=== PATIENT | male | born 1975 | race Caucasian/White ===

== ENCOUNTER 2017-02-23 17:11 | Observation (INO) ==
[2017-02-23 18:01] LABS: Bilirubin,Urine Negative (Negative); Blood,Urine Negative (Negative); Clarity,Urine Clear (Clear); Color,Urine Yellow (Yellow); Glucose,Urine (UA) >=1000 mg/dL (Normal); Ketones,Urine 80 mg/dL (Negative); Leukocyte Esterase,Urine Negative (Negative); Nitrite,Urine Negative (Negative); Protein,Urine Negative (Neg-Trace); Specific Gravity,Urine > 1.030 (1.010-1.025); Urobilinogen,Urine Normal (Normal)
[2017-02-23] MEDS ORDERED: 0.9 % Sodium Chloride 1,000 ML IVC ONE (18:14)
[2017-02-23] MEDS ORDERED: Ondansetron 4 MG/2 ML VIAL IVP ONE (18:15)
--- NOTE | 2017-02-23 18:17 | Emergency Department Note ---
Disposition Clinical Impression: Hyperglycemia Diabetes Qualifiers: 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 type: other specified (including GARRETT) 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 complication status: with unspecified complications 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 terminal worker insulin use: unspecified jail insulin use status Qualified Code(s): E13.8 - Other specified diabetes mellitus with unspecified complications Pneumonia Qualifiers: Pneumonia type: due to unspecified organism Laterality: bilateral Lung location : unspecified part of lung Qualified Code(s): J18.9 - Pneumonia, unspecified organism Disposition: Admitted As Inpatient Condition: Fair Referrals: Unassigned,Provider [Non-Partnered Physician] - Forms: Work/School Release, ED Satisfaction Letter Time of Disposition: 20:57 General Adult HPI - General Chief complaint: ED Abdominal Pain Stated complaint: CP,Congestion Time Seen by Provider: 02/23/17 18:08 Source: patient Mode of arrival: ambulatory Limitations: no limitations Nursing Notes Reviewed: Yes Vital Signs Reviewed: Yes - History of Present Illness HPI Narrative: 42-year-old who comes in complaining of nausea vomiting for the last several days, chest pain that began last p.m. Patient states that he has gallbladder problems she's been seen 3 times for that and states that he is in the process of being referred to get it taken care of. He developed substernal chest pain last night which has been intermittent. Patient is a diabetic says his sugars have been running very high today on arrival here he is 576. He not able to keep anything down. Is also had persistent diarrhea since the gallbladder issues developed. Location: chest, abdomen Radiation: non-radiation Pain Scale: 9 Quality: aching Consistency: constant Improves with: nothing Worsens with: nothing - Related Data Previous Rx's Medication Instructions Recorded Albuterol Sulfate [Albuterol 2 puff IH Q6HR PRN #1 hfa.aer.ad 06/06/16 Inhaler] Fluticasone Propionate Nasal 50 mcg NS BID PRN #1 bottle 06/06/16 [Flonase] Pseudoephedrine [Sudafed] 60 mg PO Q4HR PRN 14 Days 06/06/16 Azithromycin [Azithromycin 6-Tab 250 mg PO DAILY #6 tab 08/23/16 Pack] Promethazine [Phenergan] 25 mg PO Q6-8H PRN #9 tablet 08/23/16 Promethazine/Dextromethorphan 5 ml PO Q4H PRN #120 ml 08/23/16 [Promethazine-Dm Syrup] Ondansetron ODT [Zofran ODT] 4 mg SL Q6HR PRN #30 tab.rapdis 01/11/17 Dicyclomine [Bentyl] 10 mg PO QID PRN #60 capsule 01/25/17 Allergies Allergy/AdvReac Type Severity Reaction Status Date / Time metformin Allergy Rash Verified 02/23/17 17:24 Penicillins Allergy Anaphylaxis Verified 02/23/17 17:24 All systems ED: reviewed and negative except as stated. Constitutional: Denies: fever, chills, weakness, weight change Eyes: Denies: eye pain, eye discharge, vision change ENT ED: Denies: ear pain, throat pain, dental pain, hearing loss, epistaxis, congestion, dysphagia Cardiovascular: Denies: chest pain, palpitations, dyspnea on exertion, edema, syncope Respiratory: Denies: cough, dyspnea, wheezes, hemoptysis, stridor Gastrointestinal: Reports: abdominal pain. Denies: nausea, vomiting, diarrhea, constipation, hematemesis, melena, hematochezia Genitourinary: Denies: urgency, dysuria, frequency, hematuria Musculoskeletal: Denies: back pain, neck pain, arthralgia, myalgia Integumentary: Denies: rash, abrasion, lesions Neurological: Denies: headache, weakness, numbness, paresthesias, confusion, abnormal gait, vertigo Psychiatric: Denies: anxiety, depression, suicidal thoughts, homicidal thoughts , auditory hallucinations, visual hallucinations Endocrine: Denies: fatigue Hematological/Lymphatic: Denies: easy bleeding, easy bruising Allergic/Immunologic: Denies: facial swelling, urticaria Past Medical History - Past Medical History Medical history: Reports: diabetes Psychiatric history: Reports: no psych history - Social History Smoking Status: Current every day smoker Smokeless Tobacco Status: No Alcohol use: Reports: none Drug use: Reports: none Physical Exam - General General appearance: alert, in no apparent distress - Head Head exam: atraumatic, normocephalic, normal inspection - Eye Eye exam: Present: normal appearance, PERRL, EOMI - ENT ENT exam: normal exam, normal oropharynx, mucous membranes moist - Neck Neck exam: Present: normal inspection, full ROM, trachea midline - Chest Chest inspection: Present: normal inspection, symmetric chest wall rise - Respiratory Respiratory exam: Present: normal lung sounds bilaterally - Cardiovascular Cardiovascular exam: Present: regular rate, normal rhythm, normal heart sounds - Abdominal Exam Abdominal exam: Present: soft, tenderness. Absent: guarding, rebound, Huang's sign Abdominal tenderness: Present: RUQ - Extremities Exam Extremities exam: Present: normal inspection, full ROM. Absent: tenderness, pedal edema - Expanded Lower Extremity Exam Neurovascular/Tendon exam: Absent: motor deficit, sensory deficit, tendon deficit Gait: observed and normal - Back Exam Back exam: Present: normal inspection, full ROM. Absent: tenderness - Neurological Exam Neurological exam: Present: alert, oriented X3 - Psychiatric Psychiatric exam: Present: normal affect, normal mood - Skin Skin exam: Present: warm, dry, intact, normal color Course - Reevaluation(s) Reevaluation #1: 42-year-old comes in with chest pain and elevated blood glucose. Cardiac workup is negative however he does have what appears to be pneumonia on the CT scan. His glucose is elevated and was put he was placed on an insulin drip. Time: 20:33 - Consultations Consultation #1: Discussed with , admit. Time: 20:56 Vital Signs Temperature 97.6 F 02/23/17 17:16 Pulse Rate 94 02/23/17 17:16 Respiratory Rate 16 02/23/17 17:16 Blood Pressure 116/71 02/23/17 17:16 O2 Sat by Pulse Oximetry 99 02/23/17 17:16 Temperature 97.6 F 02/23/17 17:16 Pulse Rate 84 02/23/17 20:35 Respiratory Rate 18 02/23/17 20:35 Blood Pressure 120/74 02/23/17 20:35 O2 Sat by Pulse Oximetry 99 02/23/17 20:35 Oxygen Delivery Oxygen Delivery Room Air Medical Decision Making - Lab Data Lab results reviewed: Yes I reviewed the patient's lab results. Result diagrams: 02/23/17 18:10 02/23/17 18:10 Lab Results 02/23/17 02/23/17 02/23/17 Range/Units 17:22 17:43 18:10 WBC 6.5 (4.3-11.1) K/mcL RBC 4.23 (4.19-5.50) M/mcL Hgb 12.9 (12.9-16.9) g/dL Hct 37.6 (37.5-50.1) % MCV 88.9 (83.0-100.0) fL MCH 30.5 (28.0-33.3) pg MCHC 34.3 (31.6-35.5) g/dL RDW 11.7 (11.5-14.5) % Plt Count 202 (140-400) K/mcL MPV 10.7 (9.4-12.4) fL Immature Gran % 0.5 (0-4) % Seg Neutrophils % 70.7 % Lymphocytes % 19.4 % Monocytes % 7.9 % Eosinophils % 0.9 % Basophils % 0.6 % Neutrophils # 4.6 (1.6-8.9) K/mcL Lymphocytes # 1.3 (0.6-4.6) K/mcL Monocytes # 0.5 (0.0-1.3) K/mcL Eosinophils # 0.1 (0.0-0.6) K/mcL Basophils # 0.0 (0.0-0.2) K/mcL Sodium (136-145) mEq/L Potassium (3.5-4.5) mEq/L Chloride (98-109) mEq/L Carbon Dioxide (19-29) mEq/L BUN (8-26) mg/dL Creatinine (0.72-1.25) mg/dL Est GFR ( Amer) (> 60) Est GFR (Non-Af Amer) (> 60) BUN/Creatinine Ratio (6-26) Glucose (70-99) mg/dL POC Glucose 593 H* (58-89) Calculated Osmolality (280-300) Calcium (8.6-10.8) mg/dL Total Bilirubin (0.2-1.2) mg/dL Direct Bilirubin (0.0-0.5) mg/dL Indirect Bilirubin (0.0-1.2) mg/dL AST (5-34) Units/L ALT (0-55) Units/L Alkaline Phosphatase (38-126) Units/L Troponin I (0-0.03) ng/mL Serum Total Protein (6.0-8.3) g/dL Albumin (3.5-5.0) g/dL Globulin (2.4-3.5) g/dL Albumin/Globulin Ratio (1.1-2.2) Amylase (25-125) Units/L Lipase (8-78) Units/L Beta-Hydroxybutyric Acd (0.02-0.27) mmol/L Urine Color Yellow (Yellow) Urine Clarity Clear (Clear) Urine pH 6.0 (5.0-8.0) pH Units Ur Specific D Hanis > 1.030 H (1.010-1.025) Urine Protein Negative (Neg-Trace) mg/dL Urine Glucose (UA) >=1000 H (Normal) mg/dL Urine Ketones 80 H (Negative) mg/dL Urine Blood Negative (Negative) Urine Nitrite Negative (Negative) Urine Bilirubin Negative (Negative) Urine Urobilinogen Normal (Normal) mg/dL Ur Leukocyte Esterase Negative (Negative) Ur Culture Indicated? NO (NO) 02/23/17 02/23/17 02/23/17 Range/Units 18:10 18:10 20:45 WBC (4.3-11.1) K/mcL RBC (4.19-5.50) M/mcL Hgb (12.9-16.9) g/dL Hct (37.5-50.1) % MCV (83.0-100.0) fL MCH (28.0-33.3) pg MCHC (31.6-35.5) g/dL RDW (11.5-14.5) % Plt Count (140-400) K/mcL MPV (9.4-12.4) fL Immature Gran % (0-4) % Seg Neutrophils % % Lymphocytes % % Monocytes % % Eosinophils % % Basophils % % Neutrophils # (1.6-8.9) K/mcL Lymphocytes # (0.6-4.6) K/mcL Monocytes # (0.0-1.3) K/mcL Eosinophils # (0.0-0.6) K/mcL Basophils # (0.0-0.2) K/mcL Sodium 128 L (136-145) mEq/L Potassium 4.5 (3.5-4.5) mEq/L Chloride 91 L (98-109) mEq/L Carbon Dioxide 18 L (19-29) mEq/L BUN 11 (8-26) mg/dL Creatinine 1.64 H (0.72-1.25) mg/dL Est GFR ( Amer) 56 L (> 60) Est GFR (Non-Af Amer) 47 L (> 60) BUN/Creatinine Ratio 7 (6-26) Glucose 702 H* (70-99) mg/dL POC Glucose 432 H* (58-89) Calculated Osmolality 299 (280-300) Calcium 9.0 (8.6-10.8) mg/dL Total Bilirubin 0.6 (0.2-1.2) mg/dL Direct Bilirubin 0.3 (0.0-0.5) mg/dL Indirect Bilirubin 0.3 (0.0-1.2) mg/dL AST 11 (5-34) Units/L ALT 13 (0-55) Units/L Alkaline Phosphatase 103 (38-126) Units/L Troponin I 0.01 (0-0.03) ng/mL Serum Total Protein 6.6 (6.0-8.3) g/dL Albumin 3.2 L (3.5-5.0) g/dL Globulin 3.4 (2.4-3.5) g/dL Albumin/Globulin Ratio 0.9 L (1.1-2.2) Amylase 42 (25-125) Units/L Lipase 27 (8-78) Units/L Beta-Hydroxybutyric Acd > 2.00 H (0.02-0.27) mmol/L Urine Color (Yellow) Urine Clarity (Clear) Urine pH (5.0-8.0) pH Units Ur Specific D Hanis (1.010-1.025) Urine Protein (Neg-Trace) mg/dL Urine Glucose (UA) (Normal) mg/dL Urine Ketones (Negative) mg/dL Urine Blood (Negative) Urine Nitrite (Negative) Urine Bilirubin (Negative) Urine Urobilinogen (Normal) mg/dL Ur Leukocyte Esterase (Negative) Ur Culture Indicated? (NO) 02/23/17 Range/Units 20:51 WBC (4.3-11.1) K/mcL RBC (4.19-5.50) M/mcL Hgb (12.9-16.9) g/dL Hct (37.5-50.1) % MCV (83.0-100.0) fL MCH (28.0-33.3) pg MCHC (31.6-35.5) g/dL RDW (11.5-14.5) % Plt Count (140-400) K/mcL MPV (9.4-12.4) fL Immature Gran % (0-4) % Seg Neutrophils % % Lymphocytes % % Monocytes % % Eosinophils % % Basophils % % Neutrophils # (1.6-8.9) K/mcL Lymphocytes # (0.6-4.6) K/mcL Monocytes # (0.0-1.3) K/mcL Eosinophils # (0.0-0.6) K/mcL Basophils # (0.0-0.2) K/mcL Sodium (136-145) mEq/L Potassium (3.5-4.5) mEq/L Chloride (98-109) mEq/L Carbon Dioxide (19-29) mEq/L BUN (8-26) mg/dL Creatinine (0.72-1.25) mg/dL Est GFR ( Amer) (> 60) Est GFR (Non-Af Amer) (> 60) BUN/Creatinine Ratio (6-26) Glucose (70-99) mg/dL POC Glucose 429 H* (58-89) Calculated Osmolality (280-300) Calcium (8.6-10.8) mg/dL Total Bilirubin (0.2-1.2) mg/dL Direct Bilirubin (0.0-0.5) mg/dL Indirect Bilirubin (0.0-1.2) mg/dL AST (5-34) Units/L ALT (0-55) Units/L Alkaline Phosphatase (38-126) Units/L Troponin I (0-0.03) ng/mL Serum Total Protein (6.0-8.3) g/dL Albumin (3.5-5.0) g/dL Globulin (2.4-3.5) g/dL Albumin/Globulin Ratio (1.1-2.2) Amylase (25-125) Units/L Lipase (8-78) Units/L Beta-Hydroxybutyric Acd (0.02-0.27) mmol/L Urine Color (Yellow) Urine Clarity (Clear) Urine pH (5.0-8.0) pH Units Ur Specific D Hanis (1.010-1.025) Urine Protein (Neg-Trace) mg/dL Urine Glucose (UA) (Normal) mg/dL Urine Ketones (Negative) mg/dL Urine Blood (Negative) Urine Nitrite (Negative) Urine Bilirubin (Negative) Urine Urobilinogen (Normal) mg/dL Ur Leukocyte Esterase (Negative) Ur Culture Indicated? (NO) - Radiology Data Radiology results reviewed: Yes I reviewed the patient's radiology results. Chest X-Ray 02/23/17 17:24 IMPRESSION: Faint right upper lobe nodules new from prior examination. Consider follow-up chest CT imaging. D/ : / 02/23/2017 17:47:39 Keith Altman MD / sherwin Interpreting Provider: Keith Altman MD Chest X-Ray 02/23/17 17:24 IMPRESSION: Faint right upper lobe nodules new from prior examination. Consider follow-up chest CT imaging. D/ / 02/23/2017 17:47:39 Keith Altman MD / sherwin Interpreting Provider: Keith Altman MD Chest CT 02/23/17 18:50 IMPRESSION: Scattered pulmonary opacities in both lungs suspicious for mild pneumonia. No suspicious pulmonary mass identified. D/ / 02/23/2017 20:25:35 Sherman Wilhelm MD / Fang Enriquez Interpreting Provider: Sherman Wilhelm MD - EKG Data EKG #1 EKG attestation: Yes I reviewed and interpreted this EKG. EKG shows normal: sinus rhythm Rate: normal Rhythm: NSR Interpretation: no acute changes
[2017-02-23 18:36] LABS: Basophils % 0.6 %; Eosinophils # 0.1 K/mcL (0.0-0.6); Eosinophils % 0.9 %; Hematocrit 37.6 % (37.5-50.1); Hemoglobin 12.9 g/dL (12.9-16.9); Immature Granulocytes % 0.5 % (0-4); Lymphocytes # 1.3 K/mcL (0.6-4.6); Lymphocytes % 19.4 %; Mean Corpuscular HGB Conc 34.3 g/dL (31.6-35.5); Mean Corpuscular Hemoglobin 30.5 pg (28.0-33.3); Mean Corpuscular Volume 88.9 fL (83.0-100.0); Mean Platelet Volume 10.7 fL (9.4-12.4); Monocytes # 0.5 K/mcL (0.0-1.3); Monocytes % 7.9 %; Neutrophils # 4.6 K/mcL (1.6-8.9); Platelet Count 202 K/mcL (140-400); Red Blood Count 4.23 M/mcL (4.19-5.50); Red Cell Distribution Width 11.7 % (11.5-14.5); Segmented Neutrophils % 70.7 %
[2017-02-23] MEDS ORDERED: *HR* HYDROmorphone (PF) 1 MG/ML SYRINGE IVP ONE ×2 (18:46→20:24)
[2017-02-23 18:52] LABS: Alanine Aminotransferase 13 Units/L (0-55); Albumin 3.2 g/dL (3.5-5.0); Albumin/Globulin Ratio 0.9 (1.1-2.2); Alkaline Phosphatase 103 Units/L (38-126); Amylase 42 Units/L (25-125); Aspartate Amino Transferase 11 Units/L (5-34); BUN/Creatinine Ratio 7 (6-26); Bilirubin,Direct 0.3 mg/dL (0.0-0.5); Bilirubin,Indirect 0.3 mg/dL (0.0-1.2); Bilirubin,Total 0.6 mg/dL (0.2-1.2); Blood Urea Nitrogen 11 mg/dL (8-26); Carbon Dioxide 18 mEq/L (19-29); Chloride 91 mEq/L (98-109); Globulin 3.4 g/dL (2.4-3.5); Lipase 27 Units/L (8-78); Osmolality,Calculated 299 (280-300); Potassium 4.5 mEq/L (3.5-4.5); Sodium 128 mEq/L (136-145); Total Protein 6.6 g/dL (6.0-8.3); eGFR For African Americans 56 (> 60); eGFR For Non-African Americans 47 (> 60)
[2017-02-23 18:57] LABS: Glucose 702 mg/dL (70-99)
[2017-02-23] MEDS ORDERED: *HR* Dextrose 50 % in Water (Syg) 50 ML SYRINGE IVP PRN (19:09)
[2017-02-23] MEDS ORDERED: Insulin Human Regular 100 UNIT in 0.9 % Sodium Chloride 100 ML IVC SCH (19:15)
[2017-02-23 19:20] LABS: Beta-Hydroxybutyric Acid > 2.00 mmol/L (0.02-0.27)
[2017-02-23] MEDS ORDERED: Levofloxacin 750 MG/150 ML 750 MG/150 ML BAG IVPB ONE (20:34)
[2017-02-23] MEDS ORDERED: 0.9 % Sodium Chloride 1,000 ML ONE (21:04)
[2017-02-23] MEDS ORDERED: Naloxone 0.4 MG/ML INJ IVP PRN (21:13)
[2017-02-23] MEDS ORDERED: Acetaminophen 325 MG TABLET PO PRN (21:29)
[2017-02-23] MEDS ORDERED: Ondansetron 4 MG/2 ML VIAL IVP PRN (21:29)
[2017-02-23] MEDS ORDERED: Pantoprazole 40 MG VIAL IVP SCH (21:30)
--- NOTE | 2017-02-23 21:51 | Internal Med History&Physical ---
Date of Encounter: 02/23/17 Time of Encounter: 21:45 Assessment and Plan (1) Hyperglycemia Current visit: Yes Status: Acute sugar noted to be at 700s. mild anion gap, ketones high in blood, mild DKA started on insulin drip and IV fluids will order vbg, chem 7 q4h for now. keep NPO until anion gap has closed. will bridge with levemir once anion gap closes (2) Pneumonia Current visit: Yes Status: Acute CT chest shows b/l mild pneumonia, no focal consolidation. will send sputum for gram stain and culture urine for strep antigen and legionella given multiple failed OP treatments, will start ceftriaxone and levoflox. can dc levoflox once legionella is negative no leucocytosis, no risk factors for MRSA. Qualifiers: Pneumonia type: due to unspecified organism Laterality: bilateral Lung location: unspecified part of lung Qualified Code(s): J18.9 - Pneumonia, unspecified organism (3) Chest pain Current visit: Yes Status: Acute sounds pleuritic in nature. probably from the pnuemonia, will add analgesics. Qualifiers: Chest pain type: chest pain on breathing Qualified Code(s): R07.1 - Chest pain on breathing (4) Diarrhea Current visit: Yes Status: Acute reports chronic diarrhea. will check for c.diff and GI panel. Qualifiers: Diarrhea type: unspecified type Qualified Code(s): R19.7 - Diarrhea, unspecified Internal Medicine - H&P: HPI Chief complaint: chest pain Admitted From: Home Plans for Post Hospital Care: Home History of present illness: Mr. Barron is a 42 year old male with PMH of type 1 DM on insulin now coming with chest pain for the last 2-3 days. He is accompanied by his and as per her he has been sick since sep this yr. he has been having cough since sep, has been treated multiple times for bronchitis/URTI outpatient with oral antibiotics. he also has intermittent diarrhea since the same duration. he has nasuea and vomtiing with generalized abdominal pain, had a CT abdomen last week that showed no gallstones or signs of acute cholecystitis. he reports more of chest pain today than abdominal pain, he denies any fever, has cough with productive sputum. Patient is a diabetic says his sugars have been running very high today on arrival here he is 576. He not able to keep anything down. he is a chronic smoker , non alcoholic. Past Med Surg Social Fam HX - Past Medical History Medical history: diabetes Psychiatric history: no psych history - Social History Smoking Status: Current every day smoker Smokeless Tobacco Status: No Alcohol use: none Drug use: none Internal Medicine - H&P: Meds Albuterol Sulfate [Albuterol Inhaler] 2 puff IH Q4H PRN 02/23/17 [History] Escitalopram [Lexapro] 20 mg PO DAILY 02/23/17 [History] Gabapentin [Neurontin] 600 mg PO TID 02/23/17 [History] Glucagon,Human Recombinant [Glucagon Emergency Kit] 1 mg IJ ONCE PRN 02/23/17 [ History] Insulin Glargine,Hum.rec.anlog [Lantus Solostar] 20 unit SQ QAM 02/23/17 [ History] Insulin LISPRO [Humalog Kwikpen U-100] 0 unit SQ TIDWM 02/23/17 [History] Ranitidine HCl [Zantac] 150 mg PO HS 02/23/17 [History] Allergies metformin Allergy (Verified 02/23/17 17:24) Rash Penicillins Allergy (Verified 02/23/17 17:24) Anaphylaxis All Systems PM: A 10-system review of systems was performed and is negative for pertinent findings except as documented above in the HPI. - Constitutional Constitutional: as per HPI - EENT Eyes: as per HPI Ears: as per HPI Nose, mouth and throat: as per HPI - Breasts Breasts: as per HPI - Cardiovascular Cardiovascular ROS IM: chest pain - Respiratory Respiratory: cough, pain with cough - Gastrointestinal Gastrointestinal: diarrhea - Genitourinary Genitourinary ROS male: as per HPI - Musculoskeletal Musculoskeletal ROS IM: no numbness, no tingling - Constitutional Vitals: Temp Pulse Resp BP Pulse Ox 97.6 F 84 18 120/74 99 02/23/17 17:16 02/23/17 20:35 02/23/17 20:35 02/23/17 20:35 02/23/17 20:35 General appearance: Present: mild distress, A&O X 3 Exam: neck- supple chest- b/l clear,no wheezing or creptns CVS-s1 and s2, no mr//g abd-soft, non tender, bs are present ext- no edeam loaf counter- alert and awake, no focal defecits Internal Med - H&P Results - Labs CBC & Chem 7: 02/23/17 18:10 02/23/17 18:10
[2017-02-23] MEDS: 0.9 % Sodium Chloride 1,000 ML IVC SCH (22:44)
[2017-02-23] MEDS: *HR* Morphine 2 MG/ML SYRINGE IVP PRN (22:44)
[2017-02-23 22:48] LABS: VBG PH 7.39 pH Units (7.32-7.42)
[2017-02-23 23:00] LABS: BUN/Creatinine Ratio 9 (6-26); Blood Urea Nitrogen 10 mg/dL (8-26); Calcium 8.9 mg/dL (8.6-10.8); Carbon Dioxide 25 mEq/L (19-29); Chloride 101 mEq/L (98-109); Glucose 314 mg/dL (70-99); Osmolality,Calculated 289 (280-300); Potassium 3.7 mEq/L (3.5-4.5); Sodium 134 mEq/L (136-145); eGFR For African Americans > 60 (> 60); eGFR For Non-African Americans > 60 (> 60)
[2017-02-24 00:23] LABS: Adenovirus Not Detected (Not Detect); Bordetella Pertussis Not Detected (Not Detect); Chlamydophila pneumoniae Not Detected (Not Detect); Coronavirus 229E Not Detected (Not Detect); Coronavirus HKU1 Not Detected (Not Detect); Coronavirus NL63 Not Detected (Not Detect); Coronavirus OC43 Not Detected (Not Detect); Human Metapneumovirus Not Detected (Not Detect); Human Rhinovirus/Enterovirus Not Detected (Not Detect); Influenza A Subtype 2009 H1 Not Detected (Not Detect); Influenza A Untypeable Not Detected (Not Detect); Influenza B Not Detected (Not Detect); Mycoplasma pneumoniae Not Detected (Not Detect); Parainfluenza Virus 1 Not Detected (Not Detect); Parainfluenza Virus 2 Not Detected (Not Detect); Parainfluenza Virus 3 Not Detected (Not Detect); Parainfluenza Virus 4 Not Detected (Not Detect); Respiratory Syncytial Virus Not Detected (Not Detect)
[2017-02-24] MEDS: *HR* HYDROcodone/Acet 5/325 mg TABLET PO PRN ×4 (00:53→21:13)
[2017-02-24] MEDS: Nicotine 14 MG PATCH.TD24 TD SCH ×2 (00:55→08:06)
[2017-02-24] MEDS ORDERED: D5% in Water 1,000 ML IVC PRN (01:58)
[2017-02-24] MEDS ORDERED: Dextrose Gel 15 GM PO PRN ×2 (01:58)
[2017-02-24] MEDS: *HR* Morphine 2 MG/ML SYRINGE IVP PRN ×2 (02:42→06:40)
[2017-02-24] MEDS: Insulin DETEMIR 100 UNIT/ML X5UNITS SQ SCH ×2 (03:17→22:57)
[2017-02-24 05:09] LABS: Basophils % 0.4 %; Eosinophils # 0.1 K/mcL (0.0-0.6); Eosinophils % 1.9 %; Hematocrit 31.6 % (37.5-50.1); Hemoglobin 11.2 g/dL (12.9-16.9); Immature Granulocytes % 0.6 % (0-4); Lymphocytes # 1.8 K/mcL (0.6-4.6); Lymphocytes % 24.7 %; Mean Corpuscular HGB Conc 35.4 g/dL (31.6-35.5); Mean Corpuscular Hemoglobin 31.5 pg (28.0-33.3); Mean Platelet Volume 11.1 fL (9.4-12.4); Monocytes # 0.6 K/mcL (0.0-1.3); Monocytes % 7.8 %; Neutrophils # 4.7 K/mcL (1.6-8.9); Platelet Count 195 K/mcL (140-400); Red Blood Count 3.55 M/mcL (4.19-5.50); Red Cell Distribution Width 11.6 % (11.5-14.5); Segmented Neutrophils % 64.6 %
[2017-02-24 05:28] LABS: BUN/Creatinine Ratio 14 (6-26); Blood Urea Nitrogen 11 mg/dL (8-26); Calcium 8.2 mg/dL (8.6-10.8); Carbon Dioxide 24 mEq/L (19-29); Chloride 104 mEq/L (98-109); Chol/HDL Ratio 4.4 (0-4.9); Cholesterol 137 mg/dL (< 200); Glucose 138 mg/dL (70-99); HDL Cholesterol 31 mg/dL (40-59); LDL Cholesterol,Calculated 88 mg/dL (0-99); Magnesium 1.4 mg/dL (1.6-2.6); Osmolality,Calculated 282 (280-300); Phosphorous 3.1 mg/dL (2.3-4.7); Potassium 3.5 mEq/L (3.5-4.5); Sodium 135 mEq/L (136-145); Triglycerides 92 mg/dL (< 150); eGFR For African Americans > 60 (> 60); eGFR For Non-African Americans > 60 (> 60)
[2017-02-24] MEDS: *HR* Heparin 5,000 UNIT/ML VIAL SQ SCH ×2 (05:52→17:09)
[2017-02-24] MEDS: Famotidine 20 MG TABLET PO SCH ×2 (08:06→17:09)
[2017-02-24] MEDS: Insulin LISPRO 300 UNITS/3 ML VIAL SQ SCH ×7 (08:07→22:51)
[2017-02-24] MEDS: 0.9 % Sodium Chloride 1,000 ML IVC SCH (08:26)
[2017-02-24] MEDS ORDERED: Magnesium Sulfate 2 GM in D5% in Water 100 ML IVPB ONE (08:42)
[2017-02-24] MEDS ORDERED: *HR* OxyCODONE/APAP 5/325 TABLET PO PRN (08:43)
[2017-02-24] MEDS ORDERED: 0.9 % Sodium Chloride 1,000 ML IVC SCH (08:47)
[2017-02-24] MEDS: *HR* OxyCODONE/APAP 5/325 TABLET PO PRN ×3 (10:38→22:52)
--- NOTE | 2017-02-24 15:05 | Internal Med Progress Note ---
<Jaycob Galindo - Last Filed: 02/24/17 15:02> Date of Encounter: 02/24/17 Time of Encounter: 15:02 - Assessment and plan (1) Pneumonia Current Visit: Yes Status: Acute Assessment and plan: - History reports a productive cough since September - Has completed outpatient prescriptions of azithromycin, clarithromycin, Levaquin - Patient was started on Rocephin in the emergency department, we will continue. - Patient has an allergy to penicillins, however is currently tolerating Rocephin. Monitor closely for allergic reaction - CT chest showed scattered opacity suspicious of pneumonia - Patient is afebrile, WBC is 6.5 - Urine urology was positive for strep pneumo antigen Qualifiers: Pneumonia type: due to unspecified organism Laterality: bilateral Lung location: unspecified part of lung Qualified Code(s): J18.9 - Pneumonia, unspecified organism (2) Hyperglycemia Current Visit: Yes Status: Acute Assessment and plan: On admission to emergency department patient's blood sugar was 702 - Beta hydroxybutyrate acid emergency department was greater than 2.00 - Hyperglycemia has resolved with insulin and fluids, most recent blood sugar was 138 - Patient is currently asymptomatic - Patient's most recent hemoglobin A1c was 9.3 in October - We will continue to monitor (3) Chest pain Current Visit: Yes Status: Acute Assessment and plan: - EKG in emergency room showed normal sinus rhythm - Likely costochondritis secondary to coughing - Pain was reproducible on upon exam - Troponin in the emergency department was 0.01 - We will continue pain control and continue to monitor Qualifiers: Chest pain type: chest pain on breathing Qualified Code(s): R07.1 - Chest pain on breathing (4) Hypomagnesemia Current Visit: Yes Status: Acute Assessment and plan: - Mg in emergency department was 1.4 - Patient received 2 mg IV replacement this morning - Continue to monitor and replenish as necessary (5) Diarrhea Current Visit: Yes Status: Acute Assessment and plan: - Patient reports loose stools duration of multiple weeks - Patient was placed on c. diff protocol and orders were collected for stool sample - Patient not currently complaining of diarrhea - Continue to monitor and treat as necessary Qualifiers: Diarrhea type: unspecified type Qualified Code(s): R19.7 - Diarrhea, unspecified - Time Spent With Patient 25 - 35 minutes - Subjective Interval history: Patient was seen and examined at this point. He states that he is feeling better, with his nausea and vomiting complaints resolved. He does still complain of chest and back pain which are exacerbated with coughing. He admits to thick green sputum with his cough. He denies fevers and chills. He states that he does his blood sugars about 3 times a day, however he has been having a hard time controlling the blood sugars since his illness. Patient also states that he has been seen multiple times for this cough and urgent care, so far completed courses of azithromycin, clarithromycin, Levaquin - Constitutional Vitals: Temp Pulse Resp BP Pulse Ox 97.9 F 74 18 120/75 99 02/24/17 12:00 02/24/17 12:00 02/24/17 12:00 02/24/17 12:02/24/17 12:00 General appearance: Present: mild distress, A&O X 3 Exam: Gen.: Vitals noted. No acute distress. AAOx3 HEENT: PERRL/EOMI, oropharynx clear, Normocephalic, atraumatic Neck: Supple. No adenopathy. Cardiac: RRR, no murmur, +S1/S2 Pulmonary: Mild rhales diffusely Abdomen: soft, nontender, BS noted, no guarding Back: Nontender throughout. MSK: Reproducible chest pain substernally. ROM intact, no joint swelling noted Extremities: no BLE edema, nontender calf, no cyanosis or clubbing Neuro: A&Ox3, moves all extremities, no focal deficits Psych: Appropriate mood and behavior Internal Medicine: Result - Labs CBC & Chem 7: 02/24/17 03:59 02/24/17 03:59 Labs: Short CBC 02/24/17 Range/Units 03:59 WBC 7.2 (4.3-11.1) K/mcL Hgb 11.2 L D (12.9-16.9) g/dL Hct 31.6 L (37.5-50.1) % Plt Count 195 (140-400) K/mcL Neutrophils # 4.7 (1.6-8.9) K/mcL BMP 02/23/17 02/24/17 22:40 03:59 Sodium 134 L 135 L Potassium 3.7 3.5 Chloride 101 104 Carbon Dioxide 25 24 BUN 10 11 Creatinine 1.15 0.81 Glucose 314 H 138 H Calcium 8.9 8.2 L Consult Discharge Plan - Plan Referrals: NO,PCP [Primary Care Provider] - <Samuel Rosales - Last Filed: 02/24/17 15:41> Date of Encounter: 02/24/17 - Assessment and plan (1) Pneumonia Current Visit: Yes Status: Acute Assessment and plan: On IV abx Qualifiers: Pneumonia type: due to Pneumococcus Laterality: bilateral Lung location: lower lobe of lung Qualified Code(s): J13 - Pneumonia due to Streptococcus pneumoniae (2) Diabetes Current Visit: Yes Status: Acute Qualifiers: 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 type: other specified (including GARRETT) 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 complication status: with ketoacidosis 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 complication detail: without coma 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 termite treater helper insulin use: with group home use Qualified Code(s): E13.10 - Other specified diabetes mellitus with ketoacidosis without coma; Z79.4 - terminal carman (current) use of insulin (3) Diarrhea Current Visit: Yes Status: Acute Qualifiers: Diarrhea type: presumed infectious Qualified Code(s): A09 - Infectious gastroenteritis and colitis, unspecified (4) Hypomagnesemia Current Visit: Yes Status: Acute (5) Chest pain Current Visit: Yes Status: Acute Qualifiers: Chest pain type: chest pain on breathing Qualified Code(s): R07.1 - Chest pain on breathing - Constitutional Vitals: Temp Pulse Resp BP Pulse Ox 97.9 F 74 18 120/75 99 02/24/17 12:00 02/24/17 12:00 02/24/17 12:00 02/24/17 12:00 02/24/17 12:00 Internal Medicine: Result - Labs CBC & Chem 7: 02/24/17 03:59 02/24/17 03:59 Labs: Short CBC 02/24/17 Range/Units 03:59 WBC 7.2 (4.3-11.1) K/mcL Hgb 11.2 L D (12.9-16.9) g/dL Hct 31.6 L (37.5-50.1) % Plt Count 195 (140-400) K/mcL Neutrophils # 4.7 (1.6-8.9) K/mcL BMP 02/23/17 02/24/17 22:40 03:59 Sodium 134 L 135 L Potassium 3.7 3.5 Chloride 101 104 Carbon Dioxide 25 24 BUN 10 11 Creatinine 1.15 0.81 Glucose 314 H 138 H Calcium 8.9 8.2 L - Attending Attestation I examined this patient and my medical decision-making was reviewed with the Resident Physician on 02/24/17. I agree with the documented findings, disposition and treatment plan as described except to the extent set forth below. Mr. Barron is currently in observation due to pneumonia and mild DKA. He is high risk due to potential for worsening sugars, respiratory status and infectious issues. Mr Barron is doing OK at this time. He is very tired. Cough still present. No fever or chills now. Some dyspnea. Still with some loose stools. Exam Alert. Comfortable Heart reg Decreased breath sound Urine strep pneumo positive I/P 1. Acute bilateral pneumococcal pneumonia - tolerating Rocephin despite PCN allergy. 2. DKA - resolved 3. DM Further diagnoses and plan as above.
--- NOTE | 2017-02-24 17:37 | Electrocardiograph Report ---
[address] [address] Test Date: 2017-02-23 Pat Name: Kevon Barron Department: 105 Room: 2A16 Gender: M Trust Manager Assistant: SANIA : [id number] Requested By: Alon Rodriguez Order Number: [id number] Reading MD: Judy Marrero Measurements Intervals [place] Rate: 94 P: 79 [place]: 130 QRS: 78 QRSD: 87 T: 66 QT: 352 QTc: 404 Interpretive Statements SINUS RHYTHM Electronically Signed On 02-24-2017 17:35:53 EDT by Judy Marrero
[2017-02-25] MEDS: *HR* OxyCODONE/APAP 5/325 TABLET PO PRN ×3 (04:28→19:59)
[2017-02-25] MEDS: *HR* Heparin 5,000 UNIT/ML VIAL SQ SCH ×2 (04:28→19:09)
[2017-02-25 06:32] LABS: Hematocrit 33.9 % (37.5-50.1); Hemoglobin 12.1 g/dL (12.9-16.9); Mean Corpuscular HGB Conc 35.7 g/dL (31.6-35.5); Mean Corpuscular Hemoglobin 31.3 pg (28.0-33.3); Mean Corpuscular Volume 87.6 fL (83.0-100.0); Mean Platelet Volume 10.7 fL (9.4-12.4); Platelet Count 190 K/mcL (140-400); Red Blood Count 3.87 M/mcL (4.19-5.50); Red Cell Distribution Width 11.7 % (11.5-14.5)
[2017-02-25 06:40] LABS: BUN/Creatinine Ratio 13 (6-26); Blood Urea Nitrogen 9 mg/dL (8-26); Calcium 8.3 mg/dL (8.6-10.8); Carbon Dioxide 28 mEq/L (19-29); Chloride 100 mEq/L (98-109); Glucose 250 mg/dL (70-99); Magnesium 1.4 mg/dL (1.6-2.6); Osmolality,Calculated 285 (280-300); Potassium 3.4 mEq/L (3.5-4.5); Sodium 134 mEq/L (136-145); eGFR For African Americans > 60 (> 60); eGFR For Non-African Americans > 60 (> 60)
[2017-02-25] MEDS: Famotidine 20 MG TABLET PO SCH ×2 (08:16→16:08)
[2017-02-25] MEDS ORDERED: Magnesium Sulfate 2 GM in D5% in Water 100 ML IVPB ONE (08:30)
[2017-02-25] MEDS: Insulin LISPRO 300 UNITS/3 ML VIAL SQ SCH ×7 (09:05→22:21)
[2017-02-25] MEDS: Nicotine 14 MG PATCH.TD24 TD SCH (09:11)
--- NOTE | 2017-02-25 10:56 | Internal Med Progress Note ---
<Osiel Ji - Last Filed: 02/25/17 14:42> Date of Encounter: 02/25/17 Time of Encounter: 09:30 - Assessment and plan (1) Pneumonia Current Visit: Yes Status: Acute Assessment and plan: - Cough and associated pleuritic chest pain with CT chest showing scattered opacity suspicious of pneumonia. - History of persistent cough since September despite of courses of outpatient abx including azithromycin, clarithromycin, Levaquin. - Streptoccous pneumoniae is likely the causative organism given positive urine antigen. Negative urine antigen for Legionella. - Known allergy to penicillins. - Patient was started on Rocephin in the emergency department and seems to tolerate without any allergic reaction so far. - Continue IV Rocephin (since 02/23) with close monitoring of allergic reaction. Qualifiers: Pneumonia type: due to Pneumococcus Laterality: bilateral Lung location: unspecified part of lung Qualified Code(s): J13 - Pneumonia due to Streptococcus pneumoniae (2) DKA (diabetic ketoacidoses) Current Visit: Yes Status: Acute Assessment and plan: - Blood glucose 702, anion gap 19 and beta hydroxybutyrate acid > 2.00 on admission. - Likely precipitated by pneumonia in the setting of uncontrolled type 1 diabetes (Hgb A1C 9.3% in October 2016). - Resolved as anion gap and blood glucose normalized. Qualifiers: 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 type: type 1 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 complication detail: without coma Qualified Code(s): E10.10 - Type 1 diabetes mellitus with ketoacidosis without coma (3) Uncontrolled diabetes mellitus Current Visit: Yes Status: Chronic Assessment and plan: - With latest Hgb A1C 9.3% in October 2016. - Continue basal and sliding scale insulins with routine monitoring of blood glucose. Qualifiers: 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 type: type 1 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 complication status: with unspecified complications Qualified Code(s): E10.8 - Type 1 diabetes mellitus with unspecified complications; E10.65 - Type 1 diabetes mellitus with hyperglycemia (4) Hypomagnesemia Current Visit: Yes Status: Acute Assessment and plan: - Mg 1.4 on 02/24/17 - Mg today at 1.4 - Continue to monitor and replenish as necessary (5) Diarrhea Current Visit: Yes Status: Acute Assessment and plan: - Patient reports loose stools duration of multiple weeks - Patient was placed on C. diff protocol and orders were collected for stool sample - Patient not currently complaining of diarrhea - Continue to monitor and treat as necessary Qualifiers: Diarrhea type: presumed infectious Qualified Code(s): A09 - Infectious gastroenteritis and colitis, unspecified - Subjective Interval history: No significant event noted. Patient was seen and examined this morning. Patient still has some non-productive cough but does report some improvement on breathing. Patient denies fever, chills, chest pain, abdominal pain, nausea, vomiting, diarrhea. - Constitutional Vitals: Temp Pulse Resp BP Pulse Ox 98.0 F 80 16 123/75 98 02/25/17 08:46 02/25/17 08:46 02/25/17 04:23 02/25/17 08:46 02/25/17 08:46 General appearance: Present: mild distress, A&O X 3 - Head Head exam: Present: atraumatic, normocephalic - Eye Eye exam: Present: EOMI, PERRL, conjuntiva pink, sclera anicteric - Neck Neck exam general surgery: Present: supple, trachea midline. Absent: lymphadenopathy - Respiratory Respiratory exam: Present: CTAB. Absent: accessory muscle use, rales, rhonchi, wheezes - Cardiovascular Cardiovascular exam: Present: RRR, +S1, +S2. Absent: diastolic murmur, gallop, rubs, systolic murmur - GI/Abdominal GI/Abdominal exam: Present: normal bowel sounds, soft, no peritoneal signs. Absent: distended, tenderness - Extremities Exam Extremities exam: Present: warm, radial pulses palpable and symetrical. Absent : calf tenderness, cyanotic, pedal edema - Neurological Exam Neurological exam: Present: CN II-XII intact, oriented X3, no focal deficits. Absent: pronater drift, facial droop, speech deficit - Skin Skin exam: Present: dry, intact, warm Internal Medicine: Result - Labs CBC & Chem 7: 02/25/17 05:41 02/25/17 05:41 Labs: Short CBC 02/25/17 Range/Units 05:41 WBC 4.8 (4.3-11.1) K/mcL Hgb 12.1 L (12.9-16.9) g/dL Hct 33.9 L (37.5-50.1) % Plt Count 190 (140-400) K/mcL BMP 02/25/17 05:41 Sodium 134 L Potassium 3.4 L Chloride 100 Carbon Dioxide 28 BUN 9 Creatinine 0.69 L Glucose 250 H Calcium 8.3 L Consult Discharge Plan - Plan Referrals: NO,PCP [Primary Care Provider] - <Samuel Rosales - Last Filed: 02/25/17 15:56> Date of Encounter: 02/25/17 - Assessment and plan (1) Pneumonia Current Visit: Yes Status: Acute Qualifiers: Pneumonia type: due to Pneumococcus Laterality: bilateral Lung location: lower lobe of lung Qualified Code(s): J13 - Pneumonia due to Streptococcus pneumoniae (2) Diabetes Current Visit: Yes Status: Acute Qualifiers: 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 type: other specified (including GARRETT) 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 complication status: with ketoacidosis 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 complication detail: without coma 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 Qualified Code(s): E13.10 - Other specified diabetes mellitus with ketoacidosis without coma; 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 (3) Diarrhea Current Visit: Yes Status: Resolved Qualifiers: Diarrhea type: presumed infectious Qualified Code(s): A09 - Infectious gastroenteritis and colitis, unspecified (4) Hypomagnesemia Current Visit: Yes Status: Acute (5) Chest pain Current Visit: Yes Status: Acute Qualifiers: Chest pain type: chest pain on breathing Qualified Code(s): R07.1 - Chest pain on breathing - Constitutional Vitals: Temp Pulse Resp BP Pulse Ox 98.4 F 77 17 110/72 98 02/25/17 12:26 02/25/17 12:26 02/25/17 12:26 02/25/17 12:26 02/25/17 12:26 Internal Medicine: Result - Labs CBC & Chem 7: 02/25/17 05:41 02/25/17 05:41 Labs: Short CBC 02/25/17 Range/Units 05:41 WBC 4.8 (4.3-11.1) K/mcL Hgb 12.1 L (12.9-16.9) g/dL Hct 33.9 L (37.5-50.1) % Plt Count 190 (140-400) K/mcL BMP 02/25/17 05:41 Sodium 134 L Potassium 3.4 L Chloride 100 Carbon Dioxide 28 BUN 9 Creatinine 0.69 L Glucose 250 H Calcium 8.3 L - Attending Attestation I examined this patient and my medical decision-making was reviewed with the Resident Physician on 02/25/17. I agree with the documented findings, disposition and treatment plan as described except to the extent set forth below. Mr Barron is currently admitted for acute bilateral pneumonia and mild DKA. He remains moderate to high risk due to potential for worsening respiratory status. Mr. Barron is beginning to feel a little better. Less cough. No fever. No GI symptoms. Less dyspnea at this time. Exam Alert. Comfortable Mucus membranes moist Heart reg Lungs diminished but clear. No edema Urine strep antigen positive I/P 1. Acute pneumoncoccal pneumonia 2. Mild DKA - resolved. Further diagnoses and plan as above.
[2017-02-25] MEDS: *HR* HYDROcodone/Acet 5/325 mg TABLET PO PRN ×2 (16:11→22:44)
[2017-02-25] MEDS: Insulin DETEMIR 100 UNIT/ML X5UNITS SQ SCH (22:21)
[2017-02-26 04:27] LABS: Hemoglobin 12.2 g/dL (12.9-16.9); Mean Corpuscular HGB Conc 34.9 g/dL (31.6-35.5); Mean Corpuscular Hemoglobin 30.9 pg (28.0-33.3); Mean Corpuscular Volume 88.6 fL (83.0-100.0); Mean Platelet Volume 10.9 fL (9.4-12.4); Platelet Count 203 K/mcL (140-400); Red Blood Count 3.95 M/mcL (4.19-5.50); Red Cell Distribution Width 11.7 % (11.5-14.5)
[2017-02-26 04:42] LABS: BUN/Creatinine Ratio 18 (6-26); Blood Urea Nitrogen 13 mg/dL (8-26); Calcium 8.3 mg/dL (8.6-10.8); Carbon Dioxide 31 mEq/L (19-29); Chloride 103 mEq/L (98-109); Glucose 174 mg/dL (70-99); Magnesium 1.7 mg/dL (1.6-2.6); Osmolality,Calculated 290 (280-300); Potassium 3.1 mEq/L (3.5-4.5); Sodium 138 mEq/L (136-145); eGFR For African Americans > 60 (> 60); eGFR For Non-African Americans > 60 (> 60)
[2017-02-26] MEDS: *HR* OxyCODONE/APAP 5/325 TABLET PO PRN (06:09)
[2017-02-26] MEDS: *HR* Heparin 5,000 UNIT/ML VIAL SQ SCH (06:09)
[2017-02-26 08:13] VITALS: BP 131/79
[2017-02-26] MEDS: Famotidine 20 MG TABLET PO SCH (08:29)
[2017-02-26] MEDS: Insulin LISPRO 300 UNITS/3 ML VIAL SQ SCH ×4 (08:34→12:27)
--- NOTE | 2017-02-26 10:13 | Discharge Summary ---
<Osiel Ji - Last Filed: 02/26/17 14:30> Date of Encounter: 02/26/17 Time of Encounter: 09:15 - Discharge Diagnosis (1) Pneumonia Priority: Primary Status: Acute Qualifiers: Pneumonia type: due to Pneumococcus Laterality: bilateral Lung location: unspecified part of lung Qualified Code(s): J13 - Pneumonia due to Streptococcus pneumoniae (2) DKA (diabetic ketoacidoses) Priority: Secondary Status: Acute Qualifiers: 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 type: type 1 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 complication detail: without coma Qualified Code(s): E10.10 - Type 1 diabetes mellitus with ketoacidosis without coma (3) Uncontrolled diabetes mellitus Priority: Secondary Status: Chronic Qualifiers: 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 type: type 1 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 complication status: with unspecified complications Qualified Code(s): E10.8 - Type 1 diabetes mellitus with unspecified complications; E10.65 - Type 1 diabetes mellitus with hyperglycemia (4) Hypomagnesemia Priority: Secondary Status: Acute (5) Diarrhea Priority: Secondary Status: Resolved Qualifiers: Diarrhea type: presumed infectious Qualified Code(s): A09 - Infectious gastroenteritis and colitis, unspecified - Discharge Medications Prescriptions: Cefdinir [Omnicef] 300 mg PO BID #8 capsule Home Medications: Albuterol Sulfate [Albuterol Inhaler] 2 puff IH Q4H PRN 02/23/17 [History] Escitalopram [Lexapro] 20 mg PO DAILY 02/23/17 [History] Gabapentin [Neurontin] 600 mg PO TID 02/23/17 [History] Glucagon,Human Recombinant [Glucagon Emergency Kit] 1 mg IJ ONCE PRN 02/23/17 [ History] Insulin Glargine,Hum.rec.anlog [Lantus Solostar] 20 unit SQ QAM 02/23/17 [ History] Insulin LISPRO [Humalog Kwikpen U-100] 0 unit SQ TIDWM 02/23/17 [History] Ranitidine HCl [Zantac] 150 mg PO HS 02/23/17 [History] Cefdinir [Omnicef] 300 mg PO BID #8 capsule 02/26/17 [Rx] Allergies/Adverse Reactions: Allergies metformin Allergy (Verified 02/23/17 17:24) Rash Penicillins Allergy (Verified 02/23/17 17:24) Anaphylaxis Date of admission: 02/23/17 21:28 Primary care physician: PCP [facility] Discharging clinician: Osiel Ji Anticipated date of discharge: 02/26/17 - Patient Status Disposition: Home, Self-Care Condition: Fair Functional capacity at discharge: independent ambulation Overall status at discharge: patient is progressing back to baseline - Discharge Instructions Instructions: Diabetes Mellitus Type 2 in Adults (DC), Pneumonia (DC) Follow Up With: NO,PCP [Primary Care Provider] - (Follow up within a week.) Additional Instructions: Please take 4 more days of Cefdinir (300 mg twice a day) to finish total 7-day course of antibiotic therapy for your pneumonia. Please follow up with your primary care provider within a week regarding your hospitalization and diabetes management. - Diet and Activity Activity: increase activity as tolerated Diet: diabetic diet Hospital course: Mr. Barron is a 42 year old male with PMH of type I DM on insulin and persistent cough since Sep despite of being treated multiple times outpatiently with oral antibiotics including azithromycin, clarithromycin and levofloxacin. Patient presented with 3-day history of chest pain and chest CT found scattered pulmonary opacities in both lungs suspicious for pneumonia. Patient was also noted to have blood glucose 702, anion gap 19 and beta hydroxybutyrate acid > 2.00 in ED. Patient was admitted on 02/23/17 for pneumonia & DKA and started on IV ceftriaxone and insulin drip. Patient's DKA resolved as anion gap and blood glucose normalized. Patient has urine antigen negative for Legionella but positive for Strep. pneumoniae. Patient's cough and pleuritic chest pain improves since admission. Patient also reported loose stools for multiple weeks prior to admission but has none throughout this hospitalization. Given patient improves clinically, remains hemodynamically stable and desires to go home, patient will be discharged home today with 4 more days of Cefdinir (300 mg twice a day) to finish total 7-day course of antibiotic therapy for pneumonia. Patient is also instructed to follow up with his primary care provider within a week regarding his hospitalization and diabetes management. Patient verbalized his understanding and agreed with the discharge plan. All questions answered. - Time Spent with Patient Total time spent providing and/or coordinating discharge services: Greater than 30 minutes - Constitutional Vitals: Temp Pulse Resp BP Pulse Ox 97.8 F 70 16 131/79 98 02/26/17 08:12 02/26/17 08:12 02/26/17 08:12 02/26/17 08:12 02/26/17 08:12 General appearance: Present: mild distress, A&O X 3 - Head Head exam: Present: atraumatic, normocephalic - Eye Eye exam: Present: EOMI, PERRL, conjuntiva pink, sclera anicteric - Neck Neck exam general surgery: Present: supple, trachea midline. Absent: lymphadenopathy - Respiratory Respiratory exam: Present: CTAB. Absent: accessory muscle use, rales, rhonchi, wheezes - Cardiovascular Cardiovascular exam: Present: RRR, +S1, +S2. Absent: diastolic murmur, gallop, rubs, systolic murmur - GI/Abdominal GI/Abdominal exam: Present: normal bowel sounds, soft, no peritoneal signs. Absent: distended, tenderness - Extremities Exam Extremities exam: Present: warm, radial pulses palpable and symetrical. Absent : calf tenderness, cyanotic, pedal edema - Neurological Exam Neurological exam: Present: CN II-XII intact, oriented X3, no focal deficits. Absent: pronater drift, facial droop, speech deficit - Skin Skin exam: Present: dry, intact, warm <Samuel Rosales - Last Filed: 02/26/17 17:20> Date of Encounter: 02/26/17 - Discharge Diagnosis (1) Pneumonia Priority: Primary Status: Acute Qualifiers: Pneumonia type: due to Pneumococcus Laterality: bilateral Lung location: lower lobe of lung Qualified Code(s): J13 - Pneumonia due to Streptococcus pneumoniae (2) Diabetes Priority: Primary Status: Acute Qualifiers: 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 type: other specified (including GARRETT) 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 complication status: with ketoacidosis 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 complication detail: without coma 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 rn long term 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 insulin use: with rn long term care use Qualified Code(s): E13.10 - Other specified diabetes mellitus with ketoacidosis without coma; 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 Barron is a 42 year old male - Time Spent with Patient Total time spent providing and/or coordinating discharge services: 39min - Constitutional Vitals: Temp Pulse Resp BP Pulse Ox 97.8 F 70 16 131/79 98 02/26/17 08:12 02/26/17 08:12 02/26/17 08:12 02/26/17 08:12 02/26/17 08:12 - Attending Attestation I examined this patient and my medical decision-making was reviewed with the Resident Physician on 02/26/17. I agree with the documented findings, disposition and treatment plan as described except to the extent set forth below. Mr. Barron is doing better today. He has less cough but still has some discomfort from coughing. No fever or chills. Vitals stable. Exam Alert. Comfortable Heart reg No wheeze No edema I/P Pneumonia - pneumococcus. Plan d/c home today on Omnicef. Follow with PCP.
[2017-02-26] MEDS ORDERED: Ketorolac 30 MG/ML VIAL IM ONE (10:41)
[2017-02-26] MEDS: Nicotine 14 MG PATCH.TD24 TD SCH (10:55)
[2017-02-26] MEDS ORDERED: Ketorolac 30 MG/ML VIAL IVP ONE (11:08)
== END 2017-02-26 12:42 | disposition home or self-care (01) ==
LOC: 2ANU 17:11 → EMEROO 17:11 → 2ANU 22:11
PROVIDERS: ADMIT Internal Medicine; ATTEND Internal Medicine

== ENCOUNTER 2017-05-24 20:35 | Inpatient (IN) ==
[2017-05-24 21:10] LABS: Bilirubin,Urine Negative (Negative); Blood,Urine Negative (Negative); Clarity,Urine Clear (Clear); Color,Urine Yellow (Yellow); Glucose,Urine (UA) >=1000 mg/dL (Normal); Ketones,Urine 15 mg/dL (Negative); Leukocyte Esterase,Urine Negative (Negative); Nitrite,Urine Negative (Negative); Protein,Urine Negative (Neg-Trace); Specific Gravity,Urine > 1.030 (1.010-1.025); Urobilinogen,Urine Normal (Normal)
[2017-05-24] MEDS ORDERED: Insulin Regular, Human 100 UNIT/ML SQ ONE (21:10)
[2017-05-24] MEDS ORDERED: 0.9 % Sodium Chloride 1,000 ML IVC ONE ×2 (21:10→22:30)
[2017-05-24 21:30] LABS: Basophils # 0.1 K/mcL (0.0-0.2); Basophils % 0.6 %; Eosinophils # 0.1 K/mcL (0.0-0.6); Eosinophils % 0.7 %; Hematocrit 39.2 % (37.5-50.1); Hemoglobin 13.6 g/dL (12.9-16.9); Immature Granulocytes % 0.5 % (0-4); Lymphocytes # 1.8 K/mcL (0.6-4.6); Lymphocytes % 20.6 %; Mean Corpuscular HGB Conc 34.7 g/dL (31.6-35.5); Mean Corpuscular Hemoglobin 31.1 pg (28.0-33.3); Mean Corpuscular Volume 89.5 fL (83.0-100.0); Mean Platelet Volume 10.6 fL (9.4-12.4); Monocytes # 0.6 K/mcL (0.0-1.3); Monocytes % 6.6 %; Neutrophils # 6.2 K/mcL (1.6-8.9); Platelet Count 194 K/mcL (140-400); Red Blood Count 4.38 M/mcL (4.19-5.50); Red Cell Distribution Width 11.9 % (11.5-14.5)
[2017-05-24 21:37] LABS: INR 0.9; Prothrombin Time 10.1 Seconds (9.4-12.1)
[2017-05-24 21:42] LABS: Beta-Hydroxybutyric Acid > 2.00 mmol/L (0.02-0.27)
[2017-05-24 21:44] LABS: Calcium 8.6 mg/dL (8.6-10.8); Potassium 5.6 mEq/L (3.5-4.5)
[2017-05-24 21:47] LABS: Alanine Aminotransferase 63 Units/L (0-55); Albumin 3.7 g/dL (3.5-5.0); Albumin/Globulin Ratio 1.1 (1.1-2.2); Alkaline Phosphatase 103 Units/L (38-126); Aspartate Amino Transferase 37 Units/L (5-34); Bilirubin,Direct 0.4 mg/dL (0.0-0.5); Bilirubin,Indirect 0.8 mg/dL (0.0-1.2); Bilirubin,Total 1.2 mg/dL (0.2-1.2); Globulin 3.4 g/dL (2.4-3.5); Total Protein 7.1 g/dL (6.0-8.3)
[2017-05-24 22:00] LABS: VBG HCO3 18 mEq/L (21-27); VBG PCO2 21 mmHg (41-51); VBG PH 7.53 pH Units (7.32-7.42); VBG PO2 130 mmHg (25-50)
[2017-05-24] MEDS ORDERED: *HR* Dextrose 50 % in Water (Syg) 50 ML SYRINGE IVP PRN (22:31)
--- NOTE | 2017-05-24 22:35 | Emergency Department Note ---
Disposition Clinical Impression: CHINO (acute kidney injury) DKA (diabetic ketoacidoses) Qualifiers: 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 type: type 1 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 complication detail: without coma Qualified Code(s): E10.10 - Type 1 diabetes mellitus with ketoacidosis without coma Disposition: Admitted As Inpatient Condition: Fair Time of Disposition: 00:00 Nausea/Vomiting/Diarrhea HPI - General Chief complaint: ED Nausea/Vomiting/Diarrhea Stated complaint: n/v,diarrhea,sugar is high Time Seen by Provider: 05/24/17 21:09 Source: patient Limitations: no limitations Nursing Notes Reviewed: Yes Vital Signs Reviewed: Yes - History of Present Illness HPI Narrative: Patient is a 42-year-old male who presents to ED with the chief complaint of nausea, vomiting, diarrhea for the last 3 days. Past medical history significant for diabetes which patient tells me he is type II DM though prior records say type I. patient states he has been compliant with his insulin. According to the , he has been unable to keep anything down over the last few days. Denies any fevers, chills. Has had some intermittent chest pains with vomiting. Generalized abdominal tenderness. Patient has had decreased urination but no problems with bowel movements Pt Subjective Complaint: nausea, vomiting, diarrhea Onset (ago): day(s) Description of Diarrhea: water Associated Abdominal Pain: Yes If pain, Location of pain: diffuse Severity: mild Quality: aching Consistency: intermittent Improves with: nothing Worsens with: nonthing Associated symptoms: Reports: chest pain (with vomiting), nausea/vomiting, weakness. Denies: cough, fever/chills, dysuria, shortness of breath - Related Data Home Medications Medication Instructions Recorded Confirmed Albuterol Sulfate [Albuterol 2 puff IH Q4H PRN 02/23/17 05/24/17 Inhaler] Escitalopram [Lexapro] 20 mg PO DAILY 02/23/17 05/24/17 Gabapentin [Neurontin] 600 mg PO TID 02/23/17 05/24/17 Glucagon,Human Recombinant 1 mg IJ ONCE PRN 02/23/17 05/24/17 [Glucagon Emergency Kit] Insulin Glargine,Hum.rec.anlog 20 unit SQ QAM 02/23/17 05/24/17 [Lantus Solostar] Insulin LISPRO [Humalog Kwikpen 0 unit SQ TIDWM 02/23/17 05/24/17 U-100] glipiZIDE [Glucotrol] 5 mg PO 0800 05/24/17 05/24/17 Allergies Allergy/AdvReac Type Severity Reaction Status Date / Time metformin Allergy Rash Verified 02/23/17 17:24 Penicillins Allergy Anaphylaxis Verified 02/23/17 17:24 All systems ED: reviewed and negative except as stated. Past Medical History - Past Medical History Attestation: Yes The following information was validated with the patient. Source: patient Medical history: Reports: diabetes, GERD Surgical history: Reports: appendectomy Psychiatric history: Reports: anxiety - Social History Smoking Status: Current every day smoker Smokeless Tobacco Status: No Alcohol use: Reports: none Drug use: Reports: none Physical Exam - General Limitations: no limitations General appearance: alert, in no apparent distress - Head Head exam: atraumatic, normocephalic, normal inspection - Eye Eye exam: Present: normal appearance, PERRL, EOMI - ENT ENT exam: normal exam, normal oropharynx, mucous membranes moist - Neck Neck exam: Present: normal inspection, full ROM, trachea midline - Chest Chest inspection: Present: normal inspection, symmetric chest wall rise - Respiratory Respiratory exam: Present: normal lung sounds bilaterally - Cardiovascular Cardiovascular exam: Present: normal rhythm, tachycardia, normal heart sounds - Abdominal Exam Abdominal exam: Present: soft, tenderness. Absent: distention, guarding, rebound, rigidity Abdominal tenderness: Present: epigastrium, mild - Extremities Exam Extremities exam: Present: normal inspection, full ROM. Absent: tenderness, pedal edema - Neurological Exam Neurological exam: Present: alert, oriented X3 - Psychiatric Psychiatric exam: Present: normal affect, normal mood - Skin Skin exam: Present: warm, dry, intact, normal color Course Course Narrative: Patient seen and examined. History of DKA. Nausea vomiting diarrhea for the last 3 days. Lab work was ordered while patient was in triage. Results already coming back. Hyperglycemia with glucose over 900. Elevated serum ketones. Patient does have an anion gap of 15. Discussed with assembly line supervisor Dr. Araujo about the hyponatremia. He has pseudohyponatremia with a corrected sodium of 130. 2 L IV fluids given. Starting insulin drip. - Reevaluation(s) Reevaluation #1: We will admit for DKA, CHINO. Discussed with hospitalist Dr. Ortega who has accepted patient for admission. Time: 00:00 Vital Signs Temperature 98.3 F 05/24/17 20:57 Pulse Rate 83 05/24/17 20:57 Respiratory Rate 16 05/24/17 20:57 Blood Pressure 111/69 05/24/17 20:57 O2 Sat by Pulse Oximetry 99 05/24/17 20:57 Temperature 97.9 F 05/25/17 00:00 Pulse Rate 71 05/25/17 00:00 Respiratory Rate 18 05/25/17 00:00 Blood Pressure 113/77 05/25/17 00:00 O2 Sat by Pulse Oximetry 99 05/24/17 22:38 Oxygen Delivery Oxygen Delivery Room Air Nausea/Vomiting/Diarrhea - Medical Records Medical records reviewed: Yes I reviewed the patient's medical records. - Lab Data Lab results reviewed: Yes I reviewed the patient's lab results. Result diagrams: 05/24/17 21:20 05/24/17 21:20 Lab Results 05/24/17 05/24/17 05/24/17 Range/Units 20:42 21:04 21:05 WBC (4.3-11.1) K/mcL RBC (4.19-5.50) M/mcL Hgb (12.9-16.9) g/dL Hct (37.5-50.1) % MCV (83.0-100.0) fL MCH (28.0-33.3) pg MCHC (31.6-35.5) g/dL RDW (11.5-14.5) % Plt Count (140-400) K/mcL MPV (9.4-12.4) fL Immature Gran % (0-4) % Seg Neutrophils % % Lymphocytes % % Monocytes % % Eosinophils % % Basophils % % Neutrophils # (1.6-8.9) K/mcL Lymphocytes # (0.6-4.6) K/mcL Monocytes # (0.0-1.3) K/mcL Eosinophils # (0.0-0.6) K/mcL Basophils # (0.0-0.2) K/mcL PT (9.4-12.1) Seconds INR APTT (26.0-36.0) Seconds VBG pH (7.32-7.42) pH Units VBG pCO2 (41-51) mmHg VBG pO2 (25-50) mmHg VBG HCO3 (21-27) mEq/L Sodium (136-145) mEq/L Potassium (3.5-4.5) mEq/L Chloride (98-109) mEq/L Carbon Dioxide (19-29) mEq/L BUN (8-26) mg/dL Creatinine (0.72-1.25) mg/dL Est GFR ( Amer) (> 60) Est GFR (Non-Af Amer) (> 60) BUN/Creatinine Ratio (6-26) Glucose (70-99) mg/dL POC Glucose > 600 H* > 600 H* (58-89) Calculated Osmolality (280-300) Calcium (8.6-10.8) mg/dL Total Bilirubin (0.2-1.2) mg/dL Direct Bilirubin (0.0-0.5) mg/dL Indirect Bilirubin (0.0-1.2) mg/dL AST (5-34) Units/L ALT (0-55) Units/L Alkaline Phosphatase (38-126) Units/L Troponin I (0-0.03) ng/mL B-Natriuretic Peptide (0-100) pg/mL Serum Total Protein (6.0-8.3) g/dL Albumin (3.5-5.0) g/dL Globulin (2.4-3.5) g/dL Albumin/Globulin Ratio (1.1-2.2) Lipase (8-78) Units/L Beta-Hydroxybutyric Acd (0.02-0.27) mmol/L Urine Color Yellow (Yellow) Urine Clarity Clear (Clear) Urine pH 6.0 (5.0-8.0) pH Units Ur Specific [place] > 1.030 H (1.010-1.025) Urine Protein Negative (Neg-Trace) mg/dL Urine Glucose (UA) >=1000 H (Normal) mg/dL Urine Ketones 15 H (Negative) mg/dL Urine Blood Negative (Negative) Urine Nitrite Negative (Negative) Urine Bilirubin Negative (Negative) Urine Urobilinogen Normal (Normal) mg/dL Ur Leukocyte Esterase Negative (Negative) Ur Culture Indicated? NO (NO) 05/24/17 05/24/17 05/24/17 Range/Units 21:20 21:20 21:20 WBC 8.8 (4.3-11.1) K/mcL RBC 4.38 (4.19-5.50) M/mcL Hgb 13.6 (12.9-16.9) g/dL Hct 39.2 (37.5-50.1) % MCV 89.5 (83.0-100.0) fL MCH 31.1 (28.0-33.3) pg MCHC 34.7 (31.6-35.5) g/dL RDW 11.9 (11.5-14.5) % Plt Count 194 (140-400) K/mcL MPV 10.6 (9.4-12.4) fL Immature Gran % 0.5 (0-4) % Seg Neutrophils % 71.0 % Lymphocytes % 20.6 % Monocytes % 6.6 % Eosinophils % 0.7 % Basophils % 0.6 % Neutrophils # 6.2 (1.6-8.9) K/mcL Lymphocytes # 1.8 (0.6-4.6) K/mcL Monocytes # 0.6 (0.0-1.3) K/mcL Eosinophils # 0.1 (0.0-0.6) K/mcL Basophils # 0.1 (0.0-0.2) K/mcL PT 10.1 (9.4-12.1) Seconds INR 0.9 APTT 26.0 (26.0-36.0) Seconds VBG pH (7.32-7.42) pH Units VBG pCO2 (41-51) mmHg VBG pO2 (25-50) mmHg VBG HCO3 (21-27) mEq/L Sodium 116 L* (136-145) mEq/L Potassium 5.6 H (3.5-4.5) mEq/L Chloride 85 L (98-109) mEq/L Carbon Dioxide 18 L (19-29) mEq/L BUN 17 (8-26) mg/dL Creatinine 1.56 H (0.72-1.25) mg/dL Est GFR ( Amer) 60 (> 60) Est GFR (Non-Af Amer) 49 L (> 60) BUN/Creatinine Ratio 11 (6-26) Glucose 988 H* (70-99) mg/dL POC Glucose (58-89) Calculated Osmolality 293 (280-300) Calcium 8.6 (8.6-10.8) mg/dL Total Bilirubin (0.2-1.2) mg/dL Direct Bilirubin (0.0-0.5) mg/dL Indirect Bilirubin (0.0-1.2) mg/dL AST (5-34) Units/L ALT (0-55) Units/L Alkaline Phosphatase (38-126) Units/L Troponin I (0-0.03) ng/mL B-Natriuretic Peptide (0-100) pg/mL Serum Total Protein (6.0-8.3) g/dL Albumin (3.5-5.0) g/dL Globulin (2.4-3.5) g/dL Albumin/Globulin Ratio (1.1-2.2) Lipase (8-78) Units/L Beta-Hydroxybutyric Acd (0.02-0.27) mmol/L Urine Color (Yellow) Urine Clarity (Clear) Urine pH (5.0-8.0) pH Units Ur Specific [place] (1.010-1.025) Urine Protein (Neg-Trace) mg/dL Urine Glucose (UA) (Normal) mg/dL Urine Ketones (Negative) mg/dL Urine Blood (Negative) Urine Nitrite (Negative) Urine Bilirubin (Negative) Urine Urobilinogen (Normal) mg/dL Ur Leukocyte Esterase (Negative) Ur Culture Indicated? (NO) 05/24/17 05/24/17 05/24/17 Range/Units 21:20 21:20 21:20 WBC (4.3-11.1) K/mcL RBC (4.19-5.50) M/mcL Hgb (12.9-16.9) g/dL Hct (37.5-50.1) % MCV (83.0-100.0) fL MCH (28.0-33.3) pg MCHC (31.6-35.5) g/dL RDW (11.5-14.5) % Plt Count (140-400) K/mcL MPV (9.4-12.4) fL Immature Gran % (0-4) % Seg Neutrophils % % Lymphocytes % % Monocytes % % Eosinophils % % Basophils % % Neutrophils # (1.6-8.9) K/mcL Lymphocytes # (0.6-4.6) K/mcL Monocytes # (0.0-1.3) K/mcL Eosinophils # (0.0-0.6) K/mcL Basophils # (0.0-0.2) K/mcL PT (9.4-12.1) Seconds INR APTT (26.0-36.0) Seconds VBG pH (7.32-7.42) pH Units VBG pCO2 (41-51) mmHg VBG pO2 (25-50) mmHg VBG HCO3 (21-27) mEq/L Sodium (136-145) mEq/L Potassium (3.5-4.5) mEq/L Chloride (98-109) mEq/L Carbon Dioxide (19-29) mEq/L BUN (8-26) mg/dL Creatinine (0.72-1.25) mg/dL Est GFR ( Amer) (> 60) Est GFR (Non-Af Amer) (> 60) BUN/Creatinine Ratio (6-26) Glucose (70-99) mg/dL POC Glucose (58-89) Calculated Osmolality (280-300) Calcium (8.6-10.8) mg/dL Total Bilirubin 1.2 (0.2-1.2) mg/dL Direct Bilirubin 0.4 (0.0-0.5) mg/dL Indirect Bilirubin 0.8 (0.0-1.2) mg/dL AST 37 H (5-34) Units/L ALT 63 H (0-55) Units/L Alkaline Phosphatase 103 (38-126) Units/L Troponin I (0-0.03) ng/mL B-Natriuretic Peptide < 10 (0-100) pg/mL Serum Total Protein 7.1 (6.0-8.3) g/dL Albumin 3.7 (3.5-5.0) g/dL Globulin 3.4 (2.4-3.5) g/dL Albumin/Globulin Ratio 1.1 (1.1-2.2) Lipase 81 H (8-78) Units/L Beta-Hydroxybutyric Acd > 2.00 H (0.02-0.27) mmol/L Urine Color (Yellow) Urine Clarity (Clear) Urine pH (5.0-8.0) pH Units Ur Specific [place] (1.010-1.025) Urine Protein (Neg-Trace) mg/dL Urine Glucose (UA) (Normal) mg/dL Urine Ketones (Negative) mg/dL Urine Blood (Negative) Urine Nitrite (Negative) Urine Bilirubin (Negative) Urine Urobilinogen (Normal) mg/dL Ur Leukocyte Esterase (Negative) Ur Culture Indicated? (NO) 05/24/17 05/24/17 05/24/17 Range/Units 21:20 21:58 23:49 WBC (4.3-11.1) K/mcL RBC (4.19-5.50) M/mcL Hgb (12.9-16.9) g/dL Hct (37.5-50.1) % MCV (83.0-100.0) fL MCH (28.0-33.3) pg MCHC (31.6-35.5) g/dL RDW (11.5-14.5) % Plt Count (140-400) K/mcL MPV (9.4-12.4) fL Immature Gran % (0-4) % Seg Neutrophils % % Lymphocytes % % Monocytes % % Eosinophils % % Basophils % % Neutrophils # (1.6-8.9) K/mcL Lymphocytes # (0.6-4.6) K/mcL Monocytes # (0.0-1.3) K/mcL Eosinophils # (0.0-0.6) K/mcL Basophils # (0.0-0.2) K/mcL PT (9.4-12.1) Seconds INR APTT (26.0-36.0) Seconds VBG pH 7.53 H (7.32-7.42) pH Units VBG pCO2 21 L (41-51) mmHg VBG pO2 130 H (25-50) mmHg VBG HCO3 18 L (21-27) mEq/L Sodium (136-145) mEq/L Potassium (3.5-4.5) mEq/L Chloride (98-109) mEq/L Carbon Dioxide (19-29) mEq/L BUN (8-26) mg/dL Creatinine (0.72-1.25) mg/dL Est GFR ( Amer) (> 60) Est GFR (Non-Af Amer) (> 60) BUN/Creatinine Ratio (6-26) Glucose (70-99) mg/dL POC Glucose 597 H* (58-89) Calculated Osmolality (280-300) Calcium (8.6-10.8) mg/dL Total Bilirubin (0.2-1.2) mg/dL Direct Bilirubin (0.0-0.5) mg/dL Indirect Bilirubin (0.0-1.2) mg/dL AST (5-34) Units/L ALT (0-55) Units/L Alkaline Phosphatase (38-126) Units/L Troponin I 0.01 (0-0.03) ng/mL B-Natriuretic Peptide (0-100) pg/mL Serum Total Protein (6.0-8.3) g/dL Albumin (3.5-5.0) g/dL Globulin (2.4-3.5) g/dL Albumin/Globulin Ratio (1.1-2.2) Lipase (8-78) Units/L Beta-Hydroxybutyric Acd (0.02-0.27) mmol/L Urine Color (Yellow) Urine Clarity (Clear) Urine pH (5.0-8.0) pH Units Ur Specific [place] (1.010-1.025) Urine Protein (Neg-Trace) mg/dL Urine Glucose (UA) (Normal) mg/dL Urine Ketones (Negative) mg/dL Urine Blood (Negative) Urine Nitrite (Negative) Urine Bilirubin (Negative) Urine Urobilinogen (Normal) mg/dL Ur Leukocyte Esterase (Negative) Ur Culture Indicated? (NO) 05/24/17 05/25/17 05/25/17 Range/Units 23:50 00:16 00:17 WBC (4.3-11.1) K/mcL RBC (4.19-5.50) M/mcL Hgb (12.9-16.9) g/dL Hct (37.5-50.1) % MCV (83.0-100.0) fL MCH (28.0-33.3) pg MCHC (31.6-35.5) g/dL RDW (11.5-14.5) % Plt Count (140-400) K/mcL MPV (9.4-12.4) fL Immature Gran % (0-4) % Seg Neutrophils % % Lymphocytes % % Monocytes % % Eosinophils % % Basophils % % Neutrophils # (1.6-8.9) K/mcL Lymphocytes # (0.6-4.6) K/mcL Monocytes # (0.0-1.3) K/mcL Eosinophils # (0.0-0.6) K/mcL Basophils # (0.0-0.2) K/mcL PT (9.4-12.1) Seconds INR APTT (26.0-36.0) Seconds VBG pH (7.32-7.42) pH Units VBG pCO2 (41-51) mmHg VBG pO2 (25-50) mmHg VBG HCO3 (21-27) mEq/L Sodium (136-145) mEq/L Potassium (3.5-4.5) mEq/L Chloride (98-109) mEq/L Carbon Dioxide (19-29) mEq/L BUN (8-26) mg/dL Creatinine (0.72-1.25) mg/dL Est GFR ( Amer) (> 60) Est GFR (Non-Af Amer) (> 60) BUN/Creatinine Ratio (6-26) Glucose (70-99) mg/dL POC Glucose > 600 H* 524 H* 503 H* (58-89) Calculated Osmolality (280-300) Calcium (8.6-10.8) mg/dL Total Bilirubin (0.2-1.2) mg/dL Direct Bilirubin (0.0-0.5) mg/dL Indirect Bilirubin (0.0-1.2) mg/dL AST (5-34) Units/L ALT (0-55) Units/L Alkaline Phosphatase (38-126) Units/L Troponin I (0-0.03) ng/mL B-Natriuretic Peptide (0-100) pg/mL Serum Total Protein (6.0-8.3) g/dL Albumin (3.5-5.0) g/dL Globulin (2.4-3.5) g/dL Albumin/Globulin Ratio (1.1-2.2) Lipase (8-78) Units/L Beta-Hydroxybutyric Acd (0.02-0.27) mmol/L Urine Color (Yellow) Urine Clarity (Clear) Urine pH (5.0-8.0) pH Units Ur Specific [place] (1.010-1.025) Urine Protein (Neg-Trace) mg/dL Urine Glucose (UA) (Normal) mg/dL Urine Ketones (Negative) mg/dL Urine Blood (Negative) Urine Nitrite (Negative) Urine Bilirubin (Negative) Urine Urobilinogen (Normal) mg/dL Ur Leukocyte Esterase (Negative) Ur Culture Indicated? (NO) - Radiology Data Radiology results reviewed: Yes I reviewed the patient's radiology results. Chest X-Ray 05/24/17 21:10 IMPRESSION: No acute process. D/ / Dennis Guan MD / Dennis Guan MD Interpreting Provider: Dennis Guan MD - EKG Data EKG attestation: Yes I reviewed and interpreted this EKG. EKG results narrative: EKG done at 0 shows normal sinus rhythm with a rate of [address] elevation or depression. Normal axis. EKG appears unchanged from prior one done 02/23/2017.
[2017-05-24] MEDS ORDERED: Insulin Human Regular 100 UNIT in 0.9 % Sodium Chloride 100 ML IVC SCH (22:45)
[2017-05-24] MEDS ORDERED: *HR* HYDROmorphone (PF) 1 MG/ML SYRINGE IVP ONE (22:57)
[2017-05-24] MEDS ORDERED: Ondansetron 4 MG/2 ML VIAL IVP ONE (22:57)
--- NOTE | 2017-05-24 22:59 | Emergency Department Note ---
START Narrative - START START: I examined this patient and my medical decision-making was reviewed with the Resident Physician. I agree with the documented findings, disposition and treatment plan as described except to the extent set forth below. 42 year old male with HX of type 1 diabetes insulin dependent and states that he has been complaints with his insulin therapy has been experinecing nausea, voitting, and body aches. His most recent admission to the hospital was 6-8 weeks ago for hyperglycemia/DKA symptoms. Rosalio has a blood glucose close to 1000 and compensated acidemia awith ketones presenst and hyponatremia/ hyperkalemia. Corrected sodiium is 130. We have started DKA treatment and rosalio has been accepted by hospitalist for durther management.
[2017-05-25] MEDS ORDERED: D5% in 0.45% NACL 1,000 ML IVC PRN (00:20)
[2017-05-25] MEDS ORDERED: Insulin Regular, Human 100 UNIT/ML IV PRN (00:20)
[2017-05-25] MEDS ORDERED: D5% in 0.45% NACL w KCl 20 MEQ/1,000 ML MLS IVC PRN (00:20)
[2017-05-25] MEDS ORDERED: *HR* Dextrose 50 % in Water (Syg) 50 ML SYRINGE IVP PRN ×2 (00:20→15:09)
[2017-05-25] MEDS: 0.9 % Sodium Chloride 1,000 ML IVC SCH ×2 (00:21→02:15)
--- NOTE | 2017-05-25 00:32 | Internal Med History&Physical ---
Date of Encounter: 05/24/17 Time of Encounter: 23:35 Assessment and Plan (1) DKA (diabetic ketoacidoses) Current visit: Yes Status: Acute Will admit the into Step down unit Will place him on Tele cont aggressive IV hydration.. so far he received 2 lit NS bolus in the ER will give another 2 lit NS @ 500 cc/hr, then continue at 150cc/hr cont Insulin gtt serial BMP Q4hr Adjust the fluids depending on f/u BMP check Mg and Po4 Strict NPO for now Cont symptomatic and supportive care Qualifiers: 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 type: type 1 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 complication detail: without coma Qualified Code(s): E10.10 - Type 1 diabetes mellitus with ketoacidosis without coma (2) Abdominal pain Current visit: Yes Status: Acute due to DKA Cont symptomatic and supportive care Cont IVF and analgesics Qualifiers: Abdominal location: generalized Qualified Code(s): R10.84 - Generalized abdominal pain (3) Intractable nausea and vomiting Current visit: Yes Status: Acute on Zofran Qualifiers: Vomiting type: unspecified Qualified Code(s): R11.2 - Nausea with vomiting , unspecified (4) Uncontrolled diabetes mellitus Current visit: No Status: Chronic Recent HbA1C 11.3 Counseled to about compliance with Insulin discussed about insulin pump Asked the pt to talk to PCP about insulin pump Will consult reports developer for DM education Qualifiers: 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 type: type 1 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 complication status: with unspecified complications Qualified Code(s): E10.8 - Type 1 diabetes mellitus with unspecified complications; E10.65 - Type 1 diabetes mellitus with hyperglycemia (5) CHINO (acute kidney injury) Current visit: Yes Status: Acute Due to dehydration Cont IVF (6) Electrolyte abnormality Current visit: Yes Status: Acute Due to DKA cont close monitoring and keep replacing accordingly (7) GERD (gastroesophageal reflux disease) Current visit: Yes Status: Acute on Protonix IV Qualifiers: Esophagitis presence: without esophagitis Qualified Code(s): K21.9 - Gastro -esophageal reflux disease without esophagitis Internal Medicine - H&P: HPI Chief complaint: Abdominal pain, nausea / vomiting, body aches Admitted From: Emergency Dept Plans for Post Hospital Care: Home History of present illness: Mr. Barron is a 42 year old male with known PMH of Type 1 DM diagnosed when he was 24 y/o, who had a recent hospitalization here at [facility] on 02/2017 for DKA, now he presented to ER c/o from last 3 days he has been having nausea / vomiting abd crampy abdominal pain. Today he was so sick, unable to eat anything , did not take his insulin. After coming to the ER he happened to have severe hyperglycemia with BS 988 and in active DKA. Pt was started on aggressive IV hydration and Insulin gtt. He denied any CP / SOB Past Med Surg Social Fam HX - Past Medical History Medical history: diabetes, GERD Psychiatric history: anxiety - Past Surgical History Surgical History: appendectomy - Social History Smoking Status: Current every day smoker Smokeless Tobacco Status: No Alcohol use: none Drug use: none - Additional Family History Additional family history: Reviewed and noncontributory to current problem Internal Medicine - H&P: Meds Albuterol Sulfate [Albuterol Inhaler] 2 puff IH Q4H PRN 02/23/17 [History] Escitalopram [Lexapro] 20 mg PO DAILY 02/23/17 [History] Gabapentin [Neurontin] 600 mg PO TID 02/23/17 [History] Glucagon,Human Recombinant [Glucagon Emergency Kit] 1 mg IJ ONCE PRN 02/23/17 [ History] Insulin Glargine,Hum.rec.anlog [Lantus Solostar] 20 unit SQ QAM 02/23/17 [ History] Insulin LISPRO [Humalog Kwikpen U-100] 0 unit SQ TIDWM 02/23/17 [History] glipiZIDE [Glucotrol] 5 mg PO 0800 05/24/17 [History] 3 Allergy/AdvReac Type Severity Reaction Status Date / Time metformin Allergy Rash Verified 02/23/17 17:24 Penicillins Allergy Anaphylaxis Verified 02/23/17 17:24 All Systems PM: A 10-system review of systems was performed and is negative for pertinent findings except as documented above in the HPI. Review of systems: All the systems are reviewed everything is benign except the systems and symptoms I mentioned in the history of present illness - Constitutional Vitals: Temp Pulse Resp BP Pulse Ox 97.9 F 71 18 113/77 99 05/25/17 00:00 05/25/17 00:00 05/25/17 00:00 05/25/17 00:00 05/24/17 22:38 General appearance: Present: mild distress, A&O X 3, answers questions appropriately - Head Head exam: Present: atraumatic, normal inspection - Respiratory Respiratory exam: Present: decreased breath sounds. Absent: rales, respiratory distress, rhonchi, wheezes - Cardiovascular Cardiovascular exam: Present: RRR, +S1, +S2. Absent: systolic murmur - GI/Abdominal GI/Abdominal exam: Present: normal bowel sounds, soft, tenderness (moderate discomfort irma umbelical region). Absent: distended, guarding, rebound, rigid - Extremities Exam Extremities exam: Absent: calf tenderness, pedal edema, tenderness - Back Exam Back exam: Absent: CVA tenderness (L), CVA tenderness (R) - Neurological Exam Neurological exam: Present: alert, oriented X3, no focal deficits - Psychiatric Psychiatric exam: Present: depressed Internal Med - H&P Results - Labs CBC & Chem 7: 05/24/17 21:20 05/24/17 21:20
[2017-05-25] MEDS ORDERED: *HR* Morphine 2 MG/ML SYRINGE IVP PRN (00:48)
[2017-05-25] MEDS ORDERED: Naloxone 0.4 MG/ML INJ IVP PRN (00:48)
[2017-05-25] MEDS ORDERED: Acetaminophen 325 MG TABLET PO PRN (00:48)
[2017-05-25] MEDS ORDERED: Ondansetron 4 MG/2 ML VIAL IVP PRN (00:48)
[2017-05-25] MEDS ORDERED: *HR* Promethazine 25 MG/ML VIAL IVP PRN (00:48)
[2017-05-25 01:10] LABS: BUN/Creatinine Ratio 12 (6-26); Blood Urea Nitrogen 14 mg/dL (8-26); Calcium 8.3 mg/dL (8.6-10.8); Carbon Dioxide 22 mEq/L (19-29); Chloride 97 mEq/L (98-109); Magnesium 1.8 mg/dL (1.6-2.6); Osmolality,Calculated 295 (280-300); Phosphorous 2.2 mg/dL (2.3-4.7); eGFR For African Americans > 60 (> 60); eGFR For Non-African Americans > 60 (> 60)
[2017-05-25] MEDS: *HR* HYDROcodone/Acet 5/325 mg TABLET PO PRN ×5 (01:11→20:11)
[2017-05-25] MEDS: Pantoprazole 40 MG VIAL IVP SCH ×2 (01:12→05:41)
[2017-05-25 01:16] LABS: Potassium 3.7 mEq/L (3.5-4.5); Sodium 130 mEq/L (136-145)
[2017-05-25 01:18] LABS: Glucose 544 mg/dL (70-99)
[2017-05-25 04:27] LABS: Basophils % 0.5 %; Eosinophils # 0.1 K/mcL (0.0-0.6); Eosinophils % 1.7 %; Hematocrit 31.9 % (37.5-50.1); Immature Granulocytes % 0.3 % (0-4); Lymphocytes % 40.1 %; Mean Corpuscular HGB Conc 35.1 g/dL (31.6-35.5); Mean Corpuscular Hemoglobin 30.7 pg (28.0-33.3); Mean Corpuscular Volume 87.4 fL (83.0-100.0); Mean Platelet Volume 10.3 fL (9.4-12.4); Monocytes # 0.5 K/mcL (0.0-1.3); Monocytes % 7.1 %; Neutrophils # 3.7 K/mcL (1.6-8.9); Platelet Count 155 K/mcL (140-400); Red Blood Count 3.65 M/mcL (4.19-5.50); Red Cell Distribution Width 11.7 % (11.5-14.5); Segmented Neutrophils % 50.3 %
[2017-05-25 04:31] LABS: Hemoglobin 11.2 g/dL (12.9-16.9)
[2017-05-25 04:47] LABS: BUN/Creatinine Ratio 16 (6-26); Blood Urea Nitrogen 12 mg/dL (8-26); Carbon Dioxide 26 mEq/L (19-29); Chloride 104 mEq/L (98-109); Potassium 3.6 mEq/L (3.5-4.5); Sodium 136 mEq/L (136-145)
[2017-05-25 04:48] LABS: Alanine Aminotransferase 49 Units/L (0-55); Albumin 2.9 g/dL (3.5-5.0); Albumin/Globulin Ratio 1.2 (1.1-2.2); Alkaline Phosphatase 76 Units/L (38-126); Aspartate Amino Transferase 19 Units/L (5-34); BUN/Creatinine Ratio 18 (6-26); Bilirubin,Total 0.8 mg/dL (0.2-1.2); Blood Urea Nitrogen 14 mg/dL (8-26); Calcium 8.1 mg/dL (8.6-10.8); Carbon Dioxide 26 mEq/L (19-29); Chloride 104 mEq/L (98-109); Globulin 2.5 g/dL (2.4-3.5); Glucose 195 mg/dL (70-99); Glucose 199 mg/dL (70-99); Osmolality,Calculated 287 (280-300); Osmolality,Calculated 288 (280-300); Potassium 3.6 mEq/L (3.5-4.5); Sodium 136 mEq/L (136-145); Total Protein 5.4 g/dL (6.0-8.3); eGFR For African Americans > 60 (> 60); eGFR For Non-African Americans > 60 (> 60)
[2017-05-25] MEDS: *HR* Enoxaparin 40 MG/0.4 ML SYRINGE SQ SCH (05:41)
[2017-05-25] MEDS: Insulin DETEMIR 100 UNIT/ML X5UNITS SQ SCH ×2 (05:42→21:34)
[2017-05-25] MEDS: Insulin LISPRO 300 UNITS/3 ML VIAL SQ SCH ×3 (05:55→16:39)
[2017-05-25 08:23] LABS: BUN/Creatinine Ratio 16 (6-26); Blood Urea Nitrogen 12 mg/dL (8-26); Carbon Dioxide 26 mEq/L (19-29); Chloride 103 mEq/L (98-109); Glucose 186 mg/dL (70-99); Osmolality,Calculated 283 (280-300); Potassium 3.6 mEq/L (3.5-4.5); Sodium 134 mEq/L (136-145); eGFR For African Americans > 60 (> 60); eGFR For Non-African Americans > 60 (> 60)
--- NOTE | 2017-05-25 10:05 | Internal Med Progress Note ---
Date of Encounter: 05/25/17 Time of Encounter: 09:10 - Assessment and plan (1) DKA (diabetic ketoacidoses) Current Visit: Yes Status: Acute Assessment and plan: Likely due to recent dental extraction and GI distress. Complement of medical noncompliance. Acidosis is currently resolved. Off IV insulin drip. Will start subcutaneous insulin regimen. Start Keflex as patient did not complete outpatient antibiotic regimen status post dental extraction, and he is also noted to have a moist cough and possible bronchitis. Qualifiers: 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 type: type 1 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 complication detail: without coma Qualified Code(s): E10.10 - Type 1 diabetes mellitus with ketoacidosis without coma (2) Anxiety Current Visit: Yes Status: Chronic (3) Diabetes Current Visit: Yes Status: Chronic Assessment and plan: Suspect medical noncompliance as hemoglobin A1c is noted to be 11.8% at the end of March 2017. Continue basal bolus insulin regimen. Accu-Chek blood glucose monitoring-blood sugars noted to be well controlled. Diabetic diet as tolerated. 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 - Constitutional Vitals: Temp Pulse Resp BP Pulse Ox 97.9 F 69 16 101/64 100 05/25/17 07:40 05/25/17 07:40 05/25/17 07:40 05/25/17 07:40 05/25/17 07:40 General appearance: Present: A&O X 3, answers questions appropriately - Respiratory Respiratory exam: Present: CTAB. Absent: accessory muscle use, rales, rhonchi, wheezes - Cardiovascular Cardiovascular exam: Present: RRR, +S1, +S2. Absent: diastolic murmur, gallop, rubs, systolic murmur - GI/Abdominal GI/Abdominal exam: Present: normal bowel sounds, soft, no peritoneal signs. Absent: distended, tenderness - Extremities Exam Extremities exam: Present: full ROM, warm, radial pulses palpable and symmetrical. Absent: calf tenderness, cyanotic, pedal edema Internal Medicine: Result - Labs CBC & Chem 7: 05/25/17 04:12 05/25/17 12:45 Labs: Short CBC 05/25/17 Range/Units 04:12 WBC 7.4 (4.3-11.1) K/mcL Hgb 11.2 L D (12.9-16.9) g/dL Hct 31.9 L (37.5-50.1) % Plt Count 155 (140-400) K/mcL Neutrophils # 3.7 (1.6-8.9) K/mcL BMP 05/25/17 05/25/17 05/25/17 04:12 04:12 08:03 Sodium 136 136 134 L Potassium 3.6 3.6 3.6 Chloride 104 104 103 Carbon Dioxide 26 26 26 BUN 12 14 12 Creatinine 0.77 0.79 0.75 Glucose 199 H 195 H 186 H Calcium 8.0 L 8.1 L 8.0 L Liver Function 05/25/17 Range/Units 04:12 Total Bilirubin 0.8 (0.2-1.2) mg/dL AST 19 (5-34) Units/L ALT 49 (0-55) Units/L Alkaline Phosphatase 76 (38-126) Units/L Albumin 2.9 L D (3.5-5.0) g/dL - ABG Interpretation ABG results: PT/INR, D-dimer PT 10.1 Seconds (9.4-12.1) 05/24/17 21:20 Consult Discharge Plan - Plan Referrals: Danika Hutson DO [Primary Care Provider] - Ivory Shepherd DO [Resident] - 05/31/17 4:00 pm
[2017-05-25] MEDS: cephALEXin 500 MG CAPSULE PO SCH ×2 (11:22→21:34)
[2017-05-25 13:20] LABS: BUN/Creatinine Ratio 14 (6-26); Blood Urea Nitrogen 11 mg/dL (8-26); Calcium 8.2 mg/dL (8.6-10.8); Carbon Dioxide 26 mEq/L (19-29); Chloride 102 mEq/L (98-109); Glucose 182 mg/dL (70-99); Osmolality,Calculated 280 (280-300); Potassium 3.9 mEq/L (3.5-4.5); Sodium 133 mEq/L (136-145); eGFR For African Americans > 60 (> 60); eGFR For Non-African Americans > 60 (> 60)
[2017-05-25] MEDS ORDERED: Nicotine 14 MG PATCH.TD24 TD PRN (15:07)
[2017-05-25] MEDS ORDERED: Dextrose Gel 15 GM PO PRN ×2 (15:09)
[2017-05-25] MEDS ORDERED: D5% in Water 1,000 ML IVC PRN (15:09)
[2017-05-25 16:33] LABS: BUN/Creatinine Ratio 14 (6-26); Blood Urea Nitrogen 10 mg/dL (8-26); Calcium 8.6 mg/dL (8.6-10.8); Carbon Dioxide 24 mEq/L (19-29); Chloride 102 mEq/L (98-109); Glucose 123 mg/dL (70-99); Osmolality,Calculated 278 (280-300); Potassium 3.7 mEq/L (3.5-4.5); Sodium 134 mEq/L (136-145); eGFR For African Americans > 60 (> 60); eGFR For Non-African Americans > 60 (> 60)
[2017-05-25] MEDS ORDERED: Insulin LISPRO 300 UNITS/3 ML VIAL SQ SCH (21:00)
[2017-05-25 21:09] LABS: BUN/Creatinine Ratio 12 (6-26); Blood Urea Nitrogen 9 mg/dL (8-26); Calcium 8.6 mg/dL (8.6-10.8); Carbon Dioxide 25 mEq/L (19-29); Chloride 102 mEq/L (98-109); Glucose 195 mg/dL (70-99); Osmolality,Calculated 284 (280-300); Potassium 4.2 mEq/L (3.5-4.5); Sodium 135 mEq/L (136-145); eGFR For African Americans > 60 (> 60); eGFR For Non-African Americans > 60 (> 60)
[2017-05-26] MEDS: *HR* HYDROcodone/Acet 5/325 mg TABLET PO PRN ×2 (00:23→09:29)
[2017-05-26] MEDS: *HR* Enoxaparin 40 MG/0.4 ML SYRINGE SQ SCH (06:05)
[2017-05-26 07:48] VITALS: BP 103/61
[2017-05-26] MEDS: Insulin LISPRO 300 UNITS/3 ML VIAL SQ SCH ×2 (08:05→12:08)
[2017-05-26] MEDS: cephALEXin 500 MG CAPSULE PO SCH (08:13)
--- NOTE | 2017-05-26 08:32 | Electrocardiograph Report ---
[place] [id number] Test Date: 2017-05-24 Pat Name: Kevon Barron Department: 104 Room: 2N06 Gender: M Line Department Supervisor: : [id number] Requested By: Zulma Goldman Order Number: [id number] Reading MD: Yahir Hodge MD Measurements Intervals [place] Rate: 75 P: 73 UT: 135 QRS: 70 QRSD: 82 T: 69 QT: 383 QTc: 411 Interpretive Statements SINUS RHYTHM Electronically Signed On 05-26-2017 8:31:30 EDT by Yahir Hodge MD
[2017-05-26] MEDS: Insulin DETEMIR 100 UNIT/ML X5UNITS SQ SCH (09:24)
--- NOTE | 2017-05-26 12:16 | Discharge Summary ---
Date of Encounter: 05/26/17 Time of Encounter: 10:00 - Discharge Diagnosis (1) DKA (diabetic ketoacidoses) Priority: Primary Status: Acute Qualifiers: 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 type: type 1 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 complication detail: without coma Qualified Code(s): E10.10 - Type 1 diabetes mellitus with ketoacidosis without coma (2) Anxiety Priority: Secondary Status: Chronic (3) Diabetes Priority: Secondary Status: Chronic Qualifiers: 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 type: other specified (including GARRETT) 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 complication status: with ketoacidosis 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 complication detail: without coma 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 mcc insulin use: with terminal carman use Qualified Code(s): E13.10 - Other specified diabetes mellitus with ketoacidosis without coma; 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; 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; 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; Z79.4 - care home (current) use of insulin - Discharge Medications Prescriptions: Phos-NaK [Neutra-Phos] 1 each PO BID #20 powd.pack Home Medications: Albuterol Sulfate [Albuterol Inhaler] 2 puff IH Q4H PRN 02/23/17 [History] Escitalopram [Lexapro] 20 mg PO DAILY 02/23/17 [History] Gabapentin [Neurontin] 600 mg PO TID 02/23/17 [History] Glucagon,Human Recombinant [Glucagon Emergency Kit] 1 mg IJ ONCE PRN 02/23/17 [ History] Insulin Glargine,Hum.rec.anlog [Lantus Solostar] 20 unit SQ QAM 02/23/17 [ History] Insulin LISPRO [Humalog Kwikpen U-100] 0 unit SQ TIDWM 02/23/17 [History] glipiZIDE [Glucotrol] 5 mg PO 0800 05/24/17 [History] Phos-NaK [Neutra-Phos] 1 each PO BID #20 powd.pack 05/26/17 [Rx] cephALEXin [Keflex] 500 mg PO BID capsule 05/26/17 [Rx] Allergies/Adverse Reactions: 3 Allergy/AdvReac Type Severity Reaction Status Date / Time metformin Allergy Rash Verified 02/23/17 17:24 Penicillins Allergy Anaphylaxis Verified 02/23/17 17:24 Date of admission: 05/25/17 00:48 Primary care physician: Danika Hutson DO Consults: 05/25/17 00:52 Consult to Nutrition [CONS] Routine Comment: Consulting Provider: NUTRITION Reason for Dietary Consult: Diet Education Discharging clinician: Joy Lane Anticipated date of discharge: 05/26/17 - Patient Status Disposition: Home, Self-Care Condition: Good Functional capacity at discharge: independent ambulation Overall status at discharge: patient is progressing back to baseline - Discharge Instructions Instructions: Diabetic Ketoacidosis (DC), Diabetic Ketoacidosis (GEN), Diabetes Mellitus Type 2 in Adults (DC) Follow Up With: Danika Hutson DO [Primary Care Provider] - Ivory Shepherd DO [Resident] - 05/31/17 4:00 pm - Diet and Activity Activity: resume usual activities as tolerated Diet: diabetic diet, low fat, low cholesterol Hospital course: Mr. Barron is a 42 year old male with history of type 2 diabetes, was admitted with nausea, vomiting and abdominal pain. He was noted to be in severe diabetic ketoacidosis and was started on IV insulin drip according to DKA protocol. His blood sugars gradually improved and acidosis resolved. He was started on diabetic diet with subcutaneous basal bolus insulin regimen. His blood sugars are noted to be very tightly controlled on twice-daily Levemir. Patient is noted to have irregular eating patterns and he is unable to check his blood sugars regularly due to his job timings. At this time, it would be gamboa for the patient to be placed on insulin pump, to which patient and his are agreeable. He is medically stable for discharge at this time with outpatient endocrinology and PCP follow-up. Patient also recently had a dental extraction but could not complete his antibiotic course due to GI distress, which could have contributed to DKA, and he is being restarted on Keflex. - Time Spent with Patient Total time spent providing and/or coordinating discharge services: Greater than 30 minutes (40 min) - Constitutional Vitals: Temp Pulse Resp BP Pulse Ox 97.2 F L 81 16 123/72 99 05/26/17 07:45 05/26/17 07:45 05/26/17 07:45 05/26/17 07:45 05/26/17 07:45 General appearance: Present: A&O X 3, answers questions appropriately - Cardiovascular Cardiovascular exam: Present: RRR, +S1, +S2. Absent: diastolic murmur, gallop, rubs, systolic murmur
[2017-05-26] MEDS ORDERED: FLUARIX QUAD 2017-18 36MOS UP/PF 0.5 ML SYRINGE IM ONE (12:30)
== END 2017-05-26 12:45 | disposition home or self-care (01) | DRG 420 ==
LOC: EMEROO 20:35 → 2NNU 20:35
PROVIDERS: ADMIT Pediatrics; ATTEND Internal Medicine

== ENCOUNTER 2017-07-03 13:24 | Inpatient (IN) ==
[2017-07-03 13:56] LABS: Bilirubin,Urine Negative (Negative); Blood,Urine Negative (Negative); Clarity,Urine Clear (Clear); Color,Urine Yellow (Yellow); Glucose,Urine (UA) >=1000 mg/dL (Normal); Ketones,Urine >=160 mg/dL (Negative); Leukocyte Esterase,Urine Negative (Negative); Nitrite,Urine Negative (Negative); PH,Urine 5.5 pH Units (5.0-8.0); Protein,Urine Negative (Neg-Trace); Specific Gravity,Urine > 1.030 (1.010-1.025); Urobilinogen,Urine Normal (Normal)
[2017-07-03 15:02] LABS: Alanine Aminotransferase 38 Units/L (0-55); Albumin 3.6 g/dL (3.5-5.0); Albumin/Globulin Ratio 0.9 (1.1-2.2); Alkaline Phosphatase 138 Units/L (38-126); Aspartate Amino Transferase 33 Units/L (5-34); Bilirubin,Direct 0.4 mg/dL (0.0-0.5); Bilirubin,Indirect 0.1 mg/dL (0.0-1.2); Bilirubin,Total 0.5 mg/dL (0.2-1.2); Calcium 9.5 mg/dL (8.6-10.8); Carbon Dioxide 11 mEq/L (19-29); Chloride 100 mEq/L (98-109); Globulin 3.8 g/dL (2.4-3.5); Glucose 440 mg/dL (70-99); Lipase < 10 Units/L (8-78); Potassium 4.5 mEq/L (3.5-4.5); Sodium 138 mEq/L (136-145); Total Protein 7.4 g/dL (6.0-8.3); eGFR For African Americans > 60 (> 60); eGFR For Non-African Americans > 60 (> 60)
[2017-07-03 15:15] LABS: BUN/Creatinine Ratio 18 (6-26); Blood Urea Nitrogen 20 mg/dL (8-26); Osmolality,Calculated 308 (280-300)
[2017-07-03] MEDS ORDERED: 0.9 % Sodium Chloride 1,000 ML IVC ONE (15:47)
[2017-07-03] MEDS ORDERED: *HR* Dextrose 50 % in Water (Syg) 50 ML SYRINGE IVP PRN (15:48)
[2017-07-03] MEDS ORDERED: Ondansetron 4 MG/2 ML VIAL IVP ONE (15:51)
--- NOTE | 2017-07-03 15:54 | Emergency Department Note ---
Disposition Clinical Impression: DKA (diabetic ketoacidoses) Qualifiers: 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 type: type 1 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 complication detail: without coma Qualified Code(s): E10.10 - Type 1 diabetes mellitus with ketoacidosis without coma Disposition: Admitted As Inpatient Condition: Fair Time of Disposition: 16:31 Nausea/Vomiting/Diarrhea HPI - General Chief complaint: ED Nausea/Vomiting/Diarrhea Stated complaint: N/V/D Time Seen by Provider: 07/03/17 15:52 Source: patient Limitations: no limitations Nursing Notes Reviewed: Yes Vital Signs Reviewed: Yes - History of Present Illness HPI Narrative: 42-year-old type I diabetic since had nausea vomiting for last couple days with abdominal chest pain. Dates is been unable to keep anything down. Pt Subjective Complaint: nausea, vomiting Onset (ago): day(s) Description of emesis: food contents Associated Abdominal Pain: Yes If pain, Location of pain: epigastric Radiation: other (Chest) Quality: aching Consistency: constant Improves with: nothing Worsens with: vomiting - Related Data Home Medications Medication Instructions Recorded Confirmed Albuterol Sulfate [Albuterol 2 puff IH Q4H PRN 02/23/17 05/24/17 Inhaler] Escitalopram [Lexapro] 20 mg PO DAILY 02/23/17 05/24/17 Gabapentin [Neurontin] 600 mg PO TID 02/23/17 05/24/17 Glucagon,Human Recombinant 1 mg IJ ONCE PRN 02/23/17 05/24/17 [Glucagon Emergency Kit] Insulin Glargine,Hum.rec.anlog 20 unit SQ QAM 02/23/17 05/24/17 [Lantus Solostar] Insulin LISPRO [Humalog Kwikpen 0 unit SQ TIDWM 02/23/17 05/24/17 U-100] glipiZIDE [Glucotrol] 5 mg PO 0800 05/24/17 05/24/17 Previous Rx's Medication Instructions Recorded Phos-NaK [Neutra-Phos] 1 each PO BID #20 powd.pack 05/26/17 cephALEXin [Keflex] 500 mg PO BID capsule 05/26/17 Allergies Allergy/AdvReac Type Severity Reaction Status Date / Time metformin Allergy Rash Verified 02/23/17 17:24 Penicillins Allergy Anaphylaxis Verified 02/23/17 17:24 All systems ED: reviewed and negative except as stated. Constitutional: Denies: fever, chills, weakness, weight change Eyes: Denies: eye pain, eye discharge, vision change ENT ED: Denies: ear pain, throat pain, dental pain, hearing loss, epistaxis, congestion, dysphagia Cardiovascular: Denies: chest pain, palpitations, dyspnea on exertion, edema, syncope Respiratory: Denies: cough, dyspnea, wheezes, hemoptysis, stridor Gastrointestinal: Reports: abdominal pain, nausea, vomiting. Denies: diarrhea, constipation, hematemesis, melena, hematochezia Genitourinary: Denies: urgency, dysuria, frequency, hematuria Musculoskeletal: Denies: back pain, neck pain, arthralgia, myalgia Integumentary: Denies: rash, abrasion, lesions Neurological: Denies: headache, weakness, numbness, paresthesias, confusion, abnormal gait, vertigo Psychiatric: Denies: anxiety, depression, suicidal thoughts, homicidal thoughts , auditory hallucinations, visual hallucinations Endocrine: Denies: fatigue Hematological/Lymphatic: Denies: easy bleeding, easy bruising Allergic/Immunologic: Denies: facial swelling, urticaria Past Medical History - Past Medical History Medical history: Reports: diabetes, GERD Surgical history: Reports: appendectomy Psychiatric history: Reports: anxiety - Social History Smoking Status: Current every day smoker Smokeless Tobacco Status: No Alcohol use: Reports: none Drug use: Reports: none Physical Exam - General Limitations: no limitations General appearance: alert, in no apparent distress - Head Head exam: atraumatic, normocephalic, normal inspection - Eye Eye exam: Present: normal appearance, PERRL, EOMI - ENT ENT exam: normal exam, normal oropharynx, mucous membranes moist - Neck Neck exam: Present: normal inspection, full ROM, trachea midline - Chest Chest inspection: Present: normal inspection, symmetric chest wall rise - Respiratory Respiratory exam: Present: normal lung sounds bilaterally - Cardiovascular Cardiovascular exam: Present: regular rate, normal rhythm, normal heart sounds - Abdominal Exam Abdominal exam: Present: soft, tenderness. Absent: distention, guarding, rebound, rigidity Abdominal tenderness: Present: epigastrium - Extremities Exam Extremities exam: Present: normal inspection, full ROM. Absent: tenderness, pedal edema - Expanded Lower Extremity Exam Neurovascular/Tendon exam: Absent: motor deficit, sensory deficit, tendon deficit Gait: observed and normal - Back Exam Back exam: Present: normal inspection, full ROM. Absent: tenderness - Neurological Exam Neurological exam: Present: alert, oriented X3 - Psychiatric Psychiatric exam: Present: normal affect, normal mood - Skin Skin exam: Present: warm, dry, intact, normal color Course - Reevaluation(s) Reevaluation #1: 42-year-old with nausea vomiting diabetic. CO2 on the Chem-7 is 11, pH on blood gas is 7.21. Time: 16:29 - Consultations Consultation #1: Discussed with Dr. Hernández, requested consultation with the senior software development manager Time: 16:15 Consultation #2: Discussed with Dr. Hernández, admit. Time: 16:45 Vital Signs Temperature 97.7 F 07/03/17 13:33 Pulse Rate 112 07/03/17 13:33 Respiratory Rate 18 07/03/17 13:33 Blood Pressure 122/76 07/03/17 13:33 O2 Sat by Pulse Oximetry 100 07/03/17 13:33 Temperature 97.7 F 07/03/17 13:33 Pulse Rate 102 07/03/17 16:36 Respiratory Rate 17 07/03/17 16:36 Blood Pressure 104/65 07/03/17 16:36 O2 Sat by Pulse Oximetry 100 07/03/17 16:36 Oxygen Delivery Oxygen Delivery Room Air Nausea/Vomiting/Diarrhea - Lab Data Result diagrams: 07/03/17 16:02 07/03/17 14:18 Lab Results 07/03/17 07/03/17 07/03/17 Range/Units 13:40 14:18 14:18 WBC (4.3-11.1) K/mcL RBC (4.19-5.50) M/mcL Hgb (12.9-16.9) g/dL Hct (37.5-50.1) % MCV (83.0-100.0) fL MCH (28.0-33.3) pg MCHC (31.6-35.5) g/dL RDW (11.5-14.5) % Plt Count (140-400) K/mcL MPV (9.4-12.4) fL Immature Gran % (0-4) % Seg Neutrophils % % Lymphocytes % % Monocytes % % Eosinophils % % Basophils % % Neutrophils # (1.6-8.9) K/mcL Lymphocytes # (0.6-4.6) K/mcL Monocytes # (0.0-1.3) K/mcL Eosinophils # (0.0-0.6) K/mcL Basophils # (0.0-0.2) K/mcL Immature Plt Fraction (1.1-6.1) % ABG pH (7.32-7.45) pH Units ABG pCO2 (35-45) mmHg ABG pO2 (85-104) mmHg ABG HCO3 (21-27) mEq/L ABG Total CO2 (20-26) mEq/L ABG O2 Saturation (95-98) % ABG Base Excess (-2 to 3) mEq/L Sodium 138 (136-145) mEq/L Potassium 4.5 (3.5-4.5) mEq/L Chloride 100 (98-109) mEq/L Carbon Dioxide 11 L (19-29) mEq/L BUN 20 (8-26) mg/dL Creatinine 1.10 (0.72-1.25) mg/dL Est GFR ( Amer) > 60 (> 60) Est GFR (Non-Af Amer) > 60 (> 60) BUN/Creatinine Ratio 18 (6-26) Glucose 440 H (70-99) mg/dL POC Glucose (58-89) Calculated Osmolality 308 H (280-300) Lactic Acid (0.5-2.2) mmol/L Calcium 9.5 (8.6-10.8) mg/dL Total Bilirubin 0.5 (0.2-1.2) mg/dL Direct Bilirubin 0.4 (0.0-0.5) mg/dL Indirect Bilirubin 0.1 (0.0-1.2) mg/dL AST 33 (5-34) Units/L ALT 38 (0-55) Units/L Alkaline Phosphatase 138 H (38-126) Units/L Troponin I 0.01 (0-0.03) ng/mL Serum Total Protein 7.4 (6.0-8.3) g/dL Albumin 3.6 (3.5-5.0) g/dL Globulin 3.8 H (2.4-3.5) g/dL Albumin/Globulin Ratio 0.9 L (1.1-2.2) Lipase < 10 (8-78) Units/L Urine Color Yellow (Yellow) Urine Clarity Clear (Clear) Urine pH 5.5 (5.0-8.0) pH Units Ur Specific [place] > 1.030 H (1.010-1.025) Urine Protein Negative (Neg-Trace) mg/dL Urine Glucose (UA) >=1000 H (Normal) mg/dL Urine Ketones >=160 H (Negative) mg/dL Urine Blood Negative (Negative) Urine Nitrite Negative (Negative) Urine Bilirubin Negative (Negative) Urine Urobilinogen Normal (Normal) mg/dL Ur Leukocyte Esterase Negative (Negative) Ur Culture Indicated? NO (NO) 07/03/17 07/03/17 07/03/17 Range/Units 15:57 16:02 16:02 WBC 9.9 (4.3-11.1) K/mcL RBC 4.69 (4.19-5.50) M/mcL Hgb 14.7 (12.9-16.9) g/dL Hct 45.1 (37.5-50.1) % MCV 96.2 D (83.0-100.0) fL MCH 31.3 (28.0-33.3) pg MCHC 32.6 (31.6-35.5) g/dL RDW 12.3 (11.5-14.5) % Plt Count 246 (140-400) K/mcL MPV 10.5 (9.4-12.4) fL Immature Gran % 1.2 (0-4) % Seg Neutrophils % 89.6 % Lymphocytes % 6.9 % Monocytes % 1.9 % Eosinophils % 0.0 % Basophils % 0.4 % Neutrophils # 8.9 (1.6-8.9) K/mcL Lymphocytes # 0.7 (0.6-4.6) K/mcL Monocytes # 0.2 (0.0-1.3) K/mcL Eosinophils # 0.0 (0.0-0.6) K/mcL Basophils # 0.0 (0.0-0.2) K/mcL Immature Plt Fraction 4.4 (1.1-6.1) % ABG pH (7.32-7.45) pH Units ABG pCO2 (35-45) mmHg ABG pO2 (85-104) mmHg ABG HCO3 (21-27) mEq/L ABG Total CO2 (20-26) mEq/L ABG O2 Saturation (95-98) % ABG Base Excess (-2 to 3) mEq/L Sodium (136-145) mEq/L Potassium (3.5-4.5) mEq/L Chloride (98-109) mEq/L Carbon Dioxide (19-29) mEq/L BUN (8-26) mg/dL Creatinine (0.72-1.25) mg/dL Est GFR ( Amer) (> 60) Est GFR (Non-Af Amer) (> 60) BUN/Creatinine Ratio (6-26) Glucose (70-99) mg/dL POC Glucose 417 H* (58-89) Calculated Osmolality (280-300) Lactic Acid 3.5 H (0.5-2.2) mmol/L Calcium (8.6-10.8) mg/dL Total Bilirubin (0.2-1.2) mg/dL Direct Bilirubin (0.0-0.5) mg/dL Indirect Bilirubin (0.0-1.2) mg/dL AST (5-34) Units/L ALT (0-55) Units/L Alkaline Phosphatase (38-126) Units/L Troponin I (0-0.03) ng/mL Serum Total Protein (6.0-8.3) g/dL Albumin (3.5-5.0) g/dL Globulin (2.4-3.5) g/dL Albumin/Globulin Ratio (1.1-2.2) Lipase (8-78) Units/L Urine Color (Yellow) Urine Clarity (Clear) Urine pH (5.0-8.0) pH Units Ur Specific [place] (1.010-1.025) Urine Protein (Neg-Trace) mg/dL Urine Glucose (UA) (Normal) mg/dL Urine Ketones (Negative) mg/dL Urine Blood (Negative) Urine Nitrite (Negative) Urine Bilirubin (Negative) Urine Urobilinogen (Normal) mg/dL Ur Leukocyte Esterase (Negative) Ur Culture Indicated? (NO) 07/03/17 07/03/17 Range/Units 16:02 16:20 WBC (4.3-11.1) K/mcL RBC (4.19-5.50) M/mcL Hgb (12.9-16.9) g/dL Hct (37.5-50.1) % MCV (83.0-100.0) fL MCH (28.0-33.3) pg MCHC (31.6-35.5) g/dL RDW (11.5-14.5) % Plt Count (140-400) K/mcL MPV (9.4-12.4) fL Immature Gran % (0-4) % Seg Neutrophils % % Lymphocytes % % Monocytes % % Eosinophils % % Basophils % % Neutrophils # (1.6-8.9) K/mcL Lymphocytes # (0.6-4.6) K/mcL Monocytes # (0.0-1.3) K/mcL Eosinophils # (0.0-0.6) K/mcL Basophils # (0.0-0.2) K/mcL Immature Plt Fraction (1.1-6.1) % ABG pH 7.21 L (7.32-7.45) pH Units ABG pCO2 26 L (35-45) mmHg ABG pO2 120 H (85-104) mmHg ABG HCO3 10 L (21-27) mEq/L ABG Total CO2 11 L (20-26) mEq/L ABG O2 Saturation 98 (95-98) % ABG Base Excess -16 L (-2 to 3) mEq/L Sodium (136-145) mEq/L Potassium (3.5-4.5) mEq/L Chloride (98-109) mEq/L Carbon Dioxide (19-29) mEq/L BUN (8-26) mg/dL Creatinine (0.72-1.25) mg/dL Est GFR ( Amer) (> 60) Est GFR (Non-Af Amer) (> 60) BUN/Creatinine Ratio (6-26) Glucose (70-99) mg/dL POC Glucose (58-89) Calculated Osmolality (280-300) Lactic Acid (0.5-2.2) mmol/L Calcium (8.6-10.8) mg/dL Total Bilirubin (0.2-1.2) mg/dL Direct Bilirubin (0.0-0.5) mg/dL Indirect Bilirubin (0.0-1.2) mg/dL AST (5-34) Units/L ALT (0-55) Units/L Alkaline Phosphatase (38-126) Units/L Troponin I 0.00 (0-0.03) ng/mL Serum Total Protein (6.0-8.3) g/dL Albumin (3.5-5.0) g/dL Globulin (2.4-3.5) g/dL Albumin/Globulin Ratio (1.1-2.2) Lipase (8-78) Units/L Urine Color (Yellow) Urine Clarity (Clear) Urine pH (5.0-8.0) pH Units Ur Specific [place] (1.010-1.025) Urine Protein (Neg-Trace) mg/dL Urine Glucose (UA) (Normal) mg/dL Urine Ketones (Negative) mg/dL Urine Blood (Negative) Urine Nitrite (Negative) Urine Bilirubin (Negative) Urine Urobilinogen (Normal) mg/dL Ur Leukocyte Esterase (Negative) Ur Culture Indicated? (NO) - EKG Data EKG attestation: Yes I reviewed and interpreted this EKG. EKG shows normal: sinus rhythm Rate: tachycardia Interpretation: no acute changes Critical Care Time Critical Care Time: Yes Total Critical Care Time: 30 Attestation: The high probability of a clinically significant, sudden or life threatening deterioration of the [endocrine] system(s) required my full and direct attention , intervention and personal management. The aggregate critical care time was [30 ] minutes. This time is in addition to time spent performing reported procedures but includes the following: [x] Data Review and interpretation [x] Patient assessment and monitoring of vital signs [x] Documentation [x] Medication orders and management
[2017-07-03] MEDS ORDERED: Insulin Human Regular 100 UNIT in 0.9 % Sodium Chloride 100 ML IVC SCH (16:00)
[2017-07-03] MEDS ORDERED: 0.9 % Sodium Chloride 1,000 ML IVC SCH ×3 (16:00→18:30)
[2017-07-03] MEDS ORDERED: *HR* HYDROmorphone (PF) 1 MG/ML SYRINGE IVP ONE (16:06)
[2017-07-03 16:08] LABS: Basophils % 0.4 %; Hematocrit 45.1 % (37.5-50.1); Hemoglobin 14.7 g/dL (12.9-16.9); Immature Granulocytes % 1.2 % (0-4); Immature Platelets 4.4 % (1.1-6.1); Lymphocytes # 0.7 K/mcL (0.6-4.6); Lymphocytes % 6.9 %; Mean Corpuscular HGB Conc 32.6 g/dL (31.6-35.5); Mean Corpuscular Hemoglobin 31.3 pg (28.0-33.3); Mean Corpuscular Volume 96.2 fL (83.0-100.0); Mean Platelet Volume 10.5 fL (9.4-12.4); Monocytes # 0.2 K/mcL (0.0-1.3); Monocytes % 1.9 %; Neutrophils # 8.9 K/mcL (1.6-8.9); Platelet Count 246 K/mcL (140-400); Red Blood Count 4.69 M/mcL (4.19-5.50); Red Cell Distribution Width 12.3 % (11.5-14.5); Segmented Neutrophils % 89.6 %
[2017-07-03 16:22] LABS: ABG Base Excess -16 mEq/L (-2 to 3); ABG HCO3 10 mEq/L (21-27); ABG Oxygen Saturation 98 % (95-98); ABG PCO2 26 mmHg (35-45); ABG PH 7.21 pH Units (7.32-7.45); ABG PO2 120 mmHg (85-104); ABG TCO2 11 mEq/L (20-26)
[2017-07-03] MEDS ORDERED: Acetaminophen 325 MG TABLET PO PRN (17:16)
[2017-07-03] MEDS ORDERED: Naloxone 0.4 MG/ML INJ IVP PRN (17:16)
--- NOTE | 2017-07-03 17:45 | Internal Med History&Physical ---
<Alissa Parra - Last Filed: 07/03/17 18:34> Date of Encounter: 07/03/17 Time of Encounter: 17:43 Assessment and Plan (1) DKA (diabetic ketoacidoses) Status: Acute 1 patient has been experiencing abdominal pain nausea vomiting and his blood sugar was 448 bicarb 11 lactate 3.5 pH 7.2. Patient was initiated on insulin drip, which will continue 2 patient has received 2 L IV fluid in the ER, continue with 2 more liters and initiate IVF MIV 150 3 check BMP every 4 hours and adjust fluids accordingly 4 cont cardiac monitoring 5 will check for flu 6 zofran for nausea Qualifiers: 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 type: type 1 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 complication detail: without coma Qualified Code(s): E10.10 - Type 1 diabetes mellitus with ketoacidosis without coma (2) GERD (gastroesophageal reflux disease) Status: Acute Protonix Qualifiers: Esophagitis presence: without esophagitis Qualified Code(s): K21.9 - Gastro -esophageal reflux disease without esophagitis (3) Intractable nausea and vomiting Status: Acute related to DKA will continue with Fluids zofran for nausea Qualifiers: Vomiting type: unspecified Qualified Code(s): R11.2 - Nausea with vomiting , unspecified Internal Medicine - H&P: HPI Chief complaint: Nausea and vomiting Admitted From: Emergency Dept History of present illness: Mr. Barron is a 42 year old male past medical history of GERD diabetes type 2 current smoker. According to the patient he has been experiencing for the past 3 days productive cough with yellow sputum he denies any fevers or chills he has been experiencing diffuse abdominal pain nausea and vomiting. He states he thought that this was related to his coughing and not his diabetes. He states he has not been able to keep any food down. He states that he has been compliant with his insulin regime. Previous hemoglobin A1c on 04/18/17 11.3. Patient presented to the ER with the above complaints. According to ER records lab work did reveal lactate of 3.5 leukocytosis CO2 of 11 pH was 7.25 on ABG ketones in urine blood sugar was 440. Patient was initiated on insulin drip and has been given 2 L of IV fluid. Chest x-ray with no acute process urinalysis with no UTI. Patient has been admitted for further workup and evaluation. Currently patient does not appear to be managed with stress. He denies any chest pain or abdominal pain this time. There is no nausea vomiting. He is hemodynamically stable this time however he is hypotensive with systolic in the 90s. I did review this case with Dr Hernández who agrees with plan Past Med Surg Social Fam HX - Past Medical History Medical history: diabetes, GERD Psychiatric history: anxiety - Past Surgical History Surgical History: appendectomy - Social History Smoking Status: Current every day smoker Smokeless Tobacco Status: No Alcohol use: none Drug use: none - Family History Mother Hx Family Cardiac Disorders: Yes Hx Family Cancer: Yes Hx Family Endocrine Disorder: Yes Internal Medicine - H&P: Meds Albuterol Sulfate [Albuterol Inhaler] 2 puff IH Q4H PRN 02/23/17 [History] Escitalopram [Lexapro] 20 mg PO HS 02/23/17 [History] Gabapentin [Neurontin] 600 mg PO TID 02/23/17 [History] Glucagon,Human Recombinant [Glucagon Emergency Kit] 1 mg IJ ONCE PRN 02/23/17 [ History] glipiZIDE [Glucotrol] 5 mg PO 0800 05/24/17 [History] Ranitidine HCl [Zantac] 150 mg PO HS PRN 07/03/17 [History] Insulin Glargine,Hum.rec.anlog [Lantus Solostar] 20 unit SQ HS #6 insuln.pen [Rx] Insulin LISPRO [Humalog Kwikpen U-100] 2 unit SQ TIDWM #2 insuln.pen 07/06/17 [ Rx] Metoclopramide [Reglan] 5 mg PO TIDWM #450 mls 07/06/17 [Rx] Ondansetron HCl [Zofran] 4 mg PO Q8H PRN #30 tablet 07/06/17 [Rx] 3 Allergy/AdvReac Type Severity Reaction Status Date / Time Penicillins Allergy Hives Verified 07/03/17 20:48 metformin AdvReac Diarrhea Verified 07/03/17 20:48 All Systems PM: A 10-system review of systems was performed and is negative for pertinent findings except as documented above in the HPI. - Constitutional Constitutional: anorexia - EENT Nose, mouth and throat: no dysphagia, no nasal discharge, no neck pain, no sore throat - Cardiovascular Cardiovascular ROS IM: no chest pain, no diaphoresis, no dyspnea, no lightheadedness, no palpitations, no syncope - Respiratory Respiratory: no cough, no dyspnea, no wheezing, no excessive phlegm production - Gastrointestinal Gastrointestinal: abdominal pain, nausea, vomiting, no diarrhea, no hematemesis , no hematochezia, no melena - Musculoskeletal Musculoskeletal ROS IM: no numbness, no tingling - Integumentary Integumentary IM: no rash, no unusual bruising - Neurological Neurological ROS: no confusion, no convulsions, no focal weakness, no numbness, no tingling, no tremor(s) - Hematologic/Lymphatic Hematologic/Lymphatic: no easy bruising - Constitutional Vitals: Temp Pulse Resp BP Pulse Ox 97.7 F 102 16 100/56 100 07/03/17 13:33 07/03/17 16:36 07/03/17 17:18 07/03/17 17:18 07/03/17 16:36 General appearance: Present: A&O X 3, answers questions appropriately - Head Head exam: Present: atraumatic, normocephalic - Eye Eye exam: Present: PERRL, conjuntiva pink, sclera anicteric Pupils: Present: PERRL - Neck Neck exam general surgery: Present: supple, trachea midline. Absent: lymphadenopathy - Respiratory Respiratory exam: Present: CTAB. Absent: accessory muscle use, rales, rhonchi, wheezes - Cardiovascular Cardiovascular exam: Present: RRR, +S1, +S2. Absent: diastolic murmur, gallop, rubs, systolic murmur - GI/Abdominal GI/Abdominal exam: Present: normal bowel sounds, soft, no peritoneal signs. Absent: distended, tenderness - Extremities Exam Extremities exam: Present: warm, radial pulses palpable and symmetrical. Absent : calf tenderness, cyanotic, pedal edema - Neurological Exam Neurological exam: Present: CN II-XII intact, oriented X3, no focal deficits. Absent: pronater drift, facial droop, speech deficit - Skin Skin exam: Present: dry, intact Internal Med - H&P Results - Labs CBC & Chem 7: 07/03/17 16:02 07/03/17 14:18 - Diagnostic Studies Other Images Additional comments: Chest X-Ray 07/03/17 13:38 IMPRESSION: Stable chest with no acute cardiopulmonary process. D/ / Denis Fontenot MD / Denis Fontenot MD Interpreting Provider: Denis Fontenot MD <Angelito Hernández P - Last Filed: 07/07/17 12:04> Date of Encounter: 07/07/17 Internal Medicine - H&P: HPI History of present illness: Mr. Barron is a 42 year old male All Systems PM: A 10-system review of systems was performed and is negative for pertinent findings except as documented above in the HPI. - Constitutional Vitals: Temp Pulse Resp BP Pulse Ox 98.8 F 78 16 109/80 98 07/06/17 12:40 07/06/17 12:40 07/06/17 12:40 07/06/17 12:40 07/06/17 12:40 Internal Med - H&P Results - Labs CBC & Chem 7: 07/04/17 01:50 07/06/17 04:03 - ABG Interpretation ABG results: 07/04/17 00:28 VBG pH 7.36 VBG pCO2 38 L VBG pO2 202 H VBG HCO3 22 - Impressions ITS Impressions Echocardiogram 07/04/17 14:54 Impressions: LVEF 70%. Normal LV chamber size, wall thickness and function. Normal left ventricular diastolic function. Normal right ventricular structure and function. No evidence of pulmonary hypertension. No significant valvular dysfunction. Left Ventricular Wall Motion: Rest Echo Findings All wall segments showed normal motion. Findings: Study Quality * Technically adequate exam. ECG Findings * Normal sinus rhythm. Left Ventricle * LVEF 70%. * Normal LV chamber size, wall thickness and function. * Normal left ventricular diastolic function. Right Ventricle * Normal right ventricular structure and function. Left Atrium * Normal left atrial size. Right Atrium * Normal right atrial size. Interatrial Septum * Interatrial septum not well evaluated. Aortic Valve * Aortic valve not well visualized. * No aortic regurgitation. * No aortic stenosis. Mitral Valve * Normal mitral valve structure and function. * No mitral regurgitation. * No mitral stenosis. Tricuspid Valve * Normal tricuspid valve structure and function. * Trace tricuspid regurgitation. * No evidence of pulmonary hypertension. Pulmonic Valve * Pulmonic valve not well visualized. * No pulmonic regurgitation. Aorta * Normally sized aortic root. Pericardium * The pericardium appears normal. IVC * Normal IVC dimensions and inspiratory collapse. Pulmonary Artery * Normal visualized portions of the main pulmonary artery. - Attending Attestation I examined this patient and my medical decision-making was reviewed with the Resident Physician/REHABILITATION COUNSELLOR. I agree with the documented findings, disposition and treatment plan as described except to the extent set forth below.
[2017-07-03 19:29] LABS: BUN/Creatinine Ratio 23 (6-26); Blood Urea Nitrogen 23 mg/dL (8-26); Calcium 8.2 mg/dL (8.6-10.8); Carbon Dioxide 12 mEq/L (19-29); Chloride 108 mEq/L (98-109); Glucose 352 mg/dL (70-99); Osmolality,Calculated 310 (280-300); Phosphorous 3.3 mg/dL (2.3-4.7); Potassium 4.1 mEq/L (3.5-4.5); Sodium 141 mEq/L (136-145); eGFR For African Americans > 60 (> 60); eGFR For Non-African Americans > 60 (> 60)
[2017-07-03] MEDS: *HR* Heparin 5,000 UNIT/ML VIAL SQ SCH (19:35)
[2017-07-03] MEDS: D5% in 0.45% NACL w KCl 20 MEQ/1,000 ML MLS IVC PRN (21:03)
[2017-07-03] MEDS: Azithromycin 500 MG in D5% in Water 250 ML IVPB SCH (21:28)
[2017-07-03] MEDS: Ondansetron 4 MG/2 ML VIAL IVP PRN (22:42)
[2017-07-03] MEDS: Insulin Human Regular 100 UNIT in 0.9 % Sodium Chloride 100 ML IVC SCH (22:51)
[2017-07-03 22:56] LABS: BUN/Creatinine Ratio 24 (6-26); Blood Urea Nitrogen 19 mg/dL (8-26); Calcium 8.1 mg/dL (8.6-10.8); Carbon Dioxide 19 mEq/L (19-29); Chloride 111 mEq/L (98-109); Glucose 190 mg/dL (70-99); Osmolality,Calculated 295 (280-300); Potassium 3.5 mEq/L (3.5-4.5); Sodium 139 mEq/L (136-145); eGFR For African Americans > 60 (> 60); eGFR For Non-African Americans > 60 (> 60)
[2017-07-04 00:33] LABS: VBG HCO3 22 mEq/L (21-27); VBG PCO2 38 mmHg (41-51); VBG PH 7.36 pH Units (7.32-7.42); VBG PO2 202 mmHg (25-50)
[2017-07-04] MEDS ORDERED: *HR* Promethazine 25 MG/ML VIAL IVP ONE (00:42)
[2017-07-04] MEDS: Insulin Human Regular 100 UNIT in 0.9 % Sodium Chloride 100 ML IVC SCH (01:36)
[2017-07-04 02:04] LABS: Basophils % 0.3 %; Eosinophils % 0.2 %; Hemoglobin 12.5 g/dL (12.9-16.9); Immature Granulocytes % 0.5 % (0-4); Lymphocytes # 1.5 K/mcL (0.6-4.6); Lymphocytes % 15.8 %; Mean Corpuscular HGB Conc 33.8 g/dL (31.6-35.5); Mean Corpuscular Hemoglobin 31.4 pg (28.0-33.3); Mean Platelet Volume 10.4 fL (9.4-12.4); Monocytes # 1.1 K/mcL (0.0-1.3); Monocytes % 11.7 %; Neutrophils # 6.8 K/mcL (1.6-8.9); Platelet Count 231 K/mcL (140-400); Red Blood Count 3.98 M/mcL (4.19-5.50); Red Cell Distribution Width 12.3 % (11.5-14.5); Segmented Neutrophils % 71.5 %
[2017-07-04 02:13] LABS: Hemoglobin A1C 11.8 %
[2017-07-04 02:15] LABS: BUN/Creatinine Ratio 22 (6-26); Blood Urea Nitrogen 18 mg/dL (8-26); Calcium 8.2 mg/dL (8.6-10.8); Carbon Dioxide 24 mEq/L (19-29); Chloride 111 mEq/L (98-109); Glucose 139 mg/dL (70-99); Magnesium 1.6 mg/dL (1.6-2.6); Osmolality,Calculated 294 (280-300); Potassium 3.7 mEq/L (3.5-4.5); Sodium 140 mEq/L (136-145); eGFR For African Americans > 60 (> 60); eGFR For Non-African Americans > 60 (> 60)
[2017-07-04 02:17] LABS: Phosphorous 1.6 mg/dL (2.3-4.7)
[2017-07-04] MEDS: D5% in 0.45% NACL w KCl 20 MEQ/1,000 ML MLS IVC PRN (02:26)
[2017-07-04] MEDS ORDERED: Insulin DETEMIR 100 UNIT/ML X5UNITS SQ ONE (02:37)
[2017-07-04] MEDS ORDERED: *HR* Dextrose 50 % in Water (Syg) 50 ML SYRINGE IVP PRN (03:53)
[2017-07-04] MEDS ORDERED: D5% in Water 1,000 ML IVC PRN (03:53)
[2017-07-04] MEDS ORDERED: Dextrose Gel 15 GM PO PRN ×2 (03:53)
[2017-07-04] MEDS: *HR* Heparin 5,000 UNIT/ML VIAL SQ SCH ×2 (06:06→17:25)
[2017-07-04] MEDS: Ondansetron 4 MG/2 ML VIAL IVP PRN (06:06)
--- NOTE | 2017-07-04 06:34 | Electrocardiograph Report ---
[place] [employer] 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
[2017-07-04 07:51] LABS: BUN/Creatinine Ratio 22 (6-26); Blood Urea Nitrogen 17 mg/dL (8-26); Calcium 8.2 mg/dL (8.6-10.8); Carbon Dioxide 19 mEq/L (19-29); Chloride 109 mEq/L (98-109); Glucose 151 mg/dL (70-99); Osmolality,Calculated 290 (280-300); Potassium 3.9 mEq/L (3.5-4.5); Sodium 138 mEq/L (136-145); eGFR For African Americans > 60 (> 60); eGFR For Non-African Americans > 60 (> 60)
[2017-07-04] MEDS: Insulin LISPRO 300 UNITS/3 ML VIAL SQ SCH ×4 (08:27→21:32)
[2017-07-04] MEDS ORDERED: Pantoprazole 40 MG VIAL IVP SCH (09:00)
[2017-07-04] MEDS ORDERED: *HR* Promethazine 25 MG/ML VIAL IVP PRN (09:04)
[2017-07-04 11:31] LABS: BUN/Creatinine Ratio 19 (6-26); Blood Urea Nitrogen 15 mg/dL (8-26); Calcium 7.9 mg/dL (8.6-10.8); Carbon Dioxide 17 mEq/L (19-29); Chloride 108 mEq/L (98-109); Glucose 178 mg/dL (70-99); Osmolality,Calculated 285 (280-300); Potassium 4.2 mEq/L (3.5-4.5); Sodium 135 mEq/L (136-145); eGFR For African Americans > 60 (> 60); eGFR For Non-African Americans > 60 (> 60)
[2017-07-04] MEDS: Insulin DETEMIR 100 UNIT/ML X5UNITS SQ SCH ×3 (14:00→21:31)
--- NOTE | 2017-07-04 14:04 | Internal Med Progress Note ---
<Ed Mckinnon - Last Filed: 07/04/17 15:36> Date of Encounter: 07/04/17 Time of Encounter: 09:15 - Assessment and plan (1) DKA (diabetic ketoacidoses) Current Visit: Yes Status: Acute Assessment and plan: ED gap of 27, closed with DKA protocol. On SSI with levemir. A1c 11.8 VSS, normotensive, no fever, likely ongoing gastroparesis. Qualifiers: 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 type: type 1 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 complication detail: without coma Qualified Code(s): E10.10 - Type 1 diabetes mellitus with ketoacidosis without coma (2) Uncontrolled diabetes mellitus Current Visit: No Status: Chronic Assessment and plan: Type I DM; diagnosis age 24. Pt on basal and SSI; sugars in out-patient setting are regularly elevated. Pt history of recurrent hospitalizations, hyperglycemia, abdominal pain. Revisit/reconsider insulin pump, patient education. Qualifiers: 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 type: type 1 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 complication status: with unspecified complications Qualified Code(s): E10.8 - Type 1 diabetes mellitus with unspecified complications; E10.65 - Type 1 diabetes mellitus with hyperglycemia (3) Abdominal pain Current Visit: No Status: Acute Assessment and plan: Zofran 4mg q8h no relief. Added phenergan 12.5mg With long-standing DM, A1c 11.8; likely gastroparesis. No hx cirrhosis, no RUQ pain, no white count, no blood per rectum. Qualifiers: Abdominal location: generalized Qualified Code(s): R10.84 - Generalized abdominal pain (4) Intractable nausea and vomiting Current Visit: No Status: Acute Assessment and plan: As above, giving Zofran, trial phenergan. Qualifiers: Vomiting type: unspecified Qualified Code(s): R11.2 - Nausea with vomiting , unspecified (5) GERD (gastroesophageal reflux disease) Current Visit: No Status: Acute Assessment and plan: Continue Protonix Qualifiers: Esophagitis presence: without esophagitis Qualified Code(s): K21.9 - Gastro -esophageal reflux disease without esophagitis (6) Hypophosphatemia Current Visit: Yes Status: Acute Assessment and plan: Monitor BMP, diabetic diet, no supplementation needed at this time. - Subjective Interval history: Mr. Kevon Barron is a 42 y/o type I diabetic (dx'd age 24), recent hospitalization for DKA 10/5/17, presented to ED for n/v/abd pain/diarrhea. Elevated anion gap of 27 was closed with fluids and insulin. Patient responding to low-dose SSI, Zofran and phenergan for symptomatic comfort. Compliance/Outpatient follow-up: patient cancelled last hospital f/u appointment with PCP, has had discussion regarding possible insulin pump, however, that has not been decided on by patient at this time. Today: pt is still symptomatic with nausea and vomitting, denies productive cough/shortness of breath, no fever. - Constitutional Vitals: Temp Pulse Resp BP Pulse Ox 98.4 F 68 16 105/60 99 07/04/17 11:25 07/04/17 12:02 07/04/17 11:25 07/04/17 11:25 07/04/17 11:25 General appearance: Present: A&O X 3, answers questions appropriately - Head Head exam: Present: atraumatic - Neck Neck exam general surgery: Present: full ROM. Absent: lymphadenopathy - Respiratory Respiratory exam: Present: CTAB. Absent: rales, rhonchi - Cardiovascular Cardiovascular exam: Present: RRR, +S1, +S2. Absent: systolic murmur - GI/Abdominal GI/Abdominal exam: Present: no peritoneal signs. Absent: guarding, rigid - Extremities Exam Extremities exam: Present: warm. Absent: calf tenderness Internal Medicine: Result - Labs CBC & Chem 7: 07/04/17 01:50 07/04/17 10:55 Labs: Short CBC 07/04/17 Range/Units 01:50 WBC 9.6 (4.3-11.1) K/mcL Hgb 12.5 L D (12.9-16.9) g/dL Hct 37.0 L (37.5-50.1) % Plt Count 231 (140-400) K/mcL Neutrophils # 6.8 (1.6-8.9) K/mcL BMP 07/03/17 07/03/17 07/04/17 18:14 22:38 01:50 Sodium 141 139 140 Potassium 4.1 3.5 3.7 Chloride 108 111 H 111 H Carbon Dioxide 12 L 19 24 BUN 23 19 18 Creatinine 1.01 0.79 0.82 Glucose 352 H 190 H 139 H Calcium 8.2 L 8.1 L 8.2 L 07/04/17 07/04/17 06:57 10:55 Sodium 138 135 L Potassium 3.9 4.2 Chloride 109 108 Carbon Dioxide 19 17 L BUN 17 15 Creatinine 0.78 0.80 Glucose 151 H 178 H Calcium 8.2 L 7.9 L - ABG Interpretation ABG results: ABG ABG pH 7.21 pH Units (7.32-7.45) L 07/03/17 16:20 ABG pCO2 26 mmHg (35-45) L 07/03/17 16:20 ABG pO2 120 mmHg (85-104) H 07/03/17 16:20 ABG O2 Saturation 98 % (95-98) 07/03/17 16:20 Consult Discharge Plan - Plan Referrals: Danika Hutson DO [Primary Care Provider] - 07/10/17 3:00 pm <Monico Sneed - Last Filed: 07/04/17 18:14> Date of Encounter: 07/04/17 - Constitutional Vitals: Temp Pulse Resp BP Pulse Ox 98.4 F 67 14 113/78 99 07/04/17 16:32 07/04/17 16:20 07/04/17 16:17 07/04/17 16:17 07/04/17 16:17 Internal Medicine: Result - Labs CBC & Chem 7: 07/04/17 01:50 07/04/17 10:55 Labs: Short CBC 07/04/17 Range/Units 01:50 WBC 9.6 (4.3-11.1) K/mcL Hgb 12.5 L D (12.9-16.9) g/dL Hct 37.0 L (37.5-50.1) % Plt Count 231 (140-400) K/mcL Neutrophils # 6.8 (1.6-8.9) K/mcL BMP 07/03/17 07/03/17 07/04/17 18:14 22:38 01:50 Sodium 141 139 140 Potassium 4.1 3.5 3.7 Chloride 108 111 H 111 H Carbon Dioxide 12 L 19 24 BUN 23 19 18 Creatinine 1.01 0.79 0.82 Glucose 352 H 190 H 139 H Calcium 8.2 L 8.1 L 8.2 L 07/04/17 07/04/17 06:57 10:55 Sodium 138 135 L Potassium 3.9 4.2 Chloride 109 108 Carbon Dioxide 19 17 L BUN 17 15 Creatinine 0.78 0.80 Glucose 151 H 178 H Calcium 8.2 L 7.9 L Cardiac Enzymes 07/04/17 Range/Units 15:15 Troponin I 0.00 (0-0.03) ng/mL - ABG Interpretation ABG results: ABG ABG pH 7.21 pH Units (7.32-7.45) L 07/03/17 16:20 ABG pCO2 26 mmHg (35-45) L 07/03/17 16:20 ABG pO2 120 mmHg (85-104) H 07/03/17 16:20 ABG O2 Saturation 98 % (95-98) 07/03/17 16:20 - Attending Attestation I conducted a face to face diagnostic evaluation of this patient and my medical decision-making was reviewed with the Resident Physician, Dr. Ed Mckinnon. I agree with the documented findings, disposition and treatment plan as described except to the extent set forth below: Patient presented with DKA. He currently complains of severe sharp chest pain and shortness of breath. On exam he is in moderate distress due to pain and nausea. His heart is regular. Lungs are clear. Abdomen is soft and diffusely tender to palpation with no guarding or rebound tenderness. Plan: For chest pain given history of diabetes we will rule out ACS: Obtain stat troponin and EKG. For diabetes we will switch to long-acting and pre-meal/coverage insulin sliding scale. All this patient's medical problems are new to me today.
[2017-07-04] MEDS: *HR* Morphine 2 MG/ML SYRINGE IV PRN ×2 (15:27→21:30)
[2017-07-04] MEDS: Pantoprazole 40 MG VIAL IVP SCH (17:26)
[2017-07-04] MEDS: Azithromycin 500 MG in D5% in Water 250 ML IVPB SCH (20:23)
[2017-07-04] MEDS: *HR* Promethazine 25 MG/ML VIAL IVP PRN (20:33)
[2017-07-05] MEDS: Ondansetron 4 MG/2 ML VIAL IVP PRN (00:13)
[2017-07-05] MEDS: *HR* Morphine 2 MG/ML SYRINGE IV PRN ×4 (04:18→22:27)
[2017-07-05 05:50] LABS: BUN/Creatinine Ratio 10 (6-26); Blood Urea Nitrogen 7 mg/dL (8-26); Calcium 8.3 mg/dL (8.6-10.8); Carbon Dioxide 27 mEq/L (19-29); Chloride 104 mEq/L (98-109); Glucose 78 mg/dL (70-99); Osmolality,Calculated 279 (280-300); Potassium 3.6 mEq/L (3.5-4.5); Sodium 136 mEq/L (136-145); eGFR For African Americans > 60 (> 60); eGFR For Non-African Americans > 60 (> 60)
[2017-07-05] MEDS: *HR* Heparin 5,000 UNIT/ML VIAL SQ SCH ×2 (06:19→16:32)
[2017-07-05] MEDS: Pantoprazole 40 MG VIAL IVP SCH ×2 (06:20→16:32)
[2017-07-05] MEDS: Insulin LISPRO 300 UNITS/3 ML VIAL SQ SCH ×4 (08:38→22:26)
[2017-07-05] MEDS: Insulin DETEMIR 100 UNIT/ML X5UNITS SQ SCH ×3 (08:39→22:25)
[2017-07-05] MEDS: *HR* Promethazine 25 MG/ML VIAL IVP PRN ×2 (11:47→20:56)
--- NOTE | 2017-07-05 13:07 | Electrocardiograph Report ---
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
[2017-07-05] MEDS ORDERED: *HR* OxyCODONE/APAP 5/325 TABLET PO PRN (15:13)
--- NOTE | 2017-07-05 15:13 | Internal Med Progress Note ---
<Ed Mckinnon - Last Filed: 07/05/17 15:26> Date of Encounter: 07/05/17 Time of Encounter: 09:45 - Assessment and plan (1) DKA (diabetic ketoacidoses) Current Visit: Yes Status: Acute Assessment and plan: ED gap of 27, closed with DKA protocol. On SSI with levemir. A1c 11.8 VSS, normotensive, no fever, likely ongoing gastroparesis. Possible workup for gastric emptying pathology outpatient (requires BS <200, no protonix, no opioid) Pt endorses interest in insulin pump. Qualifiers: 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 type: type 1 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 complication detail: without coma Qualified Code(s): E10.10 - Type 1 diabetes mellitus with ketoacidosis without coma (2) Uncontrolled diabetes mellitus Current Visit: No Status: Chronic Assessment and plan: Type I DM; diagnosis age 24. Pt on basal and SSI; sugars in out-patient setting are regularly elevated. Pt history of recurrent hospitalizations, hyperglycemia, abdominal pain. Patient states he does have interest in an insulin pump. Qualifiers: 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 type: type 1 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 complication status: with unspecified complications Qualified Code(s): E10.8 - Type 1 diabetes mellitus with unspecified complications; E10.65 - Type 1 diabetes mellitus with hyperglycemia (3) Abdominal pain Current Visit: No Status: Acute Assessment and plan: Zofran 4mg q8h no relief. Added phenergan 12.5mg With long-standing DM, A1c 11.8; likely gastroparesis. No hx cirrhosis, no RUQ pain, no white count, no blood per rectum. Qualifiers: Abdominal location: generalized Qualified Code(s): R10.84 - Generalized abdominal pain (4) Intractable nausea and vomiting Current Visit: No Status: Acute Assessment and plan: Responding to phenergan. Qualifiers: Vomiting type: unspecified Qualified Code(s): R11.2 - Nausea with vomiting , unspecified (5) GERD (gastroesophageal reflux disease) Current Visit: No Status: Acute Assessment and plan: Continue Protonix ECG NSR and troponin negative, chest pain unlikely ACS. Qualifiers: Esophagitis presence: without esophagitis Qualified Code(s): K21.9 - Gastro -esophageal reflux disease without esophagitis (6) Hypophosphatemia Current Visit: Yes Status: Acute Assessment and plan: Monitor BMP, diabetic diet, no supplementation needed at this time. - Subjective Interval history: Mr. Kevon Barron is a 42 y/o type I diabetic (dx'd age 24), recent hospitalization for DKA 05/25/17, presented to ED for n/v/abd pain/diarrhea. Elevated anion gap of 27 was closed with fluids and insulin. Patient responding to low-dose SSI, Zofran and phenergan for symptomatic comfort. Compliance/Outpatient follow-up: patient cancelled last hospital f/u appointment with PCP, has had discussion regarding possible insulin pump, however, that has not been decided on by patient at this time. Pt is has had chest pain, sharp, worsens when he vomits. Vomitting has decreased in frequency since yesterday, abdominal pain slight improvement, however, pain still persists. - Constitutional Vitals: Temp Pulse Resp BP Pulse Ox 98.1 F 73 16 149/91 98 07/05/17 11:25 07/05/17 11:25 07/05/17 11:25 07/05/17 11:25 07/05/17 11:25 General appearance: Present: A&O X 3, answers questions appropriately - Head Head exam: Present: atraumatic - Respiratory Respiratory exam: Present: CTAB - Cardiovascular Cardiovascular exam: Present: RRR, +S1, +S2. Absent: systolic murmur - GI/Abdominal GI/Abdominal exam: Present: no peritoneal signs. Absent: hernia, hepatomegaly, pulsatile mass, rebound, rigid, splenomegaly - Extremities Exam Extremities exam: Present: warm. Absent: calf tenderness, tenderness Internal Medicine: Result - Labs CBC & Chem 7: 07/04/17 01:50 07/05/17 05:32 Labs: BMP 07/05/17 05:32 Sodium 136 Potassium 3.6 Chloride 104 Carbon Dioxide 27 BUN 7 L Creatinine 0.68 L Glucose 78 Calcium 8.3 L Cardiac Enzymes 07/04/17 07/04/17 07/05/17 Range/Units 15:15 20:47 05:32 Troponin I 0.00 0.00 0.01 (0-0.03) ng/mL - ABG Interpretation ABG results: ABG ABG pH 7.21 pH Units (7.32-7.45) L 07/03/17 16:20 ABG pCO2 26 mmHg (35-45) L 11/13/17 16:20 ABG pO2 120 mmHg (85-104) H 07/03/17 16:20 ABG O2 Saturation 98 % (95-98) 07/03/17 16:20 - Impressions Impressions Echocardiogram 07/04/17 14:54 Impressions: LVEF 70%. Normal LV chamber size, wall thickness and function. Normal left ventricular diastolic function. Normal right ventricular structure and function. No evidence of pulmonary hypertension. No significant valvular dysfunction. Left Ventricular Wall Motion: Rest Echo Findings All wall segments showed normal motion. Findings: Study Quality * Technically adequate exam. ECG Findings * Normal sinus rhythm. Left Ventricle * LVEF 70%. * Normal LV chamber size, wall thickness and function. * Normal left ventricular diastolic function. Right Ventricle * Normal right ventricular structure and function. Left Atrium * Normal left atrial size. Right Atrium * Normal right atrial size. Interatrial Septum * Interatrial septum not well evaluated. Aortic Valve * Aortic valve not well visualized. * No aortic regurgitation. * No aortic stenosis. Mitral Valve * Normal mitral valve structure and function. * No mitral regurgitation. * No mitral stenosis. Tricuspid Valve * Normal tricuspid valve structure and function. * Trace tricuspid regurgitation. * No evidence of pulmonary hypertension. Pulmonic Valve * Pulmonic valve not well visualized. * No pulmonic regurgitation. Aorta * Normally sized aortic root. Pericardium * The pericardium appears normal. IVC * Normal IVC dimensions and inspiratory collapse. Pulmonary Artery * Normal visualized portions of the main pulmonary artery. Consult Discharge Plan - Plan Referrals: Danika Hutson DO [Primary Care Provider] - 07/10/17 3:00 pm <Monico Sneed - Last Filed: 07/05/17 17:24> Date of Encounter: 07/05/17 - Constitutional Vitals: Temp Pulse Resp BP Pulse Ox 98.0 F 77 12 141/96 99 07/05/17 16:09 07/05/17 16:09 07/05/17 16:09 07/05/17 16:09 07/05/17 16:09 Internal Medicine: Result - Labs CBC & Chem 7: 07/04/17 01:50 07/05/17 05:32 Labs: BMP 07/05/17 05:32 Sodium 136 Potassium 3.6 Chloride 104 Carbon Dioxide 27 BUN 7 L Creatinine 0.68 L Glucose 78 Calcium 8.3 L Cardiac Enzymes 07/04/17 07/05/17 Range/Units 20:47 05:32 Troponin I 0.00 0.01 (0-0.03) ng/mL - ABG Interpretation ABG results: ABG ABG pH 7.21 pH Units (7.32-7.45) L 07/03/17 16:20 ABG pCO2 26 mmHg (35-45) L 07/03/17 16:20 ABG pO2 120 mmHg (85-104) H 07/03/17 16:20 ABG O2 Saturation 98 % (95-98) 07/03/17 16:20 - Impressions Impressions Echocardiogram 07/04/17 14:54 Impressions: LVEF 70%. Normal LV chamber size, wall thickness and function. Normal left ventricular diastolic function. Normal right ventricular structure and function. No evidence of pulmonary hypertension. No significant valvular dysfunction. Left Ventricular Wall Motion: Rest Echo Findings All wall segments showed normal motion. Findings: Study Quality * Technically adequate exam. ECG Findings * Normal sinus rhythm. Left Ventricle * LVEF 70%. * Normal LV chamber size, wall thickness and function. * Normal left ventricular diastolic function. Right Ventricle * Normal right ventricular structure and function. Left Atrium * Normal left atrial size. Right Atrium * Normal right atrial size. Interatrial Septum * Interatrial septum not well evaluated. Aortic Valve * Aortic valve not well visualized. * No aortic regurgitation. * No aortic stenosis. Mitral Valve * Normal mitral valve structure and function. * No mitral regurgitation. * No mitral stenosis. Tricuspid Valve * Normal tricuspid valve structure and function. * Trace tricuspid regurgitation. * No evidence of pulmonary hypertension. Pulmonic Valve * Pulmonic valve not well visualized. * No pulmonic regurgitation. Aorta * Normally sized aortic root. Pericardium * The pericardium appears normal. IVC * Normal IVC dimensions and inspiratory collapse. Pulmonary Artery * Normal visualized portions of the main pulmonary artery. - Attending Attestation I conducted a face to face diagnostic evaluation of this patient and my medical decision-making was reviewed with the Resident Physician, Dr. Ed Mckinnon. I agree with the documented findings, disposition and treatment plan as described except to the extent set forth below: Patient reports slight improvement in abdominal pain today. On exam his abdomen is soft nontender nondistended. I have had an extensive discussion with him regarding the importance of compliance with diet and medication regimen. He is currently on IV Protonix twice a day and continues to report GERD symptoms , chest pain and epigastric abdominal pain. His chest pain was worked up and found to be noncardiac. I suspect esophagitis versus peptic ULCER disease and therefore I I consulted gastroenterology and spoke to Dr. Pena who agrees that an EGD would be a reasonable next step. The patient is at high risk for morbidity, mortality and complications due to IV opiates.
[2017-07-05] MEDS ORDERED: Lidocaine -MPF 2% 5 ML VIAL INFILT ONE (17:29)
[2017-07-05] MEDS ORDERED: *HR* Propofol 200 MG/20 ML VIAL IVP ONE (17:29)
[2017-07-05] MEDS: Azithromycin 500 MG in D5% in Water 250 ML IVPB SCH (20:56)
[2017-07-06 04:29] LABS: BUN/Creatinine Ratio 12 (6-26); Blood Urea Nitrogen 8 mg/dL (8-26); Calcium 8.6 mg/dL (8.6-10.8); Carbon Dioxide 27 mEq/L (19-29); Chloride 99 mEq/L (98-109); Glucose 193 mg/dL (70-99); Osmolality,Calculated 282 (280-300); Potassium 3.5 mEq/L (3.5-4.5); Sodium 134 mEq/L (136-145); eGFR For African Americans > 60 (> 60); eGFR For Non-African Americans > 60 (> 60)
[2017-07-06] MEDS: *HR* Morphine 2 MG/ML SYRINGE IV PRN ×2 (04:34→10:05)
[2017-07-06] MEDS: *HR* Heparin 5,000 UNIT/ML VIAL SQ SCH (05:35)
[2017-07-06] MEDS: Pantoprazole 40 MG VIAL IVP SCH (05:35)
--- NOTE | 2017-07-06 10:00 | Internal Med Progress Note ---
Date of Encounter: 07/06/17 Time of Encounter: 09:00 - Assessment and plan (1) DKA (diabetic ketoacidoses) Current Visit: Yes Status: Acute Assessment and plan: ED gap of 27, closed with DKA protocol. On SSI with levemir. A1c 11.8 VSS, normotensive, no fever, likely ongoing gastroparesis. Possible workup for gastric emptying pathology outpatient (requires BS <200, no protonix, no opioid) Pt endorses interest in insulin pump. Will follow-up outpatient with [facility]. Qualifiers: 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 type: type 1 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 complication detail: without coma Qualified Code(s): E10.10 - Type 1 diabetes mellitus with ketoacidosis without coma (2) Abdominal pain Current Visit: No Status: Acute Assessment and plan: Zofran 4mg q8h no relief. Added phenergan 12.5mg on schedule. With long-standing DM, A1c 11.8; likely gastroparesis. No hx cirrhosis, no RUQ pain, no white count, no blood per rectum. Current 1PPD smoker since adolescence, intermittent vomitting several months, no hematemesis, however persistent vomitting and abdominal pain, GI consultd for EGD. Expected EGD today. NPO since midnight. Qualifiers: Abdominal location: generalized Qualified Code(s): R10.84 - Generalized abdominal pain (3) Uncontrolled diabetes mellitus Current Visit: No Status: Chronic Assessment and plan: Type I DM; diagnosis age 24. Pt on basal and SSI; sugars in out-patient setting are regularly elevated. BS on SSI within 100-200 average. Insulin held x1 due to low glucose, pt now NPO due to prep for EGD today. Qualifiers: 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 type: type 1 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 complication status: with unspecified complications Qualified Code(s): E10.8 - Type 1 diabetes mellitus with unspecified complications; E10.65 - Type 1 diabetes mellitus with hyperglycemia (4) Intractable nausea and vomiting Current Visit: No Status: Acute Assessment and plan: Responding to phenergan. EGD planned for today. Qualifiers: Vomiting type: unspecified Qualified Code(s): R11.2 - Nausea with vomiting , unspecified (5) GERD (gastroesophageal reflux disease) Current Visit: No Status: Acute Qualifiers: Esophagitis presence: without esophagitis Qualified Code(s): K21.9 - Gastro -esophageal reflux disease without esophagitis (6) Hypophosphatemia Current Visit: Yes Status: Acute - Subjective Interval history: Mr. Kevon Barron is a 42 y/o type I diabetic (dx'd age 24), recent hospitalization for DKA 05/25/17, presented to ED for n/v/abd pain/diarrhea. Elevated anion gap of 27 was closed with fluids and insulin. Patient responding to low-dose SSI, Zofran and phenergan for symptomatic comfort. Compliance/Outpatient follow-up: patient cancelled last hospital f/u appointment with PCP, has had discussion regarding possible insulin pump, however, that has not been decided on by patient at this time. Today, Mr. Barron last vomitted yesterday, less chest pain and abdominal pain that yesterday, no blood in his vomit, 11/28 instead of 02/27. Awaiting EGD. - Constitutional Vitals: Temp Pulse Resp BP Pulse Ox 98 F 76 14 129/85 97 07/06/17 08:03 07/06/17 08:03 07/06/17 08:03 07/06/17 08:03 07/06/17 08:03 General appearance: Present: A&O X 3, answers questions appropriately - Head Head exam: Present: atraumatic - Neck Neck exam general surgery: Present: full ROM - Respiratory Respiratory exam: Present: CTAB. Absent: rhonchi - Cardiovascular Cardiovascular exam: Present: RRR, +S1, +S2. Absent: systolic murmur - GI/Abdominal GI/Abdominal exam: Present: no peritoneal signs. Absent: hepatomegaly, splenomegaly - Extremities Exam Extremities exam: Present: normal inspection. Absent: calf tenderness Internal Medicine: Result - Labs CBC & Chem 7: 07/04/17 01:50 07/06/17 04:03 Labs: BMP 07/06/17 04:03 Sodium 134 L Potassium 3.5 Chloride 99 Carbon Dioxide 27 BUN 8 Creatinine 0.67 L Glucose 193 H Calcium 8.6 - ABG Interpretation ABG results: ABG ABG pH 7.21 pH Units (7.32-7.45) L 07/03/17 16:20 ABG pCO2 26 mmHg (35-45) L 07/03/17 16:20 ABG pO2 120 mmHg (85-104) H 07/03/17 16:20 ABG O2 Saturation 98 % (95-98) 07/03/17 16:20 - Impressions Impressions Echocardiogram 07/04/17 14:54 Impressions: LVEF 70%. Normal LV chamber size, wall thickness and function. Normal left ventricular diastolic function. Normal right ventricular structure and function. No evidence of pulmonary hypertension. No significant valvular dysfunction. Left Ventricular Wall Motion: Rest Echo Findings All wall segments showed normal motion. Findings: Study Quality * Technically adequate exam. ECG Findings * Normal sinus rhythm. Left Ventricle * LVEF 70%. * Normal LV chamber size, wall thickness and function. * Normal left ventricular diastolic function. Right Ventricle * Normal right ventricular structure and function. Left Atrium * Normal left atrial size. Right Atrium * Normal right atrial size. Interatrial Septum * Interatrial septum not well evaluated. Aortic Valve * Aortic valve not well visualized. * No aortic regurgitation. * No aortic stenosis. Mitral Valve * Normal mitral valve structure and function. * No mitral regurgitation. * No mitral stenosis. Tricuspid Valve * Normal tricuspid valve structure and function. * Trace tricuspid regurgitation. * No evidence of pulmonary hypertension. Pulmonic Valve * Pulmonic valve not well visualized. * No pulmonic regurgitation. Aorta * Normally sized aortic root. Pericardium * The pericardium appears normal. IVC * Normal IVC dimensions and inspiratory collapse. Pulmonary Artery * Normal visualized portions of the main pulmonary artery. Consult Discharge Plan - Plan Referrals: Danika Hutson DO [Primary Care Provider] - 07/10/17 3:00 pm Markell Ervin, CRANBERRY SORTER [Advanced Practice Nurse] - (SENT WEB REQUEST ON @ [phone])
[2017-07-06] MEDS: Insulin LISPRO 300 UNITS/3 ML VIAL SQ SCH ×3 (10:05→15:11)
[2017-07-06] MEDS: Insulin DETEMIR 100 UNIT/ML X5UNITS SQ SCH (10:05)
--- NOTE | 2017-07-06 11:14 | Gastroenterology Consult Note ---
<Markell Ervin - Last Filed: 07/06/17 11:12> Date of Encounter: 07/06/17 Time of Encounter: 10:00 - Time Spent With Patient Total time spent is greater than 50% in coordination of care (as documented) at patient's floor/unit and/or counseling patient: GI History of Present Illness - Data of Consult Patient: new to practice Consult date: 07/06/17 Requesting Physician: Samuel Rosales DO - Consult Narrative Reason for consult: epigastric pain History of present illness: Mr. Barron is a 42 year old male with PMHx of GERD, uncontrolled DM who presented with to the ED with abdominal pain, nausea, and vomiting. He denies any fever or chills. He was found to be in DKA and his elevated anion gap was closed with fluids and insulin. His GERD has not been well controlled with PPI since admission. He was started on Zofran and Phenergan for his nausea and vomiting. He states he has been unable to tolerate PO intake. Procedures: None NSAIDs: None Anticoagulation: None A/P 1. GERD: Continue PPI and plan for EGD today to r/o esophagitis, gastritis, duodenitis, PUD, MW tear, or AVM. Keep pt NPO for now. 2. Abdominal pain: Likely secondary to GERD. Continue PPI and complete EGD today. 3. Nausea and vomiting: Continue IVFs and antiemetics. Could be secondary to GERD vs gastroparesis. Will complete EGD today and 4 hour gastric emptying study as outpatient. 4. DKA: Management per primary team. Past Med Surg Social Fam HX - Past Medical History Medical history: diabetes, GERD Psychiatric history: anxiety - Past Surgical History Surgical History: appendectomy - Social History Smoking Status: Current every day smoker Packs per day: 1.5 Smokeless Tobacco Status: No Alcohol use: none Drug use: none - Family History Mother Hx Family Cardiac Disorders: Yes Hx Family Cancer: Yes Hx Family Endocrine Disorder: Yes - Gastrointestinal Gastrointestinal: Present: as per HPI - Constitutional Constitutional: as per HPI - EENT Eyes: as per HPI Ears: Present: as per HPI Nose, mouth and throat: Present: as per HPI - Cardiovascular Cardiovascular ROS: Present: as per HPI - Respiratory Respiratory IM: Present: as per HPI - Genitourinary Genitourinary: Absent: change in color, Urinary frequency - Neurological ROS Neurological GI: Present: as per HPI - Hematologic/Lymphatic Hematologic/Lymphatic pediatric: Present: as per HPI - Musculoskeletal Musculoskeletal ROS GI: Present: as per HPI - Integumentary Integumentary GI: Present: as per HPI - Psychiatric ROS Psychiatric GI: Present: as per HPI - Endocrine Endocrine IM: Present: as per HPI - Constitutional Vitals: Temp Pulse Resp BP Pulse Ox 98.2 F 76 12 122/82 98 07/06/17 11:01 07/06/17 11:01 07/06/17 11:01 07/06/17 11:01 07/06/17 11:01 General appearance: Present: cooperative, A&O X 3, no acute distress, answers questions appropriately - Head Head exam: Present: atraumatic, normocephalic - Eye Eye exam: Present: normal appearance, sclera anicteric - ENT ENT exam: Present: mucous membranes moist - Neck Neck exam general surgery: Present: normal inspection, trachea midline - Respiratory Respiratory exam: Present: CTAB. Absent: rales, rhonchi - Cardiovascular Cardiovascular exam: Present: RRR, +S1, +S2 - GI/Abdominal GI/Abdominal exam: Present: soft, tenderness (epigastric), no peritoneal signs. Absent: distended, firm, guarding - Rectal Rectal exam: Present: deferred - Extremities Exam Extremities exam: Present: warm - Neurological Exam Neurological exam: Present: no focal deficits - Psychiatric Psychiatric exam: Present: normal affect, normal mood - Skin Skin exam: Present: dry, intact, normal color, warm Results - Labs CBC & Chem 7: 07/04/17 01:50 07/06/17 04:03 Labs: Last Result Calcium 8.6 mg/dL (8.6-10.8) 07/06/17 04:03 Troponin I 0.01 ng/mL (0-0.03) 07/05/17 05:32 Entire Visit Hgb 12.5 g/dL (12.9-16.9) L D 07/04/17 01:50 Hct 37.0 % (37.5-50.1) L 07/04/17 01:50 Total Bilirubin 0.5 mg/dL (0.2-1.2) 07/03/17 14:18 AST 33 Units/L (5-34) 07/03/17 14:18 ALT 38 Units/L (0-55) 07/03/17 14:18 Lipase < 10 Units/L (8-78) 07/03/17 14:18 - ABG ABG results: ABG ABG pH 7.21 pH Units (7.32-7.45) L 07/03/17 16:20 ABG pCO2 26 mmHg (35-45) L 07/03/17 16:20 ABG pO2 120 mmHg (85-104) H 07/03/17 16:20 ABG O2 Saturation 98 % (95-98) 07/03/17 16:20 Consult Discharge Plan - Plan Referrals: Danika Hutsno DO [Primary Care Provider] - 07/10/17 3:00 pm Markell Ervin CNP [Advanced Practice Nurse] - (SENT WEB REQUEST ON @ [phone]) <Jer Pena - Last Filed: 07/06/17 14:14> Date of Encounter: 07/06/17 Time of Encounter: 13:00 - Time Spent With Patient Total time spent is greater than 50% in coordination of care (as documented) at patient's floor/unit and/or counseling patient: GI History of Present Illness - Data of Consult Requesting Physician: Samuel Rosales DO - Consult Narrative History of present illness: Mr. Barron is a 42 year old male - Constitutional Vitals: Temp Pulse Resp BP Pulse Ox 98.8 F 78 16 109/80 98 07/06/17 12:40 07/06/17 12:40 07/06/17 12:40 07/06/17 12:40 07/06/17 12:40 Results - Labs CBC & Chem 7: 07/04/17 01:50 07/06/17 04:03 Labs: Last Result Calcium 8.6 mg/dL (8.6-10.8) 07/06/17 04:03 Troponin I 0.01 ng/mL (0-0.03) 07/05/17 05:32 Entire Visit Hgb 12.5 g/dL (12.9-16.9) L D 07/04/17 01:50 Hct 37.0 % (37.5-50.1) L 07/04/17 01:50 Total Bilirubin 0.5 mg/dL (0.2-1.2) 07/03/17 14:18 AST 33 Units/L (5-34) 07/03/17 14:18 ALT 38 Units/L (0-55) 07/03/17 14:18 Lipase < 10 Units/L (8-78) 07/03/17 14:18 - ABG ABG results: ABG ABG pH 7.21 pH Units (7.32-7.45) L 07/03/17 16:20 ABG pCO2 26 mmHg (35-45) L 07/03/17 16:20 ABG pO2 120 mmHg (85-104) H 07/03/17 16:20 ABG O2 Saturation 98 % (95-98) 07/03/17 16:20 - Attending Attestation I examined this patient and my medical decision-making was reviewed with the Resident Physician. I agree with the documented findings, disposition and treatment plan as described except to the extent set forth below.
[2017-07-06 12:42] VITALS: BP 109/80
--- NOTE | 2017-07-06 12:42 | Anesthesia Evaluation PreOp ---
Date of Encounter: 07/06/17 Time of Encounter: 12:46 - Past History Planned Operation: EGD Cardiac History: HTN, Hyperlipidemia Pulmonary History: Smoker SE[employer] BU[employer]ER History: Denies Any Significant HX Other Medical History: Diabetes Type I (poorly controlled diabetes type I and was admitted for DKA 07-03-17) Anesthesia History: No Prior Anesthetic Complications Alcohol Use: none Drug use: none Medications and Allergies Albuterol Sulfate [Albuterol Inhaler] 2 puff IH Q4H PRN 02/23/17 [History] Escitalopram [Lexapro] 20 mg PO HS 02/23/17 [History] Gabapentin [Neurontin] 600 mg PO TID 02/23/17 [History] Glucagon,Human Recombinant [Glucagon Emergency Kit] 1 mg IJ ONCE PRN 02/23/17 [ History] Insulin Glargine,Hum.rec.anlog [Lantus Solostar] 20 unit SQ HS 02/23/17 [History ] Insulin LISPRO [Humalog Kwikpen U-100] 0 unit SQ TIDWM 02/23/17 [History] glipiZIDE [Glucotrol] 5 mg PO 0800 05/24/17 [History] Ranitidine HCl [Zantac] 150 mg PO HS PRN 07/03/17 [History] 3 Allergy/AdvReac Type Severity Reaction Status Date / Time Penicillins Allergy Hives Verified 07/03/17 20:48 metformin AdvReac Diarrhea Verified 07/03/17 20:48 - Meds/Allergy Pre-op Review Medications Reviewed: Yes Allergies Reviewed: Yes Beta Blockers on Current Med List: No Anesthesia Results - Labs 07/04/17 01:50 07/06/17 04:03 - Imaging EKG: report reviewed, image reviewed (SR) Additional studies: 07-06-17 TTE: Impressions: LVEF 70%. Normal LV chamber size, wall thickness and function. Normal left ventricular diastolic function. Normal right ventricular structure and function. No evidence of pulmonary hypertension. No significant valvular dysfunction. Anesthesia Exam Last Vital Signs Temp 98.8 F 07/06/17 12:40 Pulse 78 07/06/17 12:40 Resp 16 07/06/17 12:40 BP 109/80 07/06/17 12:40 Pulse Ox 98 07/06/17 12:40 Weight: 67 kg NPO (# of Hours): > 8 hrs - HEENT Pupil (Motor): Pupils equal, EOMI Mallampati: III Teeth: Poor dentition Oral Opening: Greater than 3 - SEED BU[employer]ER LOC: Oriented SEED BU[employer]ER Motor: Normal RUE, Normal LUE, Normal RLE, Normal LLE, Normal Face - Cardiac Rhythm: Regular Murmur: None - Pulmonary Breath Sounds: bilateral Clear Respiratory Effort: Symmetrical Anesthesia Assess/Plan ASA Score: 3 Modified [place] Scale for Level of Consciousness: Cooperative, oriented, and tranquil Anesthetic Plan: MAC Monitoring Plan: Standard Monitors Recovery Plan: PACU
[2017-07-06] MEDS ORDERED: 0.9 % Sodium Chloride 500 ML IVC SCH (12:45)
[2017-07-06] MEDS ORDERED: Simethicone 40 MG/0.6 ML MLS IR ONE (13:08)
[2017-07-06] MEDS ORDERED: Tetracaine/Benzocaine/Butamben 200MG/SPRAY (100SPY/BOT) MM ONE (13:08)
[2017-07-06] MEDS ORDERED: Tetracaine/Benzocaine/Butamben 200MG/SPRAY (100SPY/BOT) ONE (13:11)
--- NOTE | 2017-07-06 16:06 | Discharge Summary ---
<Ed Mckinnon - Last Filed: 07/06/17 16:31> Date of Encounter: 07/06/17 Time of Encounter: 09:59 - Discharge Diagnosis (1) DKA (diabetic ketoacidoses) Priority: Primary Status: Acute Qualifiers: 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 type: type 1 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 complication detail: without coma Qualified Code(s): E10.10 - Type 1 diabetes mellitus with ketoacidosis without coma (2) Abdominal pain Priority: Secondary Status: Acute Qualifiers: Abdominal location: generalized Qualified Code(s): R10.84 - Generalized abdominal pain (3) Uncontrolled diabetes mellitus Priority: Secondary Status: Chronic Qualifiers: 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 type: type 1 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 complication status: with unspecified complications Qualified Code(s): E10.8 - Type 1 diabetes mellitus with unspecified complications; E10.65 - Type 1 diabetes mellitus with hyperglycemia (4) Intractable nausea and vomiting Priority: Secondary Status: Acute Qualifiers: Vomiting type: unspecified Qualified Code(s): R11.2 - Nausea with vomiting , unspecified (5) GERD (gastroesophageal reflux disease) Priority: Secondary Status: Acute Qualifiers: Esophagitis presence: without esophagitis Qualified Code(s): K21.9 - Gastro -esophageal reflux disease without esophagitis (6) Hypophosphatemia Priority: Secondary Status: Acute - Discharge Medications Prescriptions: Insulin Glargine,Hum.rec.anlog [Lantus Solostar] 20 unit SQ HS #6 insuln.pen Insulin LISPRO [Humalog Kwikpen U-100] 2 unit SQ TIDWM #2 insuln.pen Metoclopramide [Reglan] 5 mg PO TIDWM #450 mls Ondansetron HCl [Zofran] 4 mg PO Q8H PRN #30 tablet PRN Reason: Nausea Home Medications: Albuterol Sulfate [Albuterol Inhaler] 2 puff IH Q4H PRN 02/23/17 [History] Escitalopram [Lexapro] 20 mg PO HS 02/23/17 [History] Gabapentin [Neurontin] 600 mg PO TID 02/23/17 [History] Glucagon,Human Recombinant [Glucagon Emergency Kit] 1 mg IJ ONCE PRN 02/23/17 [ History] glipiZIDE [Glucotrol] 5 mg PO 0800 05/24/17 [History] Ranitidine HCl [Zantac] 150 mg PO HS PRN 07/03/17 [History] Insulin Glargine,Hum.rec.anlog [Lantus Solostar] 20 unit SQ HS #6 insuln.pen [Rx] Insulin LISPRO [Humalog Kwikpen U-100] 2 unit SQ TIDWM #2 insuln.pen 07/06/17 [ Rx] Metoclopramide [Reglan] 5 mg PO TIDWM #450 mls 07/06/17 [Rx] Ondansetron HCl [Zofran] 4 mg PO Q8H PRN #30 tablet 07/06/17 [Rx] Allergies/Adverse Reactions: 3 Allergy/AdvReac Type Severity Reaction Status Date / Time Penicillins Allergy Hives Verified 07/03/17 20:48 metformin AdvReac Diarrhea Verified 07/03/17 20:48 Procedures/tests Complete & Pending: Procedures Performed prior 72 hours Category Date Time Status ECG 12 lead ECG [ECG] Stat Y 07/04/17 14:51 Completed EV echocardiogram Routine Y 07/04/17 14:54 Completed Date of admission: 07/03/17 16:59 Primary care physician: Danika Hutson DO Consults: 07/05/17 14:39 Consult to Gastroenterology [CONS] Routine Consulting Provider: Gastroenterology Jerri Reason for Consult: upper epigastric pain unresolved with PPI Time Notified: 14:40 Call Completed: Yes - Patient Status Disposition: Home, Self-Care Condition: Good Functional capacity at discharge: independent ambulation Overall status at discharge: patient is progressing back to baseline - Discharge Instructions Instructions: Metoclopramide (By mouth), Ondansetron (By mouth), Insulin Glargine (Injection), Insulin Lispro (Injection), Diabetes Mellitus Type 2 in Adults (DC), Anxiety (DC) Follow Up With: Danika Hutson DO [Primary Care Provider] - 07/10/17 3:00 pm Markell Ervin, [employer] [Advanced Practice Nurse] - (SENT WEB REQUEST ON @ [phone]) [facility] [Provider Group] Additional Instructions: Pt to follow-up within the next 2 weeks with [facility]. Pt endorses interest in learning to use and to be fitted with an insulin pump. Attempting to be more compliant with insulin regimen, desiring to improve quality of life and glycemic control. To also f/u with Dr. Hutson PCP, and Jerri ZHANG within the next 2 weeks. - Diet and Activity Activity: increase activity as tolerated Diet: diabetic diet Hospital course: Mr. Barron is a 42 year old male, type 1 diabetic diagnosed at age 24, GERD, current 1PPD smoker, presented to ED with diffuse abdominal pain, and intractable nausea/vomitting. Patient had an elevated anion gap of 27 prior to admission, which was closed with fluids and insulin. Pt was transitioned to SSI , his nausea and vomitting responding to Phenergan 12.5mg. Given patient's recent admissions for similar hyperglycemia with abdominal pain, smoking status , and GERD, requested EGD, which resulted in no abnormal findings. Pt is stable today and being discharged to home with a continuation of his basal insulin, pre -meal insulin on sliding scale, Reglan for suspected gastroparesis and antiemetic properties as well as adjunct Zofran. He will follow-up with PCP and Endocrinology, with consideration for insulin pump therapy. - Time Spent with Patient Total time spent providing and/or coordinating discharge services: - Constitutional Vitals: Temp Pulse Resp BP Pulse Ox 98.8 F 78 16 109/80 98 07/06/17 12:40 07/06/17 12:40 07/06/17 12:40 07/06/17 12:40 07/06/17 12:40 General appearance: Present: A&O X 3, answers questions appropriately - Head Head exam: Present: atraumatic - Neck Neck exam general surgery: Present: full ROM. Absent: lymphadenopathy - Respiratory Respiratory exam: Present: CTAB. Absent: rhonchi - Cardiovascular Cardiovascular exam: Present: RRR, +S1, +S2 - GI/Abdominal GI/Abdominal exam: Present: soft, no peritoneal signs. Absent: distended, guarding, hepatomegaly, splenomegaly - Extremities Exam Extremities exam: Present: normal inspection, warm. Absent: tenderness Additional comments: feet no ulceration, intact dermatomes bilateral lower extremities <Samuel Rosales - Last Filed: 07/06/17 18:22> Date of Encounter: 07/06/17 - Discharge Diagnosis (1) DKA (diabetic ketoacidoses) Status: Acute Qualifiers: 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 type: type 1 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 complication detail: without coma Qualified Code(s): E10.10 - Type 1 diabetes mellitus with ketoacidosis without coma (2) Intractable nausea and vomiting Status: Acute Qualifiers: Vomiting type: unspecified Qualified Code(s): R11.2 - Nausea with vomiting , unspecified (3) GERD (gastroesophageal reflux disease) Status: Acute Qualifiers: Esophagitis presence: without esophagitis Qualified Code(s): K21.9 - Gastro -esophageal reflux disease without esophagitis (4) Gastroparesis Priority: Secondary Status: Suspected (5) Tobacco abuse Priority: Secondary Status: Chronic Procedures/tests Complete & Pending: Procedures Performed prior 72 hours Category Date Time Status ECG 12 lead ECG [ECG] Stat Y 07/04/17 14:51 Completed EV echocardiogram Routine Y 07/04/17 14:54 Completed Date of admission: 07/03/17 16:59 Primary care physician: Danika Hutson DO Consults: 07/05/17 14:39 Consult to Gastroenterology [CONS] Routine Consulting Provider: Gastroenterology Jerri Reason for Consult: upper epigastric pain unresolved with PPI Time Notified: 14:40 Call Completed: Yes Hospital course: Mr. Barron is a 42 year old male - Time Spent with Patient Total time spent providing and/or coordinating discharge services: 38min - Constitutional Vitals: Temp Pulse Resp BP Pulse Ox 98.8 F 78 16 109/80 98 07/06/17 12:40 07/06/17 12:40 07/06/17 12:40 07/06/17 12:40 07/06/17 12:40 - Attending Attestation I examined this patient and my medical decision-making was reviewed with the Resident Physician on 07/06/17. I agree with the documented findings, disposition and treatment plan as described except to the extent set forth below. Mr Barron has been admitted for acute DKA and intractable nausea and vomiting. He had EGD which was essentially negative. He is afebrile with stable vitals and ready for discharge home. Exam Alert. Comfortable Heart reg No wheeze No edema Plan D/C home today Endocrine follow up
[2017-07-06] MEDS ORDERED: Azithromycin 250 MG TABLET PO SCH (18:00)
== END 2017-07-06 17:30 | disposition home or self-care (01) | DRG 420 ==
LOC: EMEROO 13:24 → 2NNU 16:59 → SUATTDRO 16:59 → 2NNU 17:46
PROVIDERS: ADMIT Internal Medicine; ATTEND Internal Medicine
PROC: ENDOEBX (2017-07-06 15:00)

== ENCOUNTER 2017-08-30 15:11 | Inpatient (IN) ==
[2017-08-30] MEDS ORDERED: *HR* Dextrose 50 % in Water (Syg) 50 ML SYRINGE IVP PRN ×2 (15:18→17:15)
--- NOTE | 2017-08-30 15:28 | Emergency Department Note ---
Disposition Clinical Impression: Viral syndrome, High anion gap metabolic acidosis DKA (diabetic ketoacidoses) Qualifiers: 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 type: type 1 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 complication detail: without coma Qualified Code(s): E10.10 - Type 1 diabetes mellitus with ketoacidosis without coma Disposition: Admitted As Inpatient Condition: Serious Time of Disposition: 18:00 General Adult HPI - General Chief complaint: ED Nausea/Vomiting/Diarrhea Stated complaint: elevated glucose, flu-like symptoms Time Seen by Provider: 08/30/17 15:18 Source: patient, EMS Nursing Notes Reviewed: Yes Vital Signs Reviewed: Yes - History of Present Illness HPI Narrative: 42-year-old male complains of severe muscle aches and pains fever, nausea and vomiting and diarrhea for the past 3 days. Patient states he is a diabetic and checked his sugars which was higher than 500 today. EMS was called patient brought to the hospital secondary to severe fatigue and weakness experience in by the patient along with his other symptoms which persist. Patient has sick contacts at home with the same symptoms. No verified flu in any sick contacts at home but no one has been tested either. Pain Scale: 10 - Related Data Home Medications Medication Instructions Recorded Confirmed Albuterol Sulfate [Albuterol 2 puff IH Q4H PRN 02/23/17 08/30/17 Inhaler] Escitalopram [Lexapro] 20 mg PO HS 02/23/17 08/30/17 Gabapentin [Neurontin] 600 mg PO TID 02/23/17 08/30/17 Glucagon,Human Recombinant 1 mg IJ ONCE PRN 02/23/17 08/30/17 [Glucagon Emergency Kit] glipiZIDE [Glucotrol] 5 mg PO 0800 05/24/17 07/03/17 Ranitidine HCl [Zantac] 150 mg PO HS PRN 07/03/17 08/30/17 Insulin Degludec [Tresiba 20 unit SQ HS 08/30/17 08/30/17 Flextouch U-100] Insulin LISPRO [Humalog Kwikpen 0 unit SQ TIDWM 08/30/17 08/30/17 U-100] Previous Rx's Medication Instructions Recorded Metoclopramide [Reglan] 5 mg PO TIDWM #450 mls 07/06/17 Allergies Allergy/AdvReac Type Severity Reaction Status Date / Time Penicillins Allergy Hives Verified 07/03/17 20:48 metformin AdvReac Diarrhea Verified 07/03/17 20:48 All systems ED: reviewed and negative except as stated. Review of Systems: As Per HPI Constitutional: Reports: fever, chills, weakness ENT ED: Reports: congestion Cardiovascular: Reports: chest pain, dyspnea on exertion Respiratory: Reports: cough, dyspnea Gastrointestinal: Reports: abdominal pain, nausea, vomiting, diarrhea Musculoskeletal: Reports: back pain, neck pain, myalgia Psychiatric: Reports: anxiety Past Medical History - Past Medical History Attestation: Yes The following information was validated with the patient. Source: patient, nursing notes reviewed Medical history: Reports: diabetes, GERD Surgical history: Reports: appendectomy Psychiatric history: Reports: anxiety - Social History Smoking Status: Former smoker Smokeless Tobacco Status: No Alcohol use: Reports: none Drug use: Reports: none Physical Exam Vital Signs Temperature 97.9 F 08/30/17 15:13 Pulse Rate 110 08/30/17 15:13 Respiratory Rate 24 08/30/17 15:13 Blood Pressure 135/69 08/30/17 15:13 O2 Sat by Pulse Oximetry 100 08/30/17 15:13 Temperature 97.9 F 08/30/17 15:13 Pulse Rate 110 08/30/17 15:13 Respiratory Rate 24 08/30/17 15:13 Blood Pressure 135/69 08/30/17 15:13 O2 Sat by Pulse Oximetry 100 08/30/17 15:13 Oxygen Delivery Oxygen Delivery Room Air 42-year-old male who is alert and oriented 3 and GCS of 15. Patient is nontoxic appearing but is tachycardic at 110 beats minute, patient is also tachypnea At 24 respirations per minute. Patient has normal blood pressure and O2 sat is 100 on room air. Patient's physical exam: Patient is tender to palpation 10/10 if her breathing touch on his body. - General Limitations: no limitations General appearance: alert - Head Head exam: atraumatic, normocephalic, normal inspection - Eye Eye exam: Present: normal appearance, PERRL, EOMI - ENT ENT exam: normal exam, normal oropharynx, mucous membranes moist - Neck Neck exam: Present: normal inspection, full ROM, trachea midline - Chest Chest inspection: Present: normal inspection, symmetric chest wall rise - Respiratory Respiratory exam: Present: normal lung sounds bilaterally. Absent: respiratory distress, wheezes - Cardiovascular Cardiovascular exam: Present: normal rhythm, tachycardia, normal heart sounds - Abdominal Exam Abdominal exam: Present: soft, tenderness. Absent: distention, guarding, rebound, rigidity - Extremities Exam Extremities exam: Present: normal inspection, full ROM, normal capillary refill. Absent: tenderness, pedal edema - Back Exam Back exam: Present: normal inspection, full ROM, CVA tenderness (R), CVA tenderness (L). Absent: tenderness - Skin Skin exam: Present: warm, dry, intact, normal color Course - Reevaluation(s) Reevaluation #1: VBG shows pH of 6.9, blood sugar greater than 600, lactic acid 2.3 Time: 16:13 Reevaluation #2: Troponin negative. Beta hydroxybutyric acid greater than 2 Time: 16:15 Vital Signs Temperature 97.9 F 08/30/17 15:13 Pulse Rate 110 08/30/17 15:13 Respiratory Rate 24 08/30/17 15:13 Blood Pressure 135/69 08/30/17 15:13 O2 Sat by Pulse Oximetry 100 08/30/17 15:13 Temperature 97.5 F L 08/30/17 20:37 Pulse Rate 106 08/30/17 21:24 Respiratory Rate 19 08/30/17 21:24 Blood Pressure 102/64 08/30/17 21:24 O2 Sat by Pulse Oximetry 100 08/30/17 21:24 Oxygen Delivery Oxygen Delivery Room Air Medical Decision Making - [facility] Narrative Medical decision making narrative: Differential diagnosis: DKA, flu sepsis. DKA protocols initiated after evaluation given patient's elevated blood glucose greater than 600. Patient's clinical signs of hyperventilation most likely secondary to acidosis. Associated labs CBC, BMP, beta hydroxybutyric acid, UA, VBG ordered. 2 L IV normal saline ordered. Patient was brought in on a 500 mL bag administered by EMS. Patient is placed on 2 L secondary to feeling short of breath. Patient was ordered and administered 50 g of fentanyl for pain. Patient's VBG shows an acidosis of 6.9. Currently awaiting electrolytes except for potassium levels before initiating insulin drip. Patient's insulin drip was initiated after his potassium level came back at 6.4. EKG shows some peak T waves but no QRS widening or acute QT prolongation. Patient also has a hyponatremia. And, anion gap was calculated at 34. Lumbar liters IV normal saline was ordered for the patient and insulin drip was initiated. Current plan is for patient to go to the ICU and I have already discussed the case with the interventionalist Dr. Hoang who is accepted patient for admission. Patient started on 2 A of bicarbonate as well. On reevaluation patient's basic complaint is dry mouth and generalized weakness was given some ice chips. Patient's generalized weakness and should resolve with closure of anion gap and resolution of DKA. Patient's flu swab was negative. Patient understands and agrees treatment and plan and accepts admission to the ICU. - Lab Data Result diagrams: 08/30/17 15:55 08/30/17 19:58 Lab Results 08/30/17 08/30/17 08/30/17 Range/Units 15:21 15:22 15:43 WBC (4.3-11.1) K/mcL RBC (4.19-5.50) M/mcL Hgb (12.9-16.9) g/dL Hct (37.5-50.1) % MCV (83.0-100.0) fL MCH (28.0-33.3) pg MCHC (31.6-35.5) g/dL RDW (11.5-14.5) % Plt Count (140-400) K/mcL MPV (9.4-12.4) fL Seg Neutrophils % % Lymphocytes % % Monocytes % % Neutrophils # (1.6-8.9) K/mcL Lymphocytes # (0.6-4.6) K/mcL Monocytes # (0.0-1.3) K/mcL Reactive Lymphocytes (Not Present) Platelet Estimate (Normal) Sample Site ABG pH (7.32-7.45) pH Units ABG pCO2 (35-45) mmHg ABG pO2 (85-104) mmHg ABG HCO3 (21-27) mEq/L ABG Total CO2 (20-26) mEq/L ABG O2 Saturation (95-98) % ABG Base Excess (-2 to 3) mEq/L Rodríguez Test VBG pH (7.32-7.42) pH Units VBG pCO2 (41-51) mmHg VBG pO2 (25-50) mmHg VBG HCO3 (21-27) mEq/L O2 Delivery Device Inspired O2 (1-15=lpm [id number]=%) Sodium 127 L (136-145) mEq/L Potassium 6.4 H (3.5-5.1) mEq/L Chloride 90 L (98-107) mEq/L Carbon Dioxide 3 L* (23-29) mEq/L BUN 30 H (6-20) mg/dL Creatinine 1.81 H (0.70-1.30) mg/dL Est GFR ( Amer) 50 L (> 60) Est GFR (Non-Af Amer) 42 L (> 60) BUN/Creatinine Ratio 17 (6-26) Glucose 618 H* (70-105) mg/dL POC Glucose > 600 H* > 600 H* (58-89) Est Mean Plasma Glucose mg/dl Hemoglobin A1c ( - 5.6) % Calculated Osmolality 299 (280-300) Lactic Acid (0.5-2.2) mmol/L Calcium 8.7 (8.6-10.3) mg/dL Phosphorus 7.7 H (2.7-4.5) mg/dL Magnesium 2.2 (1.6-2.6) mg/dL Total Bilirubin (0.3-1.0) mg/dL AST (13-39) Units/L ALT (7-52) Units/L Alkaline Phosphatase (34-104) Units/L Troponin I (< 0.04) ng/mL Serum Total Protein (6.4-8.9) g/dL Albumin (3.5-5.7) g/dL Globulin (2.4-3.5) g/dL Albumin/Globulin Ratio (1.1-2.2) Beta-Hydroxybutyric Acd > 2.00 H (0.02-0.27) mmol/L Urine Color (Yellow) Urine Clarity (Clear) Urine pH (5.0-8.0) pH Units Ur Specific [place] (1.010-1.025) Urine Protein (Neg-Trace) mg/dL Urine Glucose (UA) (Normal) mg/dL Urine Ketones (Negative) mg/dL Urine Blood (Negative) Urine Nitrite (Negative) Urine Bilirubin (Negative) Urine Urobilinogen (Normal) mg/dL Ur Leukocyte Esterase (Negative) Urine Microscopic RBC (0-3) per hpf Urine Microscopic WBC (0-3) per hpf Ur Squamous Epith Cells (None-Few) per lpf Urine Bacteria (None-Few) per hpf Hyaline Casts (None-Few) per lpf Salicylates (15.0-30.0) mg/dL Person Notif of Crit 08/30/17 08/30/17 08/30/17 Range/Units 15:43 15:43 15:55 WBC 26.4 H (4.3-11.1) K/mcL RBC 4.59 (4.19-5.50) M/mcL Hgb 14.3 (12.9-16.9) g/dL Hct 43.9 (37.5-50.1) % MCV 95.6 (83.0-100.0) fL MCH 31.2 (28.0-33.3) pg MCHC 32.6 (31.6-35.5) g/dL RDW 11.2 L (11.5-14.5) % Plt Count 338 (140-400) K/mcL MPV 10.4 (9.4-12.4) fL Seg Neutrophils % 94.0 % Lymphocytes % 4.0 % Monocytes % 2.0 % Neutrophils # 24.8 H (1.6-8.9) K/mcL Lymphocytes # 1.1 (0.6-4.6) K/mcL Monocytes # 0.5 (0.0-1.3) K/mcL Reactive Lymphocytes Present A (Not Present) Platelet Estimate Normal (Normal) Sample Site ABG pH (7.32-7.45) pH Units ABG pCO2 (35-45) mmHg ABG pO2 (85-104) mmHg ABG HCO3 (21-27) mEq/L ABG Total CO2 (20-26) mEq/L ABG O2 Saturation (95-98) % ABG Base Excess (-2 to 3) mEq/L Rodríguez Test VBG pH (7.32-7.42) pH Units VBG pCO2 (41-51) mmHg VBG pO2 (25-50) mmHg VBG HCO3 (21-27) mEq/L O2 Delivery Device Inspired O2 (1-15=lpm [id number]=%) Sodium (136-145) mEq/L Potassium (3.5-5.1) mEq/L Chloride (98-107) mEq/L Carbon Dioxide (23-29) mEq/L BUN (6-20) mg/dL Creatinine (0.70-1.30) mg/dL Est GFR ( Amer) (> 60) Est GFR (Non-Af Amer) (> 60) BUN/Creatinine Ratio (6-26) Glucose (70-105) mg/dL POC Glucose (58-89) Est Mean Plasma Glucose mg/dl Hemoglobin A1c ( - 5.6) % Calculated Osmolality (280-300) Lactic Acid 2.3 H (0.5-2.2) mmol/L Calcium (8.6-10.3) mg/dL Phosphorus (2.7-4.5) mg/dL Magnesium (1.6-2.6) mg/dL Total Bilirubin (0.3-1.0) mg/dL AST (13-39) Units/L ALT (7-52) Units/L Alkaline Phosphatase (34-104) Units/L Troponin I < 0.03 (< 0.04) ng/mL Serum Total Protein (6.4-8.9) g/dL Albumin (3.5-5.7) g/dL Globulin (2.4-3.5) g/dL Albumin/Globulin Ratio (1.1-2.2) Beta-Hydroxybutyric Acd (0.02-0.27) mmol/L Urine Color (Yellow) Urine Clarity (Clear) Urine pH (5.0-8.0) pH Units Ur Specific [place] (1.010-1.025) Urine Protein (Neg-Trace) mg/dL Urine Glucose (UA) (Normal) mg/dL Urine Ketones (Negative) mg/dL Urine Blood (Negative) Urine Nitrite (Negative) Urine Bilirubin (Negative) Urine Urobilinogen (Normal) mg/dL Ur Leukocyte Esterase (Negative) Urine Microscopic RBC (0-3) per hpf Urine Microscopic WBC (0-3) per hpf Ur Squamous Epith Cells (None-Few) per lpf Urine Bacteria (None-Few) per hpf Hyaline Casts (None-Few) per lpf Salicylates (15.0-30.0) mg/dL Person Notif of Crit 08/30/17 08/30/17 08/30/17 Range/Units 15:58 17:45 17:48 WBC (4.3-11.1) K/mcL RBC (4.19-5.50) M/mcL Hgb (12.9-16.9) g/dL Hct (37.5-50.1) % MCV (83.0-100.0) fL MCH (28.0-33.3) pg MCHC (31.6-35.5) g/dL RDW (11.5-14.5) % Plt Count (140-400) K/mcL MPV (9.4-12.4) fL Seg Neutrophils % % Lymphocytes % % Monocytes % % Neutrophils # (1.6-8.9) K/mcL Lymphocytes # (0.6-4.6) K/mcL Monocytes # (0.0-1.3) K/mcL Reactive Lymphocytes (Not Present) Platelet Estimate (Normal) Sample Site ABG pH (7.32-7.45) pH Units ABG pCO2 (35-45) mmHg ABG pO2 (85-104) mmHg ABG HCO3 (21-27) mEq/L ABG Total CO2 (20-26) mEq/L ABG O2 Saturation (95-98) % ABG Base Excess (-2 to 3) mEq/L Rodríguez Test VBG pH 6.90 L* (7.32-7.42) pH Units VBG pCO2 19 L (41-51) mmHg VBG pO2 106 H (25-50) mmHg VBG HCO3 4 L (21-27) mEq/L O2 Delivery Device Inspired O2 (1-15=lpm [id number]=%) Sodium (136-145) mEq/L Potassium (3.5-5.1) mEq/L Chloride (98-107) mEq/L Carbon Dioxide (23-29) mEq/L BUN (6-20) mg/dL Creatinine (0.70-1.30) mg/dL Est GFR ( Amer) (> 60) Est GFR (Non-Af Amer) (> 60) BUN/Creatinine Ratio (6-26) Glucose (70-105) mg/dL POC Glucose 532 H* 543 H* (58-89) Est Mean Plasma Glucose mg/dl Hemoglobin A1c ( - 5.6) % Calculated Osmolality (280-300) Lactic Acid (0.5-2.2) mmol/L Calcium (8.6-10.3) mg/dL Phosphorus (2.7-4.5) mg/dL Magnesium (1.6-2.6) mg/dL Total Bilirubin (0.3-1.0) mg/dL AST (13-39) Units/L ALT (7-52) Units/L Alkaline Phosphatase (34-104) Units/L Troponin I (< 0.04) ng/mL Serum Total Protein (6.4-8.9) g/dL Albumin (3.5-5.7) g/dL Globulin (2.4-3.5) g/dL Albumin/Globulin Ratio (1.1-2.2) Beta-Hydroxybutyric Acd (0.02-0.27) mmol/L Urine Color (Yellow) Urine Clarity (Clear) Urine pH (5.0-8.0) pH Units Ur Specific [place] (1.010-1.025) Urine Protein (Neg-Trace) mg/dL Urine Glucose (UA) (Normal) mg/dL Urine Ketones (Negative) mg/dL Urine Blood (Negative) Urine Nitrite (Negative) Urine Bilirubin (Negative) Urine Urobilinogen (Normal) mg/dL Ur Leukocyte Esterase (Negative) Urine Microscopic RBC (0-3) per hpf Urine Microscopic WBC (0-3) per hpf Ur Squamous Epith Cells (None-Few) per lpf Urine Bacteria (None-Few) per hpf Hyaline Casts (None-Few) per lpf Salicylates (15.0-30.0) mg/dL Person Notif of [place] 08/30/17 08/30/17 08/30/17 Range/Units 18:33 18:35 18:52 WBC (4.3-11.1) K/mcL RBC (4.19-5.50) M/mcL Hgb (12.9-16.9) g/dL Hct (37.5-50.1) % MCV (83.0-100.0) fL MCH (28.0-33.3) pg MCHC (31.6-35.5) g/dL RDW (11.5-14.5) % Plt Count (140-400) K/mcL MPV (9.4-12.4) fL Seg Neutrophils % % Lymphocytes % % Monocytes % % Neutrophils # (1.6-8.9) K/mcL Lymphocytes # (0.6-4.6) K/mcL Monocytes # (0.0-1.3) K/mcL Reactive Lymphocytes (Not Present) Platelet Estimate (Normal) Sample Site ABG pH (7.32-7.45) pH Units ABG pCO2 (35-45) mmHg ABG pO2 (85-104) mmHg ABG HCO3 (21-27) mEq/L ABG Total CO2 (20-26) mEq/L ABG O2 Saturation (95-98) % ABG Base Excess (-2 to 3) mEq/L Rodríguez Test VBG pH (7.32-7.42) pH Units VBG pCO2 (41-51) mmHg VBG pO2 (25-50) mmHg VBG HCO3 (21-27) mEq/L O2 Delivery Device Inspired O2 (1-15=lpm [id number]=%) Sodium (136-145) mEq/L Potassium (3.5-5.1) mEq/L Chloride (98-107) mEq/L Carbon Dioxide (23-29) mEq/L BUN (6-20) mg/dL Creatinine (0.70-1.30) mg/dL Est GFR ( Amer) (> 60) Est GFR (Non-Af Amer) (> 60) BUN/Creatinine Ratio (6-26) Glucose (70-105) mg/dL POC Glucose 471 H* 428 H* (58-89) Est Mean Plasma Glucose mg/dl Hemoglobin A1c ( - 5.6) % Calculated Osmolality (280-300) Lactic Acid (0.5-2.2) mmol/L Calcium (8.6-10.3) mg/dL Phosphorus (2.7-4.5) mg/dL Magnesium (1.6-2.6) mg/dL Total Bilirubin (0.3-1.0) mg/dL AST (13-39) Units/L ALT (7-52) Units/L Alkaline Phosphatase (34-104) Units/L Troponin I (< 0.04) ng/mL Serum Total Protein (6.4-8.9) g/dL Albumin (3.5-5.7) g/dL Globulin (2.4-3.5) g/dL Albumin/Globulin Ratio (1.1-2.2) Beta-Hydroxybutyric Acd (0.02-0.27) mmol/L Urine Color Yellow (Yellow) Urine Clarity Clear (Clear) Urine pH 5.0 (5.0-8.0) pH Units Ur Specific [place] > 1.030 H (1.010-1.025) Urine Protein 30 H (Neg-Trace) mg/dL Urine Glucose (UA) >=1000 H (Normal) mg/dL Urine Ketones 80 H (Negative) mg/dL Urine Blood Moderate H (Negative) Urine Nitrite Negative (Negative) Urine Bilirubin Small H (Negative) Urine Urobilinogen Normal (Normal) mg/dL Ur Leukocyte Esterase Negative (Negative) Urine Microscopic RBC 5-15 H (0-3) per hpf Urine Microscopic WBC 0-3 (0-3) per hpf Ur Squamous Epith Cells Many H (None-Few) per lpf Urine Bacteria None Seen (None-Few) per hpf Hyaline Casts Few (None-Few) per lpf Salicylates (15.0-30.0) mg/dL Person Notif of Crit 08/30/17 08/30/17 08/30/17 Range/Units 19:40 19:58 19:58 WBC (4.3-11.1) K/mcL RBC (4.19-5.50) M/mcL Hgb (12.9-16.9) g/dL Hct (37.5-50.1) % MCV (83.0-100.0) fL MCH (28.0-33.3) pg MCHC (31.6-35.5) g/dL RDW (11.5-14.5) % Plt Count (140-400) K/mcL MPV (9.4-12.4) fL Seg Neutrophils % % Lymphocytes % % Monocytes % % Neutrophils # (1.6-8.9) K/mcL Lymphocytes # (0.6-4.6) K/mcL Monocytes # (0.0-1.3) K/mcL Reactive Lymphocytes (Not Present) Platelet Estimate (Normal) Sample Site ABG pH (7.32-7.45) pH Units ABG pCO2 (35-45) mmHg ABG pO2 (85-104) mmHg ABG HCO3 (21-27) mEq/L ABG Total CO2 (20-26) mEq/L ABG O2 Saturation (95-98) % ABG Base Excess (-2 to 3) mEq/L Rodríguez Test VBG pH (7.32-7.42) pH Units VBG pCO2 (41-51) mmHg VBG pO2 (25-50) mmHg VBG HCO3 (21-27) mEq/L O2 Delivery Device Inspired O2 (1-15=lpm qq94-901=%) Sodium 137 D (136-145) mEq/L Potassium 4.5 D (3.5-5.1) mEq/L Chloride 103 (98-107) mEq/L Carbon Dioxide 7 L* (23-29) mEq/L BUN 29 H (6-20) mg/dL Creatinine 1.52 H (0.70-1.30) mg/dL Est GFR ( Amer) > 60 (> 60) Est GFR (Non-Af Amer) 51 L (> 60) BUN/Creatinine Ratio 19 (6-26) Glucose 320 H (70-105) mg/dL POC Glucose 349 H (58-89) Est Mean Plasma Glucose 295 mg/dl Hemoglobin A1c 11.9 H ( - 5.6) % Calculated Osmolality 302 H (280-300) Lactic Acid (0.5-2.2) mmol/L Calcium 8.1 L (8.6-10.3) mg/dL Phosphorus 3.8 (2.7-4.5) mg/dL Magnesium 2.0 (1.6-2.6) mg/dL Total Bilirubin 0.3 (0.3-1.0) mg/dL AST 12 L (13-39) Units/L ALT 23 (7-52) Units/L Alkaline Phosphatase 122 H (34-104) Units/L Troponin I (< 0.04) ng/mL Serum Total Protein 6.5 (6.4-8.9) g/dL Albumin 3.7 (3.5-5.7) g/dL Globulin 2.8 (2.4-3.5) g/dL Albumin/Globulin Ratio 1.3 (1.1-2.2) Beta-Hydroxybutyric Acd (0.02-0.27) mmol/L Urine Color (Yellow) Urine Clarity (Clear) Urine pH (5.0-8.0) pH Units Ur Specific [place] (1.010-1.025) Urine Protein (Neg-Trace) mg/dL Urine Glucose (UA) (Normal) mg/dL Urine Ketones (Negative) mg/dL Urine Blood (Negative) Urine Nitrite (Negative) Urine Bilirubin (Negative) Urine Urobilinogen (Normal) mg/dL Ur Leukocyte Esterase (Negative) Urine Microscopic RBC (0-3) per hpf Urine Microscopic WBC (0-3) per hpf Ur Squamous Epith Cells (None-Few) per lpf Urine Bacteria (None-Few) per hpf Hyaline Casts (None-Few) per lpf Salicylates < 5.0 L (15.0-30.0) mg/dL Person Notif of Crit 08/30/17 08/30/17 08/30/17 Range/Units 19:58 20:15 20:26 WBC (4.3-11.1) K/mcL RBC (4.19-5.50) M/mcL Hgb (12.9-16.9) g/dL Hct (37.5-50.1) % MCV (83.0-100.0) fL MCH (28.0-33.3) pg MCHC (31.6-35.5) g/dL RDW (11.5-14.5) % Plt Count (140-400) K/mcL MPV (9.4-12.4) fL Seg Neutrophils % % Lymphocytes % % Monocytes % % Neutrophils # (1.6-8.9) K/mcL Lymphocytes # (0.6-4.6) K/mcL Monocytes # (0.0-1.3) K/mcL Reactive Lymphocytes (Not Present) Platelet Estimate (Normal) Sample Site L Radial ABG pH 7.30 L (7.32-7.45) pH Units ABG pCO2 16 L* (35-45) mmHg ABG pO2 130 H (85-104) mmHg ABG HCO3 8 L (21-27) mEq/L ABG Total CO2 9 L (20-26) mEq/L ABG O2 Saturation 99 H (95-98) % ABG Base Excess -16 L (-2 to 3) mEq/L Rodríguez Test Positive VBG pH (7.32-7.42) pH Units VBG pCO2 (41-51) mmHg VBG pO2 (25-50) mmHg VBG HCO3 (21-27) mEq/L O2 Delivery Device Cannula Inspired O2 28.0 (1-15=lpm ao81-662=%) Sodium (136-145) mEq/L Potassium (3.5-5.1) mEq/L Chloride (98-107) mEq/L Carbon Dioxide (23-29) mEq/L BUN (6-20) mg/dL Creatinine (0.70-1.30) mg/dL Est GFR ( Amer) (> 60) Est GFR (Non-Af Amer) (> 60) BUN/Creatinine Ratio (6-26) Glucose (70-105) mg/dL POC Glucose 317 H (58-89) Est Mean Plasma Glucose mg/dl Hemoglobin A1c ( - 5.6) % Calculated Osmolality (280-300) Lactic Acid 1.8 (0.5-2.2) mmol/L Calcium (8.6-10.3) mg/dL Phosphorus (2.7-4.5) mg/dL Magnesium (1.6-2.6) mg/dL Total Bilirubin (0.3-1.0) mg/dL AST (13-39) Units/L ALT (7-52) Units/L Alkaline Phosphatase (34-104) Units/L Troponin I (< 0.04) ng/mL Serum Total Protein (6.4-8.9) g/dL Albumin (3.5-5.7) g/dL Globulin (2.4-3.5) g/dL Albumin/Globulin Ratio (1.1-2.2) Beta-Hydroxybutyric Acd (0.02-0.27) mmol/L Urine Color (Yellow) Urine Clarity (Clear) Urine pH (5.0-8.0) pH Units Ur Specific [place] (1.010-1.025) Urine Protein (Neg-Trace) mg/dL Urine Glucose (UA) (Normal) mg/dL Urine Ketones (Negative) mg/dL Urine Blood (Negative) Urine Nitrite (Negative) Urine Bilirubin (Negative) Urine Urobilinogen (Normal) mg/dL Ur Leukocyte Esterase (Negative) Urine Microscopic RBC (0-3) per hpf Urine Microscopic WBC (0-3) per hpf Ur Squamous Epith Cells (None-Few) per lpf Urine Bacteria (None-Few) per hpf Hyaline Casts (None-Few) per lpf Salicylates (15.0-30.0) mg/dL Person Notif of Crit 08/30/17 Range/Units 21:26 WBC (4.3-11.1) K/mcL RBC (4.19-5.50) M/mcL Hgb (12.9-16.9) g/dL Hct (37.5-50.1) % MCV (83.0-100.0) fL MCH (28.0-33.3) pg MCHC (31.6-35.5) g/dL RDW (11.5-14.5) % Plt Count (140-400) K/mcL MPV (9.4-12.4) fL Seg Neutrophils % % Lymphocytes % % Monocytes % % Neutrophils # (1.6-8.9) K/mcL Lymphocytes # (0.6-4.6) K/mcL Monocytes # (0.0-1.3) K/mcL Reactive Lymphocytes (Not Present) Platelet Estimate (Normal) Sample Site ABG pH (7.32-7.45) pH Units ABG pCO2 (35-45) mmHg ABG pO2 (85-104) mmHg ABG HCO3 (21-27) mEq/L ABG Total CO2 (20-26) mEq/L ABG O2 Saturation (95-98) % ABG Base Excess (-2 to 3) mEq/L Rodríguez Test VBG pH (7.32-7.42) pH Units VBG pCO2 (41-51) mmHg VBG pO2 (25-50) mmHg VBG HCO3 (21-27) mEq/L O2 Delivery Device Inspired O2 (1-15=lpm [id number]=%) Sodium (136-145) mEq/L Potassium (3.5-5.1) mEq/L Chloride (98-107) mEq/L Carbon Dioxide (23-29) mEq/L BUN (6-20) mg/dL Creatinine (0.70-1.30) mg/dL Est GFR ( Amer) (> 60) Est GFR (Non-Af Amer) (> 60) BUN/Creatinine Ratio (6-26) Glucose (70-105) mg/dL POC Glucose 207 H (58-89) Est Mean Plasma Glucose mg/dl Hemoglobin A1c ( - 5.6) % Calculated Osmolality (280-300) Lactic Acid (0.5-2.2) mmol/L Calcium (8.6-10.3) mg/dL Phosphorus (2.7-4.5) mg/dL Magnesium (1.6-2.6) mg/dL Total Bilirubin (0.3-1.0) mg/dL AST (13-39) Units/L ALT (7-52) Units/L Alkaline Phosphatase (34-104) Units/L Troponin I (< 0.04) ng/mL Serum Total Protein (6.4-8.9) g/dL Albumin (3.5-5.7) g/dL Globulin (2.4-3.5) g/dL Albumin/Globulin Ratio (1.1-2.2) Beta-Hydroxybutyric Acd (0.02-0.27) mmol/L Urine Color (Yellow) Urine Clarity (Clear) Urine pH (5.0-8.0) pH Units Ur Specific [place] (1.010-1.025) Urine Protein (Neg-Trace) mg/dL Urine Glucose (UA) (Normal) mg/dL Urine Ketones (Negative) mg/dL Urine Blood (Negative) Urine Nitrite (Negative) Urine Bilirubin (Negative) Urine Urobilinogen (Normal) mg/dL Ur Leukocyte Esterase (Negative) Urine Microscopic RBC (0-3) per hpf Urine Microscopic WBC (0-3) per hpf Ur Squamous Epith Cells (None-Few) per lpf Urine Bacteria (None-Few) per hpf Hyaline Casts (None-Few) per lpf Salicylates (15.0-30.0) mg/dL Person Notif of Crit - Radiology Data Radiology results reviewed: Yes I reviewed the patient's radiology results. - EKG Data EKG #1 EKG attestation: Yes I reviewed and interpreted this EKG. EKG results narrative: EKG taken at 2017 at 1514 hrs. shows a sinus tachycardia at a rate of 10 7 bpm with no acute ST elevations or depressions name Dannie, no QS widening or QT prolongation. Attestation Statement - Attestation Attestation: I examined this patient and my medical decision-making was reviewed with the Resident Physician. I agree with the documented findings, disposition and treatment plan as described except to the extent set forth below. Findings consistent with DKA. Patient is severely acidotic. We will proceed with admission to the intensive care unit. Insulin infusion was initiated, IV fluid resuscitation was provided as well. Cardiac biomarkers are negative. Chest x- ray shows no evidence of infection. Plan admit to the intensive care unit given the significant of metabolic derangement. Patient was clinically improved by the time of transfer to ICU. I spent greater than 35 minutes of critical care time resuscitating this acutely ill patient suffering from diabetic ketoacidosis with severe acidosis of pH less than 7.0. This is excluding billable procedures.
[2017-08-30] MEDS ORDERED: Insulin Human Regular 100 UNIT in 0.9 % Sodium Chloride 100 ML IVC SCH ×2 (15:30→17:15)
[2017-08-30] MEDS: 0.9 % Sodium Chloride 1,000 ML IVC SCH ×14 (15:47→23:17)
[2017-08-30 16:11] LABS: VBG HCO3 4 mEq/L (21-27); VBG PCO2 19 mmHg (41-51); VBG PO2 106 mmHg (25-50)
[2017-08-30 16:15] LABS: Hemoglobin 14.3 g/dL (12.9-16.9); Mean Platelet Volume 10.4 fL (9.4-12.4); Red Cell Distribution Width 11.2 % (11.5-14.5)
[2017-08-30 16:15] LABS: Beta-Hydroxybutyric Acid > 2.00 mmol/L (0.02-0.27)
[2017-08-30 16:16] LABS: Hematocrit 43.9 % (37.5-50.1); Mean Corpuscular HGB Conc 32.6 g/dL (31.6-35.5); Mean Corpuscular Hemoglobin 31.2 pg (28.0-33.3); Mean Corpuscular Volume 95.6 fL (83.0-100.0); Platelet Count 338 K/mcL (140-400); Red Blood Count 4.59 M/mcL (4.19-5.50)
[2017-08-30 16:33] LABS: Lymphocytes # 1.1 K/mcL (0.6-4.6); Monocytes # 0.5 K/mcL (0.0-1.3); Neutrophils # 24.8 K/mcL (1.6-8.9); Platelet Estimate Normal (Normal); Reactive Lymphocytes Present (Not Present)
[2017-08-30 16:33] LABS: BUN/Creatinine Ratio 17 (6-26); Blood Urea Nitrogen 30 mg/dL (6-20); Calcium 8.7 mg/dL (8.6-10.3); Carbon Dioxide 3 mEq/L (23-29); Chloride 90 mEq/L (98-107); Glucose 618 mg/dL (70-105); Magnesium 2.2 mg/dL (1.6-2.6); Osmolality,Calculated 299 (280-300); Phosphorous 7.7 mg/dL (2.7-4.5); Potassium 6.4 mEq/L (3.5-5.1); Sodium 127 mEq/L (136-145); eGFR For African Americans 50 (> 60); eGFR For Non-African Americans 42 (> 60)
[2017-08-30] MEDS ORDERED: *HR* FentaNYL (PF) 100 MCG/2 ML VIAL IVP ONE (16:35)
[2017-08-30] MEDS ORDERED: Sodium Bicarbonate 50 MEQ/50 ML VIAL IVP ONE (17:03)
[2017-08-30] MEDS ORDERED: Insulin Regular, Human 100 UNIT/ML IV PRN (17:15)
--- NOTE | 2017-08-30 17:21 | Pulmonology History & Physical ---
<Dylan Ricardo - Last Filed: 08/30/17 17:08> Date of Encounter: 08/30/17 Time of Encounter: 17:08 Assessment and Plan (1) DKA (diabetic ketoacidoses) Current visit: Yes Status: Acute Pt known diabetic History of prior DKA 3 days on N/V/D flu like sxs unclear in all sxs DKA or if viral illness sent patient into DKA flu swab negative glucose >600, beta hydroxybutyric acid >2 Bicarb 3, VBG pH 6.9, LA 2.3 Patient started on DKA protocol in ED Plan: continue DKA protocol continue to monitor Qualifiers: 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 type: type 1 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 complication detail: without coma Qualified Code(s): E10.10 - Type 1 diabetes mellitus with ketoacidosis without coma (2) Lactic acidosis Current visit: Yes Status: Acute LA 2.3 upon admission / DKA Plan: repeat LA scheduled continue DKA management continue to monitor (3) Hyperphosphatemia Current visit: Yes Status: Acute Phosphorus 7.7 on admission secondary to DKA Plan: continue DKA management continue to monitor (4) Hyperkalemia Current visit: Yes Status: Acute K 6.4 on admission secondary to DKA Plan: continue DKA management (5) CHINO (acute kidney injury) Current visit: Yes Status: Acute cr 1.81 on admission secondary to DKA baseline 0.8 plan: continue DKA management per protocol (6) DVT prophylaxis Current visit: Yes Status: Acute Pt started on SUbQ Heparin 5,000 q8H plan: continue heparin History of Present Illness Chief complaint: DKA HPI: Mr. Barron is a 42 year old male C PMHx of DM, GERD who reports to [facility] c/o N/V/ D with fever and myalgias x 3 days. Patient reports sugar at home was over 500 today. Patient was brought in by EMS. Patient reports sick contacts at home. Patient was found to be tachypnic, tachycardic, but sating well and stable BP. VBG showed pH of 6.9. Patient's BMP showed a HCO3 of 3, a K or 6.4, Cr 1.81( baseline 0.8) and a glucose >600. Patient also had a LA of 2.3. with >2 beta hydroxybutyric acid. Trops negative x1. WBC elevated to 26.4. Patient is negative for Flu. In the ED patient was started on DKA protocol and given sodium bicarb. patient admitted to ICU for further management. Past Med Surg Social Fam HX - Past Medical History Medical history: diabetes, GERD Psychiatric history: anxiety - Past Surgical History Surgical History: appendectomy - Social History Smoking Status: Former smoker Smokeless Tobacco Status: No Alcohol use: none Drug use: none - Family History Mother Hx Family Cardiac Disorders: Yes Hx Family Cancer: Yes Hx Family Endocrine Disorder: Yes Medications and Allergies Albuterol Sulfate [Albuterol Inhaler] 2 puff IH Q4H PRN 02/23/17 [History] Escitalopram [Lexapro] 20 mg PO HS 02/23/17 [History] Gabapentin [Neurontin] 600 mg PO TID 02/23/17 [History] Glucagon,Human Recombinant [Glucagon Emergency Kit] 1 mg IJ ONCE PRN 02/23/17 [ History] glipiZIDE [Glucotrol] 5 mg PO 0800 05/24/17 [History] Ranitidine HCl [Zantac] 150 mg PO HS PRN 07/03/17 [History] Metoclopramide [Reglan] 5 mg PO TIDWM #450 mls 07/06/17 [Rx] Insulin Degludec [Tresiba Flextouch U-100] 20 unit SQ HS 08/30/17 [History] Insulin LISPRO [Humalog Kwikpen U-100] 0 unit SQ TIDWM 08/30/17 [History] 3 Allergy/AdvReac Type Severity Reaction Status Date / Time Penicillins Allergy Hives Verified 07/03/17 20:48 metformin AdvReac Diarrhea Verified 07/03/17 20:48 All Systems: A 10-system review of systems was performed and is negative for pertinent findings except as documented above in the HPI. Physical Examination Vital Signs: Vital Signs, Last 4 Hours Temp Pulse Resp BP Pulse Ox 08/30/17 16:49 108 24 142/84 100 08/30/17 15:29 100 08/30/17 15:13 97.9 F 110 24 135/69 100 General appearance: alert Eyes: nonicteric ENT: oropharynx moist Neck: supple Effort: mildly labored Auscultation: bilateral: clear Cardiovascular: other (tachycardic) Gastrointestinal: normoactive bowel sounds, non-distended Integumentary: normal Extremities: no cyanosis, no edema Musculoskeletal: no deformities normal mental status, non-focal exam Results - Laboratory Findings CBC and BMP: 08/30/17 15:55 08/30/17 15:43 Abnormal lab findings: Abnormal lab results WBC 26.4 K/mcL (4.3-11.1) H 08/30/17 15:55 RDW 11.2 % (11.5-14.5) L 08/30/17 15:55 Neutrophils # 24.8 K/mcL (1.6-8.9) H 08/30/17 15:55 Reactive Lymphocytes Present (Not Present) A 08/30/17 15:55 VBG pH 6.90 pH Units (7.32-7.42) L* 08/30/17 15:58 VBG pCO2 19 mmHg (41-51) L 08/30/17 15:58 VBG pO2 106 mmHg (25-50) H 08/30/17 15:58 VBG HCO3 4 mEq/L (21-27) L 08/30/17 15:58 Sodium 127 mEq/L (136-145) L 08/30/17 15:43 Potassium 6.4 mEq/L (3.5-5.1) H 08/30/17 15:43 Chloride 90 mEq/L (98-107) L 08/30/17 15:43 Carbon Dioxide 3 mEq/L (23-29) L* 08/30/17 15:43 BUN 30 mg/dL (6-20) H 08/30/17 15:43 Creatinine 1.81 mg/dL (0.70-1.30) H 08/30/17 15:43 Est GFR ( Amer) 50 (> 60) L 08/30/17 15:43 Est GFR (Non-Af Amer) 42 (> 60) L 08/30/17 15:43 Glucose 618 mg/dL (70-105) H* 08/30/17 15:43 POC Glucose > 600 (58-89) H* 08/30/17 15:22 Lactic Acid 2.3 mmol/L (0.5-2.2) H 08/30/17 15:43 Phosphorus 7.7 mg/dL (2.7-4.5) H 08/30/17 15:43 Beta-Hydroxybutyric Acd > 2.00 mmol/L (0.02-0.27) H 08/30/17 15:43 <Alycia Quinn S - Last Filed: 08/30/17 21:57> Date of Encounter: 08/30/17 History of Present Illness HPI: Mr. Barron is a 42 year old male All Systems: A 10-system review of systems was performed and is negative for pertinent findings except as documented above in the HPI. Physical Examination Vital Signs: Vital Signs, Last 4 Hours Temp Pulse Resp BP Pulse Ox 08/30/17 21:24 106 19 102/64 100 08/30/17 20:37 97.5 F L 08/30/17 20:11 107 12 93/68 100 08/30/17 19:49 107 08/30/17 19:00 109 21 90/65 100 08/30/17 18:00 111 30 99/61 99 Results - Laboratory Findings CBC and BMP: 08/30/17 15:55 08/30/17 19:58 ABG ABG pH 7.30 pH Units (7.32-7.45) L 08/30/17 20:15 ABG pCO2 16 mmHg (35-45) L* 08/30/17 20:15 ABG pO2 130 mmHg (85-104) H 08/30/17 20:15 ABG O2 Saturation 99 % (95-98) H 08/30/17 20:15 Abnormal lab findings: Abnormal lab results WBC 26.4 K/mcL (4.3-11.1) H 08/30/17 15:55 RDW 11.2 % (11.5-14.5) L 08/30/17 15:55 Neutrophils # 24.8 K/mcL (1.6-8.9) H 08/30/17 15:55 Reactive Lymphocytes Present (Not Present) A 08/30/17 15:55 ABG pH 7.30 pH Units (7.32-7.45) L 08/30/17 20:15 ABG pCO2 16 mmHg (35-45) L* 08/30/17 20:15 ABG pO2 130 mmHg (85-104) H 08/30/17 20:15 ABG HCO3 8 mEq/L (21-27) L 01/10/18 20:15 ABG Total CO2 9 mEq/L (20-26) L 08/30/17 20:15 ABG O2 Saturation 99 % (95-98) H 08/30/17 20:15 ABG Base Excess -16 mEq/L (-2 to 3) L 08/30/17 20:15 VBG pH 6.90 pH Units (7.32-7.42) L* 08/30/17 15:58 VBG pCO2 19 mmHg (41-51) L 08/30/17 15:58 VBG pO2 106 mmHg (25-50) H 08/30/17 15:58 VBG HCO3 4 mEq/L (21-27) L 08/30/17 15:58 Carbon Dioxide 7 mEq/L (23-29) L* 08/30/17 19:58 BUN 29 mg/dL (6-20) H 08/30/17 19:58 Creatinine 1.52 mg/dL (0.70-1.30) H 08/30/17 19:58 Est GFR (Non-Af Amer) 51 (> 60) L 08/30/17 19:58 Glucose 320 mg/dL (70-105) H 08/30/17 19:58 POC Glucose 207 (58-89) H 08/30/17 21:26 Hemoglobin A1c 11.9 % (-5.6) H 08/30/17 19:58 Calculated Osmolality 302 (280-300) H 08/30/17 19:58 Calcium 8.1 mg/dL (8.6-10.3) L 08/30/17 19:58 AST 12 Units/L (13-39) L 08/30/17 19:58 Alkaline Phosphatase 122 Units/L (34-104) H 08/30/17 19:58 Beta-Hydroxybutyric Acd > 2.00 mmol/L (0.02-0.27) H 08/30/17 15:43 Ur Specific [place] > 1.030 (1.010-1.025) H 08/30/17 18:52 Urine Protein 30 mg/dL (Neg-Trace) H 08/30/17 18:52 Urine Glucose (UA) >=1000 mg/dL (Normal) H 08/30/17 18:52 Urine Ketones 80 mg/dL (Negative) H 08/30/17 18:52 Urine Blood Moderate (Negative) H 08/30/17 18:52 Urine Bilirubin Small (Negative) H 08/30/17 18:52 Urine Microscopic RBC 5-15 per hpf (0-3) H 08/30/17 18:52 Ur Squamous Epith Cells Many per lpf (None-Few) H 08/30/17 18:52 Salicylates < 5.0 mg/dL (15.0-30.0) L 08/30/17 19:58 - Attending Attestation I saw the patient with the resident agree with History and Physical exam findings. Labs and Radiology were reviewed FINANCIAL WRITER: Patient is conscious oriented x 3 little bit agitated NECK : No JVD appreciated Pulmonary : Patient doesnt have any known pulmonary disease patient is on O2 will able to wean to room air to wean O2 as tolerated CXR is clear. Cardiac : Hemodynamically stable to do volume resuscitation for diabtetic ketoacidosis , patient had flu like symptoms Flu test came negative Nutrition/GI: Patient is NPO till the gap is closed times x 2 Renal : labs reviewed Acute Kidney injury secondary to volume depletion due to DKA Heme onc : labs reviewed Leukocytosis most likely due to DKA ID : No acute ID issues Lactate is normal after volume resuscitation Musculo skeletal / skin issues : No Acute issues Disposition : Critically ill because of severe high anion gap metabolic acidosis Code status: Full Code Family/POA: Met family Spent 35 minutes of Critical care time in medical decision making to maintain vital organ function and in preventing further decline .
[2017-08-30 19:13] LABS: Bilirubin,Urine Small (Negative); Blood,Urine Moderate (Negative); Clarity,Urine Clear (Clear); Color,Urine Yellow (Yellow); Glucose,Urine (UA) >=1000 mg/dL (Normal); Ketones,Urine 80 mg/dL (Negative); Leukocyte Esterase,Urine Negative (Negative); Nitrite,Urine Negative (Negative); Protein,Urine 30 mg/dL (Neg-Trace); Specific Gravity,Urine > 1.030 (1.010-1.025); Urobilinogen,Urine Normal (Normal)
[2017-08-30 19:23] LABS: Bacteria,Urine None Seen per hpf (None-Few); Hyaline Casts,Urine Few per lpf (None-Few); Squamous Epithelial Cell,Urine Many per lpf (None-Few); WBC,Urine 0-3 per hpf (0-3)
[2017-08-30 20:18] LABS: ABG Base Excess -16 mEq/L (-2 to 3); ABG HCO3 8 mEq/L (21-27); ABG Oxygen Saturation 99 % (95-98); ABG PCO2 16 mmHg (35-45); ABG PO2 130 mmHg (85-104); ABG TCO2 9 mEq/L (20-26)
[2017-08-30 20:23] LABS: Hemoglobin A1C 11.9 %
[2017-08-30] MEDS: *HR* HYDROcodone/Acet 5/325 mg TABLET PO PRN (20:23)
[2017-08-30 20:34] LABS: Alanine Aminotransferase 23 Units/L (7-52); Albumin 3.7 g/dL (3.5-5.7); Albumin/Globulin Ratio 1.3 (1.1-2.2); Alkaline Phosphatase 122 Units/L (34-104); Aspartate Amino Transferase 12 Units/L (13-39); BUN/Creatinine Ratio 19 (6-26); Bilirubin,Total 0.3 mg/dL (0.3-1.0); Blood Urea Nitrogen 29 mg/dL (6-20); Calcium 8.1 mg/dL (8.6-10.3); Carbon Dioxide 7 mEq/L (23-29); Chloride 103 mEq/L (98-107); Globulin 2.8 g/dL (2.4-3.5); Glucose 320 mg/dL (70-105); Osmolality,Calculated 302 (280-300); Phosphorous 3.8 mg/dL (2.7-4.5); Potassium 4.5 mEq/L (3.5-5.1); Sodium 137 mEq/L (136-145); Total Protein 6.5 g/dL (6.4-8.9); eGFR For African Americans > 60 (> 60); eGFR For Non-African Americans 51 (> 60)
[2017-08-30 20:35] LABS: Salicylate < 5.0 mg/dL (15.0-30.0)
[2017-08-30] MEDS: D5% in 0.45% NACL 1,000 ML IVC PRN (22:51)
[2017-08-31 00:28] LABS: BUN/Creatinine Ratio 21 (6-26); Blood Urea Nitrogen 25 mg/dL (6-20); Calcium 7.7 mg/dL (8.6-10.3); Carbon Dioxide 15 mEq/L (23-29); Chloride 110 mEq/L (98-107); Glucose 163 mg/dL (70-105); Osmolality,Calculated 292 (280-300); Potassium 3.9 mEq/L (3.5-5.1); Sodium 137 mEq/L (136-145); eGFR For African Americans > 60 (> 60); eGFR For Non-African Americans > 60 (> 60)
[2017-08-31] MEDS: *HR* Heparin 5,000 UNIT/ML VIAL SQ SCH ×4 (00:42→22:48)
[2017-08-31] MEDS: D5% in 0.45% NACL 1,000 ML IVC PRN (03:00)
[2017-08-31] MEDS: 0.9 % Sodium Chloride 1,000 ML IVC SCH ×3 (03:01→05:55)
[2017-08-31 05:17] LABS: BUN/Creatinine Ratio 22 (6-26); Blood Urea Nitrogen 21 mg/dL (6-20); Calcium 7.8 mg/dL (8.6-10.3); Carbon Dioxide 21 mEq/L (23-29); Chloride 112 mEq/L (98-107); Glucose 103 mg/dL (70-105); Osmolality,Calculated 289 (280-300); Potassium 3.3 mEq/L (3.5-5.1); Sodium 138 mEq/L (136-145); eGFR For African Americans > 60 (> 60); eGFR For Non-African Americans > 60 (> 60)
--- NOTE | 2017-08-31 05:55 | Event Note ---
Date of Encounter: 08/31/17 Time of Encounter: 05:52 Morning Labs noted AG closed BG better controlled DKA resolved Will start pt on home dose of basal insulin coverage. Levemir 20units SQ qD, adjust dose as per patient's insulin dose requirements Will d/c insulin drip ADA diet sliding scale insulin algorithm Hypokalemia and hypophosphatemia, K and Phos supplemented.
[2017-08-31] MEDS ORDERED: *HR* Dextrose 50 % in Water (Syg) 50 ML SYRINGE IVP PRN ×2 (05:59→10:05)
[2017-08-31] MEDS ORDERED: D5% in Water 1,000 ML IVC PRN ×2 (05:59→10:05)
[2017-08-31] MEDS ORDERED: Dextrose Gel 15 GM/37.5 ML TUBE PO PRN ×4 (05:59→10:05)
[2017-08-31] MEDS ORDERED: Insulin DETEMIR 100 UNIT/ML X5UNITS SQ SCH (06:00)
[2017-08-31 06:07] LABS: Basophils % 0.2 %; Eosinophils % 0.1 %; Hematocrit 32.1 % (37.5-50.1); Hemoglobin 11.4 g/dL (12.9-16.9); Immature Granulocytes % 0.7 % (0-4); Lymphocytes # 1.1 K/mcL (0.6-4.6); Lymphocytes % 8.7 %; Mean Corpuscular HGB Conc 35.5 g/dL (31.6-35.5); Mean Corpuscular Hemoglobin 31.2 pg (28.0-33.3); Mean Corpuscular Volume 87.9 fL (83.0-100.0); Mean Platelet Volume 9.5 fL (9.4-12.4); Monocytes # 1.2 K/mcL (0.0-1.3); Monocytes % 9.1 %; Platelet Count 263 K/mcL (140-400); Red Blood Count 3.65 M/mcL (4.19-5.50); Red Cell Distribution Width 11.5 % (11.5-14.5); Segmented Neutrophils % 81.2 %
[2017-08-31 06:08] LABS: Neutrophils # 10.6 K/mcL (1.6-8.9)
[2017-08-31] MEDS ORDERED: D5% in 0.45% NACL w KCl 20 MEQ/1,000 ML MLS IVC SCH (07:30)
[2017-08-31] MEDS ORDERED: Insulin LISPRO 300 UNITS/3 ML VIAL SQ SCH ×4 (08:00→12:00)
[2017-08-31] MEDS: *HR* HYDROcodone/Acet 5/325 mg TABLET PO PRN ×3 (08:12→22:47)
[2017-08-31 08:25] LABS: BUN/Creatinine Ratio 20 (6-26); Blood Urea Nitrogen 19 mg/dL (6-20); Calcium 7.9 mg/dL (8.6-10.3); Carbon Dioxide 20 mEq/L (23-29); Chloride 109 mEq/L (98-107); Glucose 99 mg/dL (70-105); Osmolality,Calculated 284 (280-300); Potassium 3.9 mEq/L (3.5-5.1); Sodium 136 mEq/L (136-145); eGFR For African Americans > 60 (> 60); eGFR For Non-African Americans > 60 (> 60)
--- NOTE | 2017-08-31 09:58 | Pulmonology Progress Note ---
Date of Encounter: 08/31/17 Time of Encounter: 08:00 Assessment and Plan (1) DKA (diabetic ketoacidoses) Current Visit: Yes Status: Acute DKA secondary to flu . Influenza A and B is negative now gap closed . Patient is on diabetic diet with Long acting insulin and supplemental insulin . Patient can be transferred to [facility] tele Qualifiers: 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 type: type 1 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 complication detail: without coma Qualified Code(s): E10.10 - Type 1 diabetes mellitus with ketoacidosis without coma (2) Hypokalemia Current Visit: No Status: Acute Will correct according to protocol . (3) Intractable nausea and vomiting Current Visit: No Status: Acute secondary to possible flu now resolved now tolerating PO Qualifiers: Vomiting type: unspecified Qualified Code(s): R11.2 - Nausea with vomiting , unspecified (4) CHINO (acute kidney injury) Current Visit: Yes Status: Acute Acute kidney injury improved . (5) DVT prophylaxis Current Visit: Yes Status: Acute Heparin Subjective Principal diagnosis: Diabetic ketoacidosis Interval history: Patient is feeling lot better denies any shortness of breadth , denies any chest pain or tightness .Didnt have any acute issues overnight. Objective PUL Vital signs: Last Vital Signs Temp 98.1 F 08/31/17 07:35 Pulse 79 08/31/17 09:00 Resp 16 08/31/17 09:00 BP 111/57 08/31/17 09:00 Pulse Ox 99 08/31/17 09:00 Results - Laboratory Findings CBC and BMP: 08/31/17 06:00 08/31/17 15:35 ABG ABG pH 7.30 pH Units (7.32-7.45) L 08/30/17 20:15 ABG pCO2 16 mmHg (35-45) L* 08/30/17 20:15 ABG pO2 130 mmHg (85-104) H 08/30/17 20:15 ABG O2 Saturation 99 % (95-98) H 08/30/17 20:15 Abnormal lab findings: Abnormal lab results WBC 13.0 K/mcL (4.3-11.1) H D 08/31/17 06:00 RBC 3.65 M/mcL (4.19-5.50) L 08/31/17 06:00 Hgb 11.4 g/dL (12.9-16.9) L D 08/31/17 06:00 Hct 32.1 % (37.5-50.1) L 08/31/17 06:00 Neutrophils # 10.6 K/mcL (1.6-8.9) H 08/31/17 06:00 Reactive Lymphocytes Present (Not Present) A 08/30/17 15:55 ABG pH 7.30 pH Units (7.32-7.45) L 08/30/17 20:15 ABG pCO2 16 mmHg (35-45) L* 08/30/17 20:15 ABG pO2 130 mmHg (85-104) H 08/30/17 20:15 ABG HCO3 8 mEq/L (21-27) L 08/30/17 20:15 ABG Total CO2 9 mEq/L (20-26) L 08/30/17 20:15 ABG O2 Saturation 99 % (95-98) H 08/30/17 20:15 ABG Base Excess -16 mEq/L (-2 to 3) L 08/30/17 20:15 VBG pH 6.90 pH Units (7.32-7.42) L* 08/30/17 15:58 VBG pCO2 19 mmHg (41-51) L 08/30/17 15:58 VBG pO2 106 mmHg (25-50) H 08/30/17 15:58 VBG HCO3 4 mEq/L (21-27) L 08/30/17 15:58 Chloride 109 mEq/L (98-107) H 08/31/17 07:56 Carbon Dioxide 20 mEq/L (23-29) L 08/31/17 07:56 POC Glucose 172 (58-89) H 08/31/17 09:10 Hemoglobin A1c 11.9 % (-5.6) H 08/30/17 19:58 Calcium 7.9 mg/dL (8.6-10.3) L 08/31/17 07:56 Phosphorus 1.3 mg/dL (2.7-4.5) L 08/31/17 04:22 AST 12 Units/L (13-39) L 08/30/17 19:58 Alkaline Phosphatase 122 Units/L (34-104) H 08/30/17 19:58 Beta-Hydroxybutyric Acd > 2.00 mmol/L (0.02-0.27) H 08/30/17 15:43 Ur Specific [place] > 1.030 (1.010-1.025) H 08/30/17 18:52 Urine Protein 30 mg/dL (Neg-Trace) H 08/30/17 18:52 Urine Glucose (UA) >=1000 mg/dL (Normal) H 08/30/17 18:52 Urine Ketones 80 mg/dL (Negative) H 08/30/17 18:52 Urine Blood Moderate (Negative) H 08/30/17 18:52 Urine Bilirubin Small (Negative) H 08/30/17 18:52 Urine Microscopic RBC 5-15 per hpf (0-3) H 08/30/17 18:52 Ur Squamous Epith Cells Many per lpf (None-Few) H 08/30/17 18:52 Salicylates < 5.0 mg/dL (15.0-30.0) L 08/30/17 19:58 - Clinical Findings Intake & Output: Intake & Output 08/30/17 08/31/17 08/31/17 23:59 07:59 15:59 Intake Total 1235.6 / 2235.6 2118.4 / 2118.4 Output Total 400 / 400 450 / 450 350 / 350 Balance 835.6 / 1835.6 1668.4 / 1668.4 -350 / -350 Consult Discharge Plan - Plan Referrals: Danika Hutson DO [Primary Care Provider] -
[2017-08-31] MEDS: D5% in 0.45% NACL w KCl 20 MEQ/1,000 ML MLS IVC SCH ×2 (11:50→18:57)
[2017-08-31] MEDS: Insulin LISPRO 300 UNITS/3 ML VIAL SQ SCH ×2 (11:50→16:05)
[2017-08-31 12:58] LABS: BUN/Creatinine Ratio 20 (6-26); Blood Urea Nitrogen 17 mg/dL (6-20); Calcium 8.1 mg/dL (8.6-10.3); Carbon Dioxide 21 mEq/L (23-29); Chloride 108 mEq/L (98-107); Glucose 104 mg/dL (70-105); Osmolality,Calculated 284 (280-300); Potassium 3.6 mEq/L (3.5-5.1); Sodium 136 mEq/L (136-145); eGFR For African Americans > 60 (> 60); eGFR For Non-African Americans > 60 (> 60)
--- NOTE | 2017-08-31 15:15 | Electrocardiograph Report ---
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
[2017-08-31 16:13] LABS: BUN/Creatinine Ratio 19 (6-26); Blood Urea Nitrogen 15 mg/dL (6-20); Calcium 7.9 mg/dL (8.6-10.3); Carbon Dioxide 20 mEq/L (23-29); Chloride 107 mEq/L (98-107); Glucose 106 mg/dL (70-105); Osmolality,Calculated 277 (280-300); Potassium 3.8 mEq/L (3.5-5.1); Sodium 133 mEq/L (136-145); eGFR For African Americans > 60 (> 60); eGFR For Non-African Americans > 60 (> 60)
[2017-08-31 21:03] LABS: BUN/Creatinine Ratio 17 (6-26); Blood Urea Nitrogen 12 mg/dL (6-20); Calcium 8.2 mg/dL (8.6-10.3); Carbon Dioxide 22 mEq/L (23-29); Chloride 104 mEq/L (98-107); Glucose 124 mg/dL (70-105); Osmolality,Calculated 275 (280-300); Potassium 3.6 mEq/L (3.5-5.1); Sodium 132 mEq/L (136-145); eGFR For African Americans > 60 (> 60); eGFR For Non-African Americans > 60 (> 60)
[2017-08-31] MEDS: Ondansetron 4 MG/2 ML VIAL IVP PRN (21:10)
[2017-09-01] MEDS: D5% in 0.45% NACL w KCl 20 MEQ/1,000 ML MLS IVC SCH (05:32)
[2017-09-01] MEDS: Ondansetron 4 MG/2 ML VIAL IVP PRN (05:33)
[2017-09-01] MEDS: *HR* HYDROcodone/Acet 5/325 mg TABLET PO PRN ×3 (05:43→21:48)
[2017-09-01] MEDS: *HR* Heparin 5,000 UNIT/ML VIAL SQ SCH ×3 (08:35→23:45)
[2017-09-01] MEDS: Insulin DETEMIR 100 UNIT/ML X5UNITS SQ SCH (08:35)
[2017-09-01] MEDS: Insulin LISPRO 300 UNITS/3 ML VIAL SQ SCH ×3 (08:40→17:43)
[2017-09-01] MEDS ORDERED: Lidocaine Viscous Oral Soln 15 ML SOLUTION MM PRN (12:00)
[2017-09-01] MEDS ORDERED: GI Cocktail 40 ML EACH PO ONE (12:00)
[2017-09-01] MEDS: 0.9 % Sodium Chloride 1,000 ML IVC SCH ×2 (12:21→21:45)
--- NOTE | 2017-09-01 16:26 | Internal Med Progress Note ---
Date of Encounter: 09/01/17 Time of Encounter: 10:50 - Assessment and plan (1) Diabetic gastroparesis Current Visit: Yes Status: Suspected Assessment and plan: Patient complaining of intermittent nausea and vomiting. Given his long- standing diabetes that is poorly controlled, suspect that he has diabetic gastroparesis. Will treat symptomatically for now. (2) Diabetes Current Visit: Yes Status: Chronic Assessment and plan: Blood sugars are better controlled today. Continue insulin regimen. Diabetic diet as tolerated. Ketoacidosis has resolved. 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 Plan for cardiac stress test tomorrow. Patient at high risk for coronary artery disease given history of diabetes that is poorly controlled. Qualifiers: Chest pain type: precordial pain Qualified Code(s): R07.2 - Precordial pain (4) DKA (diabetic ketoacidoses) Current Visit: Yes Status: Resolved Qualifiers: 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 type: type 1 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 complication detail: without coma Qualified Code(s): E10.10 - Type 1 diabetes mellitus with ketoacidosis without coma (5) CHINO (acute kidney injury) Current Visit: Yes Status: Resolved Assessment and plan: Resolved (6) DVT prophylaxis Current Visit: Yes Status: Acute Assessment and plan: Continue subcutaneous heparin - Subjective Interval history: Patient complains of chest and abdominal pain. Pain has worsened after his bouts of emesis prior to hospitalization. He reports that the chest pain as central in location. Previously, pressure in his chest. Denies any hematemesis or melena. - Constitutional Vitals: Temp Pulse Resp BP Pulse Ox 98.2 F 65 16 150/82 98 09/01/17 11:50 09/01/17 11:50 09/01/17 11:50 09/01/17 11:50 09/01/17 11:50 General appearance: Present: cooperative, mild distress, A&O X 3, answers questions appropriately - Neck Neck exam general surgery: Present: supple, trachea midline. Absent: lymphadenopathy - Respiratory Respiratory exam: Present: CTAB. Absent: accessory muscle use, rales, rhonchi, wheezes - Cardiovascular Cardiovascular exam: Present: RRR, +S1, +S2. Absent: diastolic murmur, gallop, rubs, systolic murmur - GI/Abdominal GI/Abdominal exam: Present: normal bowel sounds, soft, tenderness (Epigastric), no peritoneal signs. Absent: distended - Extremities Exam Extremities exam: Present: warm, radial pulses palpable and symmetrical. Absent : calf tenderness, cyanotic, pedal edema - Neurological Exam Neurological exam: Present: alert, CN II-XII intact, oriented X3, no focal deficits. Absent: facial droop, speech deficit - Skin Skin exam: Present: dry, intact Internal Medicine: Result - Labs CBC & Chem 7: 09/02/17 13:38 09/02/17 13:38 Labs: BMP 08/31/17 20:09 Sodium 132 L Potassium 3.6 Chloride 104 Carbon Dioxide 22 L BUN 12 Creatinine 0.72 Glucose 124 H Calcium 8.2 L Cardiac Enzymes 09/01/17 Range/Units 12:16 Troponin I < 0.03 (< 0.04) ng/mL - ABG Interpretation ABG results: ABG ABG pH 7.30 pH Units (7.32-7.45) L 08/30/17 20:15 ABG pCO2 16 mmHg (35-45) L* 08/30/17 20:15 ABG pO2 130 mmHg (85-104) H 08/30/17 20:15 ABG O2 Saturation 99 % (95-98) H 08/30/17 20:15 Consult Discharge Plan - Plan Referrals: Danika Hutson DO [Primary Care Provider] -
[2017-09-02] MEDS ORDERED: Regadenoson 0.4 MG/5 ML SYRINGE IVP ONE (06:46)
[2017-09-02] MEDS: *HR* HYDROcodone/Acet 5/325 mg TABLET PO PRN ×2 (10:09→15:59)
[2017-09-02] MEDS: *HR* Heparin 5,000 UNIT/ML VIAL SQ SCH ×3 (10:10→23:04)
[2017-09-02] MEDS: 0.9 % Sodium Chloride 1,000 ML IVC SCH ×2 (10:10→20:01)
[2017-09-02] MEDS: Insulin DETEMIR 100 UNIT/ML X5UNITS SQ SCH ×2 (10:12→20:00)
[2017-09-02] MEDS: Ondansetron 4 MG/2 ML VIAL IVP PRN (10:17)
[2017-09-02] MEDS ORDERED: Insulin LISPRO 300 UNITS/3 ML VIAL SQ ONE (10:31)
[2017-09-02] MEDS: Metoclopramide 10 MG/2 ML VIAL IVP SCH ×3 (11:43→23:04)
[2017-09-02] MEDS: Insulin LISPRO 300 UNITS/3 ML VIAL SQ SCH ×3 (11:47→20:00)
--- NOTE | 2017-09-02 12:59 | Cardiology Consult Note ---
<Ailyn Zavala - Last Filed: 09/02/17 13:27> Date of Encounter: 09/02/17 Time of Encounter: 12:30 Assessment and Plan (1) Uncontrolled diabetes mellitus Current Visit: No Status: Chronic Per cardiology: -Admitted with DKA. -FS >600 on admission. -Management per primary service. Qualifiers: 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 type: type 1 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 complication status: with unspecified complications Qualified Code(s): E10.8 - Type 1 diabetes mellitus with unspecified complications; E10.65 - Type 1 diabetes mellitus with hyperglycemia (2) Chest pain Current Visit: No Status: Acute Per cardiology: -Patient reports chest pain that occurs with vomiting. -Denies current chest pain. -Denies exertional symptoms. -ECG with ST. -Troponins negative. -TTE 06/2017 with LVEF 70%, no segmental wall motion abnormalities. -Stress today with small sized, mild intensity, reversible apical inferior defect. -Of note, had CHINO on admission. -Will repeat ECG today. -Will repeat CBC and BMP today. -Can consider [facility] this admission, pending repeat labs. -Keep NPO for now. -Will start asa, statin, beta blocke. Per discussion with , will give loading dose of plavix now and start plavix 75mg daily. Qualifiers: Chest pain type: unspecified Qualified Code(s): R07.9 - Chest pain, unspecified (3) CHINO (acute kidney injury) Current Visit: Yes Status: Acute Per cardiology: -CHINO on admission with creatinine 1.81 -Last creatinine 0.72. -Will repeat labs today (4) Tobacco abuse Current Visit: No Status: Chronic Per cardiology: -Known tobacco abuse. -Smokes 0.5-1ppd. -Smoking cessation education provided. Discussion w patient/family: The assessment and plan as outlined above was discussed with the patient who expressed understanding and agreement. All questions were answered. Thank you for involving us in the care of your patient. Please call with any questions. Discussed and reviewed with . History of Present Illness Consult date: 09/02/17 Requesting physician: Henri Tan Consult reason: abnormal stress test Chief complaint: vomiting History of present illness: Mr. Barron is a 42 year old male with a relevant past medical history of DMI, tobacco abuse, GERD, diabetic neuropathy. Patient presented to [facility] with complaints of intractable nausea and vomiting. Patient was noted to be in DKA. Patient complained of chest pain and underwent stress test. Cardiology consulted for abnormal stress test. Patient denies current chest pain. Patient states pain started last Monday and started with vomiting. Patient states pain is intermittent and only occurs with vomiting. Denies exertional symptoms. Patient denies alleviating factors. Patient denies increased shortness of breath. Past Med Surg Social Fam HX - Past Medical History Attestation: Yes The following information was validated with the patient. Source: patient, old records reviewed Medical history: diabetes, GERD Psychiatric history: anxiety - Past Surgical History Surgical History: appendectomy - Social History Smoking Status: Former smoker Smokeless Tobacco Status: No Alcohol use: none Drug use: none - Family History Mother Living Status: Still Living Hx Family Cardiac Disorders: Yes Hx Family Cancer: Yes Hx Family Endocrine Disorder: Yes Medications and Allergies Albuterol Sulfate [Albuterol Inhaler] 2 puff IH Q4H PRN 02/23/17 [History] Escitalopram [Lexapro] 20 mg PO HS 02/23/17 [History] Gabapentin [Neurontin] 600 mg PO TID 02/23/17 [History] Glucagon,Human Recombinant [Glucagon Emergency Kit] 1 mg IJ ONCE PRN 02/23/17 [ History] glipiZIDE [Glucotrol] 5 mg PO 0800 05/24/17 [History] Ranitidine HCl [Zantac] 150 mg PO HS PRN 07/03/17 [History] Metoclopramide [Reglan] 5 mg PO TIDWM #450 mls 07/06/17 [Rx] Insulin Degludec [Tresiba Flextouch U-100] 20 unit SQ HS 08/30/17 [History] Insulin LISPRO [Humalog Kwikpen U-100] 0 unit SQ TIDWM 08/30/17 [History] 3 Allergy/AdvReac Type Severity Reaction Status Date / Time Penicillins Allergy Hives Verified 07/03/17 20:48 metformin AdvReac Diarrhea Verified 07/03/17 20:48 All Systems Review: A 10-system review of systems was performed and is negative for pertinent findings except as documented above in the HPI. - Cardiovascular Cardiovascular: as per HPI, other (Chest pain with vomiting. ) - Gastrointestinal Gastrointestinal: nausea Physical Examination Vital Signs, Last 4 Hours Temp Pulse Resp BP Pulse Ox 09/02/17 12:00 98.2 F 72 14 122/71 99 General: Conversant, No Apparent Distress HEENT: Atraumatic, Normocephaly, Mucus Membranes Moist Neck: No JVD, Normal carotid pulses Cardiac: Reg Rate and Rhythm, Normal S1 and S2, No Murmur Lungs: Normal Breath Sounds, No Wheeze, Rales, Rhonchi Neuro: Alert and responsive, No focal deficits noted Abdomen: Soft, Non-Tender Skin: No rashes noted on visualized skin Musculoskeletal: No Chest Wall Tenderness Extremities: No Clubbing, No Cyanosis, No Edema, Normal Pulses Results 08/31/17 06:00 08/31/17 20:09 Active Medications Hydrocodone Bitart/Acetaminophen ([place] 5-325 Mg) 1 tab PO Q6HR PRN PRN Reason: Severe Pain Stop: 03/01/18 20:11 Last Admin: 09/02/17 10:09 Dose: 1 tab Dextrose/Water (Dextrose 50% (Syg)) 25 ml IVP AD PRN PRN Reason: Hypoglycemia Stop: 03/02/18 06:00 Glucagon (Glucagen) 1 mg IM ONCE PRN PRN Reason: Hypoglycemia Stop: 03/02/18 06:00 Glucose (Gluctose) 15 gm PO ONCE PRN PRN Reason: Hypoglycemia Stop: 03/02/18 06:00 Glucose (Gluctose) 30 gm PO ONCE PRN PRN Reason: Hypoglycemia Stop: 03/02/18 06:00 Heparin Sodium (Porcine) (Heparin) 5,000 unit SQ Q8HR NEELIMA Stop: 03/02/18 00:01 Last Admin: 09/02/17 10:10 Dose: 5,000 unit Dextrose (Dextrose 5%) 1,000 mls @ 100 mls/hr IVC .Q10H PRN PRN Reason: HYPOGLYCEMIA Stop: 03/02/18 06:00 Sodium Chloride (0.9 % Sodium Chloride) 1,000 mls @ 100 mls/hr IVC .Q10H NEELIM[facility] Stop: 03/03/18 12:16 Last Admin: 09/02/17 10:10 Dose: 100 mls/hr Insulin Detemir (Levemir) 20 unit SQ DAILY [facility] Stop: 03/02/18 06:01 Last Admin: 09/02/17 10:12 Dose: 20 unit Insulin Detemir (Levemir) 10 unit SQ HS NE[facility]IM[facility] Stop: 03/04/18 21:01 Insulin Human Lispro (Humalog) 0 units SQ HS [facility] PRN Reason: Protocol Stop: 03/04/18 21:01 Insulin Human Lispro (Humalog) 0 units SQ TIDAC [facility] PRN Reason: Protocol Stop: 03/02/18 11:31 Last Admin: 09/02/17 11:47 Dose: 14 units Lidocaine (Lidocaine Viscous Oral Soln) 15 ml MM BID PRN PRN Reason: Dyspepsia Stop: 03/03/18 12:01 Metoclopramide HCl (Reglan) 5 mg IVP QIDAC [facility] Stop: 03/04/18 11:31 Last Admin: 09/02/17 11:43 Dose: 5 mg Ondansetron HCl (Zofran) 4 mg IVP Q6HR PRN; Protocol PRN Reason: Nausea Stop: 03/02/18 20:35 Last Admin: 09/02/17 10:17 Dose: 4 mg Laboratory Tests 08/30/17 08/30/17 08/30/17 15:43 15:43 15:55 WBC 26.4 H Hgb Creatinine 1.81 H Glucose 618 H* Troponin I < 0.03 08/31/17 08/31/17 09/01/17 00:08 06:00 12:16 WBC 13.0 H D Hgb 11.4 L D Creatinine 1.20 Glucose Troponin I < 0.03 - Imaging and Cardiology Chest Xray: report reviewed Stress Test: report reviewed Echo: report reviewed - EKG Interpretation EKG results cardiology: personally reviewed (ECG with ST, HR 107.), other (Not on telemetry.) Consult Discharge Plan - Plan Referrals: Danika Hutson DO [Primary Care Provider] - <Clara Herzog - Last Filed: 09/02/17 15:27> Date of Encounter: 09/02/17 - Attending Attestation I have personally performed a face to face evaluation on this patient. I have reviewed and agree with the care plan. History and Exam by me shows: 42 YOM with presenting DKA found to have abnormal stress test. Chest pain earlier this am, currently chest pain free. ASA and Plavix started for LHC, R/B/ A d/w pt and he agrees to proceed Assessment and Plan Discussion w patient/family: The assessment and plan as outlined above was discussed with the patient and/or family members who expressed understanding and agreement. All questions were answered. Thank you for involving us in the care of your patient. Please call with any questions. History of Present Illness History of present illness: Mr. Barron is a 42 year old male All Systems Review: A 10-system review of systems was performed and is negative for pertinent findings except as documented above in the HPI. Physical Examination Vital Signs, Last 4 Hours Temp Pulse Resp BP Pulse Ox 09/02/17 12:00 98.2 F 72 14 122/71 99 Results 09/02/17 13:38 09/02/17 13:38 Lab Results 09/02/17 09/02/17 13:38 13:38 WBC 7.3 Hgb 12.5 L Hct 36.1 L Plt Count 170 Sodium 132 L Potassium 3.5 Chloride 98 Carbon Dioxide 27 BUN 10 Creatinine 0.73 Glucose 183 H Calcium 8.6
[2017-09-02 13:47] LABS: Hematocrit 36.1 % (37.5-50.1); Hemoglobin 12.5 g/dL (12.9-16.9); Mean Corpuscular HGB Conc 34.6 g/dL (31.6-35.5); Mean Corpuscular Hemoglobin 30.6 pg (28.0-33.3); Mean Corpuscular Volume 88.5 fL (83.0-100.0); Mean Platelet Volume 9.9 fL (9.4-12.4); Platelet Count 170 K/mcL (140-400); Red Blood Count 4.08 M/mcL (4.19-5.50); Red Cell Distribution Width 11.4 % (11.5-14.5)
[2017-09-02] MEDS: Aspirin Enteric Coated 81 MG Tablet PO SCH (13:55)
[2017-09-02 14:03] LABS: BUN/Creatinine Ratio 14 (6-26); Blood Urea Nitrogen 10 mg/dL (6-20); Calcium 8.6 mg/dL (8.6-10.3); Carbon Dioxide 27 mEq/L (23-29); Chloride 98 mEq/L (98-107); Glucose 183 mg/dL (70-105); Osmolality,Calculated 278 (280-300); Potassium 3.5 mEq/L (3.5-5.1); Sodium 132 mEq/L (136-145); eGFR For African Americans > 60 (> 60); eGFR For Non-African Americans > 60 (> 60)
[2017-09-02] MEDS ORDERED: *HR* Midazolam HCl 2 MG/2 ML VIAL ONE (15:34)
[2017-09-02] MEDS ORDERED: *HR* FentaNYL (PF) 100 MCG/2 ML VIAL ONE (15:35)
[2017-09-02] MEDS ORDERED: 0.9 % Sodium Chloride 1,000 ML ONE (15:35)
--- NOTE | 2017-09-02 15:35 | Internal Med Progress Note ---
Date of Encounter: 09/02/17 Time of Encounter: 15:33 - Assessment and plan (1) Chest pain Current Visit: Yes Status: Acute Assessment and plan: Stress test shows apical ischemia. Consult cardiology. Will follow their recommendations. Troponins were negative. Qualifiers: Chest pain type: precordial pain Qualified Code(s): R07.2 - Precordial pain (2) Diabetic gastroparesis Current Visit: Yes Status: Suspected Assessment and plan: Patient continues to have nausea. We will start patient on Reglan. Also place patient on PPI. (3) Diabetes Current Visit: Yes Status: Chronic Assessment and plan: Blood sugars are elevated today. Will increase insulin regimen. 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 Chest pain is somewhat improved. Underwent cardiac stress test earlier today. Feels nauseated after he received Lexiscan. - Constitutional Vitals: Temp Pulse Resp BP Pulse Ox 98.2 F 72 14 122/71 99 09/02/17 12:00 09/02/17 12:00 09/02/17 12:00 09/02/17 12:00 09/02/17 12:00 General appearance: Present: cooperative, mild distress, A&O X 3, answers questions appropriately - Neck Neck exam general surgery: Present: supple, trachea midline. Absent: lymphadenopathy - Respiratory Respiratory exam: Present: CTAB. Absent: accessory muscle use, rales, rhonchi, wheezes - Cardiovascular Cardiovascular exam: Present: RRR, +S1, +S2. Absent: diastolic murmur, gallop, rubs, systolic murmur - GI/Abdominal GI/Abdominal exam: Present: normal bowel sounds, soft, tenderness (Epigastric tenderness), no peritoneal signs. Absent: distended - Extremities Exam Extremities exam: Present: warm, radial pulses palpable and symmetrical. Absent : calf tenderness, cyanotic, pedal edema Internal Medicine: Result - Labs CBC & Chem 7: 09/02/17 13:38 09/02/17 13:38 Labs: Short CBC 09/02/17 Range/Units 13:38 WBC 7.3 (4.3-11.1) K/mcL Hgb 12.5 L (12.9-16.9) g/dL Hct 36.1 L (37.5-50.1) % Plt Count 170 (140-400) K/mcL BMP 09/02/17 13:38 Sodium 132 L Potassium 3.5 Chloride 98 Carbon Dioxide 27 BUN 10 Creatinine 0.73 Glucose 183 H Calcium 8.6 - ABG Interpretation ABG results: ABG ABG pH 7.30 pH Units (7.32-7.45) L 08/30/17 20:15 ABG pCO2 16 mmHg (35-45) L* 08/30/17 20:15 ABG pO2 130 mmHg (85-104) H 08/30/17 20:15 ABG O2 Saturation 99 % (95-98) H 08/30/17 20:15 Consult Discharge Plan - Plan Referrals: Danika Hutson DO [Primary Care Provider] -
[2017-09-02] MEDS ORDERED: *HR* Heparin 10,000 UNIT/10 ML VIAL ONE (15:36)
[2017-09-02] MEDS ORDERED: Nitroglycerin 1,000 MCG/10 ML VIAL IV ONE (15:36)
[2017-09-02] MEDS ORDERED: Heparin 1,000 UNITS/500 mL 500 ML ONE (15:36)
[2017-09-02] MEDS: Pantoprazole 40 MG VIAL IVP SCH (15:57)
[2017-09-03] MEDS: 0.9 % Sodium Chloride 1,000 ML IVC SCH (06:54)
[2017-09-03] MEDS: Metoclopramide 10 MG/2 ML VIAL IVP SCH ×2 (07:47→12:18)
[2017-09-03] MEDS: *HR* HYDROcodone/Acet 5/325 mg TABLET PO PRN ×3 (07:47→23:26)
[2017-09-03] MEDS: Aspirin Enteric Coated 81 MG Tablet PO SCH (07:47)
[2017-09-03] MEDS: Pantoprazole 40 MG VIAL IVP SCH (07:47)
[2017-09-03] MEDS: Insulin LISPRO 300 UNITS/3 ML VIAL SQ SCH ×4 (07:48→20:59)
[2017-09-03] MEDS: *HR* Heparin 5,000 UNIT/ML VIAL SQ SCH ×3 (07:48→23:25)
[2017-09-03] MEDS: Insulin DETEMIR 100 UNIT/ML X5UNITS SQ SCH ×2 (10:30→20:59)
--- NOTE | 2017-09-03 10:35 | Cardiology Progress Note ---
Date of Encounter: 09/03/17 Time of Encounter: 08:00 Assessment and Plan (1) Uncontrolled diabetes mellitus Current Visit: No Status: Chronic Per cardiology: -Admitted with DKA. -FS >600 on admission. -Management per primary service. Qualifiers: 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 type: type 1 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 complication status: with unspecified complications Qualified Code(s): E10.8 - Type 1 diabetes mellitus with unspecified complications; E10.65 - Type 1 diabetes mellitus with hyperglycemia (2) Chest pain Current Visit: Yes Status: Acute Per cardiology: -Patient reports chest pain that occurs with vomiting. -Denies current chest pain. -Denies exertional symptoms. -ECG with ST. -Troponins negative. -TTE 06/2017 with LVEF 70%, no segmental wall motion abnormalities. -Stress today with small sized, mild intensity, reversible apical inferior defect. -Of note, had CHINO on admission. -On asa, statin, beta remedios, and plavix. -PLan for LHC in am. RIsks versus benefits of LHC explained to patient and family. Patient states understanding and agreeable to proceed. -Further recommendations pending LHC. Qualifiers: Chest pain type: precordial pain Qualified Code(s): R07.2 - Precordial pain (3) CHINO (acute kidney injury) Current Visit: Yes Status: Resolved Per cardiology: -CHINO on admission with creatinine 1.81 -Last creatinine 0.72. (4) Tobacco abuse Current Visit: No Status: Chronic Per cardiology: -Known tobacco abuse. -Smokes 0.5-1ppd. -Smoking cessation education provided. Discussion w patient/family: The assessment and plan as outlined above was discussed with the patient and family who expressed understanding and agreement. All questions were answered. Thank you for involving us in the care of your patient. Please call with any questions. Discussed and reviewed with . Subjective Principal diagnosis: Diabetic ketoacidosis Interval history: Denies chest pain overnight. Denies current chest pain. Objective Vital Signs Temperature 97.9 F 08/30/17 15:13 Pulse Rate 110 08/30/17 15:13 Respiratory Rate 24 08/30/17 15:13 Blood Pressure 135/69 08/30/17 15:13 O2 Sat by Pulse Oximetry 100 08/30/17 15:13 Temperature 98.5 F 09/03/17 06:30 Pulse Rate 83 09/03/17 06:30 Respiratory Rate 16 09/03/17 06:30 Blood Pressure 123/74 09/03/17 06:30 O2 Sat by Pulse Oximetry 99 09/03/17 06:30 Oxygen Delivery Oxygen Delivery Room Air General: Conversant, No Apparent Distress HEENT: Atraumatic, Normocephaly, Mucus Membranes Moist Neck: No JVD, Normal carotid pulses Cardiac: Reg Rate and Rhythm, Normal S1 and S2, No Murmur Lungs: Normal Breath Sounds, No Wheeze, Rales, Rhonchi Neuro: Alert and responsive, No focal deficits noted Abdomen: Soft, Non-Tender Skin: No rashes noted on visualized skin Musculoskeletal: No Chest Wall Tenderness Extremities: No Clubbing, No Cyanosis, No Edema, Normal Pulses Results 09/02/17 13:38 09/02/17 13:38 Lab Results Active Medications Hydrocodone Bitart/Acetaminophen ([place] 5-325 Mg) 1 tab PO Q6HR PRN PRN Reason: Severe Pain Stop: 03/01/18 20:11 Last Admin: 09/03/17 07:47 Dose: 1 tab Aspirin (Aspirin Ec) 81 mg PO DAILY [facility] Stop: 03/04/18 13:16 Last Admin: 09/03/17 07:47 Dose: 81 mg Atorvastatin Calcium (Lipitor) 40 mg PO HS [facility] Stop: 03/04/18 21:01 Last Admin: 09/02/17 20:00 Dose: 40 mg Clopidogrel Bisulfate (Plavix) 75 mg PO DAILY [facility]IM[facility] Stop: 03/05/18 09:01 Last Admin: 09/03/17 07:47 Dose: 75 mg Dextrose/Water (Dextrose 50% (Syg)) 25 ml IVP AD PRN PRN Reason: Hypoglycemia Stop: 03/02/18 06:00 Glucagon (Glucagen) 1 mg IM ONCE PRN PRN Reason: Hypoglycemia Stop: 03/02/18 06:00 Glucose (Gluctose) 15 gm PO ONCE PRN PRN Reason: Hypoglycemia Stop: 03/02/18 06:00 Glucose (Gluctose) 30 gm PO ONCE PRN PRN Reason: Hypoglycemia Stop: 03/02/18 06:00 Heparin Sodium (Porcine) (Heparin) 5,000 unit SQ Q8HR NEELIMA Stop: 03/02/18 00:01 Last Admin: 09/03/17 07:48 Dose: 5,000 unit Dextrose (Dextrose 5%) 1,000 mls @ 100 mls/hr IVC .Q10H PRN PRN Reason: HYPOGLYCEMIA Stop: 03/02/18 06:00 Sodium Chloride (0.9 % Sodium Chloride) 1,000 mls @ 100 mls/hr IVC .Q10H [facility] Stop: 03/03/18 12:16 Last Admin: 09/03/17 06:54 Dose: 100 mls/hr Insulin Detemir (Levemir) 20 unit SQ DAILY [facility] Stop: 03/02/18 06:01 Last Admin: 09/02/17 10:12 Dose: 20 unit Insulin Detemir (Levemir) 10 unit SQ HS [facility] Stop: 03/04/18 21:01 Last Admin: 09/02/17 20:00 Dose: 10 unit Insulin Human Lispro (Humalog) 0 units SQ HS [facility] PRN Reason: Protocol Stop: 03/04/18 21:01 Last Admin: 09/02/17 20:00 Dose: Not Given Insulin Human Lispro (Humalog) 0 units SQ TIDAC [facility] PRN Reason: Protocol Stop: 03/02/18 11:31 Last Admin: 09/03/17 07:48 Dose: 8 units Lidocaine (Lidocaine Viscous Oral Soln) 15 ml MM BID PRN PRN Reason: Dyspepsia Stop: 03/03/18 12:01 Metoclopramide HCl (Reglan) 5 mg IVP QIDAC [facility] Stop: 03/04/18 11:31 Last Admin: 09/03/17 07:47 Dose: 5 mg Metoprolol Tartrate (Lopressor) 12.5 mg PO BID [facility] Stop: 03/04/18 21:01 Last Admin: 09/03/17 07:47 Dose: 12.5 mg Ondansetron HCl (Zofran) 4 mg IVP Q6HR PRN; Protocol PRN Reason: Nausea Stop: 03/02/18 20:35 Last Admin: 09/02/17 10:17 Dose: 4 mg Pantoprazole Sodium (Protonix) 40 mg IVP DAILY [facility] Stop: 03/04/18 15:46 Last Admin: 09/03/17 07:47 Dose: 40 mg Laboratory Tests 09/02/17 09/02/17 13:38 13:38 Hgb 12.5 L Creatinine 0.73 - Imaging and Cardiology Chest Xray: report reviewed Stress Test: report reviewed Echo: report reviewed Cardiac cath: pending - EKG Interpretation EKG results cardiology: other (Telemetry reviewed with average HR previous 12 hours noted to be 72, SR. PACs noted.) Consult Discharge Plan - Plan Referrals: Danika Htuson DO [Primary Care Provider] -
[2017-09-03 12:59] LABS: Amphetamines NEGATIVE ng/mL (Cutoff 30); Barbiturates NEGATIVE ng/mL (Cutoff 75); Benzodiazepines NEGATIVE ng/mL (Cutoff 75); Cocaine NEGATIVE ng/mL (Cutoff 30); Methadone NEGATIVE ng/mL (Cutoff 40); Methamphetamines NEGATIVE ng/mL (Cutoff 30); Opiates NEGATIVE ng/mL (Cutoff 30); Phencyclidine NEGATIVE ng/mL (Cutoff 15)
--- NOTE | 2017-09-03 14:28 | Internal Med Progress Note ---
Date of Encounter: 09/03/17 Time of Encounter: 11:00 - Assessment and plan (1) Chest pain Current Visit: Yes Status: Acute Assessment and plan: Improved. Troponins negative. Abnormal stress test. Cardiology recommends left heart catheterization. On aspirin, Plavix statin and beta remedios. Qualifiers: Chest pain type: precordial pain Qualified Code(s): R07.2 - Precordial pain (2) Diabetic gastroparesis Current Visit: Yes Status: Acute Assessment and plan: Patient's symptoms have improved with the use of Reglan. Will continue. Transition to oral Reglan (3) Diabetes Current Visit: Yes Status: Chronic Assessment and plan: Improved control. 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 Abdominal pain is improving. Tolerating Reglan well. Denies any chest pain today. Has been able to tolerate diet. Scheduled for left heart catheterization tomorrow. - Constitutional Vitals: Temp Pulse Resp BP Pulse Ox 98.6 F 72 16 122/75 100 09/03/17 11:30 09/03/17 11:30 09/03/17 11:30 09/03/17 11:30 09/03/17 11:30 General appearance: Present: cooperative, mild distress, A&O X 3, answers questions appropriately - Respiratory Respiratory exam: Present: CTAB. Absent: accessory muscle use, rales, rhonchi, wheezes - Cardiovascular Cardiovascular exam: Present: RRR, +S1, +S2. Absent: diastolic murmur, gallop, rubs, systolic murmur - GI/Abdominal GI/Abdominal exam: Present: normal bowel sounds, soft, no peritoneal signs. Absent: distended, tenderness - Extremities Exam Extremities exam: Present: warm, radial pulses palpable and symmetrical. Absent : calf tenderness, cyanotic, pedal edema Internal Medicine: Result - Labs CBC & Chem 7: 09/02/17 13:38 09/02/17 13:38 - ABG Interpretation ABG results: ABG ABG pH 7.30 pH Units (7.32-7.45) L 08/30/17 20:15 ABG pCO2 16 mmHg (35-45) L* 08/30/17 20:15 ABG pO2 130 mmHg (85-104) H 08/30/17 20:15 ABG O2 Saturation 99 % (95-98) H 08/30/17 20:15 Consult Discharge Plan - Plan Referrals: Danika Hutson DO [Primary Care Provider] -
[2017-09-03] MEDS: Nicotine 21 MG PATCH.TD24 TD SCH (21:00)
[2017-09-04 03:23] LABS: Hematocrit 31.4 % (37.5-50.1); Hemoglobin 10.9 g/dL (12.9-16.9); Mean Corpuscular HGB Conc 34.7 g/dL (31.6-35.5); Mean Corpuscular Hemoglobin 30.7 pg (28.0-33.3); Mean Corpuscular Volume 88.5 fL (83.0-100.0); Mean Platelet Volume 10.6 fL (9.4-12.4); Platelet Count 142 K/mcL (140-400); Red Blood Count 3.55 M/mcL (4.19-5.50); Red Cell Distribution Width 11.4 % (11.5-14.5)
[2017-09-04 03:39] LABS: BUN/Creatinine Ratio 18 (6-26); Blood Urea Nitrogen 12 mg/dL (6-20); Calcium 8.6 mg/dL (8.6-10.3); Carbon Dioxide 28 mEq/L (23-29); Chloride 101 mEq/L (98-107); Glucose 181 mg/dL (70-105); Osmolality,Calculated 286 (280-300); Potassium 3.2 mEq/L (3.5-5.1); Sodium 136 mEq/L (136-145); eGFR For African Americans > 60 (> 60); eGFR For Non-African Americans > 60 (> 60)
[2017-09-04] MEDS: Aspirin Enteric Coated 81 MG Tablet PO SCH (08:15)
[2017-09-04] MEDS: *HR* Heparin 5,000 UNIT/ML VIAL SQ SCH (08:16)
[2017-09-04] MEDS: Insulin DETEMIR 100 UNIT/ML X5UNITS SQ SCH (08:16)
[2017-09-04] MEDS: Insulin LISPRO 300 UNITS/3 ML VIAL SQ SCH ×3 (08:16→17:17)
[2017-09-04] MEDS: *HR* HYDROcodone/Acet 5/325 mg TABLET PO PRN (08:18)
[2017-09-04] MEDS: Nicotine 21 MG PATCH.TD24 TD SCH (08:25)
--- NOTE | 2017-09-04 08:43 | Pre-Sedation Evaluation ---
Pre-sedation evaluation - Pre-sedation checklist Date of procedure: 09/04/17 Procedure: [facility] Recent Vitals: Last Vital Signs Temp 98.4 F 09/04/17 07:07 Pulse 68 09/04/17 07:07 Resp 16 09/04/17 07:07 BP 118/73 09/04/17 07:07 Pulse Ox 99 09/04/17 07:07 H&P (including ROS) documented in medical record: Yes Previous reaction to sedatives/anesthetics: No Dietary Status: NPO after Midnight Dentition: full dentition ASA Classification *see protocol: CLASS II-Mild systemic disease Plan of Care: Pt appropriate candidate for procedure/moderate/conscious sedation
--- NOTE | 2017-09-04 09:30 | Event Note ---
Date of Encounter: 09/04/17 Time of Encounter: 09:00 - Cardiology Event Note Plan for LHC for abnormal stress test today. Of note, K 3.2 today, replaced. Hemoglobin 10.9 today, was 14.3 on admission, however patient has received a lot of IV fluid due to DKA on admission. Discussed down trending hemoglobin with interventionlist, . States he feels decreased hemoglobin is dilutional. , states ok to proceed with LHC today. Risks versus benefits of LHC explained to patient. Patient states understanding and agreeable to proceed. Further recommendations pending LHC.
[2017-09-04] MEDS ORDERED: Heparin 1,000 UNITS/500 mL 500 ML ONE (12:58)
[2017-09-04] MEDS ORDERED: Nitroglycerin 1,000 MCG/10 ML VIAL IV ONE (12:58)
[2017-09-04] MEDS ORDERED: 0.9 % Sodium Chloride 1,000 ML ONE (12:58)
[2017-09-04] MEDS ORDERED: *HR* Heparin 10,000 UNIT/10 ML VIAL ONE (12:58)
[2017-09-04] MEDS ORDERED: *HR* FentaNYL (PF) 100 MCG/2 ML VIAL ONE (12:59)
[2017-09-04] MEDS ORDERED: *HR* Midazolam HCl 2 MG/2 ML VIAL ONE (12:59)
--- NOTE | 2017-09-04 13:26 | Event Note ---
Date of Encounter: 09/04/17 Time of Encounter: 13:25 - Cardiology Event Note Per discussion with , no significant CAD on [facility]. Cardiology will sign off.
--- NOTE | 2017-09-04 13:37 | Discharge Summary ---
Date of Encounter: 09/04/17 Time of Encounter: 13:33 - Discharge Diagnosis (1) DKA (diabetic ketoacidoses) Priority: Primary Status: Resolved Qualifiers: 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 type: type 1 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 complication detail: without coma Qualified Code(s): E10.10 - Type 1 diabetes mellitus with ketoacidosis without coma (2) Chest pain Priority: Secondary Status: Acute Qualifiers: Chest pain type: precordial pain Qualified Code(s): R07.2 - Precordial pain (3) Diabetic gastroparesis Priority: Secondary Status: Acute (4) Diabetes Priority: Secondary Status: Chronic Qualifiers: 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 type: type 2 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 complication status: with ketoacidosis 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 complication detail: without coma 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 director long term care insulin use: with director long term care use Qualified Code(s): E11.10 - Type 2 diabetes mellitus with ketoacidosis without coma; Z79.4 - 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; 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; Z79.4 - senior living (current) use of insulin; Z79.4 - senior living (current) use of insulin (5) CHINO (acute kidney injury) Priority: Secondary Status: Resolved (6) DVT prophylaxis Priority: Secondary Status: Acute - Discharge Medications Prescriptions: Metoclopramide [Reglan] 5 mg PO QIDAC #120 tablet Omeprazole [PriLOSEC] 20 mg PO DAILY@0630 #30 capsule.dr Ryde Medications: Albuterol Sulfate [Albuterol Inhaler] 2 puff IH Q4H PRN 02/23/17 [History] Escitalopram [Lexapro] 20 mg PO HS 02/23/17 [History] Gabapentin [Neurontin] 600 mg PO TID 02/23/17 [History] Glucagon,Human Recombinant [Glucagon Emergency Kit] 1 mg IJ ONCE PRN 02/23/17 [ History] glipiZIDE [Glucotrol] 5 mg PO 0800 05/24/17 [History] Ranitidine HCl [Zantac] 150 mg PO HS PRN 07/03/17 [History] Insulin Degludec [Tresiba Flextouch U-100] 20 unit SQ HS 08/30/17 [History] Insulin LISPRO [Humalog Kwikpen U-100] 0 unit SQ TIDWM 08/30/17 [History] Metoclopramide [Reglan] 5 mg PO QIDAC #120 tablet 09/04/17 [Rx] Omeprazole [PriLOSEC] 20 mg PO DAILY@0630 #30 capsule. 09/04/17 [Rx] Allergies/Adverse Reactions: 3 Allergy/AdvReac Type Severity Reaction Status Date / Time Penicillins Allergy Hives Verified 07/03/17 20:48 metformin AdvReac Diarrhea Verified 07/03/17 20:48 Procedures/tests Complete & Pending: Procedures Performed prior 72 hours Category Date Time Status CL Cardiac Catheterization [CL] Routine Audiovisual Equipment Operator 09/04/17 09:26 Ordered Left Heart Cath [CL Cardiac Catheterization] [CL] Audiovisual Equipment Operator 09/02/17 15:32 Ordered Routine ECG 12 lead ECG [ECG] Stat Y 09/02/17 13:15 Completed SP pharm nuclear stress Routine Y 09/02/17 07:00 Completed Date of admission: 08/30/17 17:15 Primary care physician: Danika Hutson DO Consults: 09/02/17 10:21 Consult to Cardiology [CONS] Routine Comment: Consulting Provider: Cardiology Jerri Reason for Consult: Abnormal stress test Time Notified: 10:21 Call Completed: Yes Discharging clinician: Henri Tan Anticipated date of discharge: 09/04/17 - Patient Status Disposition: Home, Self-Care Condition: Good Functional capacity at discharge: independent ambulation Overall status at discharge: patient is progressing back to baseline - Discharge Instructions Instructions: Chest Pain (DC), Diabetes Mellitus Type 2 in Adults (DC) Follow Up With: Danika Hutson DO [Primary Care Provider] - (in 1 week) - Diet and Activity Activity: increase activity as tolerated Diet: diabetic diet, low fat, low cholesterol, low salt diet Hospital course: Mr. Barron is a 42 year old male patient with history of diabetes mellitus type 2 who was hospitalized here with diabetic ketoacidosis. He was started on treatment for this with DKA protocol including IV insulin and IV fluids. While his DKA resolved, patient continued to have intractable nausea and vomiting. He was started on treatment for this with antiemetics with no improvement in his symptoms. Given his history of diabetes, he was suspected of having diabetic gastroparesis and was started on metoclopramide which seemed to help with his symptoms. He did also complain of chest pain and underwent cardiac stress test which was abnormal. Cardiology was consulted and then recommended left heart catheterization. Patient underwent this procedure today and was found to have no significant coronary artery disease. He is now doing well and is tolerating oral diet. His abdominal pain, nausea and vomiting and chest pain is resolved. He is clinically stable to be discharged home. He will follow up with his PCP for further management of his diabetes and diabetic gastroparesis. - Time Spent with Patient Total time spent providing and/or coordinating discharge services: Greater than 30 minutes (32 min) - Constitutional Vitals: Temp Pulse Resp BP Pulse Ox 98.2 F 81 16 144/75 99 09/04/17 12:00 09/04/17 12:00 09/04/17 12:00 09/04/17 12:00 09/04/17 12:00 General appearance: Present: cooperative, mild distress, A&O X 3, answers questions appropriately - Respiratory Respiratory exam: Present: CTAB. Absent: accessory muscle use, rales, rhonchi, wheezes - Cardiovascular Cardiovascular exam: Present: RRR, +S1, +S2. Absent: diastolic murmur, gallop, rubs, systolic murmur - GI/Abdominal GI/Abdominal exam: Present: normal bowel sounds, soft, no peritoneal signs. Absent: distended, tenderness - Extremities Exam Extremities exam: Present: warm, radial pulses palpable and symmetrical. Absent : calf tenderness, cyanotic, pedal edema - Neurological Exam Neurological exam: Present: CN II-XII intact, oriented X3, no focal deficits. Absent: facial droop, speech deficit - Skin Skin exam: Present: dry, intact
--- NOTE | 2017-09-04 13:55 | Invasive Diagnostic Lab Proc ---
Name: Kevon Barron Date of Study: 09/04/2017 Date: 1975 Ht: 68.9in Medical Record#: [id number] Age: 42 Wt: 147.71lb Gender: Male BSA: 1.81 Order #: [id number] BMI: 21.88 Physicians Procedure Physician: Clara Herzog MD Referring MD: Referring MD: Staff Name Position Time In Shandra Su RT Monitor 12:52 PM Kala Dunbar RT (R) Scrub 12:52 PM Minerva Kelly RN Tile Edger 12:53 PM Indications Indication Abnormal Test - Stress Procedures Performed Procedure L HRT ARTERY/VENTRICLE ANGIO Pre-Procedure Checklist Informed consent is complete signed and on chart. H&P is on chart. ID band is on and ID verified with patient. Patient NPO for procedure The procedure was described for the patient and questions were answered. ECG is on chart. Plan of Care Patient will tolerate the procedure without complications. Adequate level of comfort will be maintained. Hemodynamics will remain stable Patient will recover from procedure without complications. Respiratory function will be maintained. Cardiac rhythm will remain stable. Patient temperature will be maintained. Patient and/or family have verbalized understanding of the procedure. Patient Education Chief Complaint/Reason for Test: Cardiac Cath Developmental Category: Geriatric (65+ years) Developmentally Appropriate for Age: Yes Learning Barriers: None Education Needs: Procedure Education Method: Verbal Information Taught: Cardiac Cath Educational Evaluation: Able to repeat information Intravenous Access Time IV Size Location DC'd Fluid/Drip Rate Units RN 18g 1 1/4" Patent On Arrival Rt Antecubital 18g 1 1/4" Patent On Arrival Lt Antecubital Allergies Penicillins PCN metformin Vital Signs Time BP (mmHg) HR (bpm) O2 Sat. RR (bpm) LOC 118 / 73 68 99 % 16 5 = Fully awake and oriented or at pre-proc level 01:07 PM / % 5 = Fully awake and oriented or at pre-proc level 01:07 PM / % 4 = Oriented but drowsy 12:57 PM 146 / 79 77 96 % 11 01:02 PM 136 / 79 72 99 % 22 01:07 PM 133 / 78 75 98 % 17 01:12 PM 124 / 72 72 98 % 44 01:16 PM 124 / 73 74 99 % 14 01:22 PM 129 / 70 74 99 % 18 01:27 PM 124 / 74 79 98 % 16 01:32 PM 118 / 73 72 100 % 18 01:36 PM 125 / 75 76 100 % 12 01:23 PM / % 5 = Fully awake and oriented or at pre-proc level Procedural Medications Time Medication Dose Units Method Given By 01:07 PM Oxygen 2 L/min nasal cannula Minerva Kelly RN 01:07 PM Versed 1 mg Intravenous Minerva Kelly RN 01:07 PM Fentanyl 50 mcg Intravenous Minerva Kelly RN 01:13 PM Lidocaine 2% 10 ml Subcutaneous Clara Herzog MD ASA Classification: CLASS II- Mild systemic disease (i.e. well-controlled diabetes, hypertension, asthma, cigarette smoking) Alley Score Preprocedure Postprocedure Activity 2- Moves 4 extremities sustained head lift Activity 2- Moves 4 extremities sustained head lift Circulation 2- SBP +/= 20 points of pre-anesthetic level Circulation 2- SBP +/= 20 points of pre-anesthetic level Consciousness 2- Awake and alert oriented x 3 Consciousness 2- Awake and alert oriented x 3 O2 Saturation 2- Able to maintain O2 satruation of 92% on room air O2 Saturation 2- Able to maintain O2 satruation of 92% on room air Respiratory 2- Able to deep breathe and cough well Respiratory 2- Able to deep breathe and cough well Total Score 10 Total Score 10 Contrast Agent: Isovue Diagnostic Contrast: 56 ml Total Contrast: 56 ml Fluoro Dose: 87 mGy Activated Clotting Time Time Seconds to Clot 01:28 PM 122 Procedure Log Time Note Enter By 12:52 PM [facility] solder making laborer [facility] Shandra Su Position: Monitor Time in: 12:52 ner 12:53 PM Kala Dunbar RT (R) Position: Scrub Time in: 12:52 kkallner 12:53 PM Minerva Kelly RN Position: Tile Edger Time in: 12:53 kkner 12:54 PM Patient charges- Angio tray pack, Navilyst 3mm J, Pulse Oximetry and ACIST tubing and transducer kkallner 12:54 PM Case Delayed No kkallner 12:54 PM Hair removed from procedure site in holding area using clippers. Bilateral groin prepped with Chloraprep by Shandra Su RT, safety strap applied then patient was draped. Skin intact. kkall 12:54 PM Physician arrived 12:54 kkallner 12:54 PM ASA Class CLASS II- Mild systemic disease (i.e. well-controlled diabetes, hypertension, asthma, cigarette smoking) kkallner 12:54 PM Meet and greet completed kkall 12:54 PM Sign in performed according to hospital policy. kkallner 12:54 PM Procedure start 12:54 kkallner 12:56 PM CathStat 12:56 PM Vitals capture started with the following parameters, Patient=Adult, Interval=5 min, Initial Guaedviu=016 mmHg, Deflation Rate=5 mmHg, Cuff placed on Left Arm 12:57 PM HR=77 bpm, ECCG=662/79 mmhg, SpO2=96.0 %, Resp=11 B/min 01:02 PM HR=72 bpm, UUUN=582/79 mmhg, SpO2=99.0 %, Resp=22 B/min 01:07 PM HR=75 bpm, BRJR=604/78 mmhg, SpO2=98.0 %, Resp=17 B/min, Comment=sr 01:07 PM Time: 13:07 Oxygen on at 2 L/min per nasal cannula by Minerva Kelly RN kkjavier :07 PM Time: 13:07 Versed 1 mg Intravenous Given by Minerva Kelly RN kkalfonso :07 PM Time: 13:07 Fentanyl 50 mcg Intravenous Given by Minerva Kelly RN kkalfonso :07 PM Time: 13:07 Patient comfortable and pain free: Yes kkner :07 PM Time: 13:07LOC: 5 = Fully awake and oriented or at pre-proc level kk:08 PM Clinical Presentation: Stable angina kk:09 PM Pressure channel 1 zeroed. 01:12 PM HR=72 bpm, UVKI=860/72 mmhg, SpO2=98.0 %, Resp=44 B/min 01:13 PM Time out performed according to hospital policy kk:14 PM Time: 13:13 10 ml Lidocaine 2% to right groin Subcutaneous Given by Clara Herzog MD kk:16 PM Micro-Introducer Kit utilized for sheath placement kkall:16 PM Bolus angiogram of right Femoral complete: 3ml hand injected :16 PM Access obtained by percutaneous puncture. 6Fr 10cm Terumo Fine sheath placed in right Femoral artery. [id number] kkallner 01:16 PM 5Fr FR 4 catheter inserted over the wire DN kkallner 01:16 PM wire removed kkallner 01:16 PM HR=74 bpm, OTRT=521/73 mmhg, SpO2=99.0 %, Resp=14 B/min, Comment=sr 01:17 PM RCA angiography performed in multiple views. kkallner 01:17 PM Recorded Pressure: Ao, HR=76, Condition=Condition 1 (Aorta) Ao 106/81/94 01:18 PM Catheter removed kkallner 01:18 PM 5Fr FL 4 catheter inserted over the wire [facility] kkallner 01:18 PM wire removed kkallner 01:18 PM LCA angiography performed in multiple views. kkallner 01:19 PM Recorded Pressure: Ao, HR=70, Condition=Condition 1 (Aorta) Ao 70/42/56 01:20 PM Catheter removed kkallner 01:20 PM 5Fr Pigtail catheter inserted over the wire [facility] kkallner 01:20 PM wire removed kkallner 01:20 PM Catheter selectively placed in left ventricle kkallner :21 PM Recorded Pressure: LV, HR=76, Condition=Condition 1 (Left Ventricle) LV 113/12/13 01:21 PM Bolus angiogram of left Ventricle complete: 10 ml/sec for a total of 20 mls kkallner :22 PM HR=74 bpm, IRGL=238/70 mmhg, SpO2=99.0 %, Resp=18 B/min 01:22 PM Recorded Pressure: LV, Ao, HR=75, Condition=Condition 1 (Left Ventricle) LV 105/22/23, (Aorta) Ao 112/76/96 01:22 PM Coronary Dominance: right kkallner :22 PM Catheter removed kkallner :22 PM Time: 13:07 Patient comfortable and pain free: Yes kkallner :23 PM Time: 13:07LOC: 4 = Oriented but drowsy kkallner :24 PM Left Main Coronary Artery with 0% stenosis kkallner :24 PM Proximal Left Anterior Descending Coronary Artery with 0% stenosis. If graft is supplying this territory, 0 % stenosis. kkallner :24 PM Mid/Distal Left Anterior Descending Coronary Artery and diagonal branches with 0% stenosis. If graft is supplying this area, 0 % stenosis kkallner :24 PM Circumflex, Obtuse Marginal, Left Posterior Descending, and Left Posterolateral Coronary Arteries with 0 % stenosis. If graft is supplying this area, 0 % stenosis kkallner :24 PM Right Coronary, Right Posterior Descending Arteries with Right Posterolateral and Acute Marginal branches with 0 % stenosis. If graft is supplying this area, 0 % stenosis kkallner :24 PM Ramus with 0% stenosis. If graft is supplying this area, 0 % stenosis kkallner :24 PM Procedure completed at 13:24 kkallner :24 PM Sign out completed: Radiation Dose 86.74 mGy Fluoro Time: Isovue 370 - 200ml contrast ml given by Clara Herzog MD. Complications: NoneCardiac Rehab Consult needed: Confirmed administered medications: kkallner : PM Isovue 370 - 200ml,1 Bottle(s) used. kkallner : PM Estimated Blood Loss: minimal kkallner :25 PM Post ECG NSR kkallner :25 PM Post Blood Pressure 129/70 kkallner : PM Information taught Cardiac Cath kkallner : PM Education needs Procedure, Plan of Care, and Responsibilities of Patient in Care kkallner : PM Learning barriers :None kkallner : PM Education Methods Verbal kkallner : PM Education evaluation Able to repeat information kkallner : PM HR=79 bpm, QMQM=691/74 mmhg, SpO2=98.0 %, Resp=16 B/min 01:27 PM Plavix, Effient or Brilinta given No kkallner : PM Delay to floor No kkallner : PM Family placed in consult room. kkallner : PM Complications: None kkallner : PM At 13:28 the ACT was 122 seconds. kkallner : PM Fluoro Time: 1.7 kkallner : PM Isovue 370 - 200ml contrast 55.5 ml given by Clara Herzog MD. kkallner :28 PM Radiation Dose 86.74 mGy kkallner 01:31 PM Report given to Lidya STEVENS Pt taken to E Room #21. 13:30 kkallner :32 PM HR=72 bpm, XKHW=352/73 mmhg, TlV3=772.0 %, Resp=18 B/min 01:36 PM HR=76 bpm, OGVO=497/75 mmhg, EmC3=231.0 %, Resp=12 B/min, Comment=sr 01:40 PM Time: 13:23LOC: 5 = Fully awake and oriented or at pre-proc level kkallner 01:40 PM Time: 13:22 Patient comfortable and pain free: Yes kkallner 01:45 PM Arterial sheath pulled using manual compression and for 15 minutes by Kala Dunbar RT (R) kkallner 01:45 PM Site status No bleeding/hematoma - Rt Groin as reported by Kala Dunbar RT (R) at 13:45 kkallner 01:45 PM Opsite applied roberta Complications Complication None None Hemodynamics Pressures Site Systolic/A Wave Diastolic/V Wave Mean AO 106 81 94 AO 70 42 56 LV 113 12 13 LV 105 22 23 AO 112 76 96 Post Procedure Information Blood Pressure: 129/70 mmHg Rhythm: NSR Post procedural instructions were given Site Checks Time Location Status Staff Sheath In? Note 01:45 PM Rt Groin No bleeding/hematoma Kala Dunbar RT (R) Pulses Time Site Pre-Procedure Post-Procedure Note Bilateral DP & PT 2+ Bilateral radial 2+ Updated by RT Vinny MalinR) on 09/04/2017 1:46:24 PM electronically signed on 09/04/2017 1:47:35 PM with status of Final
--- NOTE | 2017-09-04 15:20 | Electrocardiograph Report ---
[address] [place], [place] [address] Test Date: 2017-09-02 Pat Name: Kevon Barron Department: 114 Room: [facility] Gender: M Senior Training Specialist: : 1975 Requested By: Ailyn Zavala Order Number: [id number] Reading MD: Maura Blankenship Measurements Intervals [place] Rate: 80 P: 57 MS: 125 QRS: 62 QRSD: 90 T: 77 QT: 383 QTc: 418 Interpretive Statements SINUS RHYTHM Electronically Signed On 09-04-2017 15:18:45 EST by Maura Blankenship
[2017-09-04 18:30] VITALS: BP 135/88
== END 2017-09-04 18:53 | disposition home or self-care (01) | DRG 420 ==
LOC: EMEROO 15:11 → SUATTDRO 17:15 → ICNU 17:15 → 3NENU 08-31 23:12
PROVIDERS: ADMIT Internal Medicine Pulmonary Disease; ATTEND Internal Medicine

== ENCOUNTER 2019-05-12 03:26 | Inpatient (IN) ==
--- NOTE | 2019-05-12 03:36 | Emergency Department Note ---
Disposition Clinical Impression: DKA (diabetic ketoacidoses) Qualifiers: 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 type: type 1 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 complication detail: without coma Qualified Code(s): E10.10 - Type 1 diabetes mellitus with ketoacidosis without coma Pneumonia Qualifiers: Pneumonia type: due to unspecified organism Laterality: unspecified laterality Lung location: unspecified part of lung Qualified Code(s): J18.9 - Pneumonia, unspecified organism Disposition: Admitted As Inpatient Condition: Serious Referrals: NONE,PCP [Primary Care Provider] - Forms: ED Satisfaction Letter Time of Disposition: 06:45 General Adult HPI - General Chief complaint: ED Nausea/Vomiting/Diarrhea Stated complaint: Hyperglycemia/NV Time Seen by Provider: 05/12/19 03:27 Source: patient, EMS Mode of arrival: EMS Limitations: no limitations Nursing Notes Reviewed: Yes Vital Signs Reviewed: Yes - History of Present Illness HPI Narrative: 44-year-old male with a past medical history of diabetes managed with insulin that reports cough with sputum production over the last several days and then feeling like he cannot control his sugar for the last 2. Patient reports that he has felt very badly all day, nausea, vomiting, sugars in the 400s. Patient is also complaining of abdominal pain, chest pain. He denies fevers or chills. - Related Data Home Medications Medication Instructions Recorded Confirmed Insulin LISPRO [Humalog Kwikpen 0 unit SQ TIDWM 08/30/17 05/12/19 U-100] Gabapentin 600 mg PO TID 03/02/19 05/12/19 Previous Rx's Medication Instructions Recorded Insulin Glargine,Hum.rec.anlog 20 units SQ BID #0 03/04/19 [Lantus Solostar] Allergies Allergy/AdvReac Type Severity Reaction Status Date / Time Penicillins Allergy Hives Verified 05/12/19 03:28 metformin AdvReac Diarrhea Verified 05/12/19 03:28 Constitutional: Denies: fever, chills Cardiovascular: Reports: chest pain Respiratory: Reports: cough, sputum production Gastrointestinal: Reports: abdominal pain, nausea, vomiting Past Medical History - Past Medical History Attestation: Yes The following information was validated with the patient. Medical history: Reports: diabetes, GERD, other Surgical history: Reports: appendectomy Psychiatric history: Reports: anxiety - Social History Smoking Status: Current every day smoker Smokeless Tobacco Status: No Alcohol use: Reports: none Drug use: Reports: none Physical Exam General: Pt is breathing deep and fast, has eyes closed, but is responsive. He appears ill, but is maintaining ABCs. Head: atraumatic, normocephalic. ENT: No conjunctival injection, no scleral icterus. PERRLA. EOMI. Oropharynx non- erythematous. mucous membranes extremely dry. Neuro: No focal deficits, no speech deficit, no facial droop, mentating well. Pulm: Lungs CTAB A/P. No wheezes, rales, ronchi. Cardio: RRR no m/r/g. Chest not tender to palpation. Abd: Soft, non-distended. Normoactive bowel sounds. Non-tender to palpation. No guarding. Non rigid. Extremities: Radial pulses 2+ rylee, dorsalis pedis/posterior tibialis 2+ rylee. No LE edema. No cyanosis, clubbing. Skin: warm, dry, intact. No rashes. Psych: Unable to assess. Course Vital Signs Temperature 98.7 F 05/12/19 03:28 Pulse Rate 102 05/12/19 03:28 Respiratory Rate 28 05/12/19 03:28 Blood Pressure 116/69 05/12/19 03:28 O2 Sat by Pulse Oximetry 100 05/12/19 03:28 Temperature 98.7 F 05/12/19 03:41 Pulse Rate 97 05/12/19 04:00 Respiratory Rate 24 05/12/19 04:00 Blood Pressure 112/71 05/12/19 04:00 O2 Sat by Pulse Oximetry 100 05/12/19 04:00 Oxygen Delivery Oxygen Delivery Room Air Medical Decision Making - [facility] Narrative Medical decision making narrative: 44M with hx of DM that reports difficulty controlling sugar in the backgroun of URI over the last two days and then developed N/V, chest pain, abdominal pain today. Suspect DKA and admission. Will obtain appropriate labs. 0612: Anion GAP 32 with pH 6.8, potassium 5.7, and glucose of 700. Will start insulin drip. Will admit to hospitalist. 0646: Pt was admitted to Dr. Lynn, hospitalist, who agreed to accept the patient to his service. Pt currently has (2) 20g IVs, with one in each arm. He has been started on an insulin drip and normal saline boluses. Repeat VBG pending. Pt is in serious condition but is awake, alert, and speaking in full sentences. He continued with kussmaul breathing. - Medical Records Medical records reviewed: Yes I reviewed the patient's medical records. - Lab Data Lab results reviewed: Yes I reviewed the patient's lab results. Result diagrams: 05/12/19 04:27 05/12/19 04:27 Lab Results 05/12/19 05/12/19 05/12/19 Range/Units 04:27 04:27 04:27 WBC 23.8 H (4.3-11.1) K/mcL RBC 4.97 (4.19-5.50) M/mcL Hgb 15.9 (12.9-16.9) g/dL Hct 48.0 (37.5-50.1) % MCV 96.6 (83.0-100.0) fL MCH 32.0 (28.0-33.3) pg MCHC 33.1 (31.6-35.5) g/dL RDW 11.7 (11.5-14.5) % Plt Count 364 (140-400) K/mcL MPV 10.7 (9.4-12.4) fL Immature Gran % 1.4 (0-4) % Seg Neutrophils % 87.6 % Lymphocytes % 6.7 % Monocytes % 3.7 % Eosinophils % 0.1 % Basophils % 0.5 % Neutrophils # 20.8 H (1.6-8.9) K/mcL Lymphocytes # 1.6 (0.6-4.6) K/mcL Monocytes # 0.9 (0.0-1.3) K/mcL Eosinophils # 0.0 (0.0-0.6) K/mcL Basophils # 0.1 (0.0-0.2) K/mcL VBG pH (7.32-7.42) pH Units VBG pCO2 (41-51) mmHg VBG pO2 (25-50) mmHg VBG HCO3 (21-27) mEq/L Sodium 121 L (136-145) mEq/L Potassium 5.7 H (3.5-5.1) mEq/L Chloride 85 L (98-107) mEq/L Carbon Dioxide < 4 L* (23-29) mEq/L BUN 25 H (6-20) mg/dL Creatinine 1.76 H (0.70-1.30) mg/dL Est GFR ( Amer) 51 L (> 60) Est GFR (Non-Af Amer) 42 L (> 60) BUN/Creatinine Ratio 14 (6-26) Glucose 707 H* (70-105) mg/dL Calculated Osmolality 290 (280-300) Lactic Acid (0.5-2.2) mmol/L Calcium 9.2 (8.6-10.3) mg/dL Phosphorus 7.5 H (2.7-4.5) mg/dL Magnesium 2.4 (1.6-2.6) mg/dL Total Bilirubin 0.7 (0.3-1.0) mg/dL AST 19 (13-39) Units/L ALT 45 (7-52) Units/L Alkaline Phosphatase 150 H (34-104) Units/L Troponin I < 0.03 (< 0.04) ng/mL Serum Total Protein 7.9 (6.4-8.9) g/dL Albumin 4.7 (3.5-5.7) g/dL Globulin 3.2 (2.4-3.5) g/dL Albumin/Globulin Ratio 1.5 (1.1-2.2) Beta-Hydroxybutyric Acd > 2.00 H (0.02-0.27) mmol/L Person Notif of Crit 05/12/19 05/12/19 Range/Units 04:27 04:39 WBC (4.3-11.1) K/mcL RBC (4.19-5.50) M/mcL Hgb (12.9-16.9) g/dL Hct (37.5-50.1) % MCV (83.0-100.0) fL MCH (28.0-33.3) pg MCHC (31.6-35.5) g/dL RDW (11.5-14.5) % Plt Count (140-400) K/mcL MPV (9.4-12.4) fL Immature Gran % (0-4) % Seg Neutrophils % % Lymphocytes % % Monocytes % % Eosinophils % % Basophils % % Neutrophils # (1.6-8.9) K/mcL Lymphocytes # (0.6-4.6) K/mcL Monocytes # (0.0-1.3) K/mcL Eosinophils # (0.0-0.6) K/mcL Basophils # (0.0-0.2) K/mcL VBG pH 6.81 L* (7.32-7.42) pH Units VBG pCO2 19 L (41-51) mmHg VBG pO2 74 H (25-50) mmHg VBG HCO3 3 L (21-27) mEq/L Sodium (136-145) mEq/L Potassium (3.5-5.1) mEq/L Chloride (98-107) mEq/L Carbon Dioxide (23-29) mEq/L BUN (6-20) mg/dL Creatinine (0.70-1.30) mg/dL Est GFR ( Amer) (> 60) Est GFR (Non-Af Amer) (> 60) BUN/Creatinine Ratio (6-26) Glucose (70-105) mg/dL Calculated Osmolality (280-300) Lactic Acid 3.5 H (0.5-2.2) mmol/L Calcium (8.6-10.3) mg/dL Phosphorus (2.7-4.5) mg/dL Magnesium (1.6-2.6) mg/dL Total Bilirubin (0.3-1.0) mg/dL AST (13-39) Units/L ALT (7-52) Units/L Alkaline Phosphatase (34-104) Units/L Troponin I (< 0.04) ng/mL Serum Total Protein (6.4-8.9) g/dL Albumin (3.5-5.7) g/dL Globulin (2.4-3.5) g/dL Albumin/Globulin Ratio (1.1-2.2) Beta-Hydroxybutyric Acd (0.02-0.27) mmol/L Person Notif of [facility] HEATHER KEARNEY - Radiology Data Radiology results reviewed: Yes I reviewed the patient's radiology results. Chest X-Ray 05/12/19 04:19 IMPRESSION: No acute findings. Resolution of previously seen multifocal pneumonia. D/ / Augustin Tatum / Augustin Tatum Interpreting Provider: Augustin Tatum Abdomen/Pelvis CT 05/12/19 05:57 IMPRESSION: Motion limited exam. No acute findings in the chest, abdomen or pelvis. Specifically, no pneumonia. D/ / Augustin Tatum / Augustin Tatum Interpreting Provider: Augustin Tatum Chest CT 05/12/19 05:57 IMPRESSION: Motion limited exam. No acute findings in the chest, abdomen or pelvis. Specifically, no pneumonia. D/ / Augustin Tatum / Augustin Tatum Interpreting Provider: Augustin Tatum - EKG Data EKG #1 EKG attestation: Yes I reviewed and interpreted this EKG. EKG results narrative: Heart rate 100, rhythm sinus tachycardia, axis normal. SC and QRS within normal limits QTC borderline prolonged at 42. There is baseline wander in all leads which limits interpretation. However there is no gross ST segment elevation or depression.
[2019-05-12] MEDS: 0.9 % Sodium Chloride 1,000 ML IVC SCH ×12 (04:03→23:41)
[2019-05-12] MEDS ORDERED: *HR* FentaNYL (PF) 100 MCG/2 ML VIAL IVP ONE ×2 (04:27→10:42)
[2019-05-12 04:39] LABS: Basophils # 0.1 K/mcL (0.0-0.2); Basophils % 0.5 %; Eosinophils % 0.1 %; Hemoglobin 15.9 g/dL (12.9-16.9); Immature Granulocytes % 1.4 % (0-4); Lymphocytes # 1.6 K/mcL (0.6-4.6); Lymphocytes % 6.7 %; Mean Corpuscular HGB Conc 33.1 g/dL (31.6-35.5); Mean Corpuscular Volume 96.6 fL (83.0-100.0); Mean Platelet Volume 10.7 fL (9.4-12.4); Monocytes # 0.9 K/mcL (0.0-1.3); Monocytes % 3.7 %; Neutrophils # 20.8 K/mcL (1.6-8.9); Platelet Count 364 K/mcL (140-400); Red Blood Count 4.97 M/mcL (4.19-5.50); Red Cell Distribution Width 11.7 % (11.5-14.5); Segmented Neutrophils % 87.6 %; White Blood Count 23.8 K/mcL (4.3-11.1)
[2019-05-12] MEDS ORDERED: Azithromycin 500 MG in 0.9 % Sodium Chloride 250 ML IVPB ONE (04:46)
[2019-05-12 04:48] LABS: VBG HCO3 3 mEq/L (21-27); VBG PCO2 19 mmHg (41-51); VBG PH 6.81 pH Units (7.32-7.42); VBG PO2 74 mmHg (25-50)
[2019-05-12] MEDS ORDERED: Vancomycin (wt based) 1,000 MG VIAL IVPB SCH (05:00)
[2019-05-12 05:02] LABS: Troponin I < 0.03 ng/mL (< 0.04)
[2019-05-12] MEDS: 0.9 % Sodium Chloride 1,000 ML IVC ONE ×2 (05:21→06:58)
[2019-05-12 06:01] LABS: Alanine Aminotransferase 45 Units/L (7-52); Albumin 4.7 g/dL (3.5-5.7); Albumin/Globulin Ratio 1.5 (1.1-2.2); Alkaline Phosphatase 150 Units/L (34-104); Aspartate Amino Transferase 19 Units/L (13-39); BUN/Creatinine Ratio 14 (6-26); Bilirubin,Total 0.7 mg/dL (0.3-1.0); Blood Urea Nitrogen 25 mg/dL (6-20); Calcium 9.2 mg/dL (8.6-10.3); Carbon Dioxide < 4 mEq/L (23-29); Chloride 85 mEq/L (98-107); Globulin 3.2 g/dL (2.4-3.5); Glucose 707 mg/dL (70-105); Magnesium 2.4 mg/dL (1.6-2.6); Osmolality,Calculated 290 (280-300); Phosphorous 7.5 mg/dL (2.7-4.5); Potassium 5.7 mEq/L (3.5-5.1); Sodium 121 mEq/L (136-145); Total Protein 7.9 g/dL (6.4-8.9); eGFR For African Americans 51 (> 60); eGFR For Non-African Americans 42 (> 60)
[2019-05-12] MEDS ORDERED: *HR* Dextrose 50 % in Water (Syg) 50 ML SYRINGE IVP PRN ×3 (06:03→21:49)
[2019-05-12] MEDS: cefTRIAXone 2,000 MG in Water for inj. (sterile) 20 ML IVP SCH (06:10)
[2019-05-12] MEDS: Insulin Human Regular 100 UNIT in 0.9 % Sodium Chloride 100 ML IVC SCH (06:21)
--- NOTE | 2019-05-12 06:40 | Emergency Department Note ---
Disposition Clinical Impression: DKA (diabetic ketoacidoses) Qualifiers: 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 type: type 1 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 complication detail: without coma Qualified Code(s): E10.10 - Type 1 diabetes mellitus with ketoacidosis without coma Pneumonia Qualifiers: Pneumonia type: due to unspecified organism Laterality: unspecified laterality Lung location: unspecified part of lung Qualified Code(s): J18.9 - Pneumonia, unspecified organism Disposition: Admitted As Inpatient Condition: Fair Referrals: NONE,PCP [Primary Care Provider] - Forms: ED Satisfaction Letter Time of Disposition: 06:40 General Adult HPI - General Chief complaint: ED Nausea/Vomiting/Diarrhea Stated complaint: Hyperglycemia/NV Time Seen by Provider: 05/12/19 03:27 Source: patient, EMS Mode of arrival: EMS Limitations: no limitations - History of Present Illness Pain Scale: 10 - Related Data Home Medications Medication Instructions Recorded Confirmed Insulin LISPRO [Humalog Kwikpen 0 unit SQ TIDWM 08/30/17 05/12/19 U-100] Gabapentin 600 mg PO TID 03/02/19 05/12/19 Previous Rx's Medication Instructions Recorded Insulin Glargine,Hum.rec.anlog 20 units SQ BID #0 03/04/19 [Lantus Solostar] Allergies Allergy/AdvReac Type Severity Reaction Status Date / Time Penicillins Allergy Hives Verified 05/12/19 03:28 metformin AdvReac Diarrhea Verified 05/12/19 03:28 Constitutional: Denies: fever, chills Cardiovascular: Reports: chest pain Respiratory: Reports: cough, sputum production Gastrointestinal: Reports: abdominal pain, nausea, vomiting Past Medical History - Past Medical History Medical history: Reports: diabetes, GERD, other Surgical history: Reports: appendectomy Psychiatric history: Reports: anxiety - Social History Smoking Status: Current every day smoker Smokeless Tobacco Status: No Alcohol use: Reports: none Drug use: Reports: none Physical Exam - General Limitations: no limitations General appearance: alert Course Vital Signs Temperature 98.7 F 05/12/19 03:28 Pulse Rate 102 05/12/19 03:28 Respiratory Rate 28 05/12/19 03:28 Blood Pressure 116/69 05/12/19 03:28 O2 Sat by Pulse Oximetry 100 05/12/19 03:28 Temperature 98.7 F 05/12/19 03:41 Pulse Rate 97 05/12/19 04:00 Respiratory Rate 24 05/12/19 04:00 Blood Pressure 112/71 05/12/19 04:00 O2 Sat by Pulse Oximetry 100 05/12/19 04:00 Oxygen Delivery Oxygen Delivery Room Air Medical Decision Making - Lab Data Result diagrams: 05/12/19 04:27 05/12/19 04:27 Lab Results 05/12/19 05/12/19 05/12/19 Range/Units 04:27 04:27 04:27 WBC 23.8 H (4.3-11.1) K/mcL RBC 4.97 (4.19-5.50) M/mcL Hgb 15.9 (12.9-16.9) g/dL Hct 48.0 (37.5-50.1) % MCV 96.6 (83.0-100.0) fL MCH 32.0 (28.0-33.3) pg MCHC 33.1 (31.6-35.5) g/dL RDW 11.7 (11.5-14.5) % Plt Count 364 (140-400) K/mcL MPV 10.7 (9.4-12.4) fL Immature Gran % 1.4 (0-4) % Seg Neutrophils % 87.6 % Lymphocytes % 6.7 % Monocytes % 3.7 % Eosinophils % 0.1 % Basophils % 0.5 % Neutrophils # 20.8 H (1.6-8.9) K/mcL Lymphocytes # 1.6 (0.6-4.6) K/mcL Monocytes # 0.9 (0.0-1.3) K/mcL Eosinophils # 0.0 (0.0-0.6) K/mcL Basophils # 0.1 (0.0-0.2) K/mcL VBG pH (7.32-7.42) pH Units VBG pCO2 (41-51) mmHg VBG pO2 (25-50) mmHg VBG HCO3 (21-27) mEq/L Sodium 121 L (136-145) mEq/L Potassium 5.7 H (3.5-5.1) mEq/L Chloride 85 L (98-107) mEq/L Carbon Dioxide < 4 L* (23-29) mEq/L BUN 25 H (6-20) mg/dL Creatinine 1.76 H (0.70-1.30) mg/dL Est GFR ( Amer) 51 L (> 60) Est GFR (Non-Af Amer) 42 L (> 60) BUN/Creatinine Ratio 14 (6-26) Glucose 707 H* (70-105) mg/dL Calculated Osmolality 290 (280-300) Lactic Acid (0.5-2.2) mmol/L Calcium 9.2 (8.6-10.3) mg/dL Phosphorus 7.5 H (2.7-4.5) mg/dL Magnesium 2.4 (1.6-2.6) mg/dL Total Bilirubin 0.7 (0.3-1.0) mg/dL AST 19 (13-39) Units/L ALT 45 (7-52) Units/L Alkaline Phosphatase 150 H (34-104) Units/L Troponin I < 0.03 (< 0.04) ng/mL Serum Total Protein 7.9 (6.4-8.9) g/dL Albumin 4.7 (3.5-5.7) g/dL Globulin 3.2 (2.4-3.5) g/dL Albumin/Globulin Ratio 1.5 (1.1-2.2) Beta-Hydroxybutyric Acd > 2.00 H (0.02-0.27) mmol/L Person Notif of Crit 05/12/19 05/12/19 Range/Units 04:27 04:39 WBC (4.3-11.1) K/mcL RBC (4.19-5.50) M/mcL Hgb (12.9-16.9) g/dL Hct (37.5-50.1) % MCV (83.0-100.0) fL MCH (28.0-33.3) pg MCHC (31.6-35.5) g/dL RDW (11.5-14.5) % Plt Count (140-400) K/mcL MPV (9.4-12.4) fL Immature Gran % (0-4) % Seg Neutrophils % % Lymphocytes % % Monocytes % % Eosinophils % % Basophils % % Neutrophils # (1.6-8.9) K/mcL Lymphocytes # (0.6-4.6) K/mcL Monocytes # (0.0-1.3) K/mcL Eosinophils # (0.0-0.6) K/mcL Basophils # (0.0-0.2) K/mcL VBG pH 6.81 L* (7.32-7.42) pH Units VBG pCO2 19 L (41-51) mmHg VBG pO2 74 H (25-50) mmHg VBG HCO3 3 L (21-27) mEq/L Sodium (136-145) mEq/L Potassium (3.5-5.1) mEq/L Chloride (98-107) mEq/L Carbon Dioxide (23-29) mEq/L BUN (6-20) mg/dL Creatinine (0.70-1.30) mg/dL Est GFR ( Amer) (> 60) Est GFR (Non-Af Amer) (> 60) BUN/Creatinine Ratio (6-26) Glucose (70-105) mg/dL Calculated Osmolality (280-300) Lactic Acid 3.5 H (0.5-2.2) mmol/L Calcium (8.6-10.3) mg/dL Phosphorus (2.7-4.5) mg/dL Magnesium (1.6-2.6) mg/dL Total Bilirubin (0.3-1.0) mg/dL AST (13-39) Units/L ALT (7-52) Units/L Alkaline Phosphatase (34-104) Units/L Troponin I (< 0.04) ng/mL Serum Total Protein (6.4-8.9) g/dL Albumin (3.5-5.7) g/dL Globulin (2.4-3.5) g/dL Albumin/Globulin Ratio (1.1-2.2) Beta-Hydroxybutyric Acd (0.02-0.27) mmol/L Person Notif of [facility] HEATHER KEARNEY Attestation Statement - Attestation Attestation: I reviewed the residents documentation and agree with the residents assessment and plan of care. I have personally had face to face time with the patient. (Brief History, Brief Exam, and MDM) I personally supervised and was present for the jesus/critical portions of the following procedures completed by the resident: EKG 44 year old male presents to the ED with complaints of kaussumal breathin and is a non compliant Type I diabetic who has been in DKA multiple times and otherwise has also been expereincing a productive couhg. He was most recently admitted [facility] February for a simliar presentation which required ICU admission. Patinet CXR/CT chest/ab/p do not show a source for infection although clinically he sounds to have pneumonia. We will cover for HCAP as he is at he 60 day marker for HCAP at this time. He does presents with ketones, and a gap of 32 and acidosis. WE have started IVF, insulin drip and will require admission to step down or ICU
[2019-05-12] MEDS ORDERED: Insulin Regular, Human 100 UNIT/ML IV PRN (06:51)
[2019-05-12] MEDS ORDERED: Naloxone 0.4 MG/ML INJ IVP PRN (06:51)
[2019-05-12] MEDS ORDERED: D5% in 0.45% NACL 1,000 ML IVC PRN (06:51)
[2019-05-12] MEDS ORDERED: Sodium Bicarbonate 150 MEQ in D5% in Water 1,000 ML IVC SCH (07:00)
[2019-05-12 07:09] LABS: VBG HCO3 2 mEq/L (21-27); VBG PCO2 19 mmHg (41-51); VBG PH 6.68 pH Units (7.32-7.42); VBG PO2 125 mmHg (25-50)
[2019-05-12 07:18] LABS: Bilirubin,Urine Negative (Negative); Blood,Urine Small (Negative); Clarity,Urine Clear (Clear); Color,Urine Yellow (Yellow); Glucose,Urine (UA) >=1000 mg/dL (Normal); Ketones,Urine >=160 mg/dL (Negative); Leukocyte Esterase,Urine Negative (Negative); Nitrite,Urine Negative (Negative); PH,Urine 5.5 pH Units (5.0-8.0); Protein,Urine 30 mg/dL (Neg-Trace); Urobilinogen,Urine Normal (Normal)
[2019-05-12 07:20] LABS: Bacteria,Urine None Seen per hpf (None-Few); Hyaline Casts,Urine Few per lpf (None-Few); Squamous Epithelial Cell,Urine Many per lpf (None-Few)
--- NOTE | 2019-05-12 07:42 | Emergency Department Note ---
Disposition Clinical Impression: DKA (diabetic ketoacidoses) Qualifiers: 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 type: type 1 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 complication detail: without coma Qualified Code(s): E10.10 - Type 1 diabetes mellitus with ketoacidosis without coma Pneumonia Qualifiers: Pneumonia type: due to unspecified organism Laterality: unspecified laterality Lung location: unspecified part of lung Qualified Code(s): J18.9 - Pneumonia, unspecified organism Disposition: Admitted As Inpatient Condition: Serious Time of Disposition: 18:00 General Adult HPI - General Chief complaint: ED Nausea/Vomiting/Diarrhea Stated complaint: Hyperglycemia/NV Time Seen by Provider: 05/12/19 03:27 Source: patient, EMS Mode of arrival: EMS Limitations: no limitations - History of Present Illness Pain Scale: 6 - Related Data Home Medications Medication Instructions Recorded Confirmed Insulin LISPRO [Humalog Kwikpen 4 - 15 unit SQ TIDWM 08/30/17 05/12/19 U-100] Gabapentin 600 mg PO TID 03/02/19 05/12/19 Albuterol Sulfate [Ventolin Hfa] 2 puff IH Q4H PRN 05/12/19 05/12/19 Insulin Glargine,Hum.rec.anlog 24 units SQ BID 05/12/19 05/12/19 [Lantus Solostar] Allergies Allergy/AdvReac Type Severity Reaction Status Date / Time Penicillins Allergy Hives Verified 05/12/19 16:18 metformin AdvReac Diarrhea Verified 05/12/19 16:18 Constitutional: Denies: fever, chills Cardiovascular: Reports: chest pain Respiratory: Reports: cough, sputum production Gastrointestinal: Reports: abdominal pain, nausea, vomiting Past Medical History - Past Medical History Medical history: Reports: diabetes, GERD, other Surgical history: Reports: appendectomy Psychiatric history: Reports: anxiety - Social History Smoking Status: Current every day smoker Smokeless Tobacco Status: No Alcohol use: Reports: none Drug use: Reports: none Physical Exam - General Limitations: no limitations General appearance: alert Course Vital Signs Temperature 98.7 F 05/12/19 03:28 Pulse Rate 102 05/12/19 03:28 Respiratory Rate 28 05/12/19 03:28 Blood Pressure 116/69 05/12/19 03:28 O2 Sat by Pulse Oximetry 100 05/12/19 03:28 Temperature 98.4 F 05/12/19 17:03 Pulse Rate 104 05/12/19 18:00 Respiratory Rate 17 05/12/19 18:00 Blood Pressure 109/70 05/12/19 18:00 O2 Sat by Pulse Oximetry 99 05/12/19 18:00 Oxygen Delivery Oxygen Delivery Room Air Medical Decision Making - MDM Narrative Medical decision making narrative: I spoke with Dr. Rivera who asked me to call Dr. Montaño and I did see the pt and spoke w the and pt has had difficulty controlliing the BS lately and 2 visits to with ATB and steroids and I did speak w Danyel who will assume care of the pt in the ICU in a few minutes when pt arrives. Per nurse the pt was a difficult stick but we do have insulin drip started. Pt is on 3rd bag of IVF. VS good at this point and does not need intubated at this time. 0742 - Medical Records Medical records reviewed: Yes I reviewed the patient's medical records. - Lab Data Lab results reviewed: Yes I reviewed the patient's lab results. Result diagrams: 05/12/19 04:27 05/12/19 18:05 Lab Results 05/12/19 05/12/19 05/12/19 Range/Units 04:27 04:27 04:27 WBC 23.8 H (4.3-11.1) K/mcL RBC 4.97 (4.19-5.50) M/mcL Hgb 15.9 (12.9-16.9) g/dL Hct 48.0 (37.5-50.1) % MCV 96.6 (83.0-100.0) fL MCH 32.0 (28.0-33.3) pg MCHC 33.1 (31.6-35.5) g/dL RDW 11.7 (11.5-14.5) % Plt Count 364 (140-400) K/mcL MPV 10.7 (9.4-12.4) fL Immature Gran % 1.4 (0-4) % Seg Neutrophils % 87.6 % Lymphocytes % 6.7 % Monocytes % 3.7 % Eosinophils % 0.1 % Basophils % 0.5 % Neutrophils # 20.8 H (1.6-8.9) K/mcL Lymphocytes # 1.6 (0.6-4.6) K/mcL Monocytes # 0.9 (0.0-1.3) K/mcL Eosinophils # 0.0 (0.0-0.6) K/mcL Basophils # 0.1 (0.0-0.2) K/mcL VBG pH (7.32-7.42) pH Units VBG pCO2 (41-51) mmHg VBG pO2 (25-50) mmHg VBG HCO3 (21-27) mEq/L Sodium 121 L (136-145) mEq/L Potassium 5.7 H (3.5-5.1) mEq/L Chloride 85 L (98-107) mEq/L Carbon Dioxide < 4 L* (23-29) mEq/L BUN 25 H (6-20) mg/dL Creatinine 1.76 H (0.70-1.30) mg/dL Est GFR ( Amer) 51 L (> 60) Est GFR (Non-Af Amer) 42 L (> 60) BUN/Creatinine Ratio 14 (6-26) Glucose 707 H* (70-105) mg/dL Calculated Osmolality 290 (280-300) Lactic Acid (0.5-2.2) mmol/L Calcium 9.2 (8.6-10.3) mg/dL Phosphorus 7.5 H (2.7-4.5) mg/dL Magnesium 2.4 (1.6-2.6) mg/dL Total Bilirubin 0.7 (0.3-1.0) mg/dL AST 19 (13-39) Units/L ALT 45 (7-52) Units/L Alkaline Phosphatase 150 H (34-104) Units/L Troponin I < 0.03 (< 0.04) ng/mL Serum Total Protein 7.9 (6.4-8.9) g/dL Albumin 4.7 (3.5-5.7) g/dL Globulin 3.2 (2.4-3.5) g/dL Albumin/Globulin Ratio 1.5 (1.1-2.2) Beta-Hydroxybutyric Acd > 2.00 H (0.02-0.27) mmol/L Person Notif of Crit 05/12/19 05/12/19 Range/Units 04:27 04:39 WBC (4.3-11.1) K/mcL RBC (4.19-5.50) M/mcL Hgb (12.9-16.9) g/dL Hct (37.5-50.1) % MCV (83.0-100.0) fL MCH (28.0-33.3) pg MCHC (31.6-35.5) g/dL RDW (11.5-14.5) % Plt Count (140-400) K/mcL MPV (9.4-12.4) fL Immature Gran % (0-4) % Seg Neutrophils % % Lymphocytes % % Monocytes % % Eosinophils % % Basophils % % Neutrophils # (1.6-8.9) K/mcL Lymphocytes # (0.6-4.6) K/mcL Monocytes # (0.0-1.3) K/mcL Eosinophils # (0.0-0.6) K/mcL Basophils # (0.0-0.2) K/mcL VBG pH 6.81 L* (7.32-7.42) pH Units VBG pCO2 19 L (41-51) mmHg VBG pO2 74 H (25-50) mmHg VBG HCO3 3 L (21-27) mEq/L Sodium (136-145) mEq/L Potassium (3.5-5.1) mEq/L Chloride (98-107) mEq/L Carbon Dioxide (23-29) mEq/L BUN (6-20) mg/dL Creatinine (0.70-1.30) mg/dL Est GFR ( Amer) (> 60) Est GFR (Non-Af Amer) (> 60) BUN/Creatinine Ratio (6-26) Glucose (70-105) mg/dL Calculated Osmolality (280-300) Lactic Acid 3.5 H (0.5-2.2) mmol/L Calcium (8.6-10.3) mg/dL Phosphorus (2.7-4.5) mg/dL Magnesium (1.6-2.6) mg/dL Total Bilirubin (0.3-1.0) mg/dL AST (13-39) Units/L ALT (7-52) Units/L Alkaline Phosphatase (34-104) Units/L Troponin I (< 0.04) ng/mL Serum Total Protein (6.4-8.9) g/dL Albumin (3.5-5.7) g/dL Globulin (2.4-3.5) g/dL Albumin/Globulin Ratio (1.1-2.2) Beta-Hydroxybutyric Acd (0.02-0.27) mmol/L Person Notif of Crit HEATHER KEARNEY - Radiology Data Radiology results reviewed: Yes I reviewed the patient's radiology results.
[2019-05-12] MEDS ORDERED: levoFLOXacin 750 MG/150 ML 750 MG/150 ML BAG IVPB ONE (07:54)
[2019-05-12 08:10] LABS: ABG PCO2 < 13 mmHg (35-45); ABG PO2 126 mmHg (85-104)
[2019-05-12 08:50] LABS: VBG HCO3 2 mEq/L (21-27); VBG PCO2 18 mmHg (41-51); VBG PO2 101 mmHg (25-50)
[2019-05-12 09:01] LABS: Magnesium 2.3 mg/dL (1.6-2.6); Phosphorous 6.8 mg/dL (2.7-4.5)
[2019-05-12 09:14] LABS: BUN/Creatinine Ratio 17 (6-26); Blood Urea Nitrogen 26 mg/dL (6-20); Calcium 8.1 mg/dL (8.6-10.3); Carbon Dioxide < 4 mEq/L (23-29); Chloride 97 mEq/L (98-107); Glucose 506 mg/dL (70-105); Osmolality,Calculated 303 (280-300); Potassium 4.5 mEq/L (3.5-5.1); Sodium 133 mEq/L (136-145); eGFR For African Americans > 60 (> 60); eGFR For Non-African Americans 50 (> 60)
--- NOTE | 2019-05-12 09:22 | Pulmonology History & Physical ---
<Rafy Alford W - Last Filed: 05/12/19 11:22> Date of Encounter: 05/12/19 History of Present Illness HPI: Mr. Barron is a 44 year old male Medications and Allergies Insulin LISPRO [Humalog Kwikpen U-100] 0 unit SQ TIDWM 08/30/17 [History] Gabapentin 600 mg PO TID 03/02/19 [History] Insulin Glargine,Hum.rec.anlog [Lantus Solostar] 20 units SQ BID #0 03/04/19 [Rx] Allergy/AdvReac Type Severity Reaction Status Date / Time Penicillins Allergy Hives Verified 05/12/19 03:28 metformin AdvReac Diarrhea Verified 05/12/19 03:28 All Systems: The remainder of the systems were reviewed and are negative Physical Examination Vital Signs: Vital Signs, Last 4 Hours Pulse 05/12/19 08:00 95 Results - Laboratory Findings CBC and BMP: 05/12/19 04:27 05/12/19 10:20 ABG ABG pH 7.00 pH Units (7.32-7.45) L* 05/12/19 08:06 ABG pCO2 < 13 mmHg (35-45) L* 05/12/19 08:06 ABG pO2 126 mmHg (85-104) H 05/12/19 08:06 ABG O2 Saturation TNP 05/12/19 08:06 Abnormal lab findings: Abnormal lab results WBC 23.8 K/mcL (4.3-11.1) H 05/12/19 04:27 Neutrophils # 20.8 K/mcL (1.6-8.9) H 05/12/19 04:27 ABG pH 7.00 pH Units (7.32-7.45) L* 05/12/19 08:06 ABG pCO2 < 13 mmHg (35-45) L* 05/12/19 08:06 ABG pO2 126 mmHg (85-104) H 05/12/19 08:06 VBG pH 6.70 pH Units (7.32-7.42) L* 05/12/19 08:42 VBG pCO2 18 mmHg (41-51) L 05/12/19 08:42 VBG pO2 101 mmHg (25-50) H 05/12/19 08:42 VBG HCO3 2 mEq/L (21-27) L 05/12/19 08:42 Sodium 134 mEq/L (136-145) L 05/12/19 10:20 Potassium 5.7 mEq/L (3.5-5.1) H 05/12/19 04:27 Chloride 97 mEq/L (98-107) L 05/12/19 08:30 Carbon Dioxide 7 mEq/L (23-29) L* 05/12/19 10:20 BUN 27 mg/dL (6-20) H 05/12/19 10:20 Creatinine 1.32 mg/dL (0.70-1.30) H 05/12/19 10:20 Est GFR ( Amer) 51 (> 60) L 05/12/19 04:27 Est GFR (Non-Af Amer) 59 (> 60) L 05/12/19 10:20 Glucose 365 mg/dL (70-105) H 05/12/19 10:20 POC Glucose 327 mg/dL (70-99) H 05/12/19 10:39 Calculated Osmolality 303 (280-300) H 05/12/19 08:30 Lactic Acid 3.2 mmol/L (0.5-2.2) H 05/12/19 08:30 Calcium 7.4 mg/dL (8.6-10.3) L 05/12/19 10:20 Phosphorus 6.8 mg/dL (2.7-4.5) H 05/12/19 08:30 Alkaline Phosphatase 150 Units/L (34-104) H 05/12/19 04:27 Lipase 97 Units/L (11-82) H 05/12/19 10:20 Beta-Hydroxybutyric Acd > 2.00 mmol/L (0.02-0.27) H 05/12/19 04:27 Ur Specific Chauncey 1.030 (1.010-1.025) H 05/12/19 06:59 Urine Protein 30 mg/dL (Neg-Trace) H 05/12/19 06:59 Urine Glucose (UA) >=1000 mg/dL (Normal) H 05/12/19 06:59 Urine Ketones >=160 mg/dL (Negative) H 05/12/19 06:59 Urine Blood Small (Negative) H 05/12/19 06:59 Urine Microscopic RBC 5-15 per hpf (0-3) H 05/12/19 06:59 Urine Microscopic WBC 3-5 per hpf (0-3) H 05/12/19 06:59 Ur Squamous Epith Cells Many per lpf (None-Few) H 05/12/19 06:59 - Attending Attestation I examined this patient and my medical decision-making was reviewed with the Resident Physician. I agree with the documented findings, disposition and treatment plan as described except to the extent set forth below. We independently had [id number] contact with the patient I spent 34min of Critical Care time with this patient. It involved decision making of high complexity to assess, manipulate, and support vital organ system failure and/or to prevent further life threatening deterioration of the patient's condition. The time involved in the performance of separately reportable procedures was not counted toward critical care time. Patient seen and examined at bedside Labs, radiology, chart personally reviewed. Management was reviewed during multidisciplinary critical care rounds. 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 He is able to follow commands and generally appears to be compensating appropriately no indication for intubation fact patient may suffer irreversible worsening of acidosis if intubated this situation Cards: Blood pressure has been borderline low likely from acidosis and is improving continue volume resuscitation for DKA GI: Has a history of vomiting and diarrhea likely secondary to DKA we will con tinue to monitor Nutrition: Nothing by mouth for now Renal: Acute kidney injury with life-threatening metabolic acidosis secondary to DKA I suspect renal failure secondary to prerenal azotemia and should improve with volume resuscitation. Patient will need supportive care for management of acidosis given underlying DKA would avoid bicarbonate. I suspect lactic acidosis is also related to this process UOP Monitored, Cont to Trend sCr and monitor Electrolytes. ID: No clear evidence of infection he has been covered with antibiotics in the emergency department we will hold those for now pending further evaluation cultures have been obtained Heme/Onc: DVT prophylaxis given Endo: Patient has life-threatening diabetic ketoacidosis with pH less than 6.9. Continue insulin infusion and fluids close monitoring of electrolytes and management per DKA protocol Glucose Monitored Integ/MSK: Skin Care per routine ICU Nursing Protocol to prevent ulcers. Lines: All lines examined without evidence of infection : Dispo: ICU patient is critically ill CODE: Currently full code I did update the patient's at bedside and all questions were answered I explained to her the patient has high risk for with pH being so low <Kenn Sales - Last Filed: 05/12/19 12:55> Date of Encounter: 05/12/19 Time of Encounter: : Assessment and Plan (1) DKA (diabetic ketoacidoses) Current visit: Yes Status: Acute Presented with pH 6.7, urinary ketones/hydroxybutyrate, hx of T1DM. Has had multiple episodes of DKA in the past. Likely triggers d/t recent infection, PNA, steroid treatment. Ischemia unlikely with normal EKG and net trops. Plan: - Has been hypotensive likely d/t acidosis and dehydration - Will be started on the DKA protocol; started on insulin gtt - Cont 0.45 NaCl with K MIVFs; add D5 when glucose 200 - Holding abx for now, no current signs of infection - Will monitor electrolytes every 2 hours Qualifiers: 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 type: type 1 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 complication detail: without coma Qualified Code(s): E10.10 - Type 1 diabetes mellitus with ketoacidosis without coma (2) Acute metabolic encephalopathy Current visit: Yes Status: Acute Presented with AMS, no focal neuro deficits. Metabolic acidosis d/t DKA. Plan: - Cont to monitor mentation - Treat metabolic abnormalities as above (3) Pneumonia Current visit: Yes Status: Acute Possible recent PNA and URI. Was treated with abx and steroids. Plan: - Holding abx for now, no current signs of infection - Blood cultures obtained - Will tailor abx accordingly Qualifiers: Pneumonia type: due to unspecified organism Laterality: bilateral Lung location: lower lobe of lung Qualified Code(s): J18.1 - Lobar pneumonia, unspecified organism (4) High anion gap metabolic acidosis Current visit: Yes Status: Acute Resulting from DKA. Plan: - See plan for DKA (5) CHINO (acute kidney injury) Current visit: Yes Status: Acute Elevated Cr d/t dehydration, low total body water d/t DKA. Plan: - MIVFs as per DKA protocol - Cont to monitor renal function (6) Lactic acidosis Current visit: No Status: Acute (7) Diabetic gastroparesis Current visit: Yes Status: Chronic Chronic medical issue. Endorses abdominal pain. CT CAP showed no acute findings. Plan: - Cont to monitor, treat symptomatically - May consult GI prior to discharge for medical optimization (8) DVT prophylaxis Current visit: Yes Status: Acute DVT PPX: hep SQ Analgesia: none Sedation: none SBT: none Glycemic control: DKA protocol Bowl regimen: none Activity: as tolerated Fluids: MIVFs Electrolytes: replete as necessary Nutrition: NPO GI ppx: none Lines: 2x PIVs Consults: pulm, bilingual social worker, pharm ed Code: FULL Dispo: ICU History of Present Illness Chief complaint: DKA HPI: Mr. Barron is a 44 year old male with past medical history of type 1 diabetes on insulin, previous episodes of DKA, gastroparesis who reports cough with sputum production over the last several days. He recently went to an urgent care, diagnosed him with "bronchitis" and was given antibiotics and steroids. He also endorses nausea, vomiting, sugars measured in the 400s. He also complains of abdominal pain and chest pain and dyspnea. Patient's mentions that he has been in DKA several times in the past. Denies any fevers, chills, constipation, diarrhea. In the emergency department patient had a temperature of 98.7, HR 102, RR 28, BP 116/69, 100% RA. Labs are significant for a pH 6.8, anion gap 32, K5.7, glucose 700. WBC 24, lactate 3.5. Positive beta hydroxybutyrate and urinary ketones. Patient was initiated on an insulin drip, given 3 L NS bolus, and was admitted to the ICU. In the ICU, patient appeared uncomfortable. Kussmaul respirations. Continued to endorse abdominal pain and chest pain. EKG showed no ischemic changes and troponins were negative. We will continue to treat patient on insulin drip, fluids, DKA protocol. We will check electrolytes every 2 hours and replete as necessary. A CT of the chest, abdomen, pelvis showed no acute findings. A chest x-ray showed resolution of previously seen multifocal pneumonia. Will continue to monitor and treat for DKA. Past Med Surg Social Fam HX - Past Medical History Attestation: Yes The following information was validated with the patient. Source: patient, old records reviewed, nursing notes reviewed Medical history: diabetes, GERD, other Additional medical history: diabetic gastroporesis. DKA Psychiatric history: anxiety - Past Surgical History Surgical History: appendectomy - Social History Smoking Status: Current every day smoker Packs per day: 1 Smokeless Tobacco Status: No Alcohol use: none Drug use: none - Family History Mother Living Status: Still Living Hx Family Cardiac Disorders: Yes Hx Family Cancer: Yes Hx Family Endocrine Disorder: Yes All Systems: The remainder of the systems were reviewed and are negative - Constitutional Constitutional: chills, weakness, no fever(s) - EENT Eyes: no loss of peripheral vision, no loss of vision Nose, mouth and throat: no dizziness, no dysphagia, no headache(s) - Cardiovascular Cardiovascular: chest pain, dyspnea, no diaphoresis - Respiratory Respiratory: no cough, no dyspnea, no hemoptysis - Gastrointestinal Gastrointestinal: abdominal pain, nausea, no cramping, no diarrhea - Genitourinary Genitourinary: no difficulty urinating, no dysuria, no flank pain - Musculoskeletal Musculoskeletal: no joint pain, no weakness, no abnormal gait - Integumentary Integumentary: no erythema, no rash, no jaundice - Neurological Neurological: no abnormal gait, no confusion, no headache(s) - Psychiatric Psychiatric: no anxiety, no depression, no mood swings - Endocrine Endocrine: fatigue, no cold intolerance, no excessive sweating - Hematologic/Lymphatic Hematologic/Lymphatic: no easy bleeding, no easy bruising, no lymphadenopathy Physical Examination Vital Signs: Vital Signs, Last 4 Hours Pulse Resp BP Pulse Ox 05/12/19 07:00 86 24 113/64 100 05/12/19 06:00 98 24 111/94 100 General appearance: no acute distress, appears uncomfortable Eyes: nonicteric ENT: oropharynx moist Neck: supple Effort: very labored Auscultation: bilateral: clear Cardiovascular: regular rate and rhythm Gastrointestinal: normoactive bowel sounds, non-distended Integumentary: normal Extremities: no cyanosis, no edema, no clubbing Musculoskeletal: no deformities, ROM normal normal mental status, non-focal exam mood appropriate, affect normal, anxious Results - Laboratory Findings CBC and BMP: 05/12/19 04:27 05/12/19 10:20 ABG ABG pH 7.00 pH Units (7.32-7.45) L* 05/12/19 08:06 ABG pCO2 < 13 mmHg (35-45) L* 05/12/19 08:06 ABG pO2 126 mmHg (85-104) H 05/12/19 08:06 ABG O2 Saturation TNP 05/12/19 08:06 Abnormal lab findings: Abnormal lab results WBC 23.8 K/mcL (4.3-11.1) H 05/12/19 04:27 Neutrophils # 20.8 K/mcL (1.6-8.9) H 05/12/19 04:27 ABG pH 7.00 pH Units (7.32-7.45) L* 05/12/19 08:06 ABG pCO2 < 13 mmHg (35-45) L* 05/12/19 08:06 ABG pO2 126 mmHg (85-104) H 05/12/19 08:06 VBG pH 6.70 pH Units (7.32-7.42) L* 05/12/19 08:42 VBG pCO2 18 mmHg (41-51) L 05/12/19 08:42 VBG pO2 101 mmHg (25-50) H 05/12/19 08:42 VBG HCO3 2 mEq/L (21-27) L 05/12/19 08:42 Sodium 133 mEq/L (136-145) L D 05/12/19 08:30 Potassium 5.7 mEq/L (3.5-5.1) H 05/12/19 04:27 Chloride 97 mEq/L (98-107) L 05/12/19 08:30 Carbon Dioxide < 4 mEq/L (23-29) L* 05/12/19 08:30 BUN 26 mg/dL (6-20) H 05/12/19 08:30 Creatinine 1.52 mg/dL (0.70-1.30) H 05/12/19 08:30 Est GFR ( Amer) 51 (> 60) L 05/12/19 04:27 Est GFR (Non-Af Amer) 50 (> 60) L 05/12/19 08:30 Glucose 506 mg/dL (70-105) H* 05/12/19 08:30 POC Glucose 500 mg/dL (70-99) H* 05/12/19 08:21 Calculated Osmolality 303 (280-300) H 05/12/19 08:30 Lactic Acid 3.2 mmol/L (0.5-2.2) H 05/12/19 08:30 Calcium 8.1 mg/dL (8.6-10.3) L 05/12/19 08:30 Phosphorus 6.8 mg/dL (2.7-4.5) H 05/12/19 08:30 Alkaline Phosphatase 150 Units/L (34-104) H 05/12/19 04:27 Beta-Hydroxybutyric Acd > 2.00 mmol/L (0.02-0.27) H 05/12/19 04:27 Ur Specific Chauncey 1.030 (1.010-1.025) H 05/12/19 06:59 Urine Protein 30 mg/dL (Neg-Trace) H 05/12/19 06:59 Urine Glucose (UA) >=1000 mg/dL (Normal) H 05/12/19 06:59 Urine Ketones >=160 mg/dL (Negative) H 05/12/19 06:59 Urine Blood Small (Negative) H 05/12/19 06:59 Urine Microscopic RBC 5-15 per hpf (0-3) H 05/12/19 06:59 Urine Microscopic WBC 3-5 per hpf (0-3) H 05/12/19 06:59 Ur Squamous Epith Cells Many per lpf (None-Few) H 05/12/19 06:59
[2019-05-12] MEDS ORDERED: Sodium Bicarbonate 50 MEQ/50 ML VIAL IVP ONE (09:27)
[2019-05-12] MEDS ORDERED: Sodium Bicarbonate 50 MEQ/50 ML VIAL ONE (09:27)
[2019-05-12] MEDS: 0.45 % Sodium Chloride w/KCl 20 MEQ/1,000 ML MLS IVC SCH ×8 (10:58→23:41)
[2019-05-12 11:01] LABS: BUN/Creatinine Ratio 20 (6-26); Blood Urea Nitrogen 27 mg/dL (6-20); Calcium 7.4 mg/dL (8.6-10.3); Carbon Dioxide 7 mEq/L (23-29); Chloride 102 mEq/L (98-107); Glucose 365 mg/dL (70-105); Lipase 97 Units/L (11-82); Osmolality,Calculated 298 (280-300); Sodium 134 mEq/L (136-145); eGFR For African Americans > 60 (> 60); eGFR For Non-African Americans 59 (> 60)
[2019-05-12 12:53] LABS: BUN/Creatinine Ratio 21 (6-26); Blood Urea Nitrogen 27 mg/dL (6-20); Calcium 7.5 mg/dL (8.6-10.3); Carbon Dioxide 8 mEq/L (23-29); Chloride 105 mEq/L (98-107); Glucose 265 mg/dL (70-105); Osmolality,Calculated 294 (280-300); Potassium 4.3 mEq/L (3.5-5.1); Sodium 135 mEq/L (136-145); eGFR For African Americans > 60 (> 60); eGFR For Non-African Americans > 60 (> 60)
[2019-05-12] MEDS: D5% in 0.45% NACL w KCl 20 MEQ/1,000 ML MLS IVC PRN (15:02)
[2019-05-12 15:08] LABS: BUN/Creatinine Ratio 21 (6-26); Blood Urea Nitrogen 26 mg/dL (6-20); Calcium 7.4 mg/dL (8.6-10.3); Carbon Dioxide 6 mEq/L (23-29); Chloride 108 mEq/L (98-107); Glucose 189 mg/dL (70-105); Osmolality,Calculated 294 (280-300); Potassium 4.5 mEq/L (3.5-5.1); Sodium 137 mEq/L (136-145); eGFR For African Americans > 60 (> 60); eGFR For Non-African Americans > 60 (> 60)
[2019-05-12] MEDS ORDERED: Ondansetron 4 MG/2 ML VIAL ONE ×2 (16:31→17:19)
[2019-05-12 16:47] LABS: BUN/Creatinine Ratio 19 (6-26); Blood Urea Nitrogen 24 mg/dL (6-20); Calcium 7.4 mg/dL (8.6-10.3); Carbon Dioxide 9 mEq/L (23-29); Chloride 109 mEq/L (98-107); Glucose 231 mg/dL (70-105); Osmolality,Calculated 291 (280-300); Potassium 4.4 mEq/L (3.5-5.1); Sodium 135 mEq/L (136-145); eGFR For African Americans > 60 (> 60); eGFR For Non-African Americans > 60 (> 60)
[2019-05-12] MEDS ORDERED: Ondansetron 4 MG/2 ML VIAL IVP PRN (17:18)
[2019-05-12] MEDS ORDERED: Ondansetron 4 MG/2 ML VIAL IVP ONE (17:18)
[2019-05-12 18:35] LABS: BUN/Creatinine Ratio 19 (6-26); Blood Urea Nitrogen 24 mg/dL (6-20); Calcium 7.6 mg/dL (8.6-10.3); Carbon Dioxide 13 mEq/L (23-29); Chloride 111 mEq/L (98-107); Glucose 258 mg/dL (70-105); Osmolality,Calculated 291 (280-300); Sodium 134 mEq/L (136-145); eGFR For African Americans > 60 (> 60); eGFR For Non-African Americans > 60 (> 60)
[2019-05-12] MEDS ORDERED: Ondansetron 4 MG/2 ML VIAL IVP SCH (20:00)
[2019-05-12 20:27] LABS: BUN/Creatinine Ratio 22 (6-26); Blood Urea Nitrogen 19 mg/dL (6-20); Calcium 5.7 mg/dL (8.6-10.3); Carbon Dioxide 11 mEq/L (23-29); Chloride 119 mEq/L (98-107); Glucose 158 mg/dL (70-105); Osmolality,Calculated 296 (280-300); Potassium 3.1 mEq/L (3.5-5.1); Sodium 140 mEq/L (136-145); eGFR For African Americans > 60 (> 60); eGFR For Non-African Americans > 60 (> 60)
[2019-05-12] MEDS ORDERED: Calcium Gluconate 1gm/50mL 1 GM/50 ML BAG IVPB ONE (21:00)
[2019-05-12 21:39] LABS: Albumin 3.3 g/dL (3.5-5.7); BUN/Creatinine Ratio 19 (6-26); Blood Urea Nitrogen 23 mg/dL (6-20); Calcium 7.8 mg/dL (8.6-10.3); Carbon Dioxide 16 mEq/L (23-29); Chloride 112 mEq/L (98-107); Glucose 166 mg/dL (70-105); Magnesium 1.7 mg/dL (1.6-2.6); Osmolality,Calculated 291 (280-300); Potassium 3.5 mEq/L (3.5-5.1); Sodium 137 mEq/L (136-145); eGFR For African Americans > 60 (> 60); eGFR For Non-African Americans > 60 (> 60)
[2019-05-12] MEDS ORDERED: Potassium Phosphate 44 MEQ in 0.9 % Sodium Chloride 250 ML IVPB ONE (21:43)
[2019-05-12] MEDS ORDERED: D5% in Water 1,000 ML IVC PRN (21:49)
[2019-05-12] MEDS ORDERED: Dextrose Gel 15 GM/37.5 ML TUBE PO PRN ×2 (21:49)
[2019-05-12] MEDS ORDERED: Insulin DETEMIR 100 UNIT/ML X5UNITS SQ SCH (21:50)
[2019-05-12 22:21] LABS: VBG HCO3 16 mEq/L (21-27); VBG PCO2 31 mmHg (41-51); VBG PO2 143 mmHg (25-50)
[2019-05-13 00:32] LABS: BUN/Creatinine Ratio 19 (6-26); Blood Urea Nitrogen 22 mg/dL (6-20); Calcium 7.6 mg/dL (8.6-10.3); Carbon Dioxide 12 mEq/L (23-29); Chloride 107 mEq/L (98-107); Glucose 169 mg/dL (70-105); Osmolality,Calculated 283 (280-300); Sodium 133 mEq/L (136-145); eGFR For African Americans > 60 (> 60); eGFR For Non-African Americans > 60 (> 60)
[2019-05-13] MEDS: Insulin LISPRO 300 UNITS/3 ML VIAL SQ SCH ×4 (00:52→11:04)
[2019-05-13] MEDS: 0.45 % Sodium Chloride w/KCl 20 MEQ/1,000 ML MLS IVC SCH ×8 (01:26→17:16)
[2019-05-13] MEDS: 0.9 % Sodium Chloride 1,000 ML IVC SCH ×10 (01:26→17:16)
[2019-05-13] MEDS ORDERED: Calcium Gluconate 1gm/50mL 1 GM/50 ML BAG IVPB ONE (01:30)
[2019-05-13] MEDS ORDERED: Water for inj. (sterile) 20 ML IV ONE (03:11)
[2019-05-13] MEDS: D5% in 0.45% NACL w KCl 20 MEQ/1,000 ML MLS IVC PRN ×2 (03:19→07:57)
[2019-05-13] MEDS: cefTRIAXone 2,000 MG in Water for inj. (sterile) 20 ML IVP SCH (04:13)
[2019-05-13 04:17] LABS: Magnesium 1.8 mg/dL (1.6-2.6); Phosphorous 2.8 mg/dL (2.7-4.5)
[2019-05-13] MEDS: Insulin Human Regular 100 UNIT in 0.9 % Sodium Chloride 100 ML IVC SCH (04:28)
[2019-05-13 05:01] LABS: Basophils % 0.1 %; Hematocrit 25.9 % (37.5-50.1); Immature Granulocytes % 0.3 % (0-4); Lymphocytes # 0.7 K/mcL (0.6-4.6); Lymphocytes % 6.5 %; Mean Corpuscular HGB Conc 36.3 g/dL (31.6-35.5); Mean Corpuscular Hemoglobin 32.3 pg (28.0-33.3); Mean Platelet Volume 10.1 fL (9.4-12.4); Monocytes # 0.4 K/mcL (0.0-1.3); Monocytes % 3.6 %; Neutrophils # 10.2 K/mcL (1.6-8.9); Platelet Count 152 K/mcL (140-400); Red Blood Count 2.91 M/mcL (4.19-5.50); Red Cell Distribution Width 12.1 % (11.5-14.5); Segmented Neutrophils % 89.5 %; White Blood Count 11.4 K/mcL (4.3-11.1)
[2019-05-13 05:11] LABS: Hemoglobin 9.4 g/dL (12.9-16.9)
[2019-05-13 05:42] LABS: Alanine Aminotransferase 22 Units/L (7-52); Albumin 2.9 g/dL (3.5-5.7); Albumin/Globulin Ratio 1.6 (1.1-2.2); Alkaline Phosphatase 66 Units/L (34-104); Aspartate Amino Transferase 14 Units/L (13-39); BUN/Creatinine Ratio 18 (6-26); Bilirubin,Total 0.4 mg/dL (0.3-1.0); Blood Urea Nitrogen 19 mg/dL (6-20); Calcium 7.5 mg/dL (8.6-10.3); Carbon Dioxide 14 mEq/L (23-29); Chloride 107 mEq/L (98-107); Globulin 1.8 g/dL (2.4-3.5); Glucose 180 mg/dL (70-105); Osmolality,Calculated 281 (280-300); Potassium 3.8 mEq/L (3.5-5.1); Sodium 132 mEq/L (136-145); Total Protein 4.7 g/dL (6.4-8.9); eGFR For African Americans > 60 (> 60); eGFR For Non-African Americans > 60 (> 60)
[2019-05-13 09:19] LABS: Estimated Average Glucose 318 mg/dl
[2019-05-13 09:29] LABS: BUN/Creatinine Ratio 16 (6-26); Blood Urea Nitrogen 15 mg/dL (6-20); Calcium 7.9 mg/dL (8.6-10.3); Carbon Dioxide 18 mEq/L (23-29); Chloride 106 mEq/L (98-107); Glucose 158 mg/dL (70-105); Osmolality,Calculated 276 (280-300); Potassium 3.4 mEq/L (3.5-5.1); Sodium 131 mEq/L (136-145); eGFR For African Americans > 60 (> 60); eGFR For Non-African Americans > 60 (> 60)
[2019-05-13] MEDS ORDERED: D5% in 0.45% NACL w KCl 20 MEQ/1,000 ML MLS IVC SCH (10:00)
--- NOTE | 2019-05-13 10:00 | Internal Med Progress Note ---
Hospitalist Progress Note - Encounter Date of Encounter: 05/13/19 Time of Encounter: 09:58 - Subjective Interval History: Mr. Barron is a 44 year old male with past medical history of type 1 diabetes on insulin, previous episodes of DKA, gastroparesis who reports cough with sputum production over the last several days. He recently went to an urgent care, diagnosed him with "bronchitis" and was given antibiotics and steroids. He also endorses nausea, vomiting, sugars measured in the 400s. He also complains of abdominal pain and chest pain and dyspnea. Patient's mentions that he has been in DKA several times in the past. Denies any fevers, chills, constipation, diarrhea. In the emergency department patient had a temperature of 98.7, HR 102, RR 28, BP 116/69, 100% RA. Labs are significant for a pH 6.8, anion gap 32, K5.7, glucose 700. WBC 24, lactate 3.5. Positive beta hydroxybutyrate and urinary ketones. Patient was initiated on an insulin drip, given 3 L NS bolus, and was admitted to the ICU. In the ICU, patient appeared uncomfortable. Kussmaul respirations. Continued to endorse abdominal pain and chest pain. EKG showed no ischemic changes and troponins were negative. We will continue to treat patient on insulin drip, fluids, DKA protocol. We will check electrolytes every 2 hours and replete as necessary. A CT of the chest, abdomen, pelvis showed no acute findings. A chest x-ray showed resolution of previously seen multifocal pneumonia. Will continue to monitor and treat for DKA. 05/13: ICU transfer summary: Patient's anion gap has closed nicely. He was started back on subcutaneous i nsulin last night. Blood sugars have been running in the mid 100s. Patient states he feels rundown. He also complains of chest discomfort which he states he has had since admission, persistent, and he thinks his from excessive nausea/vomiting. He denies any shortness of breath. No nausea or vomiting but does have a decreased appetite. No fevers or chills. Patient does report a recent "viral illness", manifested with nausea vomiting and diarrhea last week, symptoms have been improving slowly. Patient's hemoglobin A1c is 12.7. Patient states his blood sugar control at home as been poor, often running in the 300-400 range. Patient does have a mild hyponatremia, which can be repeated in the morning. He also is mildly hypokalemic which is being replaced. Other than that mentioned above a 10 point review of systems is negative Patient is to be resumed on Lantus 25 units subcutaneous twice a day, he was offered lunch, and her blood sugars continue to remain reasonable he will be t ransferred to a general medical bed later today. - Exam Vitals: Temp Pulse Resp BP Pulse Ox 98.3 F 90 19 129/67 98 05/13/19 07:41 05/13/19 08:22 05/13/19 07:20 05/13/19 07:20 05/13/19 08:19 Exam: General: No acute distress awake alert oriented 3 Skin: Warm and dry, multiple tattoos Oropharynx is moist Neck is supple Lungs are clear bilaterally Heart regular rate and rhythm without murmur Abdomen is soft with some mild epigastric tenderness(definitely improved per patient) Extrem show no edema Neurological nonfocal - Summary of Assessment and Plan Summary of Assessment and Plan: DKA -Suspect due to recent viral illness, certainly a component of noncompliance with an A1c of 12.7 -Patient is not treated, anion gap is closed, he is now back on subcutaneous insulin and we are advancing his diet -Patient does well he will be transferred to general medical bed later this afternoon -diabetic counseling Hypokalemia replaced in order, monitor Possible pneumonia -He was given a dose of antibiotics in the emergency department, although presently he is not showing any obvious signs of pneumonia with Levaquin antibiotics -CT of his chest abdomen and pelvis showed no acute process. Recent acute gastroenteritis -symptoms are resolving Acute kidney injury -Resolved, avoid nephrotoxins, monitor - - Time Spent with Patient Total time spent is greater than 50% in coordination of care (as documented) at patient's floor/unit and/or counseling patient: Greater than 35 minutes Plan of Care Discussed with: patient Internal Medicine: Result - Labs CBC & Chem 7: 05/13/19 04:43 05/13/19 08:49 Labs: Short CBC 05/13/19 Range/Units 04:43 WBC 11.4 H D (4.3-11.1) K/mcL Hgb 9.4 L D (12.9-16.9) g/dL Hct 25.9 L (37.5-50.1) % Plt Count 152 D (140-400) K/mcL Neutrophils # 10.2 H (1.6-8.9) K/mcL BMP 05/12/19 05/12/19 05/12/19 10:20 12:15 14:30 Sodium 134 L 135 L 137 Potassium 4.0 4.3 4.5 Chloride 102 105 108 H Carbon Dioxide 7 L* 8 L* 6 L* BUN 27 H 27 H 26 H Creatinine 1.32 H 1.26 1.22 Glucose 365 H 265 H 189 H Calcium 7.4 L 7.5 L 7.4 L 05/12/19 05/12/19 05/12/19 16:05 18:05 19:55 Sodium 135 L 134 L 140 Potassium 4.4 4.0 3.1 L Chloride 109 H 111 H 119 H Carbon Dioxide 9 L* 13 L 11 L BUN 24 H 24 H 19 Creatinine 1.24 1.27 0.88 Glucose 231 H 258 H 158 H Calcium 7.4 L 7.6 L 5.7 L* 05/12/19 05/13/19 05/13/19 20:37 00:00 03:35 Sodium 137 133 L 132 L Potassium 3.5 4.0 3.8 Chloride 112 H 107 107 Carbon Dioxide 16 L 12 L 14 L BUN 23 H 22 H 19 Creatinine 1.22 1.13 1.03 Glucose 166 H 169 H 180 H Calcium 7.8 L 7.6 L 7.5 L 05/13/19 08:49 Sodium 131 L Potassium 3.4 L Chloride 106 Carbon Dioxide 18 L BUN 15 Creatinine 0.93 Glucose 158 H Calcium 7.9 L Liver Function 05/12/19 05/13/19 Range/Units 20:37 03:35 Total Bilirubin 0.4 (0.3-1.0) mg/dL AST 14 (13-39) Units/L ALT 22 (7-52) Units/L Alkaline Phosphatase 66 (34-104) Units/L Albumin 3.3 L 2.9 L (3.5-5.7) g/dL - ABG Interpretation ABG results: ABG ABG pH 7.00 pH Units (7.32-7.45) L* 05/12/19 08:06 ABG pCO2 < 13 mmHg (35-45) L* 05/12/19 08:06 ABG pO2 126 mmHg (85-104) H 05/12/19 08:06 ABG O2 Saturation TNP 05/12/19 08:06 Consult Discharge Plan - Plan Referrals: NONE,PCP [Primary Care Provider] -
[2019-05-13] MEDS ORDERED: Insulin LISPRO 300 UNITS/3 ML VIAL SQ SCH ×4 (16:30→21:00)
[2019-05-13] MEDS ORDERED: Ibuprofen 600 MG TABLET PO ONE (17:31)
[2019-05-13] MEDS ORDERED: Ondansetron 4 MG/2 ML VIAL IVP PRN (17:52)
--- NOTE | 2019-05-13 18:29 | Electrocardiograph Report ---
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
--- NOTE | 2019-05-13 18:30 | Electrocardiograph Report ---
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
[2019-05-13] MEDS: Gabapentin 300 MG CAPSULE PO SCH (18:44)
[2019-05-13] MEDS: traMADol 50 MG TABLET PO PRN (20:10)
[2019-05-13] MEDS ORDERED: Acetaminophen IV 500 MG/50 ML INFUS..BTL IVPB ONE (20:48)
[2019-05-13] MEDS: Insulin DETEMIR 100 UNIT/ML X5UNITS SQ SCH (22:07)
[2019-05-14] MEDS: Insulin LISPRO 300 UNITS/3 ML VIAL SQ SCH ×2 (07:30→11:29)
[2019-05-14] MEDS: traMADol 50 MG TABLET PO PRN ×2 (07:51→14:01)
[2019-05-14] MEDS: Gabapentin 300 MG CAPSULE PO SCH ×2 (07:51→14:00)
[2019-05-14] MEDS: Insulin DETEMIR 100 UNIT/ML X5UNITS SQ SCH (08:51)
[2019-05-14 09:12] LABS: Eosinophils % 0.2 %; Hematocrit 31.6 % (37.5-50.1); Immature Granulocytes % 0.3 % (0-4); Immature Platelets 3.2 % (1.1-6.1); Lymphocytes # 0.7 K/mcL (0.6-4.6); Lymphocytes % 10.2 %; Mean Corpuscular HGB Conc 36.1 g/dL (31.6-35.5); Mean Corpuscular Hemoglobin 31.5 pg (28.0-33.3); Mean Corpuscular Volume 87.3 fL (83.0-100.0); Mean Platelet Volume 9.8 fL (9.4-12.4); Monocytes # 0.4 K/mcL (0.0-1.3); Monocytes % 5.5 %; Neutrophils # 5.5 K/mcL (1.6-8.9); Platelet Count 126 K/mcL (140-400); Red Blood Count 3.62 M/mcL (4.19-5.50); Red Cell Distribution Width 12.1 % (11.5-14.5); Segmented Neutrophils % 83.8 %; White Blood Count 6.6 K/mcL (4.3-11.1)
[2019-05-14 09:17] LABS: Hemoglobin 11.4 g/dL (12.9-16.9)
[2019-05-14] MEDS ORDERED: Potassium Chloride 40 MEQ, Lidocaine 1% 2 ML in 0.9 % Sodium Chloride 500 ML IVPB ONE (09:21)
[2019-05-14 09:31] LABS: BUN/Creatinine Ratio 11 (6-26); Blood Urea Nitrogen 8 mg/dL (6-20); Calcium 8.3 mg/dL (8.6-10.3); Carbon Dioxide 23 mEq/L (23-29); Chloride 98 mEq/L (98-107); Glucose 142 mg/dL (70-105); Osmolality,Calculated 269 (280-300); Potassium 3.4 mEq/L (3.5-5.1); Sodium 129 mEq/L (136-145); eGFR For African Americans > 60 (> 60); eGFR For Non-African Americans > 60 (> 60)
--- NOTE | 2019-05-14 11:01 | Discharge Summary ---
<BritneySrjoss - Last Filed: 05/14/19 13:29> Orders not resulted at time of discharge: Pending orders 05/13/19 06:20 Culture,Blood [BC] AM 0400 Date of Encounter: 05/14/19 Time of Encounter: 09:40 Hospital course: Mr. Barron is a 44 year old male - Time Spent with Patient Total time spent providing and/or coordinating discharge services: - Discharge Medications Prescriptions: New Azithromycin [Zithromax] 500 mg PO DAILY #10 tablet Continued Insulin LISPRO [Humalog Kwikpen U-100] 4 - 15 unit SQ TIDWM Insulin Glargine,Hum.rec.anlog [Lantus Solostar] 24 units SQ BID Albuterol Sulfate [Ventolin Hfa] 2 puff IH Q4H PRN PRN Reason: Shortness Of Breath Gabapentin 600 mg PO TID #60 tab Home Medications: Insulin LISPRO [Humalog Kwikpen U-100] 4 - 15 unit SQ TIDWM 08/30/17 [History] Albuterol Sulfate [Ventolin Hfa] 2 puff IH Q4H PRN 05/12/19 [History] Insulin Glargine,Hum.rec.anlog [Lantus Solostar] 24 units SQ BID 05/12/19 [History] Azithromycin [Zithromax] 500 mg PO DAILY #10 tablet 05/14/19 [Rx] Gabapentin 600 mg PO TID #60 tab 05/14/19 [Rx] Allergies/Adverse Reactions: Allergy/AdvReac Type Severity Reaction Status Date / Time Penicillins Allergy Hives Verified 05/12/19 16:18 metformin AdvReac Diarrhea Verified 05/12/19 16:18 Date of admission: 05/12/19 06:55 Primary care physician: PCP NONE Consults: 05/12/19 06:52 Consult for Pharmacy Education [CONS] Routine Reason for Consult: DKA Call Completed: No 05/12/19 07:02 Consult to Pulmonology [CONS] Routine Consulting Provider: [facility] Reason for Consult: DKA Call Completed: No 05/12/19 09:12 Consult to [facility] [CONS] Routine Reason for SW Consult: reports he is losing medical coverage on medical card and needs insulin. - Constitutional Vitals: Temp Pulse Resp BP Pulse Ox 98.8 F 85 17 109/69 98 05/14/19 11:37 05/14/19 11:37 05/14/19 11:37 05/14/19 11:37 05/14/19 11:37 - Patient Status Disposition: Home, Self-Care Condition: Serious - Discharge Instructions Follow Up With: Broderick Pennington DO [Resident] - 05/17/19 1:20 pm - Attending Attestation I saw evaluated and examined this patient and reviewed objective data including labs and my medical decision-making was reviewed with the Resident Physician, Bill Scott. I agree with the documented findings, disposition and treatment plan as described except to any changes set forth below. We independently had [id number] contact with the patient. Patient with history of diabetes mellitus type 1, gastroparesis, gastroesophageal reflux disease was hospitalized here with acute severe diabetic ketoacidosis. She was initially admitted to ICU and treated with IV fluids and aggressive management of his DKA. After DKA resolved, he was transferred to the floor. Patient initially had leukocytosis but this has now resolved. CT scan of the chest did not show any pneumonia. Patient is now tolerating oral diet. He does have chronic hyponatremia and would benefit from outpatient follow-up with nephrology. Patient will continue to take insulin as prescribed. He does have symptoms of cough suggestive of acute upper respiratory tract infection/bronchitis. Will treat him with a course of azithromycin for this. <Bill Scott - Last Filed: 05/14/19 23:44> Orders not resulted at time of discharge: Pending orders 05/13/19 06:20 Culture,Blood [BC] AM 0400 Date of Encounter: 05/14/19 Hospital course: Mr. Barron is a 44 year old male with a PMH of type 1 diabetes mellitus on insulin and gastroparesis who presented to [facility] ED on 05/12/19 with increased cough and sputum production of several days duration. Presented to urgent care and was diagnosed with bronchitis. He was given antibiotics and steroids. Condition did not improve. On presentation, also complained of abdominal and chest pain with dyspnea. He was found to have an elevated heart rate at 10 2 bpm and respiratory rate of 28/m in the ED. He was found to be acidotic with pH of 6.8 with an elevated anion gap. Glucose was 700. Beta hydroxybutyric acid and urinary ketones were positive. He was started on insulin via DKA protocol. He was admitted to the ICU for further management. He was treated with IV fluids and IV insulin. His anion gap closed, and he was transitioned to subcutaneous insulin. He was then transferred to the floor for further managem ent. CT scan of the chest was performed, which showed no evidence of pneumonia. Diet was advanced, which he tolerated well. He was instructed to continue to take his insulin as prescribed. He was given a 5 day course of azithromycin and was discharged in stable condition. - Time Spent with Patient Total time spent providing and/or coordinating discharge services: Date of admission: 05/12/19 06:55 Primary care physician: PCP NONE Consults: 05/12/19 06:52 Consult for Pharmacy Education [CONS] Routine Reason for Consult: DKA Call Completed: No 05/12/19 07:02 Consult to Pulmonology [CONS] Routine Consulting Provider: [facility] Reason for Consult: DKA Call Completed: No 05/12/19 09:12 Consult to [facility] [CONS] Routine Reason for SW Consult: reports he is losing medical coverage on medical card and needs insulin. - Constitutional Vitals: Temp Pulse Resp BP Pulse Ox 98.3 F 82 16 123/77 98 05/14/19 08:34 05/14/19 08:34 05/14/19 08:34 05/14/19 08:34 05/14/19 08:34 Exam: General: Conversant, no acute distress Head: atraumatic, normocephalic Eye: PERRL, EOMI Respiratory: CTAB. No accessory muscle use, wheezes, rales, or rhonchi Cardiovascular: RRR, +S1, +S2; no murmurs, rubs, gallops Abdomen: Mild epigastric tenderness Extremities: warm, radial pulses palpable and symmetrical Psychiatric: Normal affect, normal mood Skin: Multiple tattoos - Patient Status Overall status at discharge: patient is progressing back to baseline - Diet and Activity Activity: increase activity as tolerated Diet: diabetic diet
[2019-05-14 11:37] VITALS: BP 109/69
== END 2019-05-14 15:05 | disposition home or self-care (01) | DRG 420 ==
LOC: EMEROOARM 03:26 → ICNU 06:55 → 3ANU 05-13 18:22
PROVIDERS: ADMIT Internal Medicine; ATTEND Internal Medicine

== ENCOUNTER 2019-12-21 14:20 | Inpatient (IN) ==
[2019-12-21] MEDS ORDERED: Ringers Solution, Lactated 1,000 ML IVC ONE ×2 (14:42→15:35)
[2019-12-21] MEDS ORDERED: *HR* Promethazine 25 MG/ML VIAL IVP ONE (14:43)
[2019-12-21 15:05] LABS: Basophils % 0.1 %; Hematocrit 45.5 % (37.5-50.1); Hemoglobin 15.4 g/dL (12.9-16.9); Lymphocytes # 0.9 K/mcL (0.6-4.6); Lymphocytes % 6.6 %; Mean Corpuscular HGB Conc 33.8 g/dL (31.6-35.5); Mean Corpuscular Hemoglobin 30.4 pg (28.0-33.3); Mean Corpuscular Volume 89.9 fL (83.0-100.0); Mean Platelet Volume 10.5 fL (9.4-12.4); Monocytes # 1.2 K/mcL (0.0-1.3); Monocytes % 8.7 %; Neutrophils # 11.4 K/mcL (1.6-8.9); Platelet Count 186 K/mcL (140-400); Red Blood Count 5.06 M/mcL (4.19-5.50); Red Cell Distribution Width 12.6 % (11.5-14.5); Segmented Neutrophils % 83.6 %; White Blood Count 13.6 K/mcL (4.3-11.1)
[2019-12-21 15:19] LABS: VBG PCO2 < 13 mmHg (41-51); VBG PH 7.16 pH Units (7.32-7.42); VBG PO2 128 mmHg (25-50)
[2019-12-21 15:40] LABS: Albumin 4.1 g/dL (3.5-5.7); Albumin/Globulin Ratio 1.5 (1.1-2.2); Bilirubin,Direct 0.1 mg/dL (0.0-0.2); Bilirubin,Indirect 0.4 mg/dL (0.0-1.0); Bilirubin,Total 0.5 mg/dL (0.3-1.0); Calcium 8.3 mg/dL (8.6-10.3); Globulin 2.8 g/dL (2.4-3.5); Magnesium 2.3 mg/dL (1.6-2.6); Potassium 4.3 mEq/L (3.5-5.1); Total Protein 6.9 g/dL (6.4-8.9)
[2019-12-21] MEDS ORDERED: *HR* Dextrose 50 % in Water (Syg) 50 ML SYRINGE IVP PRN ×3 (15:54→22:29)
[2019-12-21] MEDS ORDERED: Insulin Human Regular 100 UNIT in 0.9 % Sodium Chloride 100 ML IVC SCH (16:00)
[2019-12-21 16:14] LABS: Amphetamine Screen,Urine Negative ng/mL (Cutoff=1000); Barbiturate Screen,Urine Negative ng/mL (Cutoff=200); Benzodiazepines Screen,Urine Negative ng/mL (Cutoff=200); Cannabinoid Screen,Urine Negative ng/mL (Cutoff = 50); Cocaine Screen,Urine Negative ng/mL (Cutoff= 300); Opiate Screen,Urine Negative ng/mL (Cutoff=300); Phencyclidine Screen,Urine Negative ng/mL (Cutoff=25)
[2019-12-21 16:32] LABS: Bilirubin,Urine Moderate (Negative); Blood,Urine Moderate (Negative); Clarity,Urine Cloudy (Clear); Color,Urine Yellow (Yellow); Glucose,Urine (UA) >=1000 mg/dL (Normal); Ketones,Urine >=160 mg/dL (Negative); Leukocyte Esterase,Urine Negative (Negative); Nitrite,Urine Negative (Negative); Protein,Urine 30 mg/dL (Neg-Trace); Specific Gravity,Urine 1.027 (1.010-1.025); Urobilinogen,Urine Normal (Normal)
[2019-12-21 16:35] LABS: RBC,Urine 15-30 per hpf (0-3); Squamous Epithelial Cell,Urine Many per lpf (None-Few); WBC,Urine 0-3 per hpf (0-3)
[2019-12-21 16:59] LABS: Amorphous Sediment,Urine Moderate per hpf (Few); Bacteria,Urine Few per hpf (None-Few)
[2019-12-21] MEDS ORDERED: Insulin Regular, Human 100 UNIT/ML IV PRN (17:00)
[2019-12-21] MEDS ORDERED: Naloxone 0.4 MG/ML INJ IVP PRN (17:00)
[2019-12-21] MEDS ORDERED: Acetaminophen 325 MG TABLET PO PRN (17:34)
[2019-12-21] MEDS: 0.9 % Sodium Chloride 1,000 ML IVC SCH ×2 (17:37→18:45)
[2019-12-21] MEDS: Ondansetron 4 MG/2 ML VIAL IVP PRN ×2 (17:56→23:06)
[2019-12-21 18:43] LABS: BUN/Creatinine Ratio 28 (6-26); Blood Urea Nitrogen 40 mg/dL (6-20); Calcium 7.8 mg/dL (8.6-10.3); Carbon Dioxide 14 mEq/L (23-29); Chloride 100 mEq/L (98-107); Glucose 209 mg/dL (70-105); Osmolality,Calculated 288 (280-300); Potassium 3.6 mEq/L (3.5-5.1); Sodium 131 mEq/L (136-145); eGFR For African Americans > 60 (> 60); eGFR For Non-African Americans 54 (> 60)
[2019-12-21 19:11] LABS: Phosphorous 1.1 mg/dL (2.7-4.5)
[2019-12-21] MEDS ORDERED: Potassium Phosphate 44 MEQ in 0.9 % Sodium Chloride 250 ML IVPB PRN (20:23)
[2019-12-21] MEDS: D5% in 0.45% NACL w KCl 20 MEQ/1,000 ML MLS IVC PRN ×2 (20:23→22:32)
[2019-12-21] MEDS: *HR* Heparin 5,000 UNIT/ML VIAL SQ SCH (20:27)
[2019-12-21 21:03] LABS: Basophils % 0.1 %; Hemoglobin 11.9 g/dL (12.9-16.9); Immature Granulocytes % 0.5 % (0-4); Lymphocytes # 0.7 K/mcL (0.6-4.6); Lymphocytes % 9.4 %; Mean Corpuscular HGB Conc 36.1 g/dL (31.6-35.5); Mean Corpuscular Hemoglobin 31.2 pg (28.0-33.3); Mean Corpuscular Volume 86.6 fL (83.0-100.0); Mean Platelet Volume 9.8 fL (9.4-12.4); Monocytes # 0.7 K/mcL (0.0-1.3); Monocytes % 8.4 %; Neutrophils # 6.3 K/mcL (1.6-8.9); Platelet Count 147 K/mcL (140-400); Red Blood Count 3.81 M/mcL (4.19-5.50); Red Cell Distribution Width 12.6 % (11.5-14.5); Segmented Neutrophils % 81.6 %; White Blood Count 7.8 K/mcL (4.3-11.1)
[2019-12-21 21:23] LABS: BUN/Creatinine Ratio 29 (6-26); Blood Urea Nitrogen 33 mg/dL (6-20); Calcium 7.2 mg/dL (8.6-10.3); Carbon Dioxide 16 mEq/L (23-29); Chloride 104 mEq/L (98-107); Glucose 167 mg/dL (70-105); Osmolality,Calculated 287 (280-300); Potassium 3.4 mEq/L (3.5-5.1); Sodium 133 mEq/L (136-145); eGFR For African Americans > 60 (> 60); eGFR For Non-African Americans > 60 (> 60)
[2019-12-21 22:19] LABS: BUN/Creatinine Ratio 28 (6-26); Blood Urea Nitrogen 31 mg/dL (6-20); Calcium 7.3 mg/dL (8.6-10.3); Carbon Dioxide 17 mEq/L (23-29); Chloride 106 mEq/L (98-107); Glucose 139 mg/dL (70-105); Osmolality,Calculated 285 (280-300); Potassium 3.6 mEq/L (3.5-5.1); Sodium 133 mEq/L (136-145); eGFR For African Americans > 60 (> 60); eGFR For Non-African Americans > 60 (> 60)
[2019-12-21] MEDS ORDERED: Insulin DETEMIR 100 UNIT/ML X5UNITS SQ ONE (22:28)
[2019-12-21] MEDS ORDERED: Dextrose Gel 15 GM/37.5 ML TUBE PO PRN ×2 (22:29)
[2019-12-21] MEDS ORDERED: D5% in Water 1,000 ML IVC PRN (22:29)
[2019-12-22] MEDS: Insulin LISPRO 300 UNITS/3 ML VIAL SQ SCH ×5 (00:47→21:11)
[2019-12-22 01:41] LABS: BUN/Creatinine Ratio 30 (6-26); Blood Urea Nitrogen 30 mg/dL (6-20); Calcium 7.3 mg/dL (8.6-10.3); Carbon Dioxide 21 mEq/L (23-29); Chloride 106 mEq/L (98-107); Glucose 103 mg/dL (70-105); Osmolality,Calculated 284 (280-300); Potassium 3.5 mEq/L (3.5-5.1); Sodium 134 mEq/L (136-145); eGFR For African Americans > 60 (> 60); eGFR For Non-African Americans > 60 (> 60)
[2019-12-22 04:16] LABS: ABG Base Excess -3 mEq/L (-2 to 3); ABG HCO3 20 mEq/L (21-27); ABG Oxygen Saturation 97 % (95-98); ABG PCO2 29 mmHg (35-45); ABG PH 7.44 pH Units (7.32-7.45); ABG PO2 82 mmHg (85-104); ABG TCO2 21 mEq/L (20-26)
[2019-12-22 05:00] LABS: Alanine Aminotransferase 15 Units/L (7-52); Albumin 3.1 g/dL (3.5-5.7); Albumin/Globulin Ratio 1.6 (1.1-2.2); Alkaline Phosphatase 81 Units/L (34-104); Aspartate Amino Transferase 10 Units/L (13-39); BUN/Creatinine Ratio 29 (6-26); Bilirubin,Total 0.4 mg/dL (0.3-1.0); Blood Urea Nitrogen 26 mg/dL (6-20); Calcium 7.3 mg/dL (8.6-10.3); Carbon Dioxide 21 mEq/L (23-29); Chloride 107 mEq/L (98-107); Globulin 1.9 g/dL (2.4-3.5); Glucose 66 mg/dL (70-105); Magnesium 1.9 mg/dL (1.6-2.6); Osmolality,Calculated 283 (280-300); Phosphorous 1.9 mg/dL (2.7-4.5); Potassium 3.4 mEq/L (3.5-5.1); Sodium 135 mEq/L (136-145); eGFR For African Americans > 60 (> 60); eGFR For Non-African Americans > 60 (> 60)
[2019-12-22] MEDS: *HR* Heparin 5,000 UNIT/ML VIAL SQ SCH ×3 (05:20→21:13)
[2019-12-22] MEDS ORDERED: Insulin DETEMIR 100 UNIT/ML X5UNITS SQ SCH (09:00)
[2019-12-22] MEDS ORDERED: *HR* Dextrose 50 % in Water (Syg) 50 ML SYRINGE IVP PRN ×3 (11:15)
[2019-12-22] MEDS ORDERED: Potassium Phosphate 44 MEQ in 0.9 % Sodium Chloride 250 ML IVPB PRN (11:15)
[2019-12-22] MEDS ORDERED: Dextrose Gel 15 GM/37.5 ML TUBE PO PRN ×2 (11:15)
[2019-12-22] MEDS ORDERED: Ondansetron 4 MG/2 ML VIAL IVP PRN (11:15)
[2019-12-22] MEDS ORDERED: D5% in Water 1,000 ML IVC PRN (11:22)
[2019-12-22] MEDS ORDERED: Insulin LISPRO 300 UNITS/3 ML VIAL SQ SCH (11:30)
[2019-12-22] MEDS: Acetaminophen 325 MG TABLET PO PRN (13:04)
[2019-12-22 20:47] LABS: BUN/Creatinine Ratio 19 (6-26); Blood Urea Nitrogen 14 mg/dL (6-20); Carbon Dioxide 23 mEq/L (23-29); Chloride 100 mEq/L (98-107); Glucose 203 mg/dL (70-105); Osmolality,Calculated 280 (280-300); Potassium 3.4 mEq/L (3.5-5.1); Sodium 132 mEq/L (136-145); eGFR For African Americans > 60 (> 60); eGFR For Non-African Americans > 60 (> 60)
[2019-12-22] MEDS: Insulin DETEMIR 100 UNIT/ML X5UNITS SQ SCH (21:13)
[2019-12-23] MEDS: *HR* Heparin 5,000 UNIT/ML VIAL SQ SCH ×4 (05:30→20:37)
[2019-12-23] MEDS: Acetaminophen 325 MG TABLET PO PRN (05:32)
[2019-12-23 07:26] LABS: Basophils % 0.2 %
[2019-12-23 07:28] LABS: Eosinophils % 0.4 %; Hematocrit 35.9 % (37.5-50.1); Hemoglobin 12.6 g/dL (12.9-16.9); Immature Granulocytes % 0.4 % (0-4); Immature Platelets 4.4 % (1.1-6.1); Lymphocytes # 1.1 K/mcL (0.6-4.6); Lymphocytes % 20.2 %; Mean Corpuscular HGB Conc 35.1 g/dL (31.6-35.5); Mean Corpuscular Hemoglobin 30.4 pg (28.0-33.3); Mean Corpuscular Volume 86.5 fL (83.0-100.0); Mean Platelet Volume 10.1 fL (9.4-12.4); Monocytes # 0.5 K/mcL (0.0-1.3); Monocytes % 8.7 %; Platelet Count 111 K/mcL (140-400); Red Blood Count 4.15 M/mcL (4.19-5.50); Segmented Neutrophils % 70.1 %; White Blood Count 5.6 K/mcL (4.3-11.1)
[2019-12-23] MEDS: Insulin DETEMIR 100 UNIT/ML X5UNITS SQ SCH (07:38)
[2019-12-23] MEDS: Insulin LISPRO 300 UNITS/3 ML VIAL SQ SCH ×4 (07:38→19:59)
[2019-12-23 08:10] LABS: Neutrophils # 3.9 K/mcL (1.6-8.9)
[2019-12-23 08:53] LABS: BUN/Creatinine Ratio 17 (6-26); Blood Urea Nitrogen 10 mg/dL (6-20); Calcium 7.8 mg/dL (8.6-10.3); Carbon Dioxide 29 mEq/L (23-29); Chloride 94 mEq/L (98-107); Glucose 114 mg/dL (70-105); Osmolality,Calculated 270 (280-300); Potassium 3.1 mEq/L (3.5-5.1); Sodium 130 mEq/L (136-145); eGFR For African Americans > 60 (> 60); eGFR For Non-African Americans > 60 (> 60)
[2019-12-23] MEDS: Insulin NPH 100 UNIT/ML (x5UNIT) SQ SCH (16:46)
[2019-12-23 21:12] LABS: BUN/Creatinine Ratio 15 (6-26); Blood Urea Nitrogen 10 mg/dL (6-20); Calcium 8.4 mg/dL (8.6-10.3); Carbon Dioxide 27 mEq/L (23-29); Chloride 96 mEq/L (98-107); Glucose 127 mg/dL (70-105); Osmolality,Calculated 273 (280-300); Potassium 3.4 mEq/L (3.5-5.1); Sodium 131 mEq/L (136-145); eGFR For African Americans > 60 (> 60); eGFR For Non-African Americans > 60 (> 60)
[2019-12-24] MEDS: *HR* Heparin 5,000 UNIT/ML VIAL SQ SCH (05:52)
[2019-12-24] MEDS: Acetaminophen 325 MG TABLET PO PRN (07:35)
[2019-12-24] MEDS: Insulin NPH 100 UNIT/ML (x5UNIT) SQ SCH (07:36)
[2019-12-24] MEDS: Insulin LISPRO 300 UNITS/3 ML VIAL SQ SCH ×2 (07:37→11:38)
[2019-12-24 10:20] VITALS: BP 92/54
== END 2019-12-24 12:30 | disposition home or self-care (01) | DRG 420 ==
LOC: EMEROOARM 14:20 → ICNU 16:28 → SUATTDRO 16:28 → ICNU 17:13 → 3ANU 12-22 11:37
PROVIDERS: ADMIT Family Medicine; ATTEND Internal Medicine

== ENCOUNTER 2020-01-10 15:33 | Observation (INO) ==
[2020-01-10] MEDS ORDERED: Ondansetron 4 MG/2 ML VIAL IVP ONE (15:45)
[2020-01-10] MEDS: 0.9 % Sodium Chloride 1,000 ML IVC SCH ×2 (15:56→17:57)
[2020-01-10 16:11] LABS: Basophils % 0.5 %; Eosinophils # 0.1 K/mcL (0.0-0.6); Eosinophils % 1.3 %; Hematocrit 40.9 % (37.5-50.1); Hemoglobin 13.8 g/dL (12.9-16.9); Immature Granulocytes % 0.3 % (0-4); Lymphocytes # 1.6 K/mcL (0.6-4.6); Lymphocytes % 24.9 %; Mean Corpuscular HGB Conc 33.7 g/dL (31.6-35.5); Mean Corpuscular Hemoglobin 30.9 pg (28.0-33.3); Mean Corpuscular Volume 91.5 fL (83.0-100.0); Mean Platelet Volume 9.8 fL (9.4-12.4); Monocytes # 0.4 K/mcL (0.0-1.3); Monocytes % 6.5 %; Neutrophils # 4.2 K/mcL (1.6-8.9); Platelet Count 272 K/mcL (140-400); Red Blood Count 4.47 M/mcL (4.19-5.50); Red Cell Distribution Width 13.5 % (11.5-14.5); Segmented Neutrophils % 66.5 %; White Blood Count 6.3 K/mcL (4.3-11.1)
[2020-01-10 16:18] LABS: VBG HCO3 25 mEq/L (21-27); VBG PCO2 45 mmHg (41-51); VBG PH 7.36 pH Units (7.32-7.42); VBG PO2 41 mmHg (25-50)
[2020-01-10] MEDS ORDERED: *HR* FentaNYL (PF) 100 MCG/2 ML VIAL IVP STA (16:37)
[2020-01-10] MEDS ORDERED: MetroNIDAZOLE 500 MG/100 ML 500 MG/100 ML BAG IVPB ONE (16:59)
[2020-01-10 17:08] LABS: Bilirubin,Urine Moderate (Negative); Blood,Urine Negative (Negative); Clarity,Urine Clear (Clear); Color,Urine Yellow (Yellow); Glucose,Urine (UA) 500 mg/dL (Normal); Ketones,Urine >=160 mg/dL (Negative); Leukocyte Esterase,Urine Negative (Negative); Nitrite,Urine Negative (Negative); Protein,Urine 100 mg/dL (Neg-Trace); Specific Gravity,Urine > 1.030 (1.010-1.025); Urobilinogen,Urine Normal (Normal)
[2020-01-10 17:11] LABS: Bacteria,Urine None Seen per hpf (None-Few); Hyaline Casts,Urine Few per lpf (None-Few); RBC,Urine 0-3 per hpf (0-3); Squamous Epithelial Cell,Urine Many per lpf (None-Few); WBC,Urine 0-3 per hpf (0-3)
[2020-01-10 18:12] LABS: Alanine Aminotransferase 38 Units/L (7-52); Albumin 3.3 g/dL (3.5-5.7); Albumin/Globulin Ratio 1.3 (1.1-2.2); Alkaline Phosphatase 125 Units/L (34-104); Aspartate Amino Transferase 17 Units/L (13-39); BUN/Creatinine Ratio 19 (6-26); Bilirubin,Total 0.8 mg/dL (0.3-1.0); Blood Urea Nitrogen 15 mg/dL (6-20); Calcium 7.9 mg/dL (8.6-10.3); Carbon Dioxide 22 mEq/L (23-29); Chloride 100 mEq/L (98-107); Globulin 2.6 g/dL (2.4-3.5); Glucose 165 mg/dL (70-105); Magnesium 1.8 mg/dL (1.6-2.6); Osmolality,Calculated 275 (280-300); Phosphorous 2.1 mg/dL (2.7-4.5); Potassium 3.5 mEq/L (3.5-5.1); Sodium 130 mEq/L (136-145); Total Protein 5.9 g/dL (6.4-8.9); eGFR For African Americans > 60 (> 60); eGFR For Non-African Americans > 60 (> 60)
[2020-01-10] MEDS ORDERED: Naloxone 0.4 MG/ML INJ IVP PRN (19:38)
[2020-01-10] MEDS ORDERED: Ondansetron 4 MG/2 ML VIAL IVP PRN (19:38)
[2020-01-10] MEDS ORDERED: D5% in Water 1,000 ML IVC PRN (19:44)
[2020-01-10] MEDS ORDERED: *HR* Dextrose 50 % in Water (Syg) 50 ML SYRINGE IVP PRN (19:44)
[2020-01-10] MEDS ORDERED: Dextrose Gel 15 GM/37.5 ML TUBE PO PRN ×2 (19:44)
[2020-01-10] MEDS ORDERED: Insulin DETEMIR 100 UNIT/ML X5UNITS SQ SCH (21:00)
[2020-01-10] MEDS: Insulin LISPRO 300 UNITS/3 ML VIAL SQ SCH ×2 (21:01→21:10)
[2020-01-10] MEDS: Ammonium Lactate 30 APPL/225 GM BOTTLE TP SCH (21:02)
[2020-01-10] MEDS: *HR* Heparin 5,000 UNIT/ML VIAL SQ SCH (21:02)
[2020-01-10] MEDS: Gabapentin 300 MG CAPSULE PO SCH (21:14)
[2020-01-10] MEDS: Ringers Solution, Lactated 1,000 ML IVC SCH (22:28)
[2020-01-11] MEDS: Insulin LISPRO 300 UNITS/3 ML VIAL SQ SCH ×9 (00:06→16:33)
[2020-01-11 00:20] LABS: Amphetamine Screen,Urine Negative ng/mL (Cutoff=1000); Barbiturate Screen,Urine Negative ng/mL (Cutoff=200); Benzodiazepines Screen,Urine Negative ng/mL (Cutoff=200); Cannabinoid Screen,Urine Negative ng/mL (Cutoff = 50); Cocaine Screen,Urine Negative ng/mL (Cutoff= 300); Opiate Screen,Urine Negative ng/mL (Cutoff=300); Phencyclidine Screen,Urine Negative ng/mL (Cutoff=25)
[2020-01-11 00:31] LABS: BUN/Creatinine Ratio 14 (6-26); Blood Urea Nitrogen 14 mg/dL (6-20); Calcium 7.8 mg/dL (8.6-10.3); Carbon Dioxide 21 mEq/L (23-29); Chloride 101 mEq/L (98-107); Glucose 292 mg/dL (70-105); Osmolality,Calculated 281 (280-300); Potassium 3.4 mEq/L (3.5-5.1); Sodium 130 mEq/L (136-145); eGFR For African Americans > 60 (> 60); eGFR For Non-African Americans > 60 (> 60)
[2020-01-11 00:32] LABS: Troponin I < 0.03 ng/mL (< 0.04)
[2020-01-11 02:34] LABS: Basophils % 0.5 %; Eosinophils # 0.1 K/mcL (0.0-0.6); Hematocrit 31.8 % (37.5-50.1); Immature Granulocytes % 0.2 % (0-4); Lymphocytes # 2.1 K/mcL (0.6-4.6); Lymphocytes % 38.2 %; Mean Corpuscular Hemoglobin 31.4 pg (28.0-33.3); Mean Corpuscular Volume 92.4 fL (83.0-100.0); Monocytes # 0.4 K/mcL (0.0-1.3); Monocytes % 7.3 %; Neutrophils # 2.9 K/mcL (1.6-8.9); Platelet Count 202 K/mcL (140-400); Red Blood Count 3.44 M/mcL (4.19-5.50); Red Cell Distribution Width 13.7 % (11.5-14.5); Segmented Neutrophils % 51.8 %; White Blood Count 5.5 K/mcL (4.3-11.1)
[2020-01-11 02:41] LABS: Hemoglobin 10.8 g/dL (12.9-16.9)
[2020-01-11 02:49] LABS: Alanine Aminotransferase 35 Units/L (7-52); Albumin 3.2 g/dL (3.5-5.7); Albumin/Globulin Ratio 1.3 (1.1-2.2); Alkaline Phosphatase 113 Units/L (34-104); Aspartate Amino Transferase 20 Units/L (13-39); BUN/Creatinine Ratio 15 (6-26); Bilirubin,Total 0.5 mg/dL (0.3-1.0); Blood Urea Nitrogen 14 mg/dL (6-20); Carbon Dioxide 25 mEq/L (23-29); Chloride 101 mEq/L (98-107); Globulin 2.4 g/dL (2.4-3.5); Glucose 170 mg/dL (70-105); Osmolality,Calculated 278 (280-300); Potassium 3.2 mEq/L (3.5-5.1); Sodium 132 mEq/L (136-145); Total Protein 5.6 g/dL (6.4-8.9); eGFR For African Americans > 60 (> 60); eGFR For Non-African Americans > 60 (> 60)
[2020-01-11] MEDS: Ringers Solution, Lactated 1,000 ML IVC SCH (04:56)
[2020-01-11] MEDS: *HR* Heparin 5,000 UNIT/ML VIAL SQ SCH ×3 (04:57→23:20)
[2020-01-11] MEDS: Ammonium Lactate 30 APPL/225 GM BOTTLE TP SCH ×2 (05:03→20:54)
[2020-01-11] MEDS: Gabapentin 300 MG CAPSULE PO SCH ×3 (08:44→20:59)
[2020-01-11] MEDS: *HR* HYDROcodone/Acet 5/325 mg TABLET PO PRN ×2 (11:11→17:30)
[2020-01-11] MEDS ORDERED: Dextrose Gel 15 GM/37.5 ML TUBE PO PRN ×2 (15:03)
[2020-01-11] MEDS ORDERED: D5% in Water 1,000 ML IVC PRN (15:03)
[2020-01-11] MEDS ORDERED: *HR* Dextrose 50 % in Water (Syg) 50 ML SYRINGE IVP PRN (15:03)
[2020-01-11] MEDS: Nicotine 21 MG PATCH.TD24 TD SCH ×2 (16:28→17:35)
[2020-01-11] MEDS ORDERED: Insulin LISPRO 300 UNITS/3 ML VIAL SQ SCH (21:00)
[2020-01-11] MEDS ORDERED: *HR* OxyCODONE Immed Rel 5 MG TABLET PO ONE (21:46)
[2020-01-12 06:15] LABS: Basophils % 0.8 %; Eosinophils # 0.1 K/mcL (0.0-0.6); Eosinophils % 1.6 %; Hematocrit 34.8 % (37.5-50.1); Hemoglobin 11.9 g/dL (12.9-16.9); Immature Granulocytes % 0.3 % (0-4); Lymphocytes # 1.3 K/mcL (0.6-4.6); Lymphocytes % 34.6 %; Mean Corpuscular HGB Conc 34.2 g/dL (31.6-35.5); Mean Corpuscular Hemoglobin 31.7 pg (28.0-33.3); Mean Corpuscular Volume 92.8 fL (83.0-100.0); Monocytes # 0.2 K/mcL (0.0-1.3); Monocytes % 5.5 %; Neutrophils # 2.2 K/mcL (1.6-8.9); Platelet Count 169 K/mcL (140-400); Red Blood Count 3.75 M/mcL (4.19-5.50); Red Cell Distribution Width 13.6 % (11.5-14.5); Segmented Neutrophils % 57.2 %; White Blood Count 3.8 K/mcL (4.3-11.1)
[2020-01-12 06:39] LABS: % Iron Saturation 25 % (20-55); BUN/Creatinine Ratio 14 (6-26); Blood Urea Nitrogen 14 mg/dL (6-20); Calcium 8.6 mg/dL (8.6-10.3); Carbon Dioxide 25 mEq/L (23-29); Chloride 99 mEq/L (98-107); Glucose 497 mg/dL (70-105); Iron 81 mcg/dL (65-175); Magnesium 1.9 mg/dL (1.6-2.6); Osmolality,Calculated 293 (280-300); Potassium 4.5 mEq/L (3.5-5.1); Sodium 130 mEq/L (136-145); Transferrin 236 mg/dL (203-362); eGFR For African Americans > 60 (> 60); eGFR For Non-African Americans > 60 (> 60)
[2020-01-12 06:53] LABS: Ferritin 88 ng/mL (20-250)
[2020-01-12 06:58] LABS: Folate 8.4 ng/mL (3.0-16.0)
[2020-01-12 07:41] LABS: Estimated Average Glucose 309 mg/dl
[2020-01-12] MEDS: Insulin LISPRO 300 UNITS/3 ML VIAL SQ SCH ×2 (08:20→11:33)
[2020-01-12] MEDS: *HR* Heparin 5,000 UNIT/ML VIAL SQ SCH ×2 (08:21→14:13)
[2020-01-12] MEDS: Nicotine 21 MG PATCH.TD24 TD SCH (08:21)
[2020-01-12] MEDS: Gabapentin 300 MG CAPSULE PO SCH ×2 (08:22→14:11)
[2020-01-12] MEDS: Ammonium Lactate 30 APPL/225 GM BOTTLE TP SCH (08:28)
[2020-01-12] MEDS: *HR* HYDROcodone/Acet 5/325 mg TABLET PO PRN ×2 (08:34→14:12)
[2020-01-12] MEDS ORDERED: 0.9 % Sodium Chloride 1,000 ML IVC ONE (08:55)
[2020-01-12] MEDS ORDERED: Insulin DETEMIR 100 UNIT/ML X5UNITS SQ SCH (09:00)
[2020-01-12 09:57] LABS: BUN/Creatinine Ratio 16 (6-26); Blood Urea Nitrogen 17 mg/dL (6-20); Calcium 8.8 mg/dL (8.6-10.3); Carbon Dioxide 23 mEq/L (23-29); Chloride 93 mEq/L (98-107); Glucose 651 mg/dL (70-105); Osmolality,Calculated 294 (280-300); Potassium 4.6 mEq/L (3.5-5.1); Sodium 126 mEq/L (136-145); eGFR For African Americans > 60 (> 60); eGFR For Non-African Americans > 60 (> 60)
[2020-01-12] MEDS ORDERED: Insulin Human Regular 10 UNIT in 0.9 % Sodium Chloride 10 ML IV ONE (10:49)
[2020-01-12 10:52] VITALS: BP 126/79
[2020-01-12] MEDS ORDERED: 0.9 % Sodium Chloride 500 ML IVC ONE (11:31)
== END 2020-01-12 15:07 | disposition home or self-care (01) ==
LOC: EMEROOARM 15:33 → 3ANU 15:33 → SUATTDRO 18:34 → 3ANU 19:38
PROVIDERS: ADMIT Internal Medicine; ATTEND Family Medicine

== ENCOUNTER 2020-02-20 09:31 | Inpatient (IN) ==
[2020-02-20] MEDS ORDERED: Ondansetron 4 MG/2 ML VIAL IVP ONE (09:59)
[2020-02-20] MEDS ORDERED: *HR* FentaNYL (PF) 100 MCG/2 ML VIAL IVP ONE ×2 (09:59→11:36)
[2020-02-20] MEDS: 0.9 % Sodium Chloride 1,000 ML IVC ONE ×2 (10:04→13:45)
[2020-02-20 10:07] LABS: Basophils # 0.1 K/mcL (0.0-0.2); Basophils % 0.5 %; Hematocrit 49.6 % (37.5-50.1); Hemoglobin 16.1 g/dL (12.9-16.9); Immature Granulocytes % 1.7 % (0-4); Lymphocytes # 0.7 K/mcL (0.6-4.6); Mean Corpuscular HGB Conc 32.5 g/dL (31.6-35.5); Mean Corpuscular Hemoglobin 31.9 pg (28.0-33.3); Mean Corpuscular Volume 98.2 fL (83.0-100.0); Mean Platelet Volume 10.1 fL (9.4-12.4); Monocytes # 0.3 K/mcL (0.0-1.3); Monocytes % 2.2 %; Neutrophils # 13.1 K/mcL (1.6-8.9); Platelet Count 331 K/mcL (140-400); Red Blood Count 5.05 M/mcL (4.19-5.50); Red Cell Distribution Width 12.2 % (11.5-14.5); Segmented Neutrophils % 90.6 %; White Blood Count 14.4 K/mcL (4.3-11.1)
[2020-02-20 10:14] LABS: VBG HCO3 3 mEq/L (21-27); VBG PCO2 19 mmHg (41-51); VBG PH 6.86 pH Units (7.32-7.42); VBG PO2 64 mmHg (25-50)
[2020-02-20 10:54] LABS: Alanine Aminotransferase 24 Units/L (7-52); Albumin 4.8 g/dL (3.5-5.7); Albumin/Globulin Ratio 1.5 (1.1-2.2); Alkaline Phosphatase 129 Units/L (34-104); Aspartate Amino Transferase 12 Units/L (13-39); BUN/Creatinine Ratio 14 (6-26); Bilirubin,Total 0.5 mg/dL (0.3-1.0); Blood Urea Nitrogen 22 mg/dL (6-20); Calcium 9.1 mg/dL (8.6-10.3); Carbon Dioxide < 4 mEq/L (23-29); Chloride 93 mEq/L (98-107); Globulin 3.2 g/dL (2.4-3.5); Glucose 583 mg/dL (70-105); Magnesium 2.2 mg/dL (1.6-2.6); Osmolality,Calculated 294 (280-300); Phosphorous 5.2 mg/dL (2.7-4.5); Potassium 5.4 mEq/L (3.5-5.1); Sodium 127 mEq/L (136-145); Troponin I < 0.03 ng/mL (< 0.04); eGFR For African Americans > 60 (> 60); eGFR For Non-African Americans 50 (> 60)
[2020-02-20] MEDS ORDERED: Ringers Solution, Lactated 1,000 ML IVC ONE (10:55)
[2020-02-20] MEDS ORDERED: D5% in 0.45% NACL 1,000 ML IVC PRN (11:02)
[2020-02-20] MEDS ORDERED: *HR* Dextrose 50 % in Water (Vial) 50 ML VIAL IVP PRN ×2 (11:02→13:02)
[2020-02-20] MEDS ORDERED: Insulin Human Regular 100 UNIT in 0.9 % Sodium Chloride 100 ML IVC SCH ×2 (11:15→13:15)
[2020-02-20] MEDS: Sodium Bicarbonate 150 MEQ in 0.45 % Sodium Chloride 1,000 ML IVC SCH ×3 (11:31→22:20)
[2020-02-20] MEDS ORDERED: Acetaminophen 325 MG TABLET PO PRN (12:58)
[2020-02-20] MEDS ORDERED: Naloxone 0.4 MG/ML INJ IVP PRN (12:58)
[2020-02-20] MEDS ORDERED: Pantoprazole 40 MG VIAL IVP SCH (13:15)
[2020-02-20] MEDS ORDERED: 0.9 % Sodium Chloride 1,000 ML ONE (13:45)
[2020-02-20] MEDS ORDERED: *HR* OxyCODONE Immed Rel 5 MG TABLET PO PRN (14:02)
[2020-02-20] MEDS: Ondansetron 4 MG/2 ML VIAL IVP PRN ×2 (14:12→19:48)
[2020-02-20] MEDS ORDERED: 0.9 % Sodium Chloride 500 ML ONE (14:58)
[2020-02-20] MEDS: *HR* Heparin 5,000 UNIT/ML VIAL SQ SCH ×2 (15:45→23:01)
[2020-02-20 15:48] LABS: BUN/Creatinine Ratio 20 (6-26); Blood Urea Nitrogen 22 mg/dL (6-20); Calcium 8.1 mg/dL (8.6-10.3); Carbon Dioxide 7 mEq/L (23-29); Chloride 108 mEq/L (98-107); Glucose 212 mg/dL (70-105); Osmolality,Calculated 294 (280-300); Potassium 3.9 mEq/L (3.5-5.1); Sodium 137 mEq/L (136-145); Troponin I < 0.03 ng/mL (< 0.04); eGFR For African Americans > 60 (> 60); eGFR For Non-African Americans > 60 (> 60)
[2020-02-20] MEDS: D5% in 0.45% NACL w KCl 20 MEQ/1,000 ML MLS IVC PRN ×3 (15:49→23:00)
[2020-02-20 17:25] LABS: Bacteria,Urine Few per hpf (None-Few); Bilirubin,Urine Negative (Negative); Blood,Urine Small (Negative); Clarity,Urine Clear (Clear); Color,Urine Light-Yellow (Yellow); Glucose,Urine (UA) >=1000 mg/dL (Normal); Ketones,Urine >150 mg/dL (Negative); Leukocyte Esterase,Urine Negative (Negative); Mucus,Urine Few per lpf (None-Few); Nitrite,Urine Negative (Negative); Protein,Urine 50 mg/dL (Neg-Trace); RBC,Urine 0-3 per hpf (0-3); Specific Gravity,Urine 1.019 (1.010-1.025); Squamous Epithelial Cell,Urine Few per hpf (None-Few); Urobilinogen,Urine Normal (Normal); WBC,Urine 0-3 per hpf (0-3)
[2020-02-20 17:50] LABS: Amphetamine Screen,Urine Negative ng/mL (Cutoff=1000); Barbiturate Screen,Urine Negative ng/mL (Cutoff=200); Benzodiazepines Screen,Urine Negative ng/mL (Cutoff=200); Cannabinoid Screen,Urine Negative ng/mL (Cutoff = 50); Cocaine Screen,Urine Negative ng/mL (Cutoff= 300); Opiate Screen,Urine Negative ng/mL (Cutoff=300); Phencyclidine Screen,Urine Negative ng/mL (Cutoff=25)
[2020-02-20] MEDS ORDERED: *HR* Promethazine 25 MG/ML VIAL IVP PRN (22:04)
[2020-02-20 22:23] LABS: BUN/Creatinine Ratio 19 (6-26); Blood Urea Nitrogen 18 mg/dL (6-20); Carbon Dioxide 16 mEq/L (23-29); Chloride 110 mEq/L (98-107); Glucose 175 mg/dL (70-105); Osmolality,Calculated 286 (280-300); Potassium 3.7 mEq/L (3.5-5.1); Sodium 135 mEq/L (136-145); eGFR For African Americans > 60 (> 60); eGFR For Non-African Americans > 60 (> 60)
[2020-02-21] MEDS: D5% in 0.45% NACL w KCl 20 MEQ/1,000 ML MLS IVC PRN (02:56)
[2020-02-21 03:08] LABS: VBG HCO3 21 mEq/L (21-27); VBG PCO2 39 mmHg (41-51); VBG PH 7.33 pH Units (7.32-7.42); VBG PO2 138 mmHg (25-50)
[2020-02-21 03:23] LABS: BUN/Creatinine Ratio 17 (6-26); Blood Urea Nitrogen 15 mg/dL (6-20); Calcium 7.9 mg/dL (8.6-10.3); Carbon Dioxide 20 mEq/L (23-29); Chloride 112 mEq/L (98-107); Glucose 121 mg/dL (70-105); Osmolality,Calculated 284 (280-300); Potassium 3.4 mEq/L (3.5-5.1); Sodium 136 mEq/L (136-145); eGFR For African Americans > 60 (> 60); eGFR For Non-African Americans > 60 (> 60)
[2020-02-21] MEDS ORDERED: Dextrose Gel 15 GM/37.5 ML TUBE PO PRN ×2 (03:37→08:28)
[2020-02-21] MEDS ORDERED: D5% in Water 1,000 ML IVC PRN (03:37)
[2020-02-21] MEDS ORDERED: Insulin DETEMIR 100 UNIT/ML X5UNITS SQ SCH ×3 (03:45→09:00)
[2020-02-21 06:20] LABS: Basophils % 0.1 %; Eosinophils % 0.4 %; Hemoglobin 12.3 g/dL (12.9-16.9); Immature Granulocytes % 0.5 % (0-4); Lymphocytes % 11.7 %; Mean Corpuscular HGB Conc 34.2 g/dL (31.6-35.5); Mean Corpuscular Hemoglobin 31.4 pg (28.0-33.3); Mean Corpuscular Volume 91.8 fL (83.0-100.0); Mean Platelet Volume 9.9 fL (9.4-12.4); Monocytes # 0.6 K/mcL (0.0-1.3); Monocytes % 7.1 %; Neutrophils # 6.5 K/mcL (1.6-8.9); Platelet Count 186 K/mcL (140-400); Red Blood Count 3.92 M/mcL (4.19-5.50); Red Cell Distribution Width 12.1 % (11.5-14.5); Segmented Neutrophils % 80.2 %; White Blood Count 8.1 K/mcL (4.3-11.1)
[2020-02-21] MEDS ORDERED: Insulin LISPRO 300 UNITS/3 ML VIAL SQ SCH ×3 (07:30→21:00)
[2020-02-21] MEDS: *HR* Heparin 5,000 UNIT/ML VIAL SQ SCH ×3 (08:20→23:26)
[2020-02-21] MEDS ORDERED: Acetaminophen 325 MG TABLET PO PRN (08:28)
[2020-02-21] MEDS ORDERED: Naloxone 0.4 MG/ML INJ IVP PRN (08:28)
[2020-02-21] MEDS ORDERED: *HR* Dextrose 50 % in Water (Vial) 50 ML VIAL IVP PRN (08:28)
[2020-02-21] MEDS ORDERED: Ondansetron 4 MG/2 ML VIAL IVP PRN (08:28)
[2020-02-21] MEDS ORDERED: Ammonium Lactate 30 APPL/225 GM BOTTLE TP SCH (09:00)
[2020-02-21] MEDS ORDERED: Gabapentin 300 MG CAPSULE PO SCH (09:00)
[2020-02-21] MEDS: Gabapentin 300 MG CAPSULE PO SCH ×3 (09:34→20:43)
[2020-02-21] MEDS: Ammonium Lactate 30 APPL/225 GM BOTTLE TP SCH ×2 (09:34→20:52)
[2020-02-21] MEDS: Insulin LISPRO 300 UNITS/3 ML VIAL SQ SCH ×2 (11:27→16:57)
[2020-02-21] MEDS: Insulin DETEMIR 100 UNIT/ML X5UNITS SQ SCH (20:44)
[2020-02-22] MEDS: *HR* OxyCODONE Immed Rel 5 MG TABLET PO PRN ×3 (03:44→14:23)
[2020-02-22 08:43] LABS: BUN/Creatinine Ratio 15 (6-26); Blood Urea Nitrogen 11 mg/dL (6-20); Calcium 8.4 mg/dL (8.6-10.3); Carbon Dioxide 25 mEq/L (23-29); Chloride 100 mEq/L (98-107); Glucose 96 mg/dL (70-105); Osmolality,Calculated 275 (280-300); Potassium 2.8 mEq/L (3.5-5.1); Sodium 133 mEq/L (136-145); eGFR For African Americans > 60 (> 60); eGFR For Non-African Americans > 60 (> 60)
[2020-02-22] MEDS ORDERED: Potassium Chloride 40 MEQ, Lidocaine 1% 2 ML in 0.9 % Sodium Chloride 500 ML IVPB ONE (08:46)
[2020-02-22] MEDS: Gabapentin 300 MG CAPSULE PO SCH ×2 (09:06→14:25)
[2020-02-22] MEDS: Insulin LISPRO 300 UNITS/3 ML VIAL SQ SCH ×2 (09:06→13:35)
[2020-02-22] MEDS: *HR* Heparin 5,000 UNIT/ML VIAL SQ SCH (09:07)
[2020-02-22] MEDS: Insulin DETEMIR 100 UNIT/ML X5UNITS SQ SCH (09:13)
[2020-02-22] MEDS: Ammonium Lactate 30 APPL/225 GM BOTTLE TP SCH (10:36)
[2020-02-22 15:56] VITALS: BP 128/86
[2020-02-22 16:30] LABS: BUN/Creatinine Ratio 14 (6-26); Blood Urea Nitrogen 9 mg/dL (6-20); Calcium 8.7 mg/dL (8.6-10.3); Carbon Dioxide 26 mEq/L (23-29); Chloride 99 mEq/L (98-107); Glucose 140 mg/dL (70-105); Osmolality,Calculated 271 (280-300); Potassium 3.3 mEq/L (3.5-5.1); Sodium 130 mEq/L (136-145); eGFR For African Americans > 60 (> 60); eGFR For Non-African Americans > 60 (> 60)
== END 2020-02-22 18:00 | disposition home or self-care (01) | DRG 420 ==
LOC: EMEROOARM 09:31 → ICNU 09:31 → SUATTDRO 13:08 → ICNU 13:47 → 3ANU 02-21 09:32
PROVIDERS: ADMIT Family Medicine; ATTEND Family Medicine

== ENCOUNTER 2020-03-11 10:06 | Inpatient (IN) ==
[2020-03-11] MEDS ORDERED: 0.9 % Sodium Chloride 1,000 ML IVC SCH (10:15)
[2020-03-11] MEDS ORDERED: Insulin Human Regular 100 UNIT in 0.9 % Sodium Chloride 100 ML IVC SCH ×2 (10:15→17:15)
[2020-03-11] MEDS ORDERED: Ringers Solution, Lactated 2,000 ML IVC ONE (10:26)
[2020-03-11 10:37] LABS: Bacteria,Urine Few per hpf (None-Few); Bilirubin,Urine Negative (Negative); Blood,Urine Negative (Negative); Clarity,Urine Clear (Clear); Color,Urine Colorless (Yellow); Glucose,Urine (UA) >=1000 mg/dL (Normal); Ketones,Urine 150 mg/dL (Negative); Leukocyte Esterase,Urine Negative (Negative); Mucus,Urine Few per lpf (None-Few); Nitrite,Urine Negative (Negative); PH,Urine 5.5 pH Units (5.0-8.0); Protein,Urine 50 mg/dL (Neg-Trace); RBC,Urine 0-3 per hpf (0-3); Specific Gravity,Urine 1.024 (1.010-1.025); Squamous Epithelial Cell,Urine Few per hpf (None-Few); Urobilinogen,Urine Normal (Normal); WBC,Urine 0-3 per hpf (0-3)
[2020-03-11 10:58] LABS: Basophils % 0.2 %; Eosinophils % 0.1 %; Hematocrit 44.2 % (37.5-50.1); Hemoglobin 13.4 g/dL (12.9-16.9); Lymphocytes # 0.9 K/mcL (0.6-4.6); Lymphocytes % 6.4 %; Mean Corpuscular HGB Conc 30.3 g/dL (31.6-35.5); Mean Corpuscular Hemoglobin 31.5 pg (28.0-33.3); Mean Corpuscular Volume 103.8 fL (83.0-100.0); Monocytes # 0.4 K/mcL (0.0-1.3); Monocytes % 2.6 %; Neutrophils # 12.3 K/mcL (1.6-8.9); Platelet Count 340 K/mcL (140-400); Red Blood Count 4.26 M/mcL (4.19-5.50); Red Cell Distribution Width 12.3 % (11.5-14.5); Segmented Neutrophils % 89.7 %; White Blood Count 13.7 K/mcL (4.3-11.1)
[2020-03-11 11:11] LABS: VBG HCO3 4 mEq/L (21-27); VBG PCO2 20 mmHg (41-51); VBG PH 6.85 pH Units (7.32-7.42); VBG PO2 96 mmHg (25-50)
[2020-03-11 11:34] LABS: Alanine Aminotransferase 34 Units/L (7-52); Albumin 4.3 g/dL (3.5-5.7); Albumin/Globulin Ratio 1.4 (1.1-2.2); Alkaline Phosphatase 119 Units/L (34-104); Aspartate Amino Transferase 14 Units/L (13-39); BUN/Creatinine Ratio 24 (6-26); Bilirubin,Total 0.5 mg/dL (0.3-1.0); Blood Urea Nitrogen 38 mg/dL (6-20); Calcium 8.3 mg/dL (8.6-10.3); Carbon Dioxide < 4 mEq/L (23-29); Chloride 91 mEq/L (98-107); Glucose 771 mg/dL (70-105); Magnesium 2.6 mg/dL (1.6-2.6); Osmolality,Calculated 308 (280-300); Potassium 5.3 mEq/L (3.5-5.1); Sodium 126 mEq/L (136-145); Total Protein 7.3 g/dL (6.4-8.9); Troponin I < 0.03 ng/mL (< 0.04); eGFR For African Americans 58 (> 60); eGFR For Non-African Americans 48 (> 60)
[2020-03-11] MEDS ORDERED: Acetaminophen 325 MG TABLET PO PRN (13:16)
[2020-03-11] MEDS ORDERED: Naloxone 0.4 MG/ML INJ IVP PRN (13:16)
[2020-03-11] MEDS ORDERED: *HR* Dextrose 50 % in Water (Vial) 50 ML VIAL IVP PRN (13:16)
[2020-03-11] MEDS ORDERED: Insulin Regular, Human 100 UNIT/ML IV PRN (13:16)
[2020-03-11] MEDS ORDERED: D5% in 0.45% NACL 1,000 ML IVC PRN (13:16)
[2020-03-11] MEDS ORDERED: *HR* Heparin 5,000 UNIT/ML VIAL SQ SCH (14:00)
[2020-03-11 14:11] LABS: INR 0.9; Prothrombin Time 9.8 Seconds (9.4-12.1)
[2020-03-11] MEDS ORDERED: *HR* Heparin 5,000 UNIT/ML VIAL IVP ONE (14:23)
[2020-03-11] MEDS ORDERED: *HR* Heparin 5,000 UNIT/ML VIAL IVP PRN ×2 (14:23)
[2020-03-11] MEDS ORDERED: Perflutren Lipid Microsphere 1.3 ML in 0.9 % Sodium Chloride 8.7 ML IVP PRN (14:23)
[2020-03-11 14:28] LABS: BUN/Creatinine Ratio 26 (6-26); Blood Urea Nitrogen 38 mg/dL (6-20); Calcium 8.5 mg/dL (8.6-10.3); Carbon Dioxide 5 mEq/L (23-29); Chloride 96 mEq/L (98-107); Glucose 602 mg/dL (70-105); Magnesium 2.6 mg/dL (1.6-2.6); Osmolality,Calculated 307 (280-300); Phosphorous 5.5 mg/dL (2.7-4.5); Potassium 4.6 mEq/L (3.5-5.1); Sodium 130 mEq/L (136-145); eGFR For African Americans > 60 (> 60); eGFR For Non-African Americans 53 (> 60)
[2020-03-11] MEDS: 0.9 % Sodium Chloride 1,000 ML IVC SCH ×4 (14:35→23:47)
[2020-03-11 14:44] LABS: Heparin anti-factor XA UFH 0.09 IU/mL (0.30-0.70)
[2020-03-11] MEDS: 0.9 % Sodium Chloride w KCl 20 MEQ/1,000 ML MLS IVC SCH ×3 (14:46→23:41)
[2020-03-11] MEDS: Insulin Human Regular 100 UNIT in 0.9 % Sodium Chloride 100 ML IVC SCH (14:46)
[2020-03-11] MEDS: Heparin 25,000 UNIT/250 ML D5W 25,000 UNIT/250 ML IV.SOLN IVC SCH (15:07)
[2020-03-11] MEDS: Pantoprazole 40 MG VIAL IVP SCH (15:09)
[2020-03-11] MEDS ORDERED: D5% in 0.45% NACL w KCl 20 MEQ/1,000 ML MLS IVC SCH (17:15)
[2020-03-11 18:46] LABS: VBG HCO3 5 mEq/L (21-27); VBG Ionized Calcium 1.18 mmol/L (1.15-1.35); VBG PCO2 18 mmHg (41-51); VBG PH 7.08 pH Units (7.32-7.42); VBG PO2 182 mmHg (25-50)
[2020-03-11 19:00] LABS: BUN/Creatinine Ratio 29 (6-26); Blood Urea Nitrogen 35 mg/dL (6-20); Calcium 8.1 mg/dL (8.6-10.3); Carbon Dioxide 4 mEq/L (23-29); Chloride 106 mEq/L (98-107); Glucose 139 mg/dL (70-105); Magnesium 2.4 mg/dL (1.6-2.6); Osmolality,Calculated 292 (280-300); Phosphorous 2.4 mg/dL (2.7-4.5); Sodium 136 mEq/L (136-145); eGFR For African Americans > 60 (> 60); eGFR For Non-African Americans > 60 (> 60)
[2020-03-11] MEDS ORDERED: levoFLOXacin 750 MG/150 ML 750 MG/150 ML BAG IVPB SCH (19:15)
[2020-03-11] MEDS: Potassium Chloride 20 MEQ in D5% in Lactated Ringers 1,000 ML IVC SCH (20:28)
[2020-03-11] MEDS ORDERED: Ketorolac 30 MG/ML VIAL IVP ONE (21:24)
[2020-03-11] MEDS: Ondansetron 4 MG/2 ML VIAL IVP PRN (21:30)
[2020-03-11 23:11] LABS: VBG Ionized Calcium 1.12 mmol/L (1.15-1.35)
[2020-03-11 23:23] LABS: BUN/Creatinine Ratio 27 (6-26); Blood Urea Nitrogen 30 mg/dL (6-20); Calcium 7.8 mg/dL (8.6-10.3); Carbon Dioxide 4 mEq/L (23-29); Chloride 103 mEq/L (98-107); Glucose 251 mg/dL (70-105); Osmolality,Calculated 291 (280-300); Phosphorous 2.9 mg/dL (2.7-4.5); Sodium 133 mEq/L (136-145); eGFR For African Americans > 60 (> 60); eGFR For Non-African Americans > 60 (> 60)
[2020-03-11] MEDS ORDERED: 0.9 % Sodium Chloride 1,000 ML IV ONE (23:35)
[2020-03-12] MEDS: Potassium Chloride 20 MEQ in D5% in Lactated Ringers 1,000 ML IVC SCH ×4 (01:05→17:32)
[2020-03-12] MEDS: Ondansetron 4 MG/2 ML VIAL IVP PRN (04:10)
[2020-03-12 06:09] LABS: Eosinophils % 0.3 %; Hemoglobin 10.2 g/dL (12.9-16.9); Immature Granulocytes % 0.3 % (0-4); Lymphocytes # 0.7 K/mcL (0.6-4.6); Lymphocytes % 11.3 %; Mean Platelet Volume 9.6 fL (9.4-12.4); Monocytes # 0.4 K/mcL (0.0-1.3); Monocytes % 6.9 %; Platelet Count 155 K/mcL (140-400); Red Blood Count 3.19 M/mcL (4.19-5.50); Red Cell Distribution Width 12.1 % (11.5-14.5); Segmented Neutrophils % 81.2 %; White Blood Count 6.1 K/mcL (4.3-11.1)
[2020-03-12 06:16] LABS: VBG HCO3 14 mEq/L (21-27); VBG PCO2 25 mmHg (41-51); VBG PH 7.35 pH Units (7.32-7.42); VBG PO2 165 mmHg (25-50)
[2020-03-12 06:29] LABS: Alanine Aminotransferase 20 Units/L (7-52); Albumin 3.1 g/dL (3.5-5.7); Albumin/Globulin Ratio 1.6 (1.1-2.2); Alkaline Phosphatase 71 Units/L (34-104); Aspartate Amino Transferase 10 Units/L (13-39); BUN/Creatinine Ratio 24 (6-26); Bilirubin,Direct 0.1 mg/dL (0.0-0.2); Bilirubin,Indirect 0.7 mg/dL (0.0-1.0); Bilirubin,Total 0.8 mg/dL (0.3-1.0); Blood Urea Nitrogen 22 mg/dL (6-20); Calcium 7.2 mg/dL (8.6-10.3); Carbon Dioxide 13 mEq/L (23-29); Chloride 109 mEq/L (98-107); Creatine Kinase 39 Units/L (30-223); Glucose 144 mg/dL (70-105); Magnesium 1.8 mg/dL (1.6-2.6); Osmolality,Calculated 286 (280-300); Potassium 3.3 mEq/L (3.5-5.1); Sodium 135 mEq/L (136-145); Total Protein 5.1 g/dL (6.4-8.9); eGFR For African Americans > 60 (> 60); eGFR For Non-African Americans > 60 (> 60)
[2020-03-12] MEDS ORDERED: Calcium Gluconate 1gm/50mL 1 GM/50 ML BAG IVPB PRN (06:39)
[2020-03-12] MEDS ORDERED: Potassium Phosphate 44 MEQ in 0.9 % Sodium Chloride 250 ML IVPB PRN (06:39)
[2020-03-12] MEDS: 0.9 % Sodium Chloride w KCl 20 MEQ/1,000 ML MLS IVC SCH ×4 (06:49→15:28)
[2020-03-12] MEDS: 0.9 % Sodium Chloride 1,000 ML IVC SCH ×4 (06:50→17:32)
[2020-03-12] MEDS: Pantoprazole 40 MG VIAL IVP SCH (08:26)
[2020-03-12 08:52] LABS: Estimated Average Glucose 298 mg/dl
[2020-03-12] MEDS ORDERED: Isovue-370 500 ML BOTTLE IVP ONE (09:03)
[2020-03-12] MEDS: Insulin Human Regular 100 UNIT in 0.9 % Sodium Chloride 100 ML IVC SCH (10:00)
[2020-03-12 12:06] LABS: VBG Ionized Calcium 1.14 mmol/L (1.15-1.35)
[2020-03-12 12:23] LABS: Alanine Aminotransferase 19 Units/L (7-52); Albumin 2.9 g/dL (3.5-5.7); Albumin/Globulin Ratio 1.5 (1.1-2.2); Alkaline Phosphatase 66 Units/L (34-104); Aspartate Amino Transferase 9 Units/L (13-39); BUN/Creatinine Ratio 22 (6-26); Bilirubin,Total 0.8 mg/dL (0.3-1.0); Blood Urea Nitrogen 17 mg/dL (6-20); Calcium 7.5 mg/dL (8.6-10.3); Carbon Dioxide 20 mEq/L (23-29); Chloride 108 mEq/L (98-107); Globulin 1.9 g/dL (2.4-3.5); Glucose 150 mg/dL (70-105); Magnesium 1.7 mg/dL (1.6-2.6); Osmolality,Calculated 282 (280-300); Phosphorous 1.3 mg/dL (2.7-4.5); Potassium 3.2 mEq/L (3.5-5.1); Sodium 134 mEq/L (136-145); Total Protein 4.8 g/dL (6.4-8.9); eGFR For African Americans > 60 (> 60); eGFR For Non-African Americans > 60 (> 60)
[2020-03-12] MEDS ORDERED: Ringers Solution, Lactated 1,000 ML ONE (13:42)
[2020-03-12] MEDS ORDERED: Ringers Solution, Lactated 1,000 ML IVC SCH (14:00)
[2020-03-12] MEDS ORDERED: *HR* Dextrose 50 % in Water (Vial) 50 ML VIAL IVP PRN ×2 (14:00→16:37)
[2020-03-12] MEDS ORDERED: D5% in Water 1,000 ML IVC PRN (14:00)
[2020-03-12] MEDS ORDERED: Dextrose Gel 15 GM/37.5 ML TUBE PO PRN ×4 (14:00→16:37)
[2020-03-12] MEDS ORDERED: Insulin LISPRO 300 UNITS/3 ML VIAL SQ SCH ×2 (16:30→21:00)
[2020-03-12] MEDS: Ringers Solution, Lactated 1,000 ML IVC SCH (16:35)
[2020-03-12] MEDS ORDERED: Albuterol 2.5 MG/3 ML NEBULIZER IH PRN (16:37)
[2020-03-12] MEDS ORDERED: Ondansetron 4 MG/2 ML VIAL IVP PRN (16:37)
[2020-03-12] MEDS ORDERED: Naloxone 0.4 MG/ML INJ IVP PRN (16:37)
[2020-03-12] MEDS: *HR* Heparin 5,000 UNIT/ML VIAL SQ SCH (17:14)
[2020-03-12] MEDS: Ipratropium/Albuterol Neb 3 ML IH SCH ×2 (17:26→21:29)
[2020-03-12] MEDS: Heparin 25,000 UNIT/250 ML D5W 25,000 UNIT/250 ML IV.SOLN IVC SCH (17:32)
[2020-03-12] MEDS ORDERED: *HR* Heparin 5,000 UNIT/ML VIAL SQ SCH (18:00)
[2020-03-12] MEDS: levoFLOXacin 750 MG/150 ML 750 MG/150 ML BAG IVPB SCH (18:24)
[2020-03-12] MEDS: Insulin LISPRO 300 UNITS/3 ML VIAL SQ SCH (20:45)
[2020-03-12] MEDS: Insulin DETEMIR 100 UNIT/ML X5UNITS SQ SCH (20:45)
[2020-03-13] MEDS: *HR* OxyCODONE Immed Rel 5 MG TABLET PO PRN ×3 (00:18→22:35)
[2020-03-13 01:56] LABS: Eosinophils % 0.4 %; Hematocrit 28.9 % (37.5-50.1); Hemoglobin 10.1 g/dL (12.9-16.9); Immature Granulocytes % 0.4 % (0-4); Lymphocytes # 1.2 K/mcL (0.6-4.6); Lymphocytes % 26.3 %; Mean Corpuscular HGB Conc 34.9 g/dL (31.6-35.5); Mean Corpuscular Hemoglobin 32.1 pg (28.0-33.3); Mean Corpuscular Volume 91.7 fL (83.0-100.0); Mean Platelet Volume 9.9 fL (9.4-12.4); Monocytes # 0.3 K/mcL (0.0-1.3); Monocytes % 5.6 %; Platelet Count 133 K/mcL (140-400); Red Blood Count 3.15 M/mcL (4.19-5.50); Segmented Neutrophils % 67.3 %; White Blood Count 4.5 K/mcL (4.3-11.1)
[2020-03-13] MEDS: Ringers Solution, Lactated 1,000 ML IVC SCH ×3 (02:14→22:36)
[2020-03-13 02:23] LABS: Alanine Aminotransferase 17 Units/L (7-52); Albumin 2.9 g/dL (3.5-5.7); Albumin/Globulin Ratio 1.4 (1.1-2.2); Alkaline Phosphatase 66 Units/L (34-104); Aspartate Amino Transferase 10 Units/L (13-39); BUN/Creatinine Ratio 12 (6-26); Bilirubin,Total 0.7 mg/dL (0.3-1.0); Blood Urea Nitrogen 9 mg/dL (6-20); Calcium 8.1 mg/dL (8.6-10.3); Carbon Dioxide 19 mEq/L (23-29); Chloride 99 mEq/L (98-107); Globulin 2.1 g/dL (2.4-3.5); Glucose 166 mg/dL (70-105); Magnesium 1.8 mg/dL (1.6-2.6); Osmolality,Calculated 270 (280-300); Potassium 2.9 mEq/L (3.5-5.1); Sodium 129 mEq/L (136-145); eGFR For African Americans > 60 (> 60); eGFR For Non-African Americans > 60 (> 60)
[2020-03-13] MEDS: Ipratropium/Albuterol Neb 3 ML IH SCH ×4 (03:29→21:51)
[2020-03-13] MEDS: Acetaminophen 325 MG TABLET PO PRN ×2 (03:44→14:40)
[2020-03-13] MEDS: Gabapentin 300 MG CAPSULE PO SCH ×3 (04:52→21:12)
[2020-03-13] MEDS: *HR* Heparin 5,000 UNIT/ML VIAL SQ SCH ×2 (04:52→17:02)
[2020-03-13] MEDS: Insulin LISPRO 300 UNITS/3 ML VIAL SQ SCH ×4 (09:05→21:15)
[2020-03-13] MEDS: Insulin DETEMIR 100 UNIT/ML X5UNITS SQ SCH ×2 (09:12→21:13)
[2020-03-13] MEDS: Pantoprazole 40 MG VIAL IVP SCH (09:20)
[2020-03-13] MEDS ORDERED: Potassium Phosphate 44 MEQ in 0.9 % Sodium Chloride 250 ML IVPB ONE (11:06)
[2020-03-13] MEDS ORDERED: Ketorolac 30 MG/ML VIAL IVP ONE (18:02)
[2020-03-13] MEDS: levoFLOXacin 750 MG/150 ML 750 MG/150 ML BAG IVPB SCH (18:39)
[2020-03-13 20:29] LABS: BUN/Creatinine Ratio 7 (6-26); Blood Urea Nitrogen 5 mg/dL (6-20); Calcium 8.1 mg/dL (8.6-10.3); Carbon Dioxide 27 mEq/L (23-29); Chloride 95 mEq/L (98-107); Glucose 190 mg/dL (70-105); Osmolality,Calculated 272 (280-300); Phosphorous 2.1 mg/dL (2.7-4.5); Potassium 3.3 mEq/L (3.5-5.1); Sodium 130 mEq/L (136-145); eGFR For African Americans > 60 (> 60); eGFR For Non-African Americans > 60 (> 60)
[2020-03-14] MEDS ORDERED: Ipratropium/Albuterol Neb 3 ML IH PRN (01:58)
[2020-03-14] MEDS: *HR* OxyCODONE Immed Rel 5 MG TABLET PO PRN (04:20)
[2020-03-14] MEDS: *HR* Heparin 5,000 UNIT/ML VIAL SQ SCH (06:12)
[2020-03-14] MEDS: Insulin DETEMIR 100 UNIT/ML X5UNITS SQ SCH (07:28)
[2020-03-14] MEDS: Insulin LISPRO 300 UNITS/3 ML VIAL SQ SCH ×2 (07:29→11:22)
[2020-03-14] MEDS: Pantoprazole 40 MG VIAL IVP SCH (08:06)
[2020-03-14] MEDS: Gabapentin 300 MG CAPSULE PO SCH ×2 (08:07→15:11)
[2020-03-14] MEDS: Ringers Solution, Lactated 1,000 ML IVC SCH (08:12)
[2020-03-14 09:58] LABS: Hematocrit 36.7 % (37.5-50.1); Mean Corpuscular HGB Conc 34.1 g/dL (31.6-35.5); Mean Corpuscular Hemoglobin 30.7 pg (28.0-33.3); Mean Corpuscular Volume 90.2 fL (83.0-100.0); Mean Platelet Volume 10.4 fL (9.4-12.4); Platelet Count 141 K/mcL (140-400); Red Blood Count 4.07 M/mcL (4.19-5.50); Red Cell Distribution Width 11.9 % (11.5-14.5)
[2020-03-14 10:07] LABS: Hemoglobin 12.5 g/dL (12.9-16.9); White Blood Count 7.7 K/mcL (4.3-11.1)
[2020-03-14 10:16] LABS: BUN/Creatinine Ratio 12 (6-26); Blood Urea Nitrogen 9 mg/dL (6-20); Calcium 8.3 mg/dL (8.6-10.3); Carbon Dioxide 30 mEq/L (23-29); Chloride 92 mEq/L (98-107); Glucose 95 mg/dL (70-105); Magnesium 1.6 mg/dL (1.6-2.6); Osmolality,Calculated 268 (280-300); Phosphorous 1.5 mg/dL (2.7-4.5); Potassium 2.8 mEq/L (3.5-5.1); Sodium 130 mEq/L (136-145); eGFR For African Americans > 60 (> 60); eGFR For Non-African Americans > 60 (> 60)
[2020-03-14] MEDS: Acetaminophen 325 MG TABLET PO PRN (10:18)
[2020-03-14] MEDS ORDERED: Potassium Phosphate 44 MEQ in 0.9 % Sodium Chloride 250 ML IVPB ONE (11:27)
[2020-03-14 14:34] VITALS: BP 124/80
== END 2020-03-14 16:43 | disposition home or self-care (01) | DRG 420 ==
LOC: EMEROOARM 10:06 → ICNU 13:16 → 3ANU 03-12 16:36
PROVIDERS: ADMIT Pediatrics; ATTEND Pediatrics

== ENCOUNTER 2020-03-21 17:31 | Observation (INO) ==
[2020-03-21] MEDS ORDERED: Pantoprazole 40 MG VIAL IVP ONE (18:09)
[2020-03-21] MEDS ORDERED: Aspirin 81 MG TAB.CHEW PO ONE (18:09)
[2020-03-21] MEDS ORDERED: 0.9 % Sodium Chloride 500 ML IVC ONE (18:09)
[2020-03-21 18:23] LABS: Basophils # 0.1 K/mcL (0.0-0.2); Basophils % 0.6 %; Eosinophils # 0.1 K/mcL (0.0-0.6); Eosinophils % 0.7 %; Hematocrit 37.4 % (37.5-50.1); Hemoglobin 12.4 g/dL (12.9-16.9); Immature Granulocytes % 0.9 % (0-4); Lymphocytes # 2.2 K/mcL (0.6-4.6); Lymphocytes % 24.2 %; Mean Corpuscular HGB Conc 33.2 g/dL (31.6-35.5); Mean Corpuscular Hemoglobin 31.3 pg (28.0-33.3); Mean Corpuscular Volume 94.4 fL (83.0-100.0); Mean Platelet Volume 9.4 fL (9.4-12.4); Monocytes # 0.9 K/mcL (0.0-1.3); Monocytes % 9.5 %; Neutrophils # 5.7 K/mcL (1.6-8.9); Platelet Count 394 K/mcL (140-400); Red Blood Count 3.96 M/mcL (4.19-5.50); Red Cell Distribution Width 12.2 % (11.5-14.5); Segmented Neutrophils % 64.1 %; White Blood Count 8.9 K/mcL (4.3-11.1)
[2020-03-21 18:30] LABS: INR 0.8; Prothrombin Time 9.4 Seconds (9.4-12.1)
[2020-03-21 18:32] LABS: Activated Partial Thrombo Time 25.9 Seconds (26.0-36.0)
[2020-03-21 18:47] LABS: Alanine Aminotransferase 66 Units/L (7-52); Albumin 3.8 g/dL (3.5-5.7); Albumin/Globulin Ratio 1.3 (1.1-2.2); Alkaline Phosphatase 123 Units/L (34-104); Amylase 46 Units/L (29-103); Aspartate Amino Transferase 22 Units/L (13-39); BUN/Creatinine Ratio 17 (6-26); Bilirubin,Direct 0.1 mg/dL (0.0-0.2); Bilirubin,Indirect 0.4 mg/dL (0.0-1.0); Bilirubin,Total 0.5 mg/dL (0.3-1.0); Blood Urea Nitrogen 15 mg/dL (6-20); Carbon Dioxide 19 mEq/L (23-29); Chloride 92 mEq/L (98-107); Globulin 2.9 g/dL (2.4-3.5); Glucose 194 mg/dL (70-105); Lipase 13 Units/L (11-82); Osmolality,Calculated 272 (280-300); Potassium 3.9 mEq/L (3.5-5.1); Sodium 128 mEq/L (136-145); Total Protein 6.7 g/dL (6.4-8.9); Troponin I < 0.03 ng/mL (< 0.04); eGFR For African Americans > 60 (> 60); eGFR For Non-African Americans > 60 (> 60)
[2020-03-21 19:03] LABS: VBG HCO3 23 mEq/L (21-27); VBG PCO2 35 mmHg (41-51); VBG PH 7.42 pH Units (7.32-7.42); VBG PO2 147 mmHg (25-50)
[2020-03-21] MEDS ORDERED: Ketorolac 30 MG/ML VIAL IVP ONE (19:37)
[2020-03-21 20:01] LABS: Bilirubin,Urine Negative (Negative); Blood,Urine Negative (Negative); Clarity,Urine Clear (Clear); Color,Urine Light-Yellow (Yellow); Glucose,Urine (UA) >=1000 mg/dL (Normal); Hyaline Casts,Urine Few per lpf (None Seen); Ketones,Urine 150 mg/dL (Negative); Leukocyte Esterase,Urine Negative (Negative); Mucus,Urine Few per lpf (None-Few); Nitrite,Urine Negative (Negative); Protein,Urine 70 mg/dL (Neg-Trace); RBC,Urine 0-3 per hpf (0-3); Specific Gravity,Urine > 1.030 (1.010-1.025); Squamous Epithelial Cell,Urine Few per hpf (None-Few); Urobilinogen,Urine Normal (Normal); WBC,Urine 0-3 per hpf (0-3)
[2020-03-21] MEDS ORDERED: Ondansetron 4 MG/2 ML VIAL IVP PRN (21:03)
[2020-03-21] MEDS ORDERED: Naloxone 0.4 MG/ML INJ IVP PRN (21:03)
[2020-03-21] MEDS ORDERED: *HR* Dextrose 50 % in Water (Vial) 50 ML VIAL IVP PRN (21:07)
[2020-03-21] MEDS ORDERED: Dextrose Gel 15 GM/37.5 ML TUBE PO PRN ×2 (21:07)
[2020-03-21] MEDS ORDERED: D5% in Water 1,000 ML IVC PRN (21:07)
[2020-03-21] MEDS ORDERED: 0.9 % Sodium Chloride 1,000 ML IVC SCH (21:15)
[2020-03-21] MEDS ORDERED: Insulin LISPRO 300 UNITS/3 ML VIAL SQ SCH (21:15)
[2020-03-21] MEDS: *HR* Heparin 5,000 UNIT/ML VIAL SQ SCH (21:57)
[2020-03-21] MEDS ORDERED: Insulin DETEMIR 100 UNIT/ML X5UNITS SQ SCH (23:30)
[2020-03-21 23:55] LABS: BUN/Creatinine Ratio 16 (6-26); Blood Urea Nitrogen 15 mg/dL (6-20); Calcium 8.1 mg/dL (8.6-10.3); Carbon Dioxide 9 mEq/L (23-29); Chloride 90 mEq/L (98-107); Glucose 522 mg/dL (70-105); Osmolality,Calculated 280 (280-300); Potassium 4.6 mEq/L (3.5-5.1); Sodium 123 mEq/L (136-145); Troponin I < 0.03 ng/mL (< 0.04); eGFR For African Americans > 60 (> 60); eGFR For Non-African Americans > 60 (> 60)
[2020-03-22] MEDS ORDERED: Insulin LISPRO 300 UNITS/3 ML VIAL SQ PRN (00:04)
[2020-03-22] MEDS ORDERED: D5% in 0.45% NACL 1,000 ML IVC PRN (00:04)
[2020-03-22] MEDS ORDERED: Insulin Human Regular 100 UNIT in 0.9 % Sodium Chloride 100 ML IVC SCH (00:15)
[2020-03-22] MEDS: Gabapentin 300 MG CAPSULE PO SCH ×4 (02:09→21:02)
[2020-03-22] MEDS: D5% in 0.45% NACL w KCl 20 MEQ/1,000 ML MLS IVC PRN ×2 (02:12→06:48)
[2020-03-22] MEDS: 0.45 % Sodium Chloride w/KCl 20 MEQ/1,000 ML MLS IVC SCH ×3 (02:18→20:03)
[2020-03-22 03:36] LABS: BUN/Creatinine Ratio 15 (6-26); Blood Urea Nitrogen 14 mg/dL (6-20); Calcium 7.7 mg/dL (8.6-10.3); Carbon Dioxide 21 mEq/L (23-29); Chloride 95 mEq/L (98-107); Glucose 100 mg/dL (70-105); Osmolality,Calculated 265 (280-300); Potassium 3.8 mEq/L (3.5-5.1); Sodium 127 mEq/L (136-145); eGFR For African Americans > 60 (> 60); eGFR For Non-African Americans > 60 (> 60)
[2020-03-22 03:39] LABS: VBG HCO3 23 mEq/L (21-27); VBG PCO2 42 mmHg (41-51); VBG PH 7.34 pH Units (7.32-7.42); VBG PO2 171 mmHg (25-50)
[2020-03-22] MEDS: *HR* Dextrose 50 % in Water (Vial) 50 ML VIAL IVP PRN ×2 (04:41→10:17)
[2020-03-22 05:23] LABS: Hematocrit 30.6 % (37.5-50.1); Mean Corpuscular Hemoglobin 32.2 pg (28.0-33.3); Mean Corpuscular Volume 94.7 fL (83.0-100.0); Mean Platelet Volume 9.2 fL (9.4-12.4); Platelet Count 295 K/mcL (140-400); Red Blood Count 3.23 M/mcL (4.19-5.50); Red Cell Distribution Width 12.1 % (11.5-14.5); White Blood Count 7.6 K/mcL (4.3-11.1)
[2020-03-22 05:24] LABS: Hemoglobin 10.4 g/dL (12.9-16.9)
[2020-03-22 05:38] LABS: VBG HCO3 25 mEq/L (21-27); VBG PCO2 44 mmHg (41-51); VBG PH 7.36 pH Units (7.32-7.42); VBG PO2 186 mmHg (25-50)
[2020-03-22 05:44] LABS: Alanine Aminotransferase 50 Units/L (7-52); Albumin 3.2 g/dL (3.5-5.7); Albumin/Globulin Ratio 1.6 (1.1-2.2); Alkaline Phosphatase 96 Units/L (34-104); Aspartate Amino Transferase 15 Units/L (13-39); BUN/Creatinine Ratio 18 (6-26); Bilirubin,Total 0.5 mg/dL (0.3-1.0); Blood Urea Nitrogen 15 mg/dL (6-20); Carbon Dioxide 23 mEq/L (23-29); Chloride 96 mEq/L (98-107); Glucose 111 mg/dL (70-105); Osmolality,Calculated 266 (280-300); Potassium 3.6 mEq/L (3.5-5.1); Sodium 127 mEq/L (136-145); Total Protein 5.2 g/dL (6.4-8.9); eGFR For African Americans > 60 (> 60); eGFR For Non-African Americans > 60 (> 60)
[2020-03-22] MEDS ORDERED: Insulin DETEMIR 100 UNIT/ML X5UNITS SQ ONE (06:06)
[2020-03-22 06:41] LABS: Troponin I < 0.03 ng/mL (< 0.04)
[2020-03-22] MEDS: *HR* Heparin 5,000 UNIT/ML VIAL SQ SCH ×3 (06:48→21:01)
[2020-03-22 11:14] LABS: VBG HCO3 23 mEq/L (21-27); VBG PCO2 50 mmHg (41-51); VBG PH 7.27 pH Units (7.32-7.42); VBG PO2 67 mmHg (25-50)
[2020-03-22 11:24] LABS: BUN/Creatinine Ratio 11 (6-26); Blood Urea Nitrogen 12 mg/dL (6-20); Calcium 8.1 mg/dL (8.6-10.3); Carbon Dioxide 20 mEq/L (23-29); Chloride 91 mEq/L (98-107); Glucose 155 mg/dL (70-105); Osmolality,Calculated 259 (280-300); Potassium 4.3 mEq/L (3.5-5.1); Sodium 123 mEq/L (136-145); eGFR For African Americans > 60 (> 60); eGFR For Non-African Americans > 60 (> 60)
[2020-03-22] MEDS ORDERED: D5% in Water 1,000 ML IVC PRN (13:03)
[2020-03-22] MEDS ORDERED: *HR* Dextrose 50 % in Water (Vial) 50 ML VIAL IVP PRN (13:03)
[2020-03-22] MEDS ORDERED: Dextrose Gel 15 GM/37.5 ML TUBE PO PRN ×2 (13:03)
[2020-03-22] MEDS ORDERED: Gabapentin 300 MG CAPSULE PO SCH (15:00)
[2020-03-22 16:56] LABS: BUN/Creatinine Ratio 10 (6-26); Blood Urea Nitrogen 10 mg/dL (6-20); Calcium 8.7 mg/dL (8.6-10.3); Carbon Dioxide 23 mEq/L (23-29); Chloride 97 mEq/L (98-107); Glucose 110 mg/dL (70-105); Osmolality,Calculated 266 (280-300); Sodium 128 mEq/L (136-145); eGFR For African Americans > 60 (> 60); eGFR For Non-African Americans > 60 (> 60)
[2020-03-22] MEDS: Insulin LISPRO 300 UNITS/3 ML VIAL SQ SCH (18:51)
[2020-03-22] MEDS: Insulin DETEMIR 100 UNIT/ML X5UNITS SQ SCH (21:01)
[2020-03-23] MEDS: *HR* Heparin 5,000 UNIT/ML VIAL SQ SCH (05:00)
[2020-03-23 06:04] LABS: Basophils % 0.4 %; Eosinophils # 0.1 K/mcL (0.0-0.6); Eosinophils % 0.9 %; Hemoglobin 10.8 g/dL (12.9-16.9); Immature Granulocytes % 0.5 % (0-4); Lymphocytes # 1.1 K/mcL (0.6-4.6); Lymphocytes % 20.1 %; Mean Corpuscular HGB Conc 32.7 g/dL (31.6-35.5); Mean Corpuscular Volume 97.9 fL (83.0-100.0); Mean Platelet Volume 9.8 fL (9.4-12.4); Monocytes # 0.4 K/mcL (0.0-1.3); Monocytes % 6.4 %; Platelet Count 291 K/mcL (140-400); Red Blood Count 3.37 M/mcL (4.19-5.50); Red Cell Distribution Width 12.8 % (11.5-14.5); Segmented Neutrophils % 71.7 %; White Blood Count 5.5 K/mcL (4.3-11.1)
[2020-03-23 06:31] LABS: % Iron Saturation 31 % (20-55); BUN/Creatinine Ratio 13 (6-26); Blood Urea Nitrogen 12 mg/dL (6-20); Calcium 8.4 mg/dL (8.6-10.3); Carbon Dioxide 26 mEq/L (23-29); Chloride 97 mEq/L (98-107); Glucose 116 mg/dL (70-105); Iron 109 mcg/dL (65-175); Magnesium 1.9 mg/dL (1.6-2.6); Osmolality,Calculated 273 (280-300); Potassium 4.3 mEq/L (3.5-5.1); Sodium 131 mEq/L (136-145); Transferrin 249 mg/dL (203-362); eGFR For African Americans > 60 (> 60); eGFR For Non-African Americans > 60 (> 60)
[2020-03-23 06:44] LABS: Ferritin 174 ng/mL (20-250)
[2020-03-23 06:50] LABS: Folate 5.6 ng/mL (3.0-16.0)
[2020-03-23 07:29] VITALS: BP 141/92
[2020-03-23] MEDS: Insulin LISPRO 300 UNITS/3 ML VIAL SQ SCH (08:07)
[2020-03-23] MEDS: Gabapentin 300 MG CAPSULE PO SCH (08:08)
[2020-03-23] MEDS: Insulin DETEMIR 100 UNIT/ML X5UNITS SQ SCH (08:08)
== END 2020-03-23 12:26 | disposition home or self-care (01) ==
LOC: 3BNU 17:31 → EMEROOARM 17:31 → 2NENU 17:31 → SUATTDRO 21:07 → 3BNU 21:17 → 2NNU 03-22 00:18 → 3BNU 03-22 19:04
PROVIDERS: ADMIT Student in an Organized Health Care Education/Training Program; ATTEND Pharmacist

== ENCOUNTER 2020-03-26 13:51 | Inpatient (IN) ==
[2020-03-26] MEDS ORDERED: 0.9 % Sodium Chloride 2,000 ML ONE (14:09)
[2020-03-26] MEDS: 0.9 % Sodium Chloride 1,000 ML IVC SCH ×2 (14:20→14:21)
[2020-03-26 14:24] LABS: Basophils % 0.3 %; Hematocrit 42.5 % (37.5-50.1); Immature Granulocytes % 0.7 % (0-4); Lymphocytes # 0.5 K/mcL (0.6-4.6); Lymphocytes % 3.9 %; Mean Corpuscular HGB Conc 29.4 g/dL (31.6-35.5); Mean Corpuscular Hemoglobin 31.2 pg (28.0-33.3); Monocytes # 0.3 K/mcL (0.0-1.3); Monocytes % 2.3 %; Neutrophils # 11.1 K/mcL (1.6-8.9); Platelet Count 330 K/mcL (140-400); Red Blood Count 4.01 M/mcL (4.19-5.50); Red Cell Distribution Width 12.8 % (11.5-14.5); Segmented Neutrophils % 92.8 %
[2020-03-26 14:26] LABS: Hemoglobin 12.5 g/dL (12.9-16.9)
[2020-03-26 14:31] LABS: VBG HCO3 3 mEq/L (21-27); VBG PCO2 17 mmHg (41-51); VBG PH 6.89 pH Units (7.32-7.42); VBG PO2 151 mmHg (25-50)
[2020-03-26] MEDS ORDERED: Morphine Sulfate 2 MG/ML SYRINGE IVP STA (14:44)
[2020-03-26 14:47] LABS: BUN/Creatinine Ratio 18 (6-26); Blood Urea Nitrogen 26 mg/dL (6-20); Calcium 8.9 mg/dL (8.6-10.3); Carbon Dioxide 4 mEq/L (23-29); Chloride 86 mEq/L (98-107); Potassium 4.7 mEq/L (3.5-5.1); Sodium 126 mEq/L (136-145); Troponin I < 0.03 ng/mL (< 0.04); eGFR For African Americans > 60 (> 60); eGFR For Non-African Americans 53 (> 60)
[2020-03-26] MEDS: Ondansetron 4 MG/2 ML VIAL IVP ONE (15:04)
[2020-03-26] MEDS ORDERED: Insulin Human Regular 100 UNIT in 0.9 % Sodium Chloride 100 ML IVC SCH (15:15)
[2020-03-26 15:16] LABS: Glucose 816 mg/dL (70-105); Osmolality,Calculated 307 (280-300)
[2020-03-26] MEDS ORDERED: *HR* Heparin 5,000 UNIT/ML VIAL IVP ONE (15:46)
[2020-03-26] MEDS ORDERED: *HR* Heparin 5,000 UNIT/ML VIAL IVP PRN ×2 (15:46)
[2020-03-26] MEDS ORDERED: Heparin 25,000UNIT/250ML 1/2NS 25,000 UNIT/250 ML IV.SOLN IVC SCH (16:00)
[2020-03-26 16:13] LABS: Bilirubin,Urine Negative (Negative); Blood,Urine Trace (Negative); Clarity,Urine Clear (Clear); Color,Urine Colorless (Yellow); Glucose,Urine (UA) >=1000 mg/dL (Normal); Ketones,Urine >150 mg/dL (Negative); Leukocyte Esterase,Urine Negative (Negative); Mucus,Urine Few per lpf (None-Few); Nitrite,Urine Negative (Negative); PH,Urine 5.5 pH Units (5.0-8.0); Protein,Urine 30 mg/dL (Neg-Trace); RBC,Urine 0-3 per hpf (0-3); Specific Gravity,Urine 1.022 (1.010-1.025); Urobilinogen,Urine Normal (Normal); WBC,Urine 0-3 per hpf (0-3)
[2020-03-26 16:27] LABS: Hematocrit 35.3 % (37.5-50.1); Mean Corpuscular HGB Conc 31.2 g/dL (31.6-35.5); Mean Corpuscular Volume 102.6 fL (83.0-100.0); Mean Platelet Volume 9.9 fL (9.4-12.4); Platelet Count 242 K/mcL (140-400); Red Blood Count 3.44 M/mcL (4.19-5.50); Red Cell Distribution Width 12.6 % (11.5-14.5); White Blood Count 12.2 K/mcL (4.3-11.1)
[2020-03-26 16:28] LABS: Heparin anti-factor XA UFH 0.1 IU/mL (0.30-0.70)
[2020-03-26 16:29] LABS: INR 0.8; Prothrombin Time 9.4 Seconds (9.4-12.1)
[2020-03-26 17:23] LABS: Adenovirus Not Detected (Not Detect); Coronavirus 229E Not Detected (Not Detect); Coronavirus HKU1 Not Detected (Not Detect); Coronavirus NL63 Not Detected (Not Detect); Coronavirus OC43 Not Detected (Not Detect)
[2020-03-26 17:25] LABS: Bordetella Pertussis Not Detected (Not Detect); Chlamydophila pneumoniae Not Detected (Not Detect); Human Metapneumovirus Not Detected (Not Detect); Human Rhinovirus/Enterovirus Not Detected (Not Detect); Influenza A Subtype 2009 H1 Not Detected (Not Detect); Influenza B Not Detected (Not Detect); Mycoplasma pneumoniae Not Detected (Not Detect); Parainfluenza Virus 1 Not Detected (Not Detect); Parainfluenza Virus 2 Not Detected (Not Detect); Parainfluenza Virus 3 Not Detected (Not Detect); Parainfluenza Virus 4 Not Detected (Not Detect); Respiratory Syncytial Virus Not Detected (Not Detect)
[2020-03-26] MEDS ORDERED: Insulin Regular, Human 100 UNIT/ML IV PRN (18:06)
[2020-03-26] MEDS ORDERED: Naloxone 0.4 MG/ML INJ IVP PRN (18:06)
[2020-03-26] MEDS ORDERED: *HR* Dextrose 50 % in Water (Vial) 50 ML VIAL IVP PRN (18:06)
[2020-03-26] MEDS ORDERED: Acetaminophen 325 MG TABLET PO PRN (18:06)
[2020-03-26] MEDS ORDERED: *HR* Promethazine 25 MG/ML VIAL IVP PRN (18:23)
[2020-03-26] MEDS: D5% in 0.45% NACL w KCl 20 MEQ/1,000 ML MLS IVC PRN ×2 (19:02→23:35)
[2020-03-26] MEDS: Pantoprazole 40 MG VIAL IVP SCH (19:03)
[2020-03-26 19:35] LABS: VBG HCO3 13 mEq/L (21-27); VBG Ionized Calcium 1.12 mmol/L (1.15-1.35); VBG PCO2 26 mmHg (41-51); VBG PH 7.32 pH Units (7.32-7.42); VBG PO2 191 mmHg (25-50)
[2020-03-26 19:53] LABS: Alanine Aminotransferase 206 Units/L (7-52); Albumin 3.5 g/dL (3.5-5.7); Albumin/Globulin Ratio 1.3 (1.1-2.2); Alkaline Phosphatase 170 Units/L (34-104); Aspartate Amino Transferase 38 Units/L (13-39); BUN/Creatinine Ratio 20 (6-26); Bilirubin,Total 0.5 mg/dL (0.3-1.0); Blood Urea Nitrogen 22 mg/dL (6-20); Calcium 8.4 mg/dL (8.6-10.3); Carbon Dioxide 12 mEq/L (23-29); Chloride 102 mEq/L (98-107); Globulin 2.6 g/dL (2.4-3.5); Glucose 185 mg/dL (70-105); Osmolality,Calculated 286 (280-300); Phosphorous 2.6 mg/dL (2.7-4.5); Potassium 3.8 mEq/L (3.5-5.1); Sodium 134 mEq/L (136-145); Total Protein 6.1 g/dL (6.4-8.9); eGFR For African Americans > 60 (> 60); eGFR For Non-African Americans > 60 (> 60)
[2020-03-26] MEDS: MetroNIDAZOLE 500 MG/100 ML 500 MG/100 ML BAG IVPB SCH (23:05)
[2020-03-27 01:40] LABS: Alanine Aminotransferase 203 Units/L (7-52); Albumin 3.5 g/dL (3.5-5.7); Albumin/Globulin Ratio 1.3 (1.1-2.2); Alkaline Phosphatase 168 Units/L (34-104); Aspartate Amino Transferase 37 Units/L (13-39); BUN/Creatinine Ratio 19 (6-26); Bilirubin,Total 0.7 mg/dL (0.3-1.0); Blood Urea Nitrogen 18 mg/dL (6-20); Calcium 8.4 mg/dL (8.6-10.3); Carbon Dioxide 17 mEq/L (23-29); Chloride 104 mEq/L (98-107); Globulin 2.7 g/dL (2.4-3.5); Glucose 117 mg/dL (70-105); Magnesium 1.9 mg/dL (1.6-2.6); Osmolality,Calculated 281 (280-300); Phosphorous 1.9 mg/dL (2.7-4.5); Potassium 4.1 mEq/L (3.5-5.1); Sodium 134 mEq/L (136-145); Total Protein 6.2 g/dL (6.4-8.9); eGFR For African Americans > 60 (> 60); eGFR For Non-African Americans > 60 (> 60)
[2020-03-27] MEDS: D5% in 0.45% NACL w KCl 20 MEQ/1,000 ML MLS IVC PRN ×2 (02:43→06:15)
[2020-03-27 03:57] LABS: Basophils % 0.3 %; Eosinophils % 0.1 %; Hemoglobin 9.9 g/dL (12.9-16.9); Immature Granulocytes % 0.4 % (0-4); Lymphocytes # 1.3 K/mcL (0.6-4.6); Mean Corpuscular Hemoglobin 31.4 pg (28.0-33.3); Mean Platelet Volume 9.5 fL (9.4-12.4); Monocytes # 0.2 K/mcL (0.0-1.3); Neutrophils # 6.2 K/mcL (1.6-8.9); Nucleated Red Blood Cells 0.3 /100 WBC (0); Platelet Count 200 K/mcL (140-400); Red Blood Count 3.15 M/mcL (4.19-5.50); Segmented Neutrophils % 79.2 %; White Blood Count 7.8 K/mcL (4.3-11.1)
[2020-03-27 03:59] LABS: VBG Ionized Calcium 1.24 mmol/L (1.15-1.35)
[2020-03-27 03:59] LABS: INR 0.8; Prothrombin Time 9.6 Seconds (9.4-12.1)
[2020-03-27 04:17] LABS: Alanine Aminotransferase 180 Units/L (7-52); Albumin 3.2 g/dL (3.5-5.7); Albumin/Globulin Ratio 1.3 (1.1-2.2); Alkaline Phosphatase 150 Units/L (34-104); Aspartate Amino Transferase 30 Units/L (13-39); BUN/Creatinine Ratio 19 (6-26); Bilirubin,Direct 0.1 mg/dL (0.0-0.2); Bilirubin,Indirect 0.4 mg/dL (0.0-1.0); Bilirubin,Total 0.5 mg/dL (0.3-1.0); Blood Urea Nitrogen 17 mg/dL (6-20); Calcium 8.1 mg/dL (8.6-10.3); Carbon Dioxide 19 mEq/L (23-29); Chloride 106 mEq/L (98-107); Globulin 2.4 g/dL (2.4-3.5); Glucose 110 mg/dL (70-105); Magnesium 1.8 mg/dL (1.6-2.6); Osmolality,Calculated 282 (280-300); Phosphorous 1.4 mg/dL (2.7-4.5); Potassium 3.7 mEq/L (3.5-5.1); Sodium 135 mEq/L (136-145); Total Protein 5.6 g/dL (6.4-8.9); Troponin I < 0.03 ng/mL (< 0.04); eGFR For African Americans > 60 (> 60); eGFR For Non-African Americans > 60 (> 60)
[2020-03-27] MEDS: Pantoprazole 40 MG VIAL IVP SCH ×2 (04:50→16:54)
[2020-03-27 05:08] LABS: Mean Corpuscular Volume 95.2 fL (83.0-100.0)
[2020-03-27] MEDS ORDERED: Ketorolac 15 MG/ML VIAL IVP ONE (06:45)
[2020-03-27] MEDS ORDERED: D5% in Water 1,000 ML IVC PRN ×2 (07:22→18:56)
[2020-03-27] MEDS ORDERED: Dextrose Gel 15 GM/37.5 ML TUBE PO PRN ×4 (07:22→18:56)
[2020-03-27] MEDS ORDERED: Isovue-370 500 ML BOTTLE IVP ONE (07:22)
[2020-03-27] MEDS ORDERED: *HR* Dextrose 50 % in Water (Vial) 50 ML VIAL IVP PRN ×2 (07:22→18:56)
[2020-03-27] MEDS: Insulin LISPRO 300 UNITS/3 ML VIAL SQ SCH ×3 (08:31→16:58)
[2020-03-27] MEDS: 0.9 % Sodium Chloride w KCl 20 MEQ/1,000 ML MLS IVC SCH ×3 (08:36→20:26)
[2020-03-27] MEDS: MetroNIDAZOLE 500 MG/100 ML 500 MG/100 ML BAG IVPB SCH ×2 (08:38→16:57)
[2020-03-27] MEDS ORDERED: Insulin DETEMIR 100 UNIT/ML X5UNITS SQ SCH (09:00)
[2020-03-27 09:18] LABS: Estimated Average Glucose 283 mg/dl
[2020-03-27 11:29] LABS: BUN/Creatinine Ratio 18 (6-26); Blood Urea Nitrogen 14 mg/dL (6-20); Calcium 8.2 mg/dL (8.6-10.3); Carbon Dioxide 20 mEq/L (23-29); Chloride 103 mEq/L (98-107); Glucose 146 mg/dL (70-105); Magnesium 1.7 mg/dL (1.6-2.6); Osmolality,Calculated 271 (280-300); Phosphorous 1.7 mg/dL (2.7-4.5); Potassium 3.9 mEq/L (3.5-5.1); Sodium 129 mEq/L (136-145); eGFR For African Americans > 60 (> 60); eGFR For Non-African Americans > 60 (> 60)
[2020-03-27] MEDS: Sucralfate 1 GM TABLET PO SCH ×3 (11:41→20:24)
[2020-03-27] MEDS ORDERED: Gabapentin 300 MG CAPSULE PO SCH (16:00)
[2020-03-27] MEDS ORDERED: *HR* Heparin 5,000 UNIT/ML VIAL SQ SCH (18:00)
[2020-03-27] MEDS ORDERED: Naloxone 0.4 MG/ML INJ IVP PRN (18:56)
[2020-03-27] MEDS ORDERED: Acetaminophen 325 MG TABLET PO PRN (18:56)
[2020-03-27] MEDS: Gabapentin 300 MG CAPSULE PO SCH (20:25)
[2020-03-27] MEDS: *HR* Promethazine 25 MG/ML VIAL IVP PRN (20:25)
[2020-03-27] MEDS: Insulin DETEMIR 100 UNIT/ML X5UNITS SQ SCH (20:27)
[2020-03-27] MEDS ORDERED: Insulin LISPRO 300 UNITS/3 ML VIAL SQ SCH ×2 (21:00)
[2020-03-28] MEDS ORDERED: Melatonin 3 MG TABLET PO ONE (00:09)
[2020-03-28] MEDS ORDERED: Morphine Sulfate 2 MG/ML SYRINGE IVP ONE (00:11)
[2020-03-28] MEDS: *HR* Promethazine 25 MG/ML VIAL IVP PRN (04:10)
[2020-03-28] MEDS ORDERED: Pantoprazole 40 MG VIAL IVP SCH (06:00)
[2020-03-28] MEDS ORDERED: *HR* Heparin 5,000 UNIT/ML VIAL SQ SCH (06:00)
[2020-03-28] MEDS: Sucralfate 1 GM TABLET PO SCH ×2 (08:18→10:55)
[2020-03-28] MEDS: 0.9 % Sodium Chloride w KCl 20 MEQ/1,000 ML MLS IVC SCH (08:21)
[2020-03-28] MEDS: Insulin LISPRO 300 UNITS/3 ML VIAL SQ SCH ×2 (08:28→11:38)
[2020-03-28] MEDS ORDERED: Lidocaine -MPF 2% 2 ML VIAL ONE (08:34)
[2020-03-28] MEDS ORDERED: *HR* Propofol 200 MG/20 ML VIAL IVP ONE (08:35)
[2020-03-28] MEDS: MetroNIDAZOLE 500 MG/100 ML 500 MG/100 ML BAG IVPB SCH ×2 (08:38)
[2020-03-28] MEDS ORDERED: Ondansetron 4 MG/2 ML VIAL IVP ONE (08:43)
[2020-03-28] MEDS ORDERED: *HR* PHENYLEPHRINE 1,000 MCG/10 ML SYRINGE IVP ONE (09:29)
[2020-03-28] MEDS: Ondansetron 4 MG/2 ML VIAL IVP ONE (10:55)
[2020-03-28] MEDS: Gabapentin 300 MG CAPSULE PO SCH (10:56)
[2020-03-28] MEDS: Insulin DETEMIR 100 UNIT/ML X5UNITS SQ SCH (11:00)
[2020-03-28 11:41] VITALS: BP 153/94
[2020-03-28 12:00] LABS: BUN/Creatinine Ratio 10 (6-26); Blood Urea Nitrogen 7 mg/dL (6-20); Calcium 8.5 mg/dL (8.6-10.3); Carbon Dioxide 19 mEq/L (23-29); Chloride 98 mEq/L (98-107); Glucose 270 mg/dL (70-105); Magnesium 1.7 mg/dL (1.6-2.6); Osmolality,Calculated 274 (280-300); Phosphorous 1.8 mg/dL (2.7-4.5); Potassium 4.2 mEq/L (3.5-5.1); Sodium 128 mEq/L (136-145); eGFR For African Americans > 60 (> 60); eGFR For Non-African Americans > 60 (> 60)
== END 2020-03-28 13:21 | disposition home or self-care (01) | DRG 420 ==
LOC: EMEROOARM 13:51 → ICNU 13:51 → SUATTDRO 18:06 → ICNU 18:30 → 2ANU 03-27 18:49
PROVIDERS: ADMIT Pediatrics; ATTEND Internal Medicine

== ENCOUNTER 2020-04-06 09:32 | Observation (INO) ==
[2020-04-06] MEDS ORDERED: 0.9 % Sodium Chloride 1,000 ML IVC ONE (10:00)
[2020-04-06] MEDS ORDERED: Morphine Sulfate 2 MG/ML SYRINGE IVP ONE (10:00)
[2020-04-06] MEDS ORDERED: Ondansetron 4 MG/2 ML VIAL IVP ONE (10:00)
[2020-04-06 11:03] LABS: Bilirubin,Urine Negative (Negative); Blood,Urine Negative (Negative); Clarity,Urine Clear (Clear); Color,Urine Light-Yellow (Yellow); Glucose,Urine (UA) >=1000 mg/dL (Normal); Ketones,Urine Negative (Negative); Leukocyte Esterase,Urine Negative (Negative); Mucus,Urine Few per lpf (None-Few); Nitrite,Urine Negative (Negative); Protein,Urine Trace mg/dL (Neg-Trace); RBC,Urine 0-3 per hpf (0-3); Specific Gravity,Urine 1.019 (1.010-1.025); Urobilinogen,Urine Normal (Normal); WBC,Urine 0-3 per hpf (0-3)
[2020-04-06 11:09] LABS: Basophils % 0.5 %; Eosinophils # 0.1 K/mcL (0.0-0.6); Eosinophils % 2.1 %; Hematocrit 33.7 % (37.5-50.1); Hemoglobin 10.7 g/dL (12.9-16.9); Immature Granulocytes % 1.6 % (0-4); Lymphocytes # 1.3 K/mcL (0.6-4.6); Lymphocytes % 21.5 %; Mean Corpuscular HGB Conc 31.8 g/dL (31.6-35.5); Mean Corpuscular Volume 97.7 fL (83.0-100.0); Mean Platelet Volume 9.8 fL (9.4-12.4); Monocytes # 0.6 K/mcL (0.0-1.3); Monocytes % 9.3 %; Platelet Count 272 K/mcL (140-400); Red Blood Count 3.45 M/mcL (4.19-5.50); Red Cell Distribution Width 14.1 % (11.5-14.5); White Blood Count 6.2 K/mcL (4.3-11.1)
[2020-04-06 11:26] LABS: INR 0.8
[2020-04-06 11:27] LABS: Alanine Aminotransferase 248 Units/L (7-52); Albumin 3.5 g/dL (3.5-5.7); Albumin/Globulin Ratio 1.3 (1.1-2.2); Alkaline Phosphatase 252 Units/L (34-104); Aspartate Amino Transferase 213 Units/L (13-39); BUN/Creatinine Ratio 22 (6-26); Bilirubin,Direct 0.1 mg/dL (0.0-0.2); Bilirubin,Indirect 0.3 mg/dL (0.0-1.0); Bilirubin,Total 0.4 mg/dL (0.3-1.0); Blood Urea Nitrogen 15 mg/dL (6-20); Carbon Dioxide 27 mEq/L (23-29); Chloride 102 mEq/L (98-107); Globulin 2.8 g/dL (2.4-3.5); Glucose 146 mg/dL (70-105); Lipase 48 Units/L (11-82); Osmolality,Calculated 285 (280-300); Potassium 4.4 mEq/L (3.5-5.1); Sodium 136 mEq/L (136-145); Total Protein 6.3 g/dL (6.4-8.9); eGFR For African Americans > 60 (> 60); eGFR For Non-African Americans > 60 (> 60)
[2020-04-06 11:29] LABS: Activated Partial Thrombo Time 26.2 Seconds (26.0-36.0)
[2020-04-06] MEDS ORDERED: Naloxone 0.4 MG/ML INJ IVP PRN (11:56)
[2020-04-06] MEDS ORDERED: D5% in Water 1,000 ML IVC PRN (11:59)
[2020-04-06] MEDS ORDERED: Dextrose Gel 15 GM/37.5 ML TUBE PO PRN ×2 (11:59)
[2020-04-06] MEDS ORDERED: *HR* Dextrose 50 % in Water (Vial) 50 ML VIAL IVP PRN (11:59)
[2020-04-06] MEDS ORDERED: Isovue-370 500 ML BOTTLE IVP ONE (13:14)
[2020-04-06] MEDS: 0.9 % Sodium Chloride 1,000 ML IVC SCH ×2 (13:36→22:39)
[2020-04-06] MEDS: *HR* HYDROmorphone (PF) 1 MG/ML SYRINGE IVP PRN ×3 (13:39→22:29)
[2020-04-06] MEDS ORDERED: Isovue-370 500 ML BOTTLE PO ONE (15:41)
[2020-04-06] MEDS: Insulin LISPRO 300 UNITS/3 ML VIAL SQ SCH (16:22)
[2020-04-06] MEDS: Sucralfate 1 GM TABLET PO SCH ×2 (17:59→21:52)
[2020-04-06] MEDS: *HR* Heparin 5,000 UNIT/ML VIAL SQ SCH (17:59)
[2020-04-06] MEDS ORDERED: Insulin LISPRO 300 UNITS/3 ML VIAL SQ SCH (21:00)
[2020-04-06] MEDS ORDERED: Insulin DETEMIR 100 UNIT/ML X5UNITS SQ SCH (21:00)
[2020-04-06] MEDS: Gabapentin 300 MG CAPSULE PO SCH (21:45)
[2020-04-07] MEDS: D10% in Water 500 ML IVC SCH ×3 (01:36→21:38)
[2020-04-07] MEDS: *HR* HYDROmorphone (PF) 1 MG/ML SYRINGE IVP PRN ×5 (02:47→23:48)
[2020-04-07 03:56] LABS: Basophils % 0.6 %; Eosinophils # 0.2 K/mcL (0.0-0.6); Eosinophils % 2.8 %; Hematocrit 31.2 % (37.5-50.1); Hemoglobin 10.3 g/dL (12.9-16.9); Immature Granulocytes % 1.2 % (0-4); Lymphocytes % 31.2 %; Mean Corpuscular Hemoglobin 31.6 pg (28.0-33.3); Mean Corpuscular Volume 95.7 fL (83.0-100.0); Mean Platelet Volume 10.1 fL (9.4-12.4); Monocytes # 0.6 K/mcL (0.0-1.3); Monocytes % 8.9 %; Neutrophils # 3.6 K/mcL (1.6-8.9); Platelet Count 310 K/mcL (140-400); Red Blood Count 3.26 M/mcL (4.19-5.50); Segmented Neutrophils % 55.3 %; White Blood Count 6.4 K/mcL (4.3-11.1)
[2020-04-07 04:11] LABS: BUN/Creatinine Ratio 19 (6-26); Blood Urea Nitrogen 13 mg/dL (6-20); Calcium 8.5 mg/dL (8.6-10.3); Carbon Dioxide 25 mEq/L (23-29); Chloride 101 mEq/L (98-107); Glucose 50 mg/dL (70-105); Magnesium 1.8 mg/dL (1.6-2.6); Osmolality,Calculated 275 (280-300); Phosphorous 4.3 mg/dL (2.7-4.5); Potassium 3.8 mEq/L (3.5-5.1); Sodium 134 mEq/L (136-145); eGFR For African Americans > 60 (> 60); eGFR For Non-African Americans > 60 (> 60)
[2020-04-07] MEDS: *HR* Heparin 5,000 UNIT/ML VIAL SQ SCH ×2 (06:49→16:52)
[2020-04-07] MEDS ORDERED: Ondansetron ODT 4 MG TAB.RAPDIS SL PRN ×2 (07:38→20:56)
[2020-04-07] MEDS: Insulin LISPRO 300 UNITS/3 ML VIAL SQ SCH ×3 (07:47→16:52)
[2020-04-07] MEDS: Gabapentin 300 MG CAPSULE PO SCH ×3 (07:49→21:40)
[2020-04-07] MEDS: Sucralfate 1 GM TABLET PO SCH ×4 (07:51→21:39)
[2020-04-07] MEDS ORDERED: Insulin DETEMIR 100 UNIT/ML X5UNITS SQ SCH (09:00)
[2020-04-07] MEDS: 0.9 % Sodium Chloride 1,000 ML IVC SCH ×2 (11:27→15:08)
[2020-04-07] MEDS ORDERED: Isovue-300 50ML VIAL ONE (17:19)
[2020-04-07] MEDS ORDERED: *HR* Midazolam HCl 2 MG/2 ML VIAL ONE (18:26)
[2020-04-07] MEDS ORDERED: *HR* Propofol 200 MG/20 ML VIAL IVP ONE (18:26)
[2020-04-07] MEDS ORDERED: Ondansetron 4 MG/2 ML VIAL ONE (18:26)
[2020-04-07] MEDS ORDERED: *HR* FentaNYL (PF) 100 MCG/2 ML VIAL ONE (18:26)
[2020-04-07] MEDS ORDERED: Lidocaine -MPF 2% 2 ML VIAL ONE (18:26)
[2020-04-07] MEDS ORDERED: *HR* Rocuronium Bromide 50 MG/5 ML VIAL ONE (18:26)
[2020-04-07] MEDS ORDERED: Dexamethasone 4 MG/ML VIAL ONE (18:26)
[2020-04-07] MEDS ORDERED: CefOXitin 2,000 MG VIAL ONE (18:33)
[2020-04-07] MEDS ORDERED: *HR* PHENYLEPHRINE 1,000 MCG/10 ML SYRINGE IVP ONE ×2 (18:45→19:19)
[2020-04-07] MEDS ORDERED: Ketorolac 30 MG/ML VIAL ONE (19:32)
[2020-04-07] MEDS ORDERED: *HR* HYDROmorphone 2 MG TABLET PO PRN ×2 (19:46→20:56)
[2020-04-07] MEDS ORDERED: *HR* Labetalol 20 MG/4 ML SYRINGE IVP PRN ×2 (19:46→20:56)
[2020-04-07] MEDS ORDERED: *HR* Promethazine 25 MG/ML VIAL IVP PRN ×2 (19:46→20:56)
[2020-04-07] MEDS ORDERED: *HR* OxyCODONE Immed Rel 5 MG TABLET PO PRN ×2 (19:46→20:56)
[2020-04-07] MEDS ORDERED: Acetaminophen IV 1,000 MG/100 ML INFUS..BTL IVPB ONE (19:46)
[2020-04-07] MEDS ORDERED: Pregabalin 75 MG CAPSULE PO ONE ×2 (19:46→20:56)
[2020-04-07] MEDS: *HR* HYDROmorphone PF 0.5 MG/0.5 ML SYRINGE IVP PRN ×2 (20:03→20:15)
[2020-04-07] MEDS ORDERED: Naloxone 0.4 MG/ML INJ IVP PRN (20:56)
[2020-04-07] MEDS ORDERED: *HR* Dextrose 50 % in Water (Vial) 50 ML VIAL IVP PRN (20:56)
[2020-04-07] MEDS ORDERED: Dextrose Gel 15 GM/37.5 ML TUBE PO PRN ×2 (20:56)
[2020-04-07] MEDS ORDERED: *HR* HYDROmorphone PF 0.5 MG/0.5 ML SYRINGE IVP PRN (20:56)
[2020-04-07] MEDS ORDERED: 0.9 % Sodium Chloride 1,000 ML IVC SCH (20:56)
[2020-04-07] MEDS ORDERED: D5% in Water 1,000 ML IVC PRN (20:56)
[2020-04-07] MEDS ORDERED: Insulin LISPRO 300 UNITS/3 ML VIAL SQ SCH (21:00)
[2020-04-08] MEDS: *HR* HYDROmorphone (PF) 1 MG/ML SYRINGE IVP PRN (03:59)
[2020-04-08] MEDS ORDERED: *HR* Heparin 5,000 UNIT/ML VIAL SQ SCH (06:00)
[2020-04-08] MEDS: D10% in Water 500 ML IVC SCH (07:43)
[2020-04-08] MEDS: Gabapentin 300 MG CAPSULE PO SCH (08:03)
[2020-04-08] MEDS: Sucralfate 1 GM TABLET PO SCH ×2 (08:04→12:10)
[2020-04-08] MEDS: Insulin LISPRO 300 UNITS/3 ML VIAL SQ SCH ×2 (08:04→12:11)
[2020-04-08 08:28] LABS: Alanine Aminotransferase 247 Units/L (7-52); Albumin 3.4 g/dL (3.5-5.7); Albumin/Globulin Ratio 1.3 (1.1-2.2); Alkaline Phosphatase 232 Units/L (34-104); Aspartate Amino Transferase 277 Units/L (13-39); BUN/Creatinine Ratio 24 (6-26); Bilirubin,Total 0.9 mg/dL (0.3-1.0); Blood Urea Nitrogen 22 mg/dL (6-20); Calcium 8.4 mg/dL (8.6-10.3); Carbon Dioxide 19 mEq/L (23-29); Chloride 91 mEq/L (98-107); Globulin 2.6 g/dL (2.4-3.5); Glucose 672 mg/dL (70-105); Osmolality,Calculated 293 (280-300); Potassium 5.1 mEq/L (3.5-5.1); Sodium 124 mEq/L (136-145); eGFR For African Americans > 60 (> 60); eGFR For Non-African Americans > 60 (> 60)
[2020-04-08] MEDS ORDERED: Insulin DETEMIR 100 UNIT/ML X5UNITS SQ ONE (09:33)
[2020-04-08 10:29] VITALS: BP 126/80
[2020-04-08] MEDS ORDERED: *HR* OxyCODONE/APAP 5/325 TABLET PO PRN (14:03)
== END 2020-04-08 14:10 | disposition home or self-care (01) ==
LOC: EMEROOARM 09:32 → 3ANU 09:32 → SUATTDRO 12:08 → 3ANU 14:37
PROVIDERS: ADMIT Student in an Organized Health Care Education/Training Program; ATTEND Internal Medicine

== ENCOUNTER 2020-05-31 10:42 | Inpatient (IN) ==
[2020-05-31] MEDS: 0.9 % Sodium Chloride 1,000 ML IVC SCH ×2 (11:15→11:40)
[2020-05-31 11:51] LABS: Mean Platelet Volume 10.3 fL (9.4-12.4); Red Cell Distribution Width 11.7 % (11.5-14.5)
[2020-05-31 11:53] LABS: Hematocrit 50.5 % (37.5-50.1); Hemoglobin 15.2 g/dL (12.9-16.9); Lymphocytes # 2.9 K/mcL (0.6-4.6); Mean Corpuscular HGB Conc 30.1 g/dL (31.6-35.5); Mean Corpuscular Hemoglobin 31.3 pg (28.0-33.3); Mean Corpuscular Volume 104.1 fL (83.0-100.0); Platelet Count 368 K/mcL (140-400); Red Blood Count 4.85 M/mcL (4.19-5.50)
[2020-05-31 11:55] LABS: VBG HCO3 3 mEq/L (21-27); VBG PCO2 23 mmHg (41-51); VBG PH 6.74 pH Units (7.32-7.42); VBG PO2 167 mmHg (25-50)
[2020-05-31 11:56] LABS: White Blood Count 35.9 K/mcL (4.3-11.1)
[2020-05-31 12:08] LABS: Bacteria,Urine Few per hpf (None-Few); Bilirubin,Urine Negative (Negative); Blood,Urine Moderate (Negative); Clarity,Urine Clear (Clear); Color,Urine Colorless (Yellow); Glucose,Urine (UA) >=1000 mg/dL (Normal); Ketones,Urine >150 mg/dL (Negative); Leukocyte Esterase,Urine Negative (Negative); Mucus,Urine Few per lpf (None-Few); Nitrite,Urine Negative (Negative); PH,Urine 5.5 pH Units (5.0-8.0); Protein,Urine 50 mg/dL (Neg-Trace); Specific Gravity,Urine 1.024 (1.010-1.025); Urobilinogen,Urine Normal (Normal); WBC,Urine 0-3 per hpf (0-3)
[2020-05-31] MEDS ORDERED: Morphine Sulfate 2 MG/ML SYRINGE IVP STA (12:08)
[2020-05-31] MEDS ORDERED: Ondansetron 4 MG/2 ML VIAL IVP ONE (12:08)
[2020-05-31 12:09] LABS: Monocytes # 1.4 K/mcL (0.0-1.3); Neutrophils # 31.6 K/mcL (1.6-8.9); Platelet Estimate Normal (Normal)
[2020-05-31 12:37] LABS: BUN/Creatinine Ratio 14 (6-26); Blood Urea Nitrogen 23 mg/dL (6-20); Chloride 87 mEq/L (98-107); Glucose 918 mg/dL (70-105); Magnesium 2.4 mg/dL (1.6-2.6); Osmolality,Calculated 311 (280-300); Phosphorous 8.4 mg/dL (2.7-4.5); Potassium 6.3 mEq/L (3.5-5.1); Sodium 126 mEq/L (136-145); Troponin I < 0.03 ng/mL (< 0.04); eGFR For African Americans 55 (> 60); eGFR For Non-African Americans 46 (> 60)
[2020-05-31] MEDS: Insulin Human Regular 100 UNIT in 0.9 % Sodium Chloride 100 ML IVC SCH (13:15)
[2020-05-31] MEDS ORDERED: *HR* Heparin 5,000 UNIT/ML VIAL IVP ONE (14:13)
[2020-05-31] MEDS ORDERED: *HR* Heparin 5,000 UNIT/ML VIAL IVP PRN ×2 (14:13)
[2020-05-31] MEDS ORDERED: 0.9 % Sodium Chloride 1,000 ML IVC ONE (14:14)
[2020-05-31] MEDS ORDERED: Heparin 25,000UNIT/250ML 1/2NS 25,000 UNIT/250 ML IV.SOLN IVC SCH (14:15)
[2020-05-31 14:19] LABS: Carbon Dioxide < 4 mEq/L (23-29)
[2020-05-31] MEDS ORDERED: Naloxone 0.4 MG/ML INJ IVP PRN (14:31)
[2020-05-31] MEDS ORDERED: D5% in 0.45% NACL 1,000 ML IVC PRN (14:31)
[2020-05-31] MEDS ORDERED: *HR* Dextrose 50 % in Water (Vial) 50 ML VIAL IVP PRN (14:31)
[2020-05-31] MEDS ORDERED: Acetaminophen 325 MG TABLET PO PRN (14:31)
[2020-05-31 15:00] LABS: INR 0.9; Prothrombin Time 10.5 Seconds (9.4-12.1)
[2020-05-31 15:01] LABS: Heparin anti-factor XA UFH 0.09 IU/mL (0.30-0.70)
[2020-05-31 15:03] LABS: Activated Partial Thrombo Time 25.2 Seconds (26.0-36.0)
[2020-05-31 15:47] LABS: VBG Ionized Calcium 1.09 mmol/L (1.15-1.35)
[2020-05-31 16:19] LABS: Amylase 45 Units/L (29-103); BUN/Creatinine Ratio 17 (6-26); Blood Urea Nitrogen 26 mg/dL (6-20); Calcium 8.4 mg/dL (8.6-10.3); Carbon Dioxide < 4 mEq/L (23-29); Chloride 96 mEq/L (98-107); Glucose 721 mg/dL (70-105); Lipase 78 Units/L (11-82); Magnesium 2.4 mg/dL (1.6-2.6); Osmolality,Calculated 311 (280-300); Phosphorous 8.9 mg/dL (2.7-4.5); Potassium 6.3 mEq/L (3.5-5.1); Sodium 131 mEq/L (136-145); Troponin I 0.03 ng/mL (< 0.04); eGFR For African Americans 60 (> 60); eGFR For Non-African Americans 49 (> 60)
[2020-05-31] MEDS: Calcium Gluconate 1gm/50mL 1 GM/50 ML BAG IVPB SCH ×2 (17:24→17:57)
[2020-05-31] MEDS: Pantoprazole 40 MG VIAL IVP SCH (17:24)
[2020-05-31 17:37] LABS: ABG PCO2 < 13 mmHg (35-45); ABG PH 6.96 pH Units (7.32-7.45); ABG PO2 68 mmHg (85-104)
[2020-05-31 18:24] LABS: BUN/Creatinine Ratio 14 (6-26); Blood Urea Nitrogen 25 mg/dL (6-20); Carbon Dioxide < 4 mEq/L (23-29); Chloride 102 mEq/L (98-107); Glucose 419 mg/dL (70-105); Osmolality,Calculated 306 (280-300); Potassium 4.9 mEq/L (3.5-5.1); Sodium 137 mEq/L (136-145); eGFR For African Americans 51 (> 60); eGFR For Non-African Americans 42 (> 60)
[2020-05-31] MEDS: Ringers Solution, Lactated 1,000 ML IVC SCH ×2 (18:58→22:39)
[2020-05-31] MEDS: Cefepime HCl 1,000 MG in Water for inj. (sterile) 10 ML IVP SCH (19:50)
[2020-05-31 20:58] LABS: VBG Ionized Calcium 1.16 mmol/L (1.15-1.35)
[2020-05-31 21:09] LABS: BUN/Creatinine Ratio 15 (6-26); Blood Urea Nitrogen 26 mg/dL (6-20); Calcium 8.5 mg/dL (8.6-10.3); Carbon Dioxide 6 mEq/L (23-29); Chloride 107 mEq/L (98-107); Glucose 201 mg/dL (70-105); Osmolality,Calculated 300 (280-300); Phosphorous 3.6 mg/dL (2.7-4.5); Potassium 4.5 mEq/L (3.5-5.1); Sodium 140 mEq/L (136-145); Troponin I < 0.03 ng/mL (< 0.04); eGFR For African Americans 54 (> 60); eGFR For Non-African Americans 45 (> 60)
[2020-05-31] MEDS: Ondansetron 4 MG/2 ML VIAL IVP PRN (21:31)
[2020-05-31] MEDS: D5% in 0.45% NACL w KCl 20 MEQ/1,000 ML MLS IVC SCH (22:33)
[2020-05-31 23:36] LABS: VBG HCO3 12 mEq/L (21-27); VBG Ionized Calcium 1.14 mmol/L (1.15-1.35); VBG PCO2 29 mmHg (41-51); VBG PH 7.23 pH Units (7.32-7.42); VBG PO2 84 mmHg (25-50)
[2020-05-31 23:54] LABS: BUN/Creatinine Ratio 14 (6-26); Blood Urea Nitrogen 25 mg/dL (6-20); Calcium 8.2 mg/dL (8.6-10.3); Carbon Dioxide 10 mEq/L (23-29); Chloride 109 mEq/L (98-107); Glucose 133 mg/dL (70-105); Magnesium 1.9 mg/dL (1.6-2.6); Osmolality,Calculated 300 (280-300); Phosphorous 2.5 mg/dL (2.7-4.5); Potassium 4.3 mEq/L (3.5-5.1); Sodium 142 mEq/L (136-145); Troponin I < 0.03 ng/mL (< 0.04); eGFR For African Americans 52 (> 60); eGFR For Non-African Americans 43 (> 60)
[2020-06-01] MEDS: D5% in 0.45% NACL w KCl 20 MEQ/1,000 ML MLS IVC SCH ×3 (02:14→10:23)
[2020-06-01] MEDS: Ringers Solution, Lactated 1,000 ML IVC SCH ×2 (03:05→03:24)
[2020-06-01] MEDS: Cefepime HCl 1,000 MG in Water for inj. (sterile) 10 ML IVP SCH ×3 (03:23→19:32)
[2020-06-01 05:30] LABS: Basophils % 0.2 %; Eosinophils % 0.1 %; Hematocrit 36.1 % (37.5-50.1); Immature Granulocytes % 0.9 % (0-4); Lymphocytes # 0.8 K/mcL (0.6-4.6); Lymphocytes % 4.2 %; Mean Corpuscular HGB Conc 34.3 g/dL (31.6-35.5); Mean Corpuscular Hemoglobin 31.2 pg (28.0-33.3); Mean Platelet Volume 10.2 fL (9.4-12.4); Monocytes # 0.9 K/mcL (0.0-1.3); Monocytes % 5.1 %; Neutrophils # 16.3 K/mcL (1.6-8.9); Platelet Count 211 K/mcL (140-400); Red Blood Count 3.97 M/mcL (4.19-5.50); Red Cell Distribution Width 12.1 % (11.5-14.5); Segmented Neutrophils % 89.5 %; White Blood Count 18.2 K/mcL (4.3-11.1)
[2020-06-01 05:39] LABS: Albumin 3.4 g/dL (3.5-5.7); Albumin/Globulin Ratio 1.4 (1.1-2.2); Bilirubin,Total 0.5 mg/dL (0.3-1.0); Calcium 8.1 mg/dL (8.6-10.3); Globulin 2.4 g/dL (2.4-3.5); Magnesium 1.8 mg/dL (1.6-2.6); Phosphorous 2.1 mg/dL (2.7-4.5); Potassium 4.1 mEq/L (3.5-5.1); Total Protein 5.8 g/dL (6.4-8.9)
[2020-06-01 05:45] LABS: VBG HCO3 19 mEq/L (21-27); VBG Ionized Calcium 1.18 mmol/L (1.15-1.35); VBG PCO2 40 mmHg (41-51); VBG PH 7.28 pH Units (7.32-7.42); VBG PO2 110 mmHg (25-50)
[2020-06-01 05:54] LABS: Hemoglobin 12.4 g/dL (12.9-16.9); Mean Corpuscular Volume 90.9 fL (83.0-100.0)
[2020-06-01] MEDS: Pantoprazole 40 MG VIAL IVP SCH (06:20)
[2020-06-01] MEDS: Ondansetron 4 MG/2 ML VIAL IVP PRN (08:59)
[2020-06-01 09:48] LABS: Calcium 8.4 mg/dL (8.6-10.3); Potassium 4.6 mEq/L (3.5-5.1)
[2020-06-01] MEDS: Insulin Human Regular 100 UNIT in 0.9 % Sodium Chloride 100 ML IVC SCH (10:12)
[2020-06-01] MEDS ORDERED: Insulin DETEMIR 100 UNIT/ML X5UNITS SQ SCH (10:45)
[2020-06-01] MEDS ORDERED: *HR* Dextrose 50 % in Water (Vial) 50 ML VIAL IVP PRN ×2 (11:05→16:24)
[2020-06-01] MEDS ORDERED: D5% in Water 1,000 ML IVC PRN ×2 (11:05→16:24)
[2020-06-01] MEDS ORDERED: Dextrose Gel 15 GM/37.5 ML TUBE PO PRN ×4 (11:05→16:24)
[2020-06-01] MEDS ORDERED: Sucralfate 1 GM TABLET PO SCH (11:30)
[2020-06-01] MEDS ORDERED: Metoclopramide 10 MG/2 ML VIAL IVP SCH (12:00)
[2020-06-01] MEDS ORDERED: D5% in 0.45% NACL 1,000 ML IVC SCH (12:15)
[2020-06-01] MEDS ORDERED: Acetaminophen 325 MG TABLET PO PRN (12:19)
[2020-06-01] MEDS: D5% in 0.45% NACL 1,000 ML IVC SCH ×2 (15:19→23:28)
[2020-06-01] MEDS: Sucralfate 1 GM TABLET PO SCH ×2 (17:45→23:12)
[2020-06-01] MEDS: Insulin LISPRO 300 UNITS/3 ML VIAL SQ SCH ×2 (17:46→23:09)
[2020-06-01] MEDS: Metoclopramide 10 MG/2 ML VIAL IVP SCH ×2 (17:47→23:12)
[2020-06-01] MEDS: Insulin DETEMIR 100 UNIT/ML X5UNITS SQ SCH (23:09)
[2020-06-02] MEDS: Ondansetron 4 MG/2 ML VIAL IVP PRN ×4 (02:23→23:59)
[2020-06-02] MEDS: Cefepime HCl 1,000 MG in Water for inj. (sterile) 10 ML IVP SCH ×3 (03:25→18:41)
[2020-06-02 05:22] LABS: VBG Ionized Calcium 1.19 mmol/L (1.15-1.35)
[2020-06-02] MEDS: Metoclopramide 10 MG/2 ML VIAL IVP SCH ×4 (05:22→18:40)
[2020-06-02 05:33] LABS: Magnesium 1.4 mg/dL (1.6-2.6); Phosphorous 1.8 mg/dL (2.7-4.5); Potassium 3.2 mEq/L (3.5-5.1)
[2020-06-02 05:44] LABS: Basophils % 0.1 %; Eosinophils % 0.3 %; Hematocrit 31.3 % (37.5-50.1); Immature Granulocytes % 0.6 % (0-4); Lymphocytes % 10.3 %; Mean Corpuscular HGB Conc 33.5 g/dL (31.6-35.5); Mean Corpuscular Hemoglobin 30.5 pg (28.0-33.3); Mean Platelet Volume 9.9 fL (9.4-12.4); Monocytes # 0.6 K/mcL (0.0-1.3); Neutrophils # 7.6 K/mcL (1.6-8.9); Platelet Count 128 K/mcL (140-400); Red Blood Count 3.44 M/mcL (4.19-5.50); Red Cell Distribution Width 12.5 % (11.5-14.5); Segmented Neutrophils % 82.7 %; White Blood Count 9.2 K/mcL (4.3-11.1)
[2020-06-02 05:45] LABS: Hemoglobin 10.5 g/dL (12.9-16.9)
[2020-06-02] MEDS: D5% in 0.45% NACL 1,000 ML IVC SCH (07:38)
[2020-06-02] MEDS: Gabapentin 300 MG CAPSULE PO SCH ×3 (07:39→20:08)
[2020-06-02] MEDS: Sucralfate 1 GM TABLET PO SCH ×4 (07:39→20:08)
[2020-06-02] MEDS ORDERED: Gabapentin 300 MG CAPSULE PO SCH (09:00)
[2020-06-02] MEDS: Insulin LISPRO 300 UNITS/3 ML VIAL SQ SCH ×4 (09:13→20:10)
[2020-06-02] MEDS: Insulin DETEMIR 100 UNIT/ML X5UNITS SQ SCH ×2 (09:13→20:09)
[2020-06-02] MEDS: 0.9 % Sodium Chloride 1,000 ML IVC SCH (12:58)
[2020-06-03] MEDS: 0.9 % Sodium Chloride 1,000 ML IVC SCH (00:05)
[2020-06-03] MEDS: Insulin LISPRO 300 UNITS/3 ML VIAL SQ SCH ×4 (01:54→12:56)
[2020-06-03] MEDS: Cefepime HCl 1,000 MG in Water for inj. (sterile) 10 ML IVP SCH ×2 (03:03→10:43)
[2020-06-03 04:17] LABS: Hematocrit 33.9 % (37.5-50.1); Hemoglobin 11.2 g/dL (12.9-16.9); Immature Platelets 3.4 % (1.1-6.1); Mean Corpuscular Volume 93.9 fL (83.0-100.0); Mean Platelet Volume 10.2 fL (9.4-12.4); Red Blood Count 3.61 M/mcL (4.19-5.50); White Blood Count 10.1 K/mcL (4.3-11.1)
[2020-06-03 04:36] LABS: Calcium 8.2 mg/dL (8.6-10.3); Magnesium 1.7 mg/dL (1.6-2.6); Potassium 3.8 mEq/L (3.5-5.1)
[2020-06-03] MEDS: Metoclopramide 10 MG/2 ML VIAL IVP SCH ×3 (05:57→10:43)
[2020-06-03] MEDS: Gabapentin 300 MG CAPSULE PO SCH ×2 (10:42→15:01)
[2020-06-03] MEDS: Sucralfate 1 GM TABLET PO SCH ×3 (10:43→15:01)
[2020-06-03] MEDS: Insulin DETEMIR 100 UNIT/ML X5UNITS SQ SCH (10:46)
[2020-06-03 14:34] LABS: Calcium 8.8 mg/dL (8.6-10.3); Potassium 3.9 mEq/L (3.5-5.1)
[2020-06-03 15:32] VITALS: BP 113/73
== END 2020-06-03 16:46 | disposition home or self-care (01) | DRG 420 ==
LOC: ICNU 10:42 → EMEROOARM 10:42 → ICNU 14:52 → SUATTDRO 16:16 → CDU 06-02 06:01
PROVIDERS: ADMIT Pediatrics; ATTEND Internal Medicine

== ENCOUNTER 2020-06-16 09:10 | Observation (INO) ==
[2020-06-16] MEDS ORDERED: 0.9 % Sodium Chloride 1,000 ML IV ONE ×2 (09:28→11:20)
[2020-06-16] MEDS ORDERED: Ketorolac 30 MG/ML VIAL IVP ONE (09:28)
[2020-06-16] MEDS ORDERED: Lidocaine/EPI 1:100k 1% 30 ML VIAL INFILT ONE (09:29)
[2020-06-16 09:55] LABS: Hemoglobin 11.4 g/dL (12.9-16.9); Immature Granulocytes % 0.2 % (0-4); Lymphocytes % 11.2 %; Mean Corpuscular HGB Conc 34.5 g/dL (31.6-35.5); Mean Corpuscular Hemoglobin 31.8 pg (28.0-33.3); Mean Corpuscular Volume 92.2 fL (83.0-100.0); Mean Platelet Volume 9.6 fL (9.4-12.4); Platelet Count 242 K/mcL (140-400); Red Blood Count 3.58 M/mcL (4.19-5.50); Red Cell Distribution Width 11.5 % (11.5-14.5); Segmented Neutrophils % 80.9 %; White Blood Count 8.2 K/mcL (4.3-11.1)
[2020-06-16 09:56] LABS: Basophils # 0.1 K/mcL (0.0-0.2); Basophils % 1.1 %; Eosinophils % 0.5 %; Lymphocytes # 0.9 K/mcL (0.6-4.6); Monocytes # 0.5 K/mcL (0.0-1.3); Monocytes % 6.1 %; Neutrophils # 6.7 K/mcL (1.6-8.9)
[2020-06-16 10:15] LABS: Alanine Aminotransferase 171 Units/L (7-52); Albumin 3.5 g/dL (3.5-5.7); Albumin/Globulin Ratio 1.3 (1.1-2.2); Alkaline Phosphatase 144 Units/L (34-104); Aspartate Amino Transferase 360 Units/L (13-39); BUN/Creatinine Ratio 19 (6-26); Bilirubin,Total 0.5 mg/dL (0.3-1.0); Blood Urea Nitrogen 17 mg/dL (6-20); Calcium 8.7 mg/dL (8.6-10.3); Carbon Dioxide 27 mEq/L (23-29); Chloride 89 mEq/L (98-107); Globulin 2.8 g/dL (2.4-3.5); Glucose 511 mg/dL (70-105); Osmolality,Calculated 288 (280-300); Potassium 4.2 mEq/L (3.5-5.1); Sodium 127 mEq/L (136-145); Total Protein 6.3 g/dL (6.4-8.9); eGFR For African Americans > 60 (> 60); eGFR For Non-African Americans > 60 (> 60)
[2020-06-16] MEDS ORDERED: Isovue-370 500 ML BOTTLE IVP ONE (10:47)
[2020-06-16 11:07] LABS: VBG HCO3 26 mEq/L (21-27); VBG PCO2 40 mmHg (41-51); VBG PH 7.43 pH Units (7.32-7.42); VBG PO2 174 mmHg (25-50)
[2020-06-16] MEDS ORDERED: Naloxone 0.4 MG/ML INJ IVP PRN (12:41)
[2020-06-16] MEDS ORDERED: Acetaminophen 325 MG TABLET PO PRN (12:41)
[2020-06-16] MEDS ORDERED: Dextrose Gel 15 GM/37.5 ML TUBE PO PRN ×2 (12:48)
[2020-06-16] MEDS ORDERED: *HR* Dextrose 50 % in Water (Vial) 50 ML VIAL IVP PRN (12:48)
[2020-06-16] MEDS ORDERED: D5% in Water 1,000 ML IVC PRN (12:48)
[2020-06-16] MEDS ORDERED: Insulin Human Regular 10 UNIT in 0.9 % Sodium Chloride 10 ML IV ONE (12:57)
[2020-06-16] MEDS: *HR* HYDROcodone/Acet 5/325 mg TABLET PO PRN ×2 (13:40→20:51)
[2020-06-16 13:41] LABS: C-Reactive Protein 6 mg/L (Less than 10); Ethanol < 10 mg/dL (Less than 10)
[2020-06-16] MEDS: Ondansetron 4 MG/2 ML VIAL IVP PRN (15:49)
[2020-06-16] MEDS: *HR* OxyCODONE Immed Rel 5 MG TABLET PO PRN ×2 (15:49→23:55)
[2020-06-16 15:55] LABS: BUN/Creatinine Ratio 21 (6-26); Blood Urea Nitrogen 17 mg/dL (6-20); Calcium 8.5 mg/dL (8.6-10.3); Carbon Dioxide 23 mEq/L (23-29); Chloride 92 mEq/L (98-107); Glucose 502 mg/dL (70-105); Osmolality,Calculated 290 (280-300); Potassium 4.3 mEq/L (3.5-5.1); Sodium 128 mEq/L (136-145); eGFR For African Americans > 60 (> 60); eGFR For Non-African Americans > 60 (> 60)
[2020-06-16] MEDS: Cefepime HCl 1,000 MG in 0.9 % Sodium Chloride Mini Bag 100 ML IVPB SCH (16:04)
[2020-06-16] MEDS: Gabapentin 300 MG CAPSULE PO SCH ×2 (16:59→20:50)
[2020-06-16] MEDS: Sucralfate 1 GM TABLET PO SCH ×2 (17:00→20:50)
[2020-06-16] MEDS: Insulin LISPRO 300 UNITS/3 ML VIAL SQ SCH (17:02)
[2020-06-16] MEDS: *HR* Heparin 5,000 UNIT/ML VIAL SQ SCH (17:19)
[2020-06-16] MEDS: Insulin DETEMIR 100 UNIT/ML X5UNITS SQ SCH (20:51)
[2020-06-17 01:15] LABS: Basophils # 0.1 K/mcL (0.0-0.2); Basophils % 1.1 %; Eosinophils # 0.1 K/mcL (0.0-0.6); Eosinophils % 1.4 %; Hematocrit 30.7 % (37.5-50.1); Hemoglobin 10.4 g/dL (12.9-16.9); Immature Granulocytes % 0.4 % (0-4); Lymphocytes # 2.3 K/mcL (0.6-4.6); Lymphocytes % 32.4 %; Mean Corpuscular HGB Conc 33.9 g/dL (31.6-35.5); Mean Corpuscular Hemoglobin 30.4 pg (28.0-33.3); Mean Corpuscular Volume 89.8 fL (83.0-100.0); Mean Platelet Volume 9.8 fL (9.4-12.4); Monocytes # 0.5 K/mcL (0.0-1.3); Monocytes % 7.4 %; Platelet Count 256 K/mcL (140-400); Red Blood Count 3.42 M/mcL (4.19-5.50); Red Cell Distribution Width 11.8 % (11.5-14.5); Segmented Neutrophils % 57.3 %
[2020-06-17 01:37] LABS: Albumin 3.3 g/dL (3.5-5.7); Albumin/Globulin Ratio 1.2 (1.1-2.2); Bilirubin,Direct 0.1 mg/dL (0.0-0.2); Bilirubin,Indirect 0.4 mg/dL (0.0-1.0); Bilirubin,Total 0.5 mg/dL (0.3-1.0); Globulin 2.7 g/dL (2.4-3.5)
[2020-06-17 01:38] LABS: BUN/Creatinine Ratio 17 (6-26); Blood Urea Nitrogen 15 mg/dL (6-20); Calcium 8.2 mg/dL (8.6-10.3); Carbon Dioxide 27 mEq/L (23-29); Chloride 95 mEq/L (98-107); Glucose 86 mg/dL (70-105); Magnesium 1.6 mg/dL (1.6-2.6); Osmolality,Calculated 270 (280-300); Phosphorous 3.1 mg/dL (2.7-4.5); Potassium 3.9 mEq/L (3.5-5.1); Sodium 130 mEq/L (136-145); eGFR For African Americans > 60 (> 60); eGFR For Non-African Americans > 60 (> 60)
[2020-06-17] MEDS: Cefepime HCl 1,000 MG in 0.9 % Sodium Chloride Mini Bag 100 ML IVPB SCH (02:20)
[2020-06-17] MEDS: *HR* OxyCODONE Immed Rel 5 MG TABLET PO PRN ×3 (05:45→18:30)
[2020-06-17] MEDS: Sucralfate 1 GM TABLET PO SCH ×4 (05:45→21:30)
[2020-06-17] MEDS: *HR* Heparin 5,000 UNIT/ML VIAL SQ SCH ×3 (05:46→18:18)
[2020-06-17] MEDS: Insulin LISPRO 300 UNITS/3 ML VIAL SQ SCH ×3 (08:12→16:31)
[2020-06-17] MEDS: Gabapentin 300 MG CAPSULE PO SCH ×4 (08:30→21:30)
[2020-06-17] MEDS: Insulin DETEMIR 100 UNIT/ML X5UNITS SQ SCH ×2 (08:32→21:31)
[2020-06-17] MEDS ORDERED: 0.9 % Sodium Chloride 1,000 ML IVC SCH (09:00)
[2020-06-17] MEDS: Ondansetron 4 MG/2 ML VIAL IVP PRN (10:43)
[2020-06-17 12:54] LABS: Adenovirus Not Detected (Not Detect); Bordetella Pertussis Not Detected (Not Detect); Chlamydophila pneumoniae Not Detected (Not Detect); Coronavirus 229E Not Detected (Not Detect); Coronavirus HKU1 Not Detected (Not Detect); Coronavirus NL63 Not Detected (Not Detect); Coronavirus OC43 Not Detected (Not Detect); Human Metapneumovirus Not Detected (Not Detect); Human Rhinovirus/Enterovirus Not Detected (Not Detect); Influenza A Subtype 2009 H1 Not Detected (Not Detect); Influenza B Not Detected (Not Detect); Mycoplasma pneumoniae Not Detected (Not Detect); Parainfluenza Virus 1 Not Detected (Not Detect); Parainfluenza Virus 2 Not Detected (Not Detect); Parainfluenza Virus 3 Not Detected (Not Detect); Parainfluenza Virus 4 Not Detected (Not Detect); Respiratory Syncytial Virus Not Detected (Not Detect); SARS-CoV-2 Not Detected (Not Detect)
[2020-06-17] MEDS ORDERED: Bupivacaine-MPF 0.25% 10 ML VIAL ONE (14:14)
[2020-06-17] MEDS ORDERED: *HR* FentaNYL (PF) 100 MCG/2 ML VIAL ONE (14:27)
[2020-06-17] MEDS ORDERED: *HR* Propofol 200 MG/20 ML VIAL IVP ONE (14:27)
[2020-06-17] MEDS ORDERED: Lidocaine -MPF 2% 2 ML VIAL ONE (14:27)
[2020-06-17] MEDS ORDERED: *HR* Midazolam HCl 2 MG/2 ML VIAL ONE (14:54)
[2020-06-17] MEDS ORDERED: Vancomycin 1,000 MG, Sodium Chloride IRRigation 1,000 ML IR ONE ×2 (15:25→16:52)
[2020-06-17] MEDS ORDERED: Cefepime HCl 2,000 MG in Water for inj. (sterile) 20 ML IVP SCH (16:00)
[2020-06-17] MEDS ORDERED: *HR* Dextrose 50 % in Water (Vial) 50 ML VIAL IVP PRN (16:52)
[2020-06-17] MEDS ORDERED: D5% in Water 1,000 ML IVC PRN (16:52)
[2020-06-17] MEDS ORDERED: Naloxone 0.4 MG/ML INJ IVP PRN (16:52)
[2020-06-17] MEDS ORDERED: Acetaminophen 325 MG TABLET PO PRN (16:52)
[2020-06-17] MEDS ORDERED: Dextrose Gel 15 GM/37.5 ML TUBE PO PRN ×2 (16:52)
[2020-06-17] MEDS: 0.9 % Sodium Chloride 1,000 ML IVC SCH (18:24)
[2020-06-17] MEDS: *HR* HYDROcodone/Acet 5/325 mg TABLET PO PRN (21:31)
[2020-06-18] MEDS: Cefepime HCl 2,000 MG in Water for inj. (sterile) 20 ML IVP SCH ×3 (00:08→16:01)
[2020-06-18] MEDS: *HR* OxyCODONE Immed Rel 5 MG TABLET PO PRN ×4 (00:30→18:55)
[2020-06-18] MEDS: Insulin LISPRO 300 UNITS/3 ML VIAL SQ SCH ×5 (01:10→20:01)
[2020-06-18 02:08] LABS: Basophils # 0.1 K/mcL (0.0-0.2); Basophils % 1.5 %; Eosinophils # 0.1 K/mcL (0.0-0.6); Eosinophils % 1.5 %; Hematocrit 31.2 % (37.5-50.1); Immature Granulocytes % 0.2 % (0-4); Lymphocytes # 1.5 K/mcL (0.6-4.6); Lymphocytes % 32.1 %; Mean Corpuscular HGB Conc 32.1 g/dL (31.6-35.5); Mean Corpuscular Hemoglobin 30.5 pg (28.0-33.3); Mean Corpuscular Volume 95.1 fL (83.0-100.0); Mean Platelet Volume 9.7 fL (9.4-12.4); Monocytes # 0.3 K/mcL (0.0-1.3); Monocytes % 6.2 %; Neutrophils # 2.7 K/mcL (1.6-8.9); Platelet Count 205 K/mcL (140-400); Red Blood Count 3.28 M/mcL (4.19-5.50); Red Cell Distribution Width 11.7 % (11.5-14.5); Segmented Neutrophils % 58.5 %; White Blood Count 4.7 K/mcL (4.3-11.1)
[2020-06-18 02:15] LABS: BUN/Creatinine Ratio 17 (6-26); Blood Urea Nitrogen 17 mg/dL (6-20); Carbon Dioxide 22 mEq/L (23-29); Chloride 92 mEq/L (98-107); Glucose 345 mg/dL (70-105); Magnesium 1.6 mg/dL (1.6-2.6); Osmolality,Calculated 275 (280-300); Phosphorous 2.6 mg/dL (2.7-4.5); Sodium 125 mEq/L (136-145); eGFR For African Americans > 60 (> 60); eGFR For Non-African Americans > 60 (> 60)
[2020-06-18] MEDS: *HR* Heparin 5,000 UNIT/ML VIAL SQ SCH ×2 (05:46→17:23)
[2020-06-18] MEDS: Sucralfate 1 GM TABLET PO SCH ×4 (07:54→20:07)
[2020-06-18] MEDS: Gabapentin 300 MG CAPSULE PO SCH ×3 (07:55→20:07)
[2020-06-18] MEDS: 0.9 % Sodium Chloride 1,000 ML IVC SCH ×2 (07:58→20:05)
[2020-06-18] MEDS: Insulin DETEMIR 100 UNIT/ML X5UNITS SQ SCH ×2 (08:00→20:08)
[2020-06-18] MEDS: Ondansetron 4 MG/2 ML VIAL IVP PRN (12:56)
[2020-06-19] MEDS: Cefepime HCl 2,000 MG in Water for inj. (sterile) 20 ML IVP SCH ×2 (00:51→07:31)
[2020-06-19] MEDS: *HR* OxyCODONE Immed Rel 5 MG TABLET PO PRN ×2 (00:55→07:00)
[2020-06-19] MEDS ORDERED: Vancomycin 1,250 MG/262.5 ML IV.SOLN IVPB SCH (03:00)
[2020-06-19] MEDS: *HR* HYDROcodone/Acet 5/325 mg TABLET PO PRN (03:10)
[2020-06-19] MEDS: *HR* Heparin 5,000 UNIT/ML VIAL SQ SCH (05:04)
[2020-06-19] MEDS: Sucralfate 1 GM TABLET PO SCH (07:00)
[2020-06-19] MEDS: Gabapentin 300 MG CAPSULE PO SCH (07:30)
[2020-06-19] MEDS: Insulin DETEMIR 100 UNIT/ML X5UNITS SQ SCH (07:31)
[2020-06-19] MEDS: Insulin LISPRO 300 UNITS/3 ML VIAL SQ SCH (07:32)
[2020-06-19] MEDS: Ondansetron 4 MG/2 ML VIAL IVP PRN (09:34)
[2020-06-19] MEDS: 0.9 % Sodium Chloride 1,000 ML IVC SCH (09:59)
[2020-06-19 10:00] LABS: BUN/Creatinine Ratio 14 (6-26); Blood Urea Nitrogen 13 mg/dL (6-20); Calcium 9.2 mg/dL (8.6-10.3); Carbon Dioxide 28 mEq/L (23-29); Chloride 93 mEq/L (98-107); Glucose 138 mg/dL (70-105); Magnesium 1.8 mg/dL (1.6-2.6); Osmolality,Calculated 270 (280-300); Phosphorous 2.4 mg/dL (2.7-4.5); Potassium 4.3 mEq/L (3.5-5.1); Sodium 129 mEq/L (136-145); eGFR For African Americans > 60 (> 60); eGFR For Non-African Americans > 60 (> 60)
[2020-06-19 10:29] VITALS: BP 116/71
== END 2020-06-19 11:15 | disposition home or self-care (01) ==
LOC: 3BNU 09:10 → EMEROOARM 09:10 → SUATTDRO 12:56 → 3BNU 13:31
PROVIDERS: ADMIT Internal Medicine; ATTEND Internal Medicine

== ENCOUNTER 2020-06-22 15:24 | Inpatient (IN) ==
[2020-06-22] MEDS ORDERED: 0.9 % Sodium Chloride 1,000 ML IVC ONE ×2 (16:32→17:38)
[2020-06-22] MEDS ORDERED: Ondansetron 4 MG/2 ML VIAL IVP ONE (16:41)
[2020-06-22] MEDS ORDERED: *HR* FentaNYL (PF) 100 MCG/2 ML VIAL IVP ONE (16:41)
[2020-06-22 16:57] LABS: VBG HCO3 8 mEq/L (21-27); VBG PCO2 24 mmHg (41-51); VBG PH 7.15 pH Units (7.32-7.42); VBG PO2 65 mmHg (25-50)
[2020-06-22 17:04] LABS: Basophils # 0.1 K/mcL (0.0-0.2); Basophils % 0.7 %; Eosinophils # 0.1 K/mcL (0.0-0.6); Eosinophils % 0.7 %; Hematocrit 38.5 % (37.5-50.1); Immature Granulocytes % 0.7 % (0-4); Lymphocytes # 1.5 K/mcL (0.6-4.6); Lymphocytes % 14.2 %; Mean Corpuscular HGB Conc 31.2 g/dL (31.6-35.5); Mean Corpuscular Hemoglobin 30.5 pg (28.0-33.3); Mean Corpuscular Volume 97.7 fL (83.0-100.0); Mean Platelet Volume 9.7 fL (9.4-12.4); Monocytes # 0.6 K/mcL (0.0-1.3); Monocytes % 5.4 %; Neutrophils # 8.4 K/mcL (1.6-8.9); Platelet Count 325 K/mcL (140-400); Red Blood Count 3.94 M/mcL (4.19-5.50); Red Cell Distribution Width 11.9 % (11.5-14.5); Segmented Neutrophils % 78.3 %
[2020-06-22 17:05] LABS: White Blood Count 10.7 K/mcL (4.3-11.1)
[2020-06-22 17:06] LABS: Bilirubin,Urine Negative (Negative); Blood,Urine Negative (Negative); Clarity,Urine Clear (Clear); Color,Urine Colorless (Yellow); Glucose,Urine (UA) >=1000 mg/dL (Normal); Ketones,Urine >150 mg/dL (Negative); Leukocyte Esterase,Urine Negative (Negative); Nitrite,Urine Negative (Negative); PH,Urine 5.5 pH Units (5.0-8.0); Protein,Urine 50 mg/dL (Neg-Trace); RBC,Urine 0-3 per hpf (0-3); Specific Gravity,Urine 1.025 (1.010-1.025); Urobilinogen,Urine Normal (Normal); WBC,Urine 0-3 per hpf (0-3)
[2020-06-22 17:22] LABS: Alanine Aminotransferase 161 Units/L (7-52); Albumin 4.1 g/dL (3.5-5.7); Albumin/Globulin Ratio 1.2 (1.1-2.2); Alkaline Phosphatase 230 Units/L (34-104); Aspartate Amino Transferase 34 Units/L (13-39); BUN/Creatinine Ratio 16 (6-26); Bilirubin,Indirect 0.4 mg/dL (0.0-1.0); Bilirubin,Total 0.4 mg/dL (0.3-1.0); Blood Urea Nitrogen 19 mg/dL (6-20); Calcium 9.3 mg/dL (8.6-10.3); Carbon Dioxide 7 mEq/L (23-29); Chloride 90 mEq/L (98-107); Globulin 3.4 g/dL (2.4-3.5); Glucose 524 mg/dL (70-105); Lipase 20 Units/L (11-82); Osmolality,Calculated 288 (280-300); Potassium 4.5 mEq/L (3.5-5.1); Sodium 126 mEq/L (136-145); Total Protein 7.5 g/dL (6.4-8.9); Troponin I < 0.03 ng/mL (< 0.04); eGFR For African Americans > 60 (> 60); eGFR For Non-African Americans > 60 (> 60)
[2020-06-22] MEDS ORDERED: Naloxone 0.4 MG/ML INJ IVP PRN (18:05)
[2020-06-22] MEDS ORDERED: D5% in 0.45% NACL 1,000 ML IVC PRN (18:07)
[2020-06-22] MEDS ORDERED: *HR* Dextrose 50 % in Water (Vial) 50 ML VIAL IVP PRN (18:07)
[2020-06-22] MEDS ORDERED: Insulin Regular, Human 100 UNIT/ML IV PRN ×2 (18:07)
[2020-06-22] MEDS: Insulin Human Regular 100 UNIT in 0.9 % Sodium Chloride 100 ML IVC SCH (18:16)
[2020-06-22] MEDS ORDERED: Ondansetron 4 MG/2 ML VIAL IVP PRN (19:07)
[2020-06-22] MEDS ORDERED: *HR* Promethazine 25 MG/ML VIAL IM ONE (19:38)
[2020-06-22] MEDS ORDERED: Nicotine 21 MG PATCH.TD24 TD PRN (19:58)
[2020-06-22 22:24] LABS: BUN/Creatinine Ratio 19 (6-26); Blood Urea Nitrogen 20 mg/dL (6-20); Calcium 8.4 mg/dL (8.6-10.3); Carbon Dioxide 7 mEq/L (23-29); Chloride 103 mEq/L (98-107); Glucose 242 mg/dL (70-105); Osmolality,Calculated 287 (280-300); Potassium 3.9 mEq/L (3.5-5.1); Sodium 133 mEq/L (136-145); Troponin I < 0.03 ng/mL (< 0.04); eGFR For African Americans > 60 (> 60); eGFR For Non-African Americans > 60 (> 60)
[2020-06-22] MEDS ORDERED: 0.9 % Sodium Chloride w KCl 20 MEQ/1,000 ML MLS IVC SCH (22:45)
[2020-06-22] MEDS: 0.45 % Sodium Chloride w/KCl 20 MEQ/1,000 ML MLS IVC SCH ×5 (22:47→22:55)
[2020-06-22] MEDS: 0.9 % Sodium Chloride 1,000 ML IVC SCH ×3 (22:49→22:50)
[2020-06-23] MEDS: D5% in 0.45% NACL w KCl 20 MEQ/1,000 ML MLS IVC PRN ×4 (00:05→23:45)
[2020-06-23 02:40] LABS: VBG HCO3 18 mEq/L (21-27); VBG PCO2 39 mmHg (41-51); VBG PH 7.29 pH Units (7.32-7.42); VBG PO2 169 mmHg (25-50)
[2020-06-23 03:00] LABS: BUN/Creatinine Ratio 18 (6-26); Blood Urea Nitrogen 17 mg/dL (6-20); Calcium 8.1 mg/dL (8.6-10.3); Carbon Dioxide 16 mEq/L (23-29); Chloride 106 mEq/L (98-107); Glucose 155 mg/dL (70-105); Magnesium 1.6 mg/dL (1.6-2.6); Osmolality,Calculated 281 (280-300); Phosphorous 2.5 mg/dL (2.7-4.5); Potassium 3.8 mEq/L (3.5-5.1); Sodium 133 mEq/L (136-145); eGFR For African Americans > 60 (> 60); eGFR For Non-African Americans > 60 (> 60)
[2020-06-23] MEDS ORDERED: Calcium Gluconate 1gm/50mL 1 GM/50 ML BAG IVPB PRN (03:29)
[2020-06-23] MEDS ORDERED: Potassium Phosphate 44 MEQ in 0.9 % Sodium Chloride 250 ML IVPB PRN (03:29)
[2020-06-23 04:38] LABS: Basophils % 0.4 %; Eosinophils # 0.1 K/mcL (0.0-0.6); Eosinophils % 1.1 %; Hemoglobin 10.6 g/dL (12.9-16.9); Immature Granulocytes % 0.6 % (0-4); Lymphocytes # 1.6 K/mcL (0.6-4.6); Lymphocytes % 18.6 %; Mean Corpuscular HGB Conc 33.1 g/dL (31.6-35.5); Mean Corpuscular Hemoglobin 31.4 pg (28.0-33.3); Mean Corpuscular Volume 94.7 fL (83.0-100.0); Mean Platelet Volume 9.3 fL (9.4-12.4); Monocytes # 0.7 K/mcL (0.0-1.3); Monocytes % 8.3 %; Platelet Count 253 K/mcL (140-400); Red Blood Count 3.38 M/mcL (4.19-5.50); Red Cell Distribution Width 11.9 % (11.5-14.5); White Blood Count 8.5 K/mcL (4.3-11.1)
[2020-06-23] MEDS: *HR* Heparin 5,000 UNIT/ML VIAL SQ SCH ×2 (06:19→18:28)
[2020-06-23] MEDS ORDERED: Dextrose Gel 15 GM/37.5 ML TUBE PO PRN ×2 (09:42)
[2020-06-23] MEDS ORDERED: *HR* Dextrose 50 % in Water (Vial) 50 ML VIAL IVP PRN ×2 (09:42→17:48)
[2020-06-23] MEDS ORDERED: D5% in Water 1,000 ML IVC PRN (09:42)
[2020-06-23] MEDS ORDERED: Insulin DETEMIR 100 UNIT/ML X5UNITS SQ SCH (09:45)
[2020-06-23] MEDS: Gabapentin 300 MG CAPSULE PO SCH ×3 (11:04→21:05)
[2020-06-23] MEDS: Insulin LISPRO 300 UNITS/3 ML VIAL SQ SCH ×2 (11:15→21:33)
[2020-06-23 15:16] LABS: BUN/Creatinine Ratio 11 (6-26); Blood Urea Nitrogen 12 mg/dL (6-20); Calcium 8.8 mg/dL (8.6-10.3); Carbon Dioxide 13 mEq/L (23-29); Chloride 95 mEq/L (98-107); Glucose 451 mg/dL (70-105); Osmolality,Calculated 279 (280-300); Potassium 4.3 mEq/L (3.5-5.1); Sodium 125 mEq/L (136-145); eGFR For African Americans > 60 (> 60); eGFR For Non-African Americans > 60 (> 60)
[2020-06-23 16:40] LABS: ABG Base Excess -12 mEq/L (-2 to 3); ABG HCO3 14 mEq/L (21-27); ABG Oxygen Saturation 96 % (95-98); ABG PCO2 27 mmHg (35-45); ABG PO2 85 mmHg (85-104); ABG TCO2 14 mEq/L (20-26)
[2020-06-23] MEDS ORDERED: Insulin Regular, Human 100 UNIT/ML IV PRN ×2 (17:48)
[2020-06-23] MEDS ORDERED: D5% in 0.45% NACL 1,000 ML IVC PRN (17:48)
[2020-06-23] MEDS ORDERED: Insulin Human Regular 100 UNIT in 0.9 % Sodium Chloride 100 ML IVC SCH (18:00)
[2020-06-23] MEDS: 0.9 % Sodium Chloride 1,000 ML IVC SCH ×6 (18:28→21:34)
[2020-06-23 18:47] LABS: BUN/Creatinine Ratio 9 (6-26); Blood Urea Nitrogen 10 mg/dL (6-20); Calcium 8.7 mg/dL (8.6-10.3); Carbon Dioxide 14 mEq/L (23-29); Chloride 95 mEq/L (98-107); Glucose 278 mg/dL (70-105); Osmolality,Calculated 271 (280-300); Potassium 4.1 mEq/L (3.5-5.1); Sodium 126 mEq/L (136-145); eGFR For African Americans > 60 (> 60); eGFR For Non-African Americans > 60 (> 60)
[2020-06-23] MEDS: 0.45 % Sodium Chloride w/KCl 20 MEQ/1,000 ML MLS IVC SCH ×4 (19:29→21:34)
[2020-06-23] MEDS: Ondansetron 4 MG/2 ML VIAL IVP PRN (19:48)
[2020-06-23] MEDS ORDERED: Insulin LISPRO 300 UNITS/3 ML VIAL SQ SCH (21:00)
[2020-06-23] MEDS: Linezolid 600 MG TABLET PO SCH (21:05)
[2020-06-24 01:36] LABS: BUN/Creatinine Ratio 9 (6-26); Blood Urea Nitrogen 7 mg/dL (6-20); Carbon Dioxide 21 mEq/L (23-29); Chloride 103 mEq/L (98-107); Glucose 114 mg/dL (70-105); Osmolality,Calculated 271 (280-300); Potassium 3.4 mEq/L (3.5-5.1); Sodium 131 mEq/L (136-145); eGFR For African Americans > 60 (> 60); eGFR For Non-African Americans > 60 (> 60)
[2020-06-24] MEDS: D5% in 0.45% NACL w KCl 20 MEQ/1,000 ML MLS IVC PRN (03:45)
[2020-06-24 04:45] LABS: ABG Base Excess -1 mEq/L (-2 to 3); ABG HCO3 24 mEq/L (21-27); ABG Oxygen Saturation 96 % (95-98); ABG PCO2 40 mmHg (35-45); ABG PH 7.38 pH Units (7.32-7.45); ABG PO2 80 mmHg (85-104); ABG TCO2 25 mEq/L (20-26)
[2020-06-24 04:51] LABS: Basophils % 0.6 %; Eosinophils # 0.2 K/mcL (0.0-0.6); Eosinophils % 3.9 %; Hematocrit 30.3 % (37.5-50.1); Hemoglobin 10.1 g/dL (12.9-16.9); Immature Granulocytes % 0.4 % (0-4); Lymphocytes # 1.6 K/mcL (0.6-4.6); Lymphocytes % 31.6 %; Mean Corpuscular HGB Conc 33.3 g/dL (31.6-35.5); Mean Corpuscular Hemoglobin 30.4 pg (28.0-33.3); Mean Corpuscular Volume 91.3 fL (83.0-100.0); Mean Platelet Volume 9.2 fL (9.4-12.4); Monocytes # 0.4 K/mcL (0.0-1.3); Neutrophils # 2.7 K/mcL (1.6-8.9); Platelet Count 224 K/mcL (140-400); Red Blood Count 3.32 M/mcL (4.19-5.50); Red Cell Distribution Width 11.7 % (11.5-14.5); Segmented Neutrophils % 54.5 %; White Blood Count 4.9 K/mcL (4.3-11.1)
[2020-06-24 05:05] LABS: BUN/Creatinine Ratio 8 (6-26); Blood Urea Nitrogen 6 mg/dL (6-20); Calcium 8.1 mg/dL (8.6-10.3); Carbon Dioxide 22 mEq/L (23-29); Chloride 104 mEq/L (98-107); Glucose 107 mg/dL (70-105); Osmolality,Calculated 274 (280-300); Potassium 3.6 mEq/L (3.5-5.1); Sodium 133 mEq/L (136-145); eGFR For African Americans > 60 (> 60); eGFR For Non-African Americans > 60 (> 60)
[2020-06-24] MEDS ORDERED: Insulin DETEMIR 100 UNIT/ML X5UNITS SQ ONE ×4 (05:22→13:50)
[2020-06-24] MEDS: *HR* Heparin 5,000 UNIT/ML VIAL SQ SCH ×2 (05:57→17:29)
[2020-06-24] MEDS: Gabapentin 300 MG CAPSULE PO SCH ×3 (08:18→21:42)
[2020-06-24] MEDS: Insulin LISPRO 300 UNITS/3 ML VIAL SQ SCH ×3 (08:19→17:42)
[2020-06-24] MEDS: Linezolid 600 MG TABLET PO SCH ×2 (08:19→17:27)
[2020-06-24] MEDS: Insulin Human Regular 100 UNIT in 0.9 % Sodium Chloride 100 ML IVC SCH (13:40)
[2020-06-24] MEDS: Sucralfate 1 GM TABLET PO SCH ×2 (17:27→21:42)
[2020-06-24] MEDS ORDERED: Insulin LISPRO 300 UNITS/3 ML VIAL SQ SCH (21:00)
[2020-06-24] MEDS ORDERED: NON-FORMULARY MEDICATION 1 EACH EACH (Gabapentin [Neurontin] 600 MG) PO SCH (21:00)
[2020-06-24] MEDS ORDERED: Insulin DETEMIR 100 UNIT/ML X5UNITS SQ SCH (21:00)
[2020-06-25] MEDS: Ondansetron 4 MG/2 ML VIAL IVP PRN (01:21)
[2020-06-25 05:11] LABS: Basophils % 0.7 %; Eosinophils # 0.1 K/mcL (0.0-0.6); Eosinophils % 2.4 %; Hematocrit 33.8 % (37.5-50.1); Hemoglobin 11.3 g/dL (12.9-16.9); Immature Granulocytes % 0.2 % (0-4); Lymphocytes # 1.4 K/mcL (0.6-4.6); Lymphocytes % 33.8 %; Mean Corpuscular HGB Conc 33.4 g/dL (31.6-35.5); Mean Corpuscular Hemoglobin 30.3 pg (28.0-33.3); Mean Corpuscular Volume 90.6 fL (83.0-100.0); Mean Platelet Volume 9.3 fL (9.4-12.4); Monocytes # 0.5 K/mcL (0.0-1.3); Monocytes % 10.8 %; Neutrophils # 2.2 K/mcL (1.6-8.9); Nucleated Red Blood Cells 0.5 /100 WBC (0); Platelet Count 243 K/mcL (140-400); Red Blood Count 3.73 M/mcL (4.19-5.50); Red Cell Distribution Width 11.9 % (11.5-14.5); Segmented Neutrophils % 52.1 %; White Blood Count 4.2 K/mcL (4.3-11.1)
[2020-06-25 05:25] LABS: BUN/Creatinine Ratio 5 (6-26); Blood Urea Nitrogen 4 mg/dL (6-20); Calcium 9.4 mg/dL (8.6-10.3); Carbon Dioxide 25 mEq/L (23-29); Chloride 102 mEq/L (98-107); Glucose 71 mg/dL (70-105); Osmolality,Calculated 277 (280-300); Potassium 3.7 mEq/L (3.5-5.1); Sodium 136 mEq/L (136-145); eGFR For African Americans > 60 (> 60); eGFR For Non-African Americans > 60 (> 60)
[2020-06-25] MEDS: *HR* Heparin 5,000 UNIT/ML VIAL SQ SCH (05:56)
[2020-06-25] MEDS: Gabapentin 300 MG CAPSULE PO SCH (07:50)
[2020-06-25] MEDS: Sucralfate 1 GM TABLET PO SCH ×2 (07:50→10:31)
[2020-06-25] MEDS: Linezolid 600 MG TABLET PO SCH (07:50)
[2020-06-25] MEDS: Insulin LISPRO 300 UNITS/3 ML VIAL SQ SCH ×2 (07:52→11:43)
[2020-06-25] MEDS ORDERED: Insulin DETEMIR 100 UNIT/ML X5UNITS SQ SCH (09:00)
[2020-06-25 11:28] VITALS: BP 107/72
== END 2020-06-25 16:00 | disposition home or self-care (01) | DRG 420 ==
LOC: ICNU 15:24 → EMEROOARM 15:24 → ICNU 16:35 → 3NENU 06-23 12:21 → ICNU 06-23 17:06 → 3ANU 06-24 19:14
PROVIDERS: ADMIT Internal Medicine; ATTEND Internal Medicine

== ENCOUNTER 2020-07-08 10:47 | Observation (INO) ==
[2020-07-08 11:26] LABS: Basophils % 0.5 %; Eosinophils % 0.5 %; Hematocrit 43.3 % (37.5-50.1); Hemoglobin 14.4 g/dL (12.9-16.9); Immature Granulocytes % 0.7 % (0-4); Lymphocytes # 1.7 K/mcL (0.6-4.6); Lymphocytes % 20.4 %; Mean Corpuscular HGB Conc 33.3 g/dL (31.6-35.5); Mean Corpuscular Hemoglobin 30.7 pg (28.0-33.3); Mean Corpuscular Volume 92.3 fL (83.0-100.0); Mean Platelet Volume 9.4 fL (9.4-12.4); Monocytes # 0.4 K/mcL (0.0-1.3); Monocytes % 4.2 %; Neutrophils # 6.1 K/mcL (1.6-8.9); Platelet Count 285 K/mcL (140-400); Red Blood Count 4.69 M/mcL (4.19-5.50); Red Cell Distribution Width 13.2 % (11.5-14.5); Segmented Neutrophils % 73.7 %; White Blood Count 8.3 K/mcL (4.3-11.1)
[2020-07-08 11:28] LABS: VBG HCO3 21 mEq/L (21-27); VBG PCO2 47 mmHg (41-51); VBG PH 7.27 pH Units (7.32-7.42); VBG PO2 36 mmHg (25-50)
[2020-07-08] MEDS ORDERED: Ondansetron 4 MG/2 ML VIAL IVP ONE (11:28)
[2020-07-08] MEDS: 0.9 % Sodium Chloride 1,000 ML IVC SCH ×2 (11:57→20:04)
[2020-07-08] MEDS ORDERED: Morphine Sulfate 2 MG/ML SYRINGE IVP ONE ×2 (12:10→16:34)
[2020-07-08 12:34] LABS: INR 0.8; Prothrombin Time 9.4 Seconds (9.4-12.1)
[2020-07-08 12:37] LABS: Activated Partial Thrombo Time 24.7 Seconds (26.0-36.0)
[2020-07-08 13:03] LABS: Alanine Aminotransferase 89 Units/L (7-52); Albumin 3.8 g/dL (3.5-5.7); Albumin/Globulin Ratio 1.2 (1.1-2.2); Alkaline Phosphatase 155 Units/L (34-104); Aspartate Amino Transferase 74 Units/L (13-39); BUN/Creatinine Ratio 33 (6-26); Bilirubin,Direct 0.1 mg/dL (0.0-0.2); Bilirubin,Indirect 0.3 mg/dL (0.0-1.0); Bilirubin,Total 0.4 mg/dL (0.3-1.0); Blood Urea Nitrogen 32 mg/dL (6-20); Calcium 8.8 mg/dL (8.6-10.3); Carbon Dioxide 20 mEq/L (23-29); Chloride 97 mEq/L (98-107); Globulin 3.1 g/dL (2.4-3.5); Glucose 184 mg/dL (70-105); Magnesium 2.1 mg/dL (1.6-2.6); Osmolality,Calculated 282 (280-300); Potassium 3.9 mEq/L (3.5-5.1); Sodium 130 mEq/L (136-145); Total Protein 6.9 g/dL (6.4-8.9); eGFR For African Americans > 60 (> 60); eGFR For Non-African Americans > 60 (> 60)
[2020-07-08] MEDS ORDERED: Isovue-370 500 ML BOTTLE IVP ONE (13:22)
[2020-07-08] MEDS ORDERED: MetroNIDAZOLE 500 MG/100 ML 500 MG/100 ML BAG IVPB ONE (15:28)
[2020-07-08] MEDS ORDERED: Acetaminophen 325 MG TABLET PO PRN (15:49)
[2020-07-08] MEDS ORDERED: Ondansetron 4 MG/2 ML VIAL IVP PRN (15:49)
[2020-07-08] MEDS ORDERED: 0.9 % Sodium Chloride 1,000 ML IVC ONE (15:53)
[2020-07-08 16:11] LABS: Phosphorous 3.1 mg/dL (2.7-4.5)
[2020-07-08] MEDS ORDERED: Dextrose Gel 15 GM/37.5 ML TUBE PO PRN ×2 (16:50)
[2020-07-08] MEDS ORDERED: D5% in Water 1,000 ML IVC PRN (16:50)
[2020-07-08] MEDS ORDERED: *HR* Dextrose 50 % in Water (Vial) 50 ML VIAL IVP PRN (16:50)
[2020-07-08] MEDS: levoFLOXacin 750 MG/150 ML 750 MG/150 ML BAG IVPB SCH (17:23)
[2020-07-08] MEDS: MetroNIDAZOLE 500 MG/100 ML 500 MG/100 ML BAG IVPB SCH ×2 (17:24→23:32)
[2020-07-08] MEDS: Insulin LISPRO 300 UNITS/3 ML VIAL SQ SCH ×2 (18:58→21:34)
[2020-07-08] MEDS ORDERED: Insulin DETEMIR 100 UNIT/ML X5UNITS SQ ONE (20:10)
[2020-07-08] MEDS ORDERED: Insulin DETEMIR 100 UNIT/ML X5UNITS SQ SCH (21:00)
[2020-07-08] MEDS: *HR* OxyCODONE Immed Rel 5 MG TABLET PO PRN (21:34)
[2020-07-08] MEDS: Gabapentin 300 MG CAPSULE PO SCH (23:32)
[2020-07-09 02:53] LABS: Hematocrit 34.2 % (37.5-50.1); Mean Corpuscular HGB Conc 33.3 g/dL (31.6-35.5); Mean Corpuscular Hemoglobin 31.1 pg (28.0-33.3); Mean Corpuscular Volume 93.2 fL (83.0-100.0); Mean Platelet Volume 9.2 fL (9.4-12.4); Platelet Count 193 K/mcL (140-400); Red Blood Count 3.67 M/mcL (4.19-5.50); Red Cell Distribution Width 13.1 % (11.5-14.5); White Blood Count 4.9 K/mcL (4.3-11.1)
[2020-07-09 02:58] LABS: Hemoglobin 11.4 g/dL (12.9-16.9)
[2020-07-09 03:22] LABS: Alanine Aminotransferase 82 Units/L (7-52); Albumin 3.6 g/dL (3.5-5.7); Albumin/Globulin Ratio 1.3 (1.1-2.2); Alkaline Phosphatase 145 Units/L (34-104); Aspartate Amino Transferase 70 Units/L (13-39); BUN/Creatinine Ratio 25 (6-26); Bilirubin,Total 0.5 mg/dL (0.3-1.0); Blood Urea Nitrogen 20 mg/dL (6-20); Calcium 8.4 mg/dL (8.6-10.3); Carbon Dioxide 23 mEq/L (23-29); Chloride 98 mEq/L (98-107); Globulin 2.7 g/dL (2.4-3.5); Glucose 77 mg/dL (70-105); Osmolality,Calculated 271 (280-300); Phosphorous 2.8 mg/dL (2.7-4.5); Potassium 3.8 mEq/L (3.5-5.1); Sodium 130 mEq/L (136-145); Total Protein 6.3 g/dL (6.4-8.9); eGFR For African Americans > 60 (> 60); eGFR For Non-African Americans > 60 (> 60)
[2020-07-09] MEDS: *HR* Enoxaparin 40 MG/0.4 ML SYRINGE SQ SCH (04:36)
[2020-07-09] MEDS: *HR* OxyCODONE Immed Rel 5 MG TABLET PO PRN ×4 (04:36→20:20)
[2020-07-09] MEDS: MetroNIDAZOLE 500 MG/100 ML 500 MG/100 ML BAG IVPB SCH ×2 (07:40→16:40)
[2020-07-09] MEDS: Gabapentin 300 MG CAPSULE PO SCH ×3 (07:40→20:20)
[2020-07-09] MEDS: Insulin LISPRO 300 UNITS/3 ML VIAL SQ SCH ×4 (07:52→20:21)
[2020-07-09] MEDS: levoFLOXacin 750 MG/150 ML 750 MG/150 ML BAG IVPB SCH (14:58)
[2020-07-09] MEDS: Sucralfate 1 GM TABLET PO SCH ×2 (16:42→20:30)
[2020-07-09] MEDS: Insulin DETEMIR 100 UNIT/ML X5UNITS SQ SCH (20:22)
[2020-07-10] MEDS: *HR* OxyCODONE Immed Rel 5 MG TABLET PO PRN ×2 (02:52→09:25)
[2020-07-10] MEDS ORDERED: MetroNIDAZOLE 500 MG/100 ML 500 MG/100 ML BAG IVPB SCH (03:00)
[2020-07-10] MEDS: *HR* Enoxaparin 40 MG/0.4 ML SYRINGE SQ SCH (06:11)
[2020-07-10 06:41] LABS: Hematocrit 33.7 % (37.5-50.1); Hemoglobin 11.2 g/dL (12.9-16.9); Mean Corpuscular HGB Conc 33.2 g/dL (31.6-35.5); Mean Corpuscular Hemoglobin 30.8 pg (28.0-33.3); Mean Corpuscular Volume 92.6 fL (83.0-100.0); Mean Platelet Volume 9.6 fL (9.4-12.4); Platelet Count 163 K/mcL (140-400); Red Blood Count 3.64 M/mcL (4.19-5.50); Red Cell Distribution Width 13.1 % (11.5-14.5)
[2020-07-10 06:59] LABS: BUN/Creatinine Ratio 19 (6-26); Blood Urea Nitrogen 12 mg/dL (6-20); Calcium 8.7 mg/dL (8.6-10.3); Carbon Dioxide 27 mEq/L (23-29); Chloride 102 mEq/L (98-107); Glucose 86 mg/dL (70-105); Osmolality,Calculated 279 (280-300); Potassium 3.8 mEq/L (3.5-5.1); Sodium 135 mEq/L (136-145); eGFR For African Americans > 60 (> 60); eGFR For Non-African Americans > 60 (> 60)
[2020-07-10 08:50] VITALS: BP 117/80
[2020-07-10] MEDS: Insulin LISPRO 300 UNITS/3 ML VIAL SQ SCH (08:54)
[2020-07-10] MEDS: Gabapentin 300 MG CAPSULE PO SCH (09:24)
[2020-07-10] MEDS: Sucralfate 1 GM TABLET PO SCH (09:24)
[2020-07-10] MEDS: Insulin DETEMIR 100 UNIT/ML X5UNITS SQ SCH (09:26)
[2020-07-10] MEDS ORDERED: levoFLOXacin 750 MG/150 ML 750 MG/150 ML BAG IVPB SCH (18:00)
== END 2020-07-10 13:46 | disposition home or self-care (01) ==
LOC: 2NENU 10:47 → EMEROOARM 10:47 → 2NENU 17:55
PROVIDERS: ADMIT Student in an Organized Health Care Education/Training Program; ATTEND Student in an Organized Health Care Education/Training Program

== ENCOUNTER 2020-07-14 10:09 | Inpatient (IN) ==
[2020-07-14] MEDS ORDERED: 0.9 % Sodium Chloride 1,000 ML IVC ONE ×2 (11:11)
[2020-07-14] MEDS ORDERED: Prochlorperazine 10 MG/2 ML VIAL IVP STA (11:11)
[2020-07-14 12:04] LABS: Basophils # 0.1 K/mcL (0.0-0.2); Basophils % 0.4 %; Hematocrit 43.3 % (37.5-50.1); Immature Granulocytes % 1.3 % (0-4); Lymphocytes % 8.5 %; Mean Corpuscular HGB Conc 31.2 g/dL (31.6-35.5); Mean Corpuscular Hemoglobin 31.3 pg (28.0-33.3); Mean Platelet Volume 10.5 fL (9.4-12.4); Monocytes # 0.4 K/mcL (0.0-1.3); Neutrophils # 10.4 K/mcL (1.6-8.9); Platelet Count 374 K/mcL (140-400); Red Blood Count 4.31 M/mcL (4.19-5.50); Red Cell Distribution Width 13.1 % (11.5-14.5); Segmented Neutrophils % 86.8 %
[2020-07-14 12:07] LABS: VBG HCO3 5 mEq/L (21-27); VBG PCO2 23 mmHg (41-51); VBG PH 6.97 pH Units (7.32-7.42); VBG PO2 162 mmHg (25-50)
[2020-07-14 12:28] LABS: Hemoglobin 13.5 g/dL (12.9-16.9); Mean Corpuscular Volume 100.5 fL (83.0-100.0)
[2020-07-14 12:32] LABS: Alanine Aminotransferase 97 Units/L (7-52); Albumin 4.4 g/dL (3.5-5.7); Albumin/Globulin Ratio 1.3 (1.1-2.2); Alkaline Phosphatase 180 Units/L (34-104); Aspartate Amino Transferase 38 Units/L (13-39); BUN/Creatinine Ratio 18 (6-26); Bilirubin,Direct 0.1 mg/dL (0.0-0.2); Bilirubin,Indirect 0.3 mg/dL (0.0-1.0); Bilirubin,Total 0.4 mg/dL (0.3-1.0); Blood Urea Nitrogen 29 mg/dL (6-20); Calcium 9.1 mg/dL (8.6-10.3); Carbon Dioxide 5 mEq/L (23-29); Chloride 91 mEq/L (98-107); Creatine Kinase 23 Units/L (30-223); Ethanol < 10 mg/dL (Less than 10); Globulin 3.4 g/dL (2.4-3.5); Glucose 682 mg/dL (70-105); Lipase 9 Units/L (11-82); Magnesium 2.2 mg/dL (1.6-2.6); Osmolality,Calculated 306 (280-300); Potassium 5.4 mEq/L (3.5-5.1); Sodium 129 mEq/L (136-145); Total Protein 7.8 g/dL (6.4-8.9); eGFR For African Americans 57 (> 60); eGFR For Non-African Americans 47 (> 60)
[2020-07-14 13:29] LABS: Amphetamine Screen,Urine Negative ng/mL (Cutoff=1000); Barbiturate Screen,Urine Negative ng/mL (Cutoff=200); Benzodiazepines Screen,Urine Negative ng/mL (Cutoff=200); Cannabinoid Screen,Urine Negative ng/mL (Cutoff = 50); Cocaine Screen,Urine Negative ng/mL (Cutoff= 300); Opiate Screen,Urine Negative ng/mL (Cutoff=300); Phencyclidine Screen,Urine Negative ng/mL (Cutoff=25)
[2020-07-14] MEDS: Insulin Human Regular 100 UNIT in 0.9 % Sodium Chloride 100 ML IVC SCH (14:33)
[2020-07-14] MEDS ORDERED: Naloxone 0.4 MG/ML INJ IVP PRN (17:46)
[2020-07-14] MEDS ORDERED: Acetaminophen 325 MG TABLET PO PRN (17:46)
[2020-07-14] MEDS ORDERED: *HR* Dextrose 50 % in Water (Vial) 50 ML VIAL IVP PRN ×2 (17:59→21:13)
[2020-07-14] MEDS ORDERED: Insulin Regular, Human 100 UNIT/ML IV PRN (17:59)
[2020-07-14 18:25] LABS: Calcium 8.2 mg/dL (8.6-10.3); Potassium 4.9 mEq/L (3.5-5.1)
[2020-07-14] MEDS ORDERED: 0.9 % Sodium Chloride 1,000 ML ONE (18:46)
[2020-07-14] MEDS: 0.9 % Sodium Chloride 1,000 ML IVC SCH ×3 (19:00→22:39)
[2020-07-14] MEDS ORDERED: *HR* OxyCODONE Immed Rel 5 MG TABLET PO PRN (19:02)
[2020-07-14] MEDS ORDERED: Ondansetron 4 MG/2 ML VIAL IVP PRN (19:02)
[2020-07-14] MEDS: Gabapentin 300 MG CAPSULE PO SCH (21:20)
[2020-07-14] MEDS: Sucralfate 1 GM TABLET PO SCH (21:21)
[2020-07-14] MEDS: D5% in 0.45% NACL w KCl 20 MEQ/1,000 ML MLS IVC PRN (21:27)
[2020-07-14 22:49] LABS: Calcium 7.9 mg/dL (8.6-10.3); Potassium 4.2 mEq/L (3.5-5.1)
[2020-07-14] MEDS: *HR* Heparin 5,000 UNIT/ML VIAL SQ SCH (23:50)
[2020-07-15] MEDS: 0.9 % Sodium Chloride 1,000 ML IVC SCH ×2 (00:06→04:30)
[2020-07-15] MEDS: D5% in 0.45% NACL w KCl 20 MEQ/1,000 ML MLS IVC PRN ×3 (01:36→09:57)
[2020-07-15 02:41] LABS: Calcium 7.6 mg/dL (8.6-10.3)
[2020-07-15 03:26] LABS: VBG Ionized Calcium 1.14 mmol/L (1.15-1.35)
[2020-07-15 03:27] LABS: Basophils % 0.1 %; Hematocrit 31.1 % (37.5-50.1); Immature Granulocytes % 1.5 % (0-4); Lymphocytes # 1.4 K/mcL (0.6-4.6); Lymphocytes % 7.9 %; Mean Corpuscular HGB Conc 33.8 g/dL (31.6-35.5); Mean Corpuscular Hemoglobin 31.2 pg (28.0-33.3); Mean Platelet Volume 9.5 fL (9.4-12.4); Monocytes % 6.1 %; Neutrophils # 14.4 K/mcL (1.6-8.9); Platelet Count 241 K/mcL (140-400); Red Blood Count 3.37 M/mcL (4.19-5.50); Red Cell Distribution Width 13.1 % (11.5-14.5); Segmented Neutrophils % 84.4 %; White Blood Count 17.1 K/mcL (4.3-11.1)
[2020-07-15 03:28] LABS: Hemoglobin 10.5 g/dL (12.9-16.9); Mean Corpuscular Volume 92.3 fL (83.0-100.0)
[2020-07-15 03:44] LABS: Albumin 3.4 g/dL (3.5-5.7); Albumin/Globulin Ratio 1.4 (1.1-2.2); Bilirubin,Total 0.3 mg/dL (0.3-1.0); Calcium 7.9 mg/dL (8.6-10.3); Globulin 2.5 g/dL (2.4-3.5); INR 0.9; Magnesium 1.8 mg/dL (1.6-2.6); Phosphorous 2.4 mg/dL (2.7-4.5); Prothrombin Time 10.6 Seconds (9.4-12.1); Total Protein 5.9 g/dL (6.4-8.9)
[2020-07-15 03:47] LABS: Activated Partial Thrombo Time 21.5 Seconds (26.0-36.0)
[2020-07-15 06:03] LABS: ABG Base Excess -7 mEq/L (-2 to 3); ABG HCO3 17 mEq/L (21-27); ABG Oxygen Saturation 94 % (95-98); ABG PCO2 30 mmHg (35-45); ABG PH 7.37 pH Units (7.32-7.45); ABG PO2 74 mmHg (85-104); ABG TCO2 18 mEq/L (20-26)
[2020-07-15 07:19] LABS: Calcium 7.9 mg/dL (8.6-10.3); Potassium 3.8 mEq/L (3.5-5.1)
[2020-07-15] MEDS: *HR* Heparin 5,000 UNIT/ML VIAL SQ SCH ×2 (08:10→15:33)
[2020-07-15] MEDS: Sucralfate 1 GM TABLET PO SCH ×4 (08:10→21:31)
[2020-07-15] MEDS: Gabapentin 300 MG CAPSULE PO SCH ×3 (08:10→21:31)
[2020-07-15] MEDS: Insulin Human Regular 100 UNIT in 0.9 % Sodium Chloride 100 ML IVC SCH (09:30)
[2020-07-15] MEDS ORDERED: D5% in Water 1,000 ML IVC PRN (10:49)
[2020-07-15] MEDS ORDERED: Insulin DETEMIR 100 UNIT/ML X5UNITS SQ ONE (10:49)
[2020-07-15] MEDS ORDERED: Dextrose Gel 15 GM/37.5 ML TUBE PO PRN ×2 (10:49)
[2020-07-15] MEDS ORDERED: Naloxone 0.4 MG/ML INJ IVP PRN (10:49)
[2020-07-15] MEDS ORDERED: Acetaminophen 325 MG TABLET PO PRN (10:49)
[2020-07-15] MEDS ORDERED: Ondansetron 4 MG/2 ML VIAL IVP PRN (10:49)
[2020-07-15] MEDS ORDERED: *HR* Dextrose 50 % in Water (Vial) 50 ML VIAL IVP PRN (10:49)
[2020-07-15] MEDS: Insulin LISPRO 300 UNITS/3 ML VIAL SQ SCH ×2 (11:34→15:55)
[2020-07-15] MEDS: *HR* OxyCODONE Immed Rel 5 MG TABLET PO PRN ×2 (15:34→20:12)
[2020-07-15] MEDS ORDERED: Insulin LISPRO 300 UNITS/3 ML VIAL SQ SCH (21:00)
[2020-07-16] MEDS: *HR* Heparin 5,000 UNIT/ML VIAL SQ SCH ×2 (00:02→08:01)
[2020-07-16] MEDS: *HR* OxyCODONE Immed Rel 5 MG TABLET PO PRN ×4 (00:02→13:07)
[2020-07-16] MEDS: Gabapentin 300 MG CAPSULE PO SCH (08:01)
[2020-07-16] MEDS: Sucralfate 1 GM TABLET PO SCH ×2 (08:01→11:54)
[2020-07-16] MEDS: Insulin LISPRO 300 UNITS/3 ML VIAL SQ SCH ×2 (08:04→11:54)
[2020-07-16] MEDS ORDERED: Insulin DETEMIR 100 UNIT/ML X5UNITS SQ SCH (09:00)
[2020-07-16 09:19] LABS: BUN/Creatinine Ratio 16 (6-26); Blood Urea Nitrogen 17 mg/dL (6-20); Calcium 8.8 mg/dL (8.6-10.3); Carbon Dioxide 19 mEq/L (23-29); Chloride 100 mEq/L (98-107); Glucose 326 mg/dL (70-105); Osmolality,Calculated 284 (280-300); Potassium 3.2 mEq/L (3.5-5.1); Sodium 130 mEq/L (136-145); eGFR For African Americans > 60 (> 60); eGFR For Non-African Americans > 60 (> 60)
[2020-07-16 13:00] VITALS: BP 165/110
== END 2020-07-16 14:15 | disposition home or self-care (01) | DRG 137 ==
LOC: EMEROOARM 10:09 → 2NENU 10:09 → SUATTDRO 18:50
PROVIDERS: ADMIT Family Medicine; ATTEND Internal Medicine

== ENCOUNTER 2021-02-08 13:30 | Inpatient (IN) ==
[2021-02-08] MEDS ORDERED: 0.9 % Sodium Chloride 1,000 ML IVC STA (13:48)
[2021-02-08] MEDS: 0.9 % Sodium Chloride 1,000 ML IVC SCH ×6 (14:20→22:51)
[2021-02-08 14:21] LABS: VBG HCO3 3 mEq/L (21-27); VBG PCO2 26 mmHg (41-51); VBG PH 6.59 pH Units (7.32-7.42); VBG PO2 61 mmHg (25-50)
[2021-02-08 14:22] LABS: Mean Platelet Volume 10.6 fL (9.4-12.4)
[2021-02-08 14:26] LABS: Hemoglobin 13.4 g/dL (12.9-16.9); Mean Corpuscular HGB Conc 28.5 g/dL (31.6-35.5); Mean Corpuscular Hemoglobin 31.2 pg (28.0-33.3); Mean Corpuscular Volume 109.6 fL (83.0-100.0); Platelet Count 429 K/mcL (140-400); Red Blood Count 4.29 M/mcL (4.19-5.50); Red Cell Distribution Width 12.3 % (11.5-14.5)
[2021-02-08 14:48] LABS: White Blood Count 40.1 K/mcL (4.3-11.1)
[2021-02-08] MEDS ORDERED: Cefepime HCl 2,000 MG in Water for inj. (sterile) 20 ML IVP ONE (15:09)
[2021-02-08 15:13] LABS: Lymphocytes # 5.6 K/mcL (0.6-4.6); Monocytes # 2.8 K/mcL (0.0-1.3); Neutrophils # 31.7 K/mcL (1.6-8.9); Platelet Estimate Increased (Normal); Reactive Lymphocytes Present (Not Present)
[2021-02-08] MEDS ORDERED: 0.9 % Sodium Chloride 1,000 ML IVC ONE (15:17)
[2021-02-08 15:29] LABS: Bacteria,Urine Few per hpf (None-Few); Bilirubin,Urine Negative (Negative); Blood,Urine Small (Negative); Clarity,Urine Clear (Clear); Color,Urine Light-Yellow (Yellow); Glucose,Urine (UA) >=1000 mg/dL (Normal); Ketones,Urine >150 mg/dL (Negative); Leukocyte Esterase,Urine Negative (Negative); Nitrite,Urine Negative (Negative); PH,Urine 5.5 pH Units (5.0-8.0); Protein,Urine 50 mg/dL (Neg-Trace); RBC,Urine 0-3 per hpf (0-3); Specific Gravity,Urine 1.023 (1.010-1.025); Squamous Epithelial Cell,Urine Few per hpf (None-Few); Urobilinogen,Urine Normal (Normal); WBC,Urine 0-3 per hpf (0-3)
[2021-02-08 15:29] LABS: Troponin I < 0.03 ng/mL (< 0.04)
[2021-02-08 15:45] LABS: Alanine Aminotransferase 44 Units/L (7-52); Albumin 4.2 g/dL (3.5-5.7); Albumin/Globulin Ratio 1.3 (1.1-2.2); Alkaline Phosphatase 188 Units/L (34-104); Aspartate Amino Transferase 35 Units/L (13-39); BUN/Creatinine Ratio 16 (6-26); Bilirubin,Indirect 0.3 mg/dL (0.0-1.0); Bilirubin,Total 0.3 mg/dL (0.3-1.0); Blood Urea Nitrogen 29 mg/dL (6-20); Calcium 9.3 mg/dL (8.6-10.3); Chloride 96 mEq/L (98-107); Creatine Kinase 115 Units/L (30-223); Ethanol < 10 mg/dL (Less than 10); Globulin 3.3 g/dL (2.4-3.5); Glucose 909 mg/dL (70-105); Osmolality,Calculated 331 (280-300); Phosphorous 8.8 mg/dL (2.7-4.5); Potassium 5.7 mEq/L (3.5-5.1); Sodium 135 mEq/L (136-145); Total Protein 7.5 g/dL (6.4-8.9); eGFR For African Americans 48 (> 60); eGFR For Non-African Americans 40 (> 60)
[2021-02-08] MEDS ORDERED: Sodium Bicarbonate 150 MEQ in Water for inj. (sterile) 1,000 ML IVC SCH ×2 (15:45→17:57)
[2021-02-08 15:47] LABS: Carbon Dioxide < 4 mEq/L (23-29)
[2021-02-08 15:53] LABS: Amphetamine Screen,Urine Negative ng/mL (Cutoff=1000); Barbiturate Screen,Urine Negative ng/mL (Cutoff=200); Benzodiazepines Screen,Urine Negative ng/mL (Cutoff=200); Cannabinoid Screen,Urine Negative ng/mL (Cutoff = 50); Cocaine Screen,Urine Negative ng/mL (Cutoff= 300); Opiate Screen,Urine Negative ng/mL (Cutoff=300); Phencyclidine Screen,Urine Negative ng/mL (Cutoff=25)
[2021-02-08 16:46] LABS: ABG Base Excess < -30 mEq/L (-2 to 3); ABG HCO3 2 mEq/L (21-27); ABG Oxygen Saturation 36 % (95-98); ABG PCO2 20 mmHg (35-45); ABG PH 6.64 pH Units (7.32-7.45); ABG PO2 46 mmHg (85-104); ABG TCO2 < 5 mEq/L (20-26)
[2021-02-08] MEDS ORDERED: Naloxone 0.4 MG/ML INJ IVP PRN (17:17)
[2021-02-08] MEDS ORDERED: D5% in 0.45% NACL 1,000 ML IVC PRN (17:17)
[2021-02-08] MEDS ORDERED: Insulin Regular, Human 100 UNIT/ML IV PRN (17:17)
[2021-02-08] MEDS ORDERED: Perflutren Lipid Microsphere 1.3 ML in 0.9 % Sodium Chloride 8.7 ML IVP PRN (17:47)
[2021-02-08] MEDS ORDERED: Vancomycin (wt based) 1,000 MG VIAL IVPB SCH (18:00)
[2021-02-08] MEDS ORDERED: Azithromycin 500 MG in 0.9 % Sodium Chloride 250 ML IVPB SCH (18:00)
[2021-02-08 18:28] LABS: BUN/Creatinine Ratio 19 (6-26); Blood Urea Nitrogen 31 mg/dL (6-20); Carbon Dioxide < 4 mEq/L (23-29); Chloride 106 mEq/L (98-107); Glucose 777 mg/dL (70-105); Magnesium 2.5 mg/dL (1.6-2.6); Osmolality,Calculated 332 (280-300); Phosphorous 7.4 mg/dL (2.7-4.5); Sodium 139 mEq/L (136-145); eGFR For African Americans 55 (> 60); eGFR For Non-African Americans 45 (> 60)
[2021-02-08 18:54] LABS: Magnesium 2.5 mg/dL (1.6-2.6); Phosphorous 7.1 mg/dL (2.7-4.5)
[2021-02-08 19:12] LABS: BUN/Creatinine Ratio 18 (6-26); Blood Urea Nitrogen 30 mg/dL (6-20); Calcium 7.9 mg/dL (8.6-10.3); Carbon Dioxide < 4 mEq/L (23-29); Chloride 107 mEq/L (98-107); Glucose 709 mg/dL (70-105); Osmolality,Calculated 328 (280-300); Potassium 4.8 mEq/L (3.5-5.1); Sodium 139 mEq/L (136-145); eGFR For African Americans 54 (> 60); eGFR For Non-African Americans 44 (> 60)
[2021-02-08 19:19] LABS: Adenovirus Not Detected (Not Detect); Bordetella Pertussis Not Detected (Not Detect); Chlamydophila pneumoniae Not Detected (Not Detect); Coronavirus 229E Not Detected (Not Detect); Coronavirus HKU1 Not Detected (Not Detect); Coronavirus NL63 Not Detected (Not Detect); Coronavirus OC43 Not Detected (Not Detect); Human Metapneumovirus Not Detected (Not Detect); Human Rhinovirus/Enterovirus Not Detected (Not Detect); Influenza A Subtype 2009 H1 Not Detected (Not Detect); Influenza B Not Detected (Not Detect); Mycoplasma pneumoniae Not Detected (Not Detect); Parainfluenza Virus 1 Not Detected (Not Detect); Parainfluenza Virus 2 Not Detected (Not Detect); Parainfluenza Virus 3 Not Detected (Not Detect); Parainfluenza Virus 4 Not Detected (Not Detect); Respiratory Syncytial Virus Not Detected (Not Detect); SARS-CoV-2 Not Detected (Not Detect)
[2021-02-08] MEDS: *HR* Heparin 5,000 UNIT/ML VIAL SQ SCH (19:26)
[2021-02-08] MEDS: 0.45 % Sodium Chloride w/KCl 20 MEQ/1,000 ML MLS IVC PRN (20:47)
[2021-02-08 20:58] LABS: VBG HCO3 4 mEq/L (21-27); VBG PCO2 20 mmHg (41-51); VBG PH 6.87 pH Units (7.32-7.42); VBG PO2 77 mmHg (25-50)
[2021-02-08 21:22] LABS: Calcium 7.5 mg/dL (8.6-10.3)
[2021-02-09] MEDS: 0.45 % Sodium Chloride w/KCl 20 MEQ/1,000 ML MLS IVC PRN (00:14)
[2021-02-09] MEDS: Norepinephrine 4 MG/254 ML IV.SOLN IVC SCH ×2 (00:15→18:29)
[2021-02-09 00:23] LABS: VBG HCO3 10 mEq/L (21-27); VBG PCO2 18 mmHg (41-51); VBG PH 7.34 pH Units (7.32-7.42); VBG PO2 109 mmHg (25-50)
[2021-02-09 00:48] LABS: Calcium 7.3 mg/dL (8.6-10.3); Potassium 3.8 mEq/L (3.5-5.1)
[2021-02-09] MEDS: 0.9 % Sodium Chloride 1,000 ML IVC SCH ×4 (00:58→05:19)
[2021-02-09] MEDS: D5% in 0.45% NACL w KCl 20 MEQ/1,000 ML MLS IVC SCH ×7 (01:08→21:55)
[2021-02-09] MEDS: Ondansetron 4 MG/2 ML VIAL IVP PRN ×3 (01:37→20:03)
[2021-02-09] MEDS: Cefepime HCl 2,000 MG in Water for inj. (sterile) 20 ML IVP SCH ×2 (04:23→15:37)
[2021-02-09 04:28] LABS: VBG HCO3 16 mEq/L (21-27); VBG PCO2 27 mmHg (41-51); VBG PH 7.38 pH Units (7.32-7.42); VBG PO2 75 mmHg (25-50)
[2021-02-09 04:40] LABS: Albumin 2.9 g/dL (3.5-5.7); Albumin/Globulin Ratio 1.2 (1.1-2.2); Bilirubin,Direct 0.1 mg/dL (0.0-0.2); Bilirubin,Indirect 0.2 mg/dL (0.0-1.0); Bilirubin,Total 0.3 mg/dL (0.3-1.0); Calcium 7.4 mg/dL (8.6-10.3); Globulin 2.4 g/dL (2.4-3.5); Magnesium 1.8 mg/dL (1.6-2.6); Phosphorous 1.1 mg/dL (2.7-4.5); Potassium 3.7 mEq/L (3.5-5.1); Total Protein 5.3 g/dL (6.4-8.9)
[2021-02-09 05:12] LABS: Basophils % 0.1 %; Hematocrit 30.3 % (37.5-50.1); Hemoglobin 10.7 g/dL (12.9-16.9); Immature Granulocytes % 0.6 % (0-4); Lymphocytes # 0.6 K/mcL (0.6-4.6); Lymphocytes % 3.5 %; Mean Corpuscular HGB Conc 35.3 g/dL (31.6-35.5); Mean Corpuscular Hemoglobin 31.6 pg (28.0-33.3); Mean Corpuscular Volume 89.4 fL (83.0-100.0); Mean Platelet Volume 9.8 fL (9.4-12.4); Monocytes # 0.9 K/mcL (0.0-1.3); Monocytes % 4.9 %; Platelet Count 228 K/mcL (140-400); Red Blood Count 3.39 M/mcL (4.19-5.50); Segmented Neutrophils % 90.9 %; White Blood Count 17.3 K/mcL (4.3-11.1)
[2021-02-09 05:14] LABS: Neutrophils # 15.7 K/mcL (1.6-8.9)
[2021-02-09] MEDS: *HR* Heparin 5,000 UNIT/ML VIAL SQ SCH ×2 (05:18→17:29)
[2021-02-09] MEDS ORDERED: Potassium Phosphate 44 MEQ in 0.9 % Sodium Chloride 250 ML IVPB ONE ×2 (07:08→16:48)
[2021-02-09 08:26] LABS: VBG HCO3 15 mEq/L (21-27); VBG PCO2 29 mmHg (41-51); VBG PH 7.33 pH Units (7.32-7.42); VBG PO2 83 mmHg (25-50)
[2021-02-09 08:41] LABS: Magnesium 1.8 mg/dL (1.6-2.6); Phosphorous 1.2 mg/dL (2.7-4.5)
[2021-02-09 08:51] LABS: Calcium 7.5 mg/dL (8.6-10.3); Potassium 3.8 mEq/L (3.5-5.1)
[2021-02-09 12:21] LABS: VBG HCO3 9 mEq/L (21-27); VBG PCO2 21 mmHg (41-51); VBG PH 7.24 pH Units (7.32-7.42); VBG PO2 85 mmHg (25-50)
[2021-02-09 12:54] LABS: Magnesium 1.6 mg/dL (1.6-2.6); Phosphorous 2.7 mg/dL (2.7-4.5)
[2021-02-09 13:00] LABS: Calcium 7.4 mg/dL (8.6-10.3); Potassium 4.3 mEq/L (3.5-5.1)
[2021-02-09] MEDS ORDERED: D5% in Water 1,000 ML IVC SCH (13:15)
[2021-02-09] MEDS ORDERED: Sodium Bicarbonate 150 MEQ in D5% in Water 1,000 ML IVC SCH (15:15)
[2021-02-09] MEDS: *HR* Dextrose 50 % in Water (Vial) 50 ML VIAL IVP PRN (16:10)
[2021-02-09 16:19] LABS: VBG HCO3 17 mEq/L (21-27); VBG PCO2 29 mmHg (41-51); VBG PH 7.36 pH Units (7.32-7.42); VBG PO2 65 mmHg (25-50)
[2021-02-09 16:39] LABS: Magnesium 2.1 mg/dL (1.6-2.6); Phosphorous 1.1 mg/dL (2.7-4.5)
[2021-02-09 16:44] LABS: Calcium 7.7 mg/dL (8.6-10.3); Potassium 3.4 mEq/L (3.5-5.1)
[2021-02-09] MEDS ORDERED: Azithromycin 500 MG in 0.9 % Sodium Chloride 250 ML IVPB SCH (18:00)
[2021-02-09 20:13] LABS: VBG HCO3 12 mEq/L (21-27); VBG Ionized Calcium 1.06 mmol/L (1.15-1.35); VBG PCO2 23 mmHg (41-51); VBG PO2 66 mmHg (25-50)
[2021-02-09 20:30] LABS: Magnesium 1.9 mg/dL (1.6-2.6); Phosphorous 3.6 mg/dL (2.7-4.5)
[2021-02-09 20:36] LABS: Calcium 7.4 mg/dL (8.6-10.3); Potassium 4.3 mEq/L (3.5-5.1)
[2021-02-09 20:41] LABS: Hepatitis B Surface Antibody < 3.10 mIU/mL
[2021-02-09 20:52] LABS: Hepatitis B Surface Antigen Nonreactive (Nonreactive)
[2021-02-09] MEDS: Calcium Gluconate 1gm/50mL 1 GM/50 ML BAG IVPB SCH ×2 (22:22→23:12)
[2021-02-09 23:20] LABS: HIV-1&2 Antibody & p24 Ag Reactive (Nonreactive)
[2021-02-10 00:17] LABS: VBG HCO3 18 mEq/L (21-27); VBG PCO2 30 mmHg (41-51); VBG PH 7.38 pH Units (7.32-7.42); VBG PO2 78 mmHg (25-50)
[2021-02-10] MEDS: *HR* Dextrose 50 % in Water (Vial) 50 ML VIAL IVP PRN ×3 (00:20→23:36)
[2021-02-10 00:34] LABS: Magnesium 2.9 mg/dL (1.6-2.6); Phosphorous 2.7 mg/dL (2.7-4.5)
[2021-02-10 01:01] LABS: Calcium 8.2 mg/dL (8.6-10.3); Potassium 3.8 mEq/L (3.5-5.1)
[2021-02-10] MEDS: D5% in 0.45% NACL w KCl 20 MEQ/1,000 ML MLS IVC SCH ×4 (01:20→20:07)
[2021-02-10] MEDS: Ondansetron 4 MG/2 ML VIAL IVP PRN ×3 (03:50→23:07)
[2021-02-10] MEDS: Acetaminophen 325 MG TABLET PO PRN ×2 (03:51→14:35)
[2021-02-10 03:54] LABS: VBG HCO3 16 mEq/L (21-27); VBG PCO2 30 mmHg (41-51); VBG PH 7.33 pH Units (7.32-7.42); VBG PO2 75 mmHg (25-50)
[2021-02-10] MEDS: Cefepime HCl 2,000 MG in Water for inj. (sterile) 20 ML IVP SCH (04:01)
[2021-02-10 04:13] LABS: Magnesium 2.7 mg/dL (1.6-2.6); Phosphorous 3.5 mg/dL (2.7-4.5)
[2021-02-10 05:24] LABS: Calcium 8.1 mg/dL (8.6-10.3); Potassium 4.1 mEq/L (3.5-5.1)
[2021-02-10] MEDS: *HR* Heparin 5,000 UNIT/ML VIAL SQ SCH ×2 (06:07→17:22)
[2021-02-10 07:57] LABS: Estimated Average Glucose 280 mg/dl; Hemoglobin A1C 11.4 %
[2021-02-10 09:25] LABS: VBG Ionized Calcium 1.16 mmol/L (1.15-1.35)
[2021-02-10 09:42] LABS: Magnesium 2.6 mg/dL (1.6-2.6); Phosphorous 2.8 mg/dL (2.7-4.5)
[2021-02-10 10:37] LABS: Calcium 8.2 mg/dL (8.6-10.3); Potassium 3.8 mEq/L (3.5-5.1)
[2021-02-10 13:19] LABS: Basophils % 0.1 %; Eosinophils % 0.2 %; Hematocrit 29.2 % (37.5-50.1); Hemoglobin 9.8 g/dL (12.9-16.9); Immature Granulocytes % 0.9 % (0-4); Lymphocytes # 1.2 K/mcL (0.6-4.6); Lymphocytes % 9.2 %; Mean Corpuscular HGB Conc 33.6 g/dL (31.6-35.5); Mean Corpuscular Hemoglobin 30.9 pg (28.0-33.3); Mean Corpuscular Volume 92.1 fL (83.0-100.0); Mean Platelet Volume 9.5 fL (9.4-12.4); Monocytes # 0.4 K/mcL (0.0-1.3); Monocytes % 3.3 %; Neutrophils # 11.4 K/mcL (1.6-8.9); Platelet Count 159 K/mcL (140-400); Red Blood Count 3.17 M/mcL (4.19-5.50); Red Cell Distribution Width 13.3 % (11.5-14.5); Segmented Neutrophils % 86.3 %; White Blood Count 13.2 K/mcL (4.3-11.1)
[2021-02-10 13:45] LABS: Magnesium 2.7 mg/dL (1.6-2.6); Phosphorous 2.9 mg/dL (2.7-4.5); Potassium 3.8 mEq/L (3.5-5.1)
[2021-02-10] MEDS ORDERED: Dextrose Gel 15 GM/37.5 ML TUBE PO PRN ×2 (13:53)
[2021-02-10] MEDS ORDERED: D5% in Water 1,000 ML IVC PRN (13:53)
[2021-02-10] MEDS ORDERED: *HR* Dextrose 50 % in Water (Vial) 50 ML VIAL IVP PRN (13:53)
[2021-02-10] MEDS: Insulin DETEMIR 100 UNIT/ML X5UNITS SUBQ SCH ×2 (15:27→20:15)
[2021-02-10] MEDS: Sodium Bicarbonate 150 MEQ in Water for inj. (sterile) 1,000 ML IVC SCH (16:37)
[2021-02-10] MEDS: Cefepime HCl 1,000 MG in Water for inj. (sterile) 10 ML IVP SCH (17:21)
[2021-02-10 18:10] LABS: Calcium 7.9 mg/dL (8.6-10.3); Potassium 3.7 mEq/L (3.5-5.1)
[2021-02-10] MEDS: Insulin LISPRO 300 UNITS/3 ML VIAL SUBQ SCH (18:39)
[2021-02-10 19:00] LABS: Magnesium 2.5 mg/dL (1.6-2.6); Phosphorous 2.6 mg/dL (2.7-4.5)
[2021-02-10 19:16] LABS: Protein/Creatinine Ratio,Urine 0.98 mg/mg (0.00-0.20); Sodium, Urine 95.1 mEq/L
[2021-02-10] MEDS ORDERED: Insulin LISPRO 300 UNITS/3 ML VIAL SUBQ SCH (21:00)
[2021-02-10 23:27] LABS: Calcium 7.8 mg/dL (8.6-10.3); Potassium 3.5 mEq/L (3.5-5.1)
[2021-02-11] MEDS: Sodium Bicarbonate 150 MEQ in Water for inj. (sterile) 1,000 ML IVC SCH (03:05)
[2021-02-11 03:53] LABS: Basophils % 0.1 %; Eosinophils % 0.2 %; Hematocrit 28.2 % (37.5-50.1); Hemoglobin 9.5 g/dL (12.9-16.9); Immature Granulocytes % 0.9 % (0-4); Lymphocytes # 1.2 K/mcL (0.6-4.6); Lymphocytes % 8.9 %; Mean Corpuscular HGB Conc 33.7 g/dL (31.6-35.5); Mean Corpuscular Hemoglobin 30.4 pg (28.0-33.3); Mean Corpuscular Volume 90.4 fL (83.0-100.0); Mean Platelet Volume 9.4 fL (9.4-12.4); Monocytes # 0.6 K/mcL (0.0-1.3); Neutrophils # 11.8 K/mcL (1.6-8.9); Platelet Count 141 K/mcL (140-400); Red Blood Count 3.12 M/mcL (4.19-5.50); Red Cell Distribution Width 13.1 % (11.5-14.5); Segmented Neutrophils % 85.9 %; White Blood Count 13.8 K/mcL (4.3-11.1)
[2021-02-11 04:01] LABS: VBG Ionized Calcium 1.11 mmol/L (1.15-1.35)
[2021-02-11 04:09] LABS: Magnesium 2.2 mg/dL (1.6-2.6)
[2021-02-11 04:15] LABS: Calcium 7.9 mg/dL (8.6-10.3); Potassium 3.2 mEq/L (3.5-5.1)
[2021-02-11] MEDS: *HR* Dextrose 50 % in Water (Vial) 50 ML VIAL IVP PRN (04:23)
[2021-02-11] MEDS ORDERED: Potassium Chloride Elixir 20 MEQ/15 ML UDC PO ONE (04:34)
[2021-02-11] MEDS: *HR* Heparin 5,000 UNIT/ML VIAL SQ SCH ×2 (04:48→17:07)
[2021-02-11] MEDS: Cefepime HCl 1,000 MG in Water for inj. (sterile) 10 ML IVP SCH ×2 (04:48→17:07)
[2021-02-11] MEDS ORDERED: Insulin DETEMIR 100 UNIT/ML X5UNITS SUBQ SCH (09:00)
[2021-02-11] MEDS ORDERED: Insulin LISPRO 300 UNITS/3 ML VIAL SUBQ SCH (12:00)
[2021-02-11] MEDS: D5% in 0.45% NACL w KCl 20 MEQ/1,000 ML MLS IVC SCH (13:15)
[2021-02-11] MEDS: Insulin LISPRO 300 UNITS/3 ML VIAL SUBQ SCH ×3 (13:15→20:12)
[2021-02-11] MEDS ORDERED: *HR* Dextrose 50 % in Water (Vial) 50 ML VIAL IVP PRN (14:22)
[2021-02-11] MEDS ORDERED: Naloxone 0.4 MG/ML INJ IVP PRN (14:22)
[2021-02-11] MEDS ORDERED: Ondansetron 4 MG/2 ML VIAL IVP PRN (14:22)
[2021-02-11] MEDS ORDERED: D5% in Water 1,000 ML IVC PRN (14:22)
[2021-02-11] MEDS ORDERED: Dextrose Gel 15 GM/37.5 ML TUBE PO PRN ×2 (14:22)
[2021-02-11 18:18] LABS: Calcium 7.9 mg/dL (8.6-10.3); Potassium 3.7 mEq/L (3.5-5.1)
[2021-02-11] MEDS: Insulin DETEMIR 100 UNIT/ML X5UNITS SUBQ SCH (20:13)
[2021-02-11] MEDS: Acetaminophen 325 MG TABLET PO PRN (23:08)
[2021-02-11 23:47] LABS: Calcium 8.2 mg/dL (8.6-10.3); Potassium 3.7 mEq/L (3.5-5.1)
[2021-02-12] MEDS: Insulin LISPRO 300 UNITS/3 ML VIAL SUBQ SCH ×5 (00:20→17:06)
[2021-02-12 00:56] LABS: HIV-1 Ab Supplemental NEGATIVE (Negative); HIV-2 Ab Supplemental NEGATIVE (Negative)
[2021-02-12 05:11] LABS: Basophils % 0.1 %; Eosinophils % 0.7 %; Monocytes % 3.7 %
[2021-02-12 05:13] LABS: Eosinophils # 0.1 K/mcL (0.0-0.6); Hematocrit 29.2 % (37.5-50.1); Hemoglobin 9.9 g/dL (12.9-16.9); Immature Granulocytes % 0.5 % (0-4); Immature Platelets 4.4 % (1.1-6.1); Lymphocytes % 11.3 %; Mean Corpuscular HGB Conc 33.9 g/dL (31.6-35.5); Mean Corpuscular Hemoglobin 31.2 pg (28.0-33.3); Mean Corpuscular Volume 92.1 fL (83.0-100.0); Mean Platelet Volume 10.6 fL (9.4-12.4); Monocytes # 0.3 K/mcL (0.0-1.3); Neutrophils # 7.2 K/mcL (1.6-8.9); Platelet Count 117 K/mcL (140-400); Red Blood Count 3.17 M/mcL (4.19-5.50); Red Cell Distribution Width 12.8 % (11.5-14.5); Segmented Neutrophils % 83.7 %; White Blood Count 8.6 K/mcL (4.3-11.1)
[2021-02-12 05:28] LABS: Calcium 8.1 mg/dL (8.6-10.3); Potassium 3.4 mEq/L (3.5-5.1)
[2021-02-12] MEDS: Cefepime HCl 1,000 MG in Water for inj. (sterile) 10 ML IVP SCH (06:08)
[2021-02-12] MEDS: *HR* Heparin 5,000 UNIT/ML VIAL SQ SCH ×2 (06:59→17:06)
[2021-02-12] MEDS: Insulin DETEMIR 100 UNIT/ML X5UNITS SUBQ SCH ×2 (08:18→21:24)
[2021-02-12] MEDS: Acetaminophen 325 MG TABLET PO PRN (11:31)
[2021-02-12] MEDS ORDERED: Potassium Chloride Elixir 20 MEQ/15 ML UDC PO ONE (11:45)
[2021-02-12] MEDS ORDERED: Calcium Gluconate 1gm/50mL 1 GM/50 ML BAG IVPB ONE (12:00)
[2021-02-12] MEDS: Gabapentin 400 MG CAPSULE PO SCH ×2 (15:07→21:23)
[2021-02-12] MEDS: Cefepime HCl 2,000 MG in Water for inj. (sterile) 20 ML IVP SCH (17:06)
[2021-02-12] MEDS ORDERED: Insulin LISPRO 300 UNITS/3 ML VIAL SUBQ ONE (23:21)
[2021-02-13] MEDS ORDERED: Insulin LISPRO 300 UNITS/3 ML VIAL SUBQ ONE ×2 (02:00→23:19)
[2021-02-13] MEDS: Acetaminophen 325 MG TABLET PO PRN ×2 (02:36→23:08)
[2021-02-13 03:39] LABS: Basophils % 0.1 %; Eosinophils # 0.1 K/mcL (0.0-0.6); Eosinophils % 1.7 %; Hemoglobin 10.1 g/dL (12.9-16.9); Immature Granulocytes % 0.4 % (0-4); Lymphocytes # 1.3 K/mcL (0.6-4.6); Lymphocytes % 17.1 %; Mean Corpuscular HGB Conc 33.7 g/dL (31.6-35.5); Mean Corpuscular Hemoglobin 30.7 pg (28.0-33.3); Mean Corpuscular Volume 91.2 fL (83.0-100.0); Mean Platelet Volume 10.7 fL (9.4-12.4); Monocytes # 0.4 K/mcL (0.0-1.3); Monocytes % 5.3 %; Neutrophils # 5.9 K/mcL (1.6-8.9); Platelet Count 142 K/mcL (140-400); Red Blood Count 3.29 M/mcL (4.19-5.50); Red Cell Distribution Width 12.2 % (11.5-14.5); Segmented Neutrophils % 75.4 %; White Blood Count 7.8 K/mcL (4.3-11.1)
[2021-02-13 04:04] LABS: Calcium 8.1 mg/dL (8.6-10.3); Potassium 3.7 mEq/L (3.5-5.1)
[2021-02-13] MEDS: Cefepime HCl 2,000 MG in Water for inj. (sterile) 20 ML IVP SCH ×2 (06:08→17:03)
[2021-02-13] MEDS: *HR* Heparin 5,000 UNIT/ML VIAL SQ SCH ×2 (06:20→17:03)
[2021-02-13] MEDS: Gabapentin 400 MG CAPSULE PO SCH ×3 (08:12→20:25)
[2021-02-13] MEDS: Insulin DETEMIR 100 UNIT/ML X5UNITS SUBQ SCH ×2 (08:12→20:25)
[2021-02-13] MEDS: Insulin LISPRO 300 UNITS/3 ML VIAL SUBQ SCH ×3 (08:13→17:02)
[2021-02-13] MEDS ORDERED: Melatonin 3 MG TABLET PO PRN (23:03)
[2021-02-14] MEDS: Insulin LISPRO 300 UNITS/3 ML VIAL SUBQ SCH ×5 (00:41→20:42)
[2021-02-14 05:58] LABS: Calcium 8.6 mg/dL (8.6-10.3); Potassium 3.7 mEq/L (3.5-5.1)
[2021-02-14] MEDS: Cefepime HCl 2,000 MG in Water for inj. (sterile) 20 ML IVP SCH ×2 (06:07→17:04)
[2021-02-14] MEDS: *HR* Heparin 5,000 UNIT/ML VIAL SQ SCH ×2 (06:07→17:04)
[2021-02-14] MEDS: Insulin DETEMIR 100 UNIT/ML X5UNITS SUBQ SCH ×2 (09:56→20:42)
[2021-02-14] MEDS: Gabapentin 400 MG CAPSULE PO SCH ×3 (09:56→20:42)
[2021-02-14 11:36] LABS: HIV-1 Viral Load Interp NOT DETECTED (Not Detected)
[2021-02-14] MEDS: Acetaminophen 325 MG TABLET PO PRN (20:42)
[2021-02-15 02:40] LABS: Basophils % 0.5 %; Eosinophils # 0.2 K/mcL (0.0-0.6); Eosinophils % 2.8 %; Hematocrit 28.9 % (37.5-50.1); Hemoglobin 9.9 g/dL (12.9-16.9); Immature Granulocytes % 0.9 % (0-4); Lymphocytes # 1.4 K/mcL (0.6-4.6); Lymphocytes % 23.7 %; Mean Corpuscular HGB Conc 34.3 g/dL (31.6-35.5); Mean Corpuscular Hemoglobin 31.7 pg (28.0-33.3); Mean Corpuscular Volume 92.6 fL (83.0-100.0); Mean Platelet Volume 10.4 fL (9.4-12.4); Monocytes # 0.5 K/mcL (0.0-1.3); Monocytes % 8.5 %; Neutrophils # 3.7 K/mcL (1.6-8.9); Platelet Count 228 K/mcL (140-400); Red Blood Count 3.12 M/mcL (4.19-5.50); Red Cell Distribution Width 12.3 % (11.5-14.5); Segmented Neutrophils % 63.6 %; White Blood Count 5.8 K/mcL (4.3-11.1)
[2021-02-15 02:55] LABS: Calcium 8.4 mg/dL (8.6-10.3); Potassium 4.4 mEq/L (3.5-5.1)
[2021-02-15] MEDS: *HR* Heparin 5,000 UNIT/ML VIAL SQ SCH (06:35)
[2021-02-15] MEDS: Cefepime HCl 2,000 MG in Water for inj. (sterile) 20 ML IVP SCH (06:35)
[2021-02-15] MEDS: Insulin LISPRO 300 UNITS/3 ML VIAL SUBQ SCH (06:35)
[2021-02-15] MEDS: Insulin DETEMIR 100 UNIT/ML X5UNITS SUBQ SCH (06:35)
[2021-02-15] MEDS: Gabapentin 400 MG CAPSULE PO SCH (06:38)
[2021-02-15 07:31] VITALS: BP 129/87
[2021-02-15] MEDS ORDERED: Insulin Human Regular 10 UNIT in 0.9 % Sodium Chloride 10 ML IV ONE (07:41)
[2021-02-15 08:37] LABS: HIV-1 Genotype by Sequencing INDETERMINATE
== END 2021-02-15 10:40 | disposition home or self-care (01) | DRG 890 ==
LOC: EMEROOARM 13:30 → SUATTDRO 16:37 → ICNU 16:37 → 2ANU 02-11 14:00
PROVIDERS: ADMIT Pediatrics; ATTEND Internal Medicine

== ENCOUNTER 2022-03-04 22:21 | Inpatient (IN) ==
[2022-03-04] MEDS ORDERED: *HR* Dextrose 50 % in Water (Syg) 50 ML SYRINGE IVP PRN (23:15)
[2022-03-04 23:22] LABS: Basophils % 0.2 %; Hematocrit 41.2 % (37.5-50.1); Hemoglobin 12.7 g/dL (12.9-16.9); Lymphocytes # 0.6 K/mcL (0.6-4.6); Lymphocytes % 3.9 %; Mean Corpuscular HGB Conc 30.8 g/dL (31.6-35.5); Mean Corpuscular Hemoglobin 31.1 pg (28.0-33.3); Mean Corpuscular Volume 100.7 fL (83.0-100.0); Mean Platelet Volume 10.7 fL (9.4-12.4); Monocytes # 0.6 K/mcL (0.0-1.3); Monocytes % 4.2 %; Neutrophils # 13.6 K/mcL (1.6-8.9); Platelet Count 229 K/mcL (140-400); Red Blood Count 4.09 M/mcL (4.19-5.50); Red Cell Distribution Width 11.9 % (11.5-14.5); Segmented Neutrophils % 90.7 %
[2022-03-05 00:18] LABS: Bacteria,Urine Few per hpf (None-Few); Bilirubin,Urine Negative (Negative); Blood,Urine Trace (Negative); Clarity,Urine Clear (Clear); Color,Urine Light-Yellow (Yellow); Glucose,Urine (UA) >=1000 mg/dL (Normal); Hyaline Casts,Urine Few per lpf (None Seen); Ketones,Urine 60 mg/dL (Negative); Leukocyte Esterase,Urine Negative (Negative); Mucus,Urine Few per lpf (None-Few); Nitrite,Urine Negative (Negative); PH,Urine 5.5 pH Units (5.0-8.0); Protein,Urine 50 mg/dL (Neg-Trace); Urobilinogen,Urine Normal (Normal)
[2022-03-05 00:33] LABS: Alanine Aminotransferase 50 Units/L (7-52); Albumin 3.7 g/dL (3.5-5.7); Albumin/Globulin Ratio 1.2 (1.1-2.2); Alkaline Phosphatase 114 Units/L (34-104); Aspartate Amino Transferase 20 Units/L (13-39); BUN/Creatinine Ratio 22 (6-26); Bilirubin,Total 0.3 mg/dL (0.3-1.0); Blood Urea Nitrogen 47 mg/dL (6-20); Chloride 94 mEq/L (98-107); Globulin 3.2 g/dL (2.4-3.5); Glucose 644 mg/dL (70-105); Lipase 12 Units/L (11-82); Osmolality,Calculated 313 (280-300); Potassium 4.3 mEq/L (3.5-5.1); Sodium 130 mEq/L (136-145); Total Protein 6.9 g/dL (6.4-8.9); eGFR For African Americans 41 (> 60); eGFR For Non-African Americans 33 (> 60)
[2022-03-05 00:35] LABS: Adenovirus Not Detected (Not Detect); Bordetella Pertussis Not Detected (Not Detect); Chlamydophila pneumoniae Not Detected (Not Detect); Coronavirus 229E Not Detected (Not Detect); Coronavirus HKU1 Not Detected (Not Detect); Coronavirus NL63 Not Detected (Not Detect); Coronavirus OC43 Not Detected (Not Detect); Human Metapneumovirus Not Detected (Not Detect); Human Rhinovirus/Enterovirus Not Detected (Not Detect); Influenza A Subtype 2009 H1 Not Detected (Not Detect); Influenza B Not Detected (Not Detect); Mycoplasma pneumoniae Not Detected (Not Detect); Parainfluenza Virus 1 Not Detected (Not Detect); Parainfluenza Virus 2 Not Detected (Not Detect); Parainfluenza Virus 3 Not Detected (Not Detect); Parainfluenza Virus 4 Not Detected (Not Detect); Respiratory Syncytial Virus Not Detected (Not Detect); SARS-CoV-2 Not Detected (Not Detect)
[2022-03-05] MEDS ORDERED: 0.9 % Sodium Chloride 1,000 ML IVC ONE ×2 (00:58→02:03)
[2022-03-05 01:33] LABS: Amphetamine Screen,Urine Negative ng/mL (Cutoff=1000); Barbiturate Screen,Urine Negative ng/mL (Cutoff=200); Benzodiazepines Screen,Urine Negative ng/mL (Cutoff=200); Cannabinoid Screen,Urine Negative ng/mL (Cutoff = 50); Cocaine Screen,Urine Negative ng/mL (Cutoff= 300); Opiate Screen,Urine Negative ng/mL (Cutoff=300); Phencyclidine Screen,Urine Negative ng/mL (Cutoff=25)
[2022-03-05 01:41] LABS: ABG Base Excess -18 mEq/L (-2 to 3); ABG HCO3 7 mEq/L (21-27); ABG Oxygen Saturation 99 % (95-98); ABG PCO2 17 mmHg (35-45); ABG PH 7.24 pH Units (7.32-7.45); ABG PO2 160 mmHg (85-104); ABG TCO2 8 mEq/L (20-26)
[2022-03-05] MEDS ORDERED: Naloxone 0.4 MG/ML INJ IVP PRN (02:15)
[2022-03-05] MEDS ORDERED: Insulin Regular, Human 100 UNIT/ML IV PRN (02:16)
[2022-03-05] MEDS ORDERED: *HR* Dextrose 50 % in Water (Syg) 50 ML SYRINGE IVP PRN ×2 (02:16→17:20)
[2022-03-05 02:28] LABS: Ethanol < 10 mg/dL (Less than 10)
[2022-03-05 02:32] LABS: Carbon Dioxide < 4 mEq/L (23-29)
[2022-03-05 04:28] LABS: VBG HCO3 9 mEq/L (21-27); VBG PCO2 22 mmHg (41-51); VBG PH 7.24 pH Units (7.32-7.42); VBG PO2 144 mmHg (25-50)
[2022-03-05] MEDS: 0.9 % Sodium Chloride 1,000 ML IVC PRN (04:42)
[2022-03-05 04:56] LABS: Calcium 7.1 mg/dL (8.6-10.3); Potassium 4.1 mEq/L (3.5-5.1)
[2022-03-05 05:26] LABS: VBG HCO3 10 mEq/L (21-27); VBG PCO2 21 mmHg (41-51); VBG PH 7.27 pH Units (7.32-7.42); VBG PO2 172 mmHg (25-50)
[2022-03-05] MEDS: 0.9 % Sodium Chloride w KCl 20 MEQ/1,000 ML MLS IVC SCH ×8 (05:30→16:51)
[2022-03-05 06:07] LABS: Calcium 7.2 mg/dL (8.6-10.3); Potassium 3.8 mEq/L (3.5-5.1)
[2022-03-05] MEDS: D5% in 0.45% NACL w KCl 20 MEQ/1,000 ML MLS IVC PRN ×2 (06:44→14:27)
[2022-03-05] MEDS: *HR* Heparin 5,000 UNIT/ML VIAL SQ SCH ×3 (06:51→19:49)
[2022-03-05 09:54] LABS: VBG HCO3 17 mEq/L (21-27); VBG PCO2 34 mmHg (41-51); VBG PO2 146 mmHg (25-50)
[2022-03-05 09:56] LABS: Hematocrit 30.1 % (37.5-50.1); Hemoglobin 10.2 g/dL (12.9-16.9); Mean Corpuscular HGB Conc 33.9 g/dL (31.6-35.5); Mean Corpuscular Hemoglobin 30.4 pg (28.0-33.3); Mean Corpuscular Volume 89.6 fL (83.0-100.0); Mean Platelet Volume 10.1 fL (9.4-12.4); Platelet Count 223 K/mcL (140-400); Red Blood Count 3.36 M/mcL (4.19-5.50); Red Cell Distribution Width 11.9 % (11.5-14.5); White Blood Count 9.6 K/mcL (4.3-11.1)
[2022-03-05 10:10] LABS: Potassium 3.9 mEq/L (3.5-5.1)
[2022-03-05] MEDS: D5% in 0.45% NACL 1,000 ML IVC PRN ×2 (10:26→13:00)
[2022-03-05 12:20] LABS: VBG HCO3 19 mEq/L (21-27); VBG PCO2 36 mmHg (41-51); VBG PH 7.32 pH Units (7.32-7.42); VBG PO2 211 mmHg (25-50)
[2022-03-05 12:35] LABS: BUN/Creatinine Ratio 29 (6-26); Blood Urea Nitrogen 40 mg/dL (6-20); Calcium 6.9 mg/dL (8.6-10.3); Carbon Dioxide 18 mEq/L (23-29); Chloride 111 mEq/L (98-107); Glucose 173 mg/dL (70-105); Osmolality,Calculated 294 (280-300); Potassium 3.6 mEq/L (3.5-5.1); Sodium 135 mEq/L (136-145); eGFR For African Americans > 60 (> 60); eGFR For Non-African Americans 55 (> 60)
[2022-03-05 13:44] LABS: VBG HCO3 19 mEq/L (21-27); VBG PCO2 39 mmHg (41-51); VBG PO2 120 mmHg (25-50)
[2022-03-05 14:28] LABS: BUN/Creatinine Ratio 29 (6-26); Blood Urea Nitrogen 38 mg/dL (6-20); Calcium 6.9 mg/dL (8.6-10.3); Carbon Dioxide 19 mEq/L (23-29); Chloride 111 mEq/L (98-107); Glucose 158 mg/dL (70-105); Osmolality,Calculated 292 (280-300); Potassium 3.4 mEq/L (3.5-5.1); Sodium 135 mEq/L (136-145); eGFR For African Americans > 60 (> 60); eGFR For Non-African Americans 58 (> 60)
[2022-03-05] MEDS: D5% in 0.45% NACL w KCl 20 MEQ/1,000 ML MLS IVC SCH ×2 (16:50→18:08)
[2022-03-05] MEDS ORDERED: Insulin DETEMIR 100 UNIT/ML X5UNITS SUBQ ONE (17:16)
[2022-03-05] MEDS ORDERED: Dextrose Gel 15 GM/37.5 ML TUBE PO PRN ×2 (17:20)
[2022-03-05] MEDS ORDERED: D5% in Water 1,000 ML IVC PRN (17:20)
[2022-03-05 18:24] LABS: BUN/Creatinine Ratio 31 (6-26); Blood Urea Nitrogen 34 mg/dL (6-20); Carbon Dioxide 19 mEq/L (23-29); Chloride 111 mEq/L (98-107); Glucose 119 mg/dL (70-105); Osmolality,Calculated 285 (280-300); Potassium 3.6 mEq/L (3.5-5.1); Sodium 133 mEq/L (136-145); eGFR For African Americans > 60 (> 60); eGFR For Non-African Americans > 60 (> 60)
[2022-03-05] MEDS: Gabapentin 400 MG CAPSULE PO SCH (19:49)
[2022-03-06 02:28] LABS: Magnesium 1.8 mg/dL (1.6-2.6); Phosphorous 1.4 mg/dL (2.7-4.5)
[2022-03-06] MEDS: 0.9 % Sodium Chloride 1,000 ML IVC PRN (03:12)
[2022-03-06] MEDS: *HR* Heparin 5,000 UNIT/ML VIAL SQ SCH ×3 (04:14→19:27)
[2022-03-06 05:29] VITALS: O2SAT 95
[2022-03-06] MEDS: Insulin LISPRO 300 UNITS/3 ML VIAL SUBQ SCH ×4 (05:52→16:32)
[2022-03-06] MEDS: Ondansetron 4 MG/2 ML VIAL IVP PRN ×2 (05:58→23:39)
[2022-03-06] MEDS: D5% in 0.45% NACL w KCl 20 MEQ/1,000 ML MLS IVC SCH ×6 (07:35→07:47)
[2022-03-06] MEDS: 0.9 % Sodium Chloride w KCl 20 MEQ/1,000 ML MLS IVC SCH ×5 (07:35→07:47)
[2022-03-06] MEDS: Insulin DETEMIR 100 UNIT/ML X5UNITS SUBQ SCH ×2 (07:51→19:39)
[2022-03-06 08:07] LABS: Basophils % 0.3 %; Eosinophils # 0.2 K/mcL (0.0-0.6); Eosinophils % 2.3 %; Hematocrit 29.5 % (37.5-50.1); Hemoglobin 10.2 g/dL (12.9-16.9); Immature Granulocytes % 0.3 % (0-4); Lymphocytes # 1.2 K/mcL (0.6-4.6); Mean Corpuscular HGB Conc 34.6 g/dL (31.6-35.5); Mean Corpuscular Hemoglobin 31.4 pg (28.0-33.3); Mean Corpuscular Volume 90.8 fL (83.0-100.0); Mean Platelet Volume 10.2 fL (9.4-12.4); Monocytes # 0.6 K/mcL (0.0-1.3); Monocytes % 9.3 %; Neutrophils # 4.5 K/mcL (1.6-8.9); Platelet Count 173 K/mcL (140-400); Red Blood Count 3.25 M/mcL (4.19-5.50); Red Cell Distribution Width 12.8 % (11.5-14.5); Segmented Neutrophils % 68.8 %; White Blood Count 6.5 K/mcL (4.3-11.1)
[2022-03-06 08:26] LABS: Alanine Aminotransferase 28 Units/L (7-52); Albumin 2.9 g/dL (3.5-5.7); Albumin/Globulin Ratio 1.5 (1.1-2.2); Alkaline Phosphatase 71 Units/L (34-104); Aspartate Amino Transferase 19 Units/L (13-39); BUN/Creatinine Ratio 26 (6-26); Bilirubin,Total 0.4 mg/dL (0.3-1.0); Blood Urea Nitrogen 24 mg/dL (6-20); Calcium 7.2 mg/dL (8.6-10.3); Carbon Dioxide 19 mEq/L (23-29); Chloride 112 mEq/L (98-107); Glucose 122 mg/dL (70-105); Osmolality,Calculated 287 (280-300); Potassium 3.8 mEq/L (3.5-5.1); Sodium 136 mEq/L (136-145); Total Protein 4.9 g/dL (6.4-8.9); eGFR For African Americans > 60 (> 60); eGFR For Non-African Americans > 60 (> 60)
[2022-03-06] MEDS: Gabapentin 400 MG CAPSULE PO SCH ×3 (09:21→19:34)
[2022-03-06 13:14] LABS: Estimated Average Glucose 243 mg/dl; Hemoglobin A1C 10.1 %
[2022-03-06 19:19] VITALS: BP 140/83; PULSE 80; TEMP 98.1
[2022-03-06] MEDS ORDERED: Insulin LISPRO 300 UNITS/3 ML VIAL SUBQ SCH (21:00)
[2022-03-07 01:17] LABS: Basophils % 0.4 %; Eosinophils # 0.2 K/mcL (0.0-0.6); Eosinophils % 3.4 %; Hematocrit 30.6 % (37.5-50.1); Hemoglobin 10.4 g/dL (12.9-16.9); Immature Granulocytes % 0.2 % (0-4); Lymphocytes # 1.6 K/mcL (0.6-4.6); Lymphocytes % 34.1 %; Mean Corpuscular Hemoglobin 30.8 pg (28.0-33.3); Mean Corpuscular Volume 90.5 fL (83.0-100.0); Monocytes # 0.5 K/mcL (0.0-1.3); Monocytes % 10.3 %; Neutrophils # 2.4 K/mcL (1.6-8.9); Platelet Count 180 K/mcL (140-400); Red Blood Count 3.38 M/mcL (4.19-5.50); Red Cell Distribution Width 12.6 % (11.5-14.5); Segmented Neutrophils % 51.6 %; White Blood Count 4.6 K/mcL (4.3-11.1)
[2022-03-07 01:37] LABS: Alanine Aminotransferase 45 Units/L (7-52); Albumin 3.2 g/dL (3.5-5.7); Albumin/Globulin Ratio 1.3 (1.1-2.2); Alkaline Phosphatase 80 Units/L (34-104); Aspartate Amino Transferase 55 Units/L (13-39); BUN/Creatinine Ratio 16 (6-26); Bilirubin,Total 0.5 mg/dL (0.3-1.0); Blood Urea Nitrogen 15 mg/dL (6-20); Calcium 8.1 mg/dL (8.6-10.3); Carbon Dioxide 25 mEq/L (23-29); Chloride 106 mEq/L (98-107); Globulin 2.5 g/dL (2.4-3.5); Glucose 53 mg/dL (70-105); Magnesium 1.9 mg/dL (1.6-2.6); Osmolality,Calculated 280 (280-300); Phosphorous 1.6 mg/dL (2.7-4.5); Potassium 3.2 mEq/L (3.5-5.1); Sodium 136 mEq/L (136-145); Total Protein 5.7 g/dL (6.4-8.9); eGFR For African Americans > 60 (> 60); eGFR For Non-African Americans > 60 (> 60)
[2022-03-07] MEDS: *HR* Heparin 5,000 UNIT/ML VIAL SQ SCH ×2 (06:06→14:31)
[2022-03-07] MEDS: Insulin LISPRO 300 UNITS/3 ML VIAL SUBQ SCH (07:50)
[2022-03-07] MEDS: Insulin DETEMIR 100 UNIT/ML X5UNITS SUBQ SCH (07:50)
[2022-03-07] MEDS: Gabapentin 400 MG CAPSULE PO SCH ×2 (07:50→15:00)
[2022-03-07] MEDS ORDERED: [UNRECOGNIZED DRUG - OTHER] MC PRN (09:00)
[2022-03-07 10:46] LABS: VBG PCO2 < 13 mmHg (41-51); VBG PH 6.94 pH Units (7.32-7.42); VBG PO2 197 mmHg (25-50)
== END 2022-03-07 17:57 | disposition home or self-care (01) | DRG 420 ==
LOC: EMEROOARM 22:21 → 2NNU 22:21 → SUATTDRO 03-05 02:14 → 2NNU 03-05 02:24
PROVIDERS: ADMIT Internal Medicine; ATTEND Internal Medicine

== ENCOUNTER 2022-04-04 22:55 | Inpatient (IN) ==
[2022-04-04] MEDS: 0.9 % Sodium Chloride 1,000 ML IVC SCH (23:14)
[2022-04-04 23:30] LABS: Immature Granulocytes % 0.6 % (0-4); Monocytes % 3.1 %
[2022-04-04 23:32] LABS: Basophils # 0.1 K/mcL (0.0-0.2); Basophils % 0.2 %; Hematocrit 41.4 % (37.5-50.1); Hemoglobin 13.4 g/dL (12.9-16.9); Lymphocytes # 0.8 K/mcL (0.6-4.6); Mean Corpuscular HGB Conc 32.4 g/dL (31.6-35.5); Mean Corpuscular Volume 95.8 fL (83.0-100.0); Mean Platelet Volume 10.7 fL (9.4-12.4); Monocytes # 0.8 K/mcL (0.0-1.3); Neutrophils # 24.5 K/mcL (1.6-8.9); Platelet Count 278 K/mcL (140-400); Red Blood Count 4.32 M/mcL (4.19-5.50); Red Cell Distribution Width 12.6 % (11.5-14.5); Segmented Neutrophils % 93.1 %; White Blood Count 26.3 K/mcL (4.3-11.1)
[2022-04-04 23:41] LABS: VBG HCO3 3 mEq/L (21-27); VBG PCO2 15 mmHg (41-51); VBG PH 6.91 pH Units (7.32-7.42); VBG PO2 104 mmHg (25-50)
[2022-04-05 00:03] LABS: Platelet Estimate Normal (Normal)
[2022-04-05 00:58] LABS: Acetaminophen < 10 mcg/mL (10-20); Alanine Aminotransferase 195 Units/L (7-52); Albumin 3.9 g/dL (3.5-5.7); Albumin/Globulin Ratio 1.3 (1.1-2.2); Alkaline Phosphatase 142 Units/L (34-104); Aspartate Amino Transferase 15 Units/L (13-39); BUN/Creatinine Ratio 23 (6-26); Bilirubin,Total 0.5 mg/dL (0.3-1.0); Blood Urea Nitrogen 69 mg/dL (6-20); Calcium 8.1 mg/dL (8.6-10.3); Carbon Dioxide < 4 mEq/L (23-29); Chloride 80 mEq/L (98-107); Ethanol < 10 mg/dL (Less than 10); Globulin 3.1 g/dL (2.4-3.5); Glucose 807 mg/dL (70-105); Osmolality,Calculated 311 (280-300); Potassium 4.7 mEq/L (3.5-5.1); Salicylate < 2.5 mg/dL (15.0-30.0); Sodium 121 mEq/L (136-145); Troponin I 0.05 ng/mL (< 0.04)
[2022-04-05] MEDS: 0.9 % Sodium Chloride 1,000 ML IVC SCH ×4 (01:19→08:05)
[2022-04-05] MEDS ORDERED: Insulin Regular, Human 100 UNIT/ML IV PRN ×2 (02:00)
[2022-04-05] MEDS ORDERED: Naloxone 0.4 MG/ML INJ IVP PRN (02:00)
[2022-04-05] MEDS ORDERED: 0.9 % Sodium Chloride w KCl 20 MEQ/1,000 ML MLS IVC SCH (02:00)
[2022-04-05] MEDS ORDERED: 0.9 % Sodium Chloride 1,000 ML IVC SCH (02:00)
[2022-04-05] MEDS ORDERED: D5% in 0.45% NACL 1,000 ML IVC PRN (02:00)
[2022-04-05] MEDS ORDERED: *HR* Dextrose 50 % in Water (Syg) 50 ML SYRINGE IVP PRN ×2 (02:00→18:55)
[2022-04-05] MEDS ORDERED: 0.45 % Sodium Chloride w/KCl 20 MEQ/1,000 ML MLS IVC SCH ×2 (02:00→10:15)
[2022-04-05 02:06] LABS: Bilirubin,Urine Negative (Negative); Blood,Urine Small (Negative); Clarity,Urine Clear (Clear); Color,Urine Light-Yellow (Yellow); Glucose,Urine (UA) >=1000 mg/dL (Normal); Hyaline Casts,Urine Few per lpf (None Seen); Ketones,Urine 100 mg/dL (Negative); Leukocyte Esterase,Urine Negative (Negative); Mucus,Urine Few per lpf (None-Few); Nitrite,Urine Negative (Negative); Protein,Urine 70 mg/dL (Neg-Trace); RBC,Urine 0-3 per hpf (0-3); Urobilinogen,Urine Normal (Normal); WBC,Urine 0-3 per hpf (0-3)
[2022-04-05 02:54] LABS: Amphetamine Screen,Urine Negative ng/mL (Cutoff=1000); Barbiturate Screen,Urine Negative ng/mL (Cutoff=200); Benzodiazepines Screen,Urine Negative ng/mL (Cutoff=200); Cannabinoid Screen,Urine Negative ng/mL (Cutoff = 50); Cocaine Screen,Urine Negative ng/mL (Cutoff= 300); Opiate Screen,Urine Negative ng/mL (Cutoff=300); Phencyclidine Screen,Urine Negative ng/mL (Cutoff=25)
[2022-04-05 03:47] LABS: Basophils % 0.1 %; Hematocrit 32.4 % (37.5-50.1); Immature Granulocytes % 0.6 % (0-4); Lymphocytes # 0.4 K/mcL (0.6-4.6); Lymphocytes % 1.7 %; Mean Corpuscular HGB Conc 32.4 g/dL (31.6-35.5); Mean Corpuscular Hemoglobin 30.8 pg (28.0-33.3); Mean Platelet Volume 10.5 fL (9.4-12.4); Monocytes # 0.5 K/mcL (0.0-1.3); Monocytes % 2.2 %; Neutrophils # 22.1 K/mcL (1.6-8.9); Platelet Count 191 K/mcL (140-400); Red Blood Count 3.41 M/mcL (4.19-5.50); Red Cell Distribution Width 12.4 % (11.5-14.5); Segmented Neutrophils % 95.4 %; White Blood Count 23.2 K/mcL (4.3-11.1)
[2022-04-05 03:50] LABS: Hemoglobin 10.5 g/dL (12.9-16.9)
[2022-04-05 03:53] LABS: VBG HCO3 3 mEq/L (21-27); VBG PCO2 17 mmHg (41-51); VBG PH 6.81 pH Units (7.32-7.42); VBG PO2 119 mmHg (25-50)
[2022-04-05 04:29] LABS: Alanine Aminotransferase 135 Units/L (7-52); Albumin 2.8 g/dL (3.5-5.7); Albumin/Globulin Ratio 1.3 (1.1-2.2); Alkaline Phosphatase 120 Units/L (34-104); Aspartate Amino Transferase 12 Units/L (13-39); BUN/Creatinine Ratio 26 (6-26); Bilirubin,Direct 0.1 mg/dL (0.0-0.2); Bilirubin,Indirect 0.2 mg/dL (0.0-1.0); Bilirubin,Total 0.3 mg/dL (0.3-1.0); Blood Urea Nitrogen 60 mg/dL (6-20); Calcium 6.1 mg/dL (8.6-10.3); Carbon Dioxide < 4 mEq/L (23-29); Chloride 90 mEq/L (98-107); Creatine Kinase 90 Units/L (30-223); Globulin 2.2 g/dL (2.4-3.5); Glucose 688 mg/dL (70-105); Magnesium 2.1 mg/dL (1.6-2.6); Osmolality,Calculated 298 (280-300); Phosphorous 6.8 mg/dL (2.7-4.5); Potassium 7.1 mEq/L (3.5-5.1); Sodium 119 mEq/L (136-145); Troponin I 0.03 ng/mL (< 0.04)
[2022-04-05] MEDS ORDERED: Sodium Bicarbonate 150 MEQ in Water for inj. (sterile) 1,000 ML IVC SCH (04:45)
[2022-04-05] MEDS ORDERED: Calcium Gluconate 1gm/50mL 1 GM/50 ML BAG IVPB SCH (06:00)
[2022-04-05 06:41] LABS: Calcium 7.4 mg/dL (8.6-10.3); Potassium 3.8 mEq/L (3.5-5.1)
[2022-04-05] MEDS: Ondansetron 4 MG/2 ML VIAL IVP PRN ×2 (06:52→13:10)
[2022-04-05 07:24] LABS: VBG PCO2 < 13 mmHg (41-51); VBG PO2 118 mmHg (25-50)
[2022-04-05] MEDS: *HR* Heparin 5,000 UNIT/ML VIAL SQ SCH ×2 (08:09→16:34)
[2022-04-05 08:20] LABS: VBG HCO3 12 mEq/L (21-27); VBG PCO2 22 mmHg (41-51); VBG PH 7.34 pH Units (7.32-7.42); VBG PO2 104 mmHg (25-50)
[2022-04-05 09:07] LABS: Potassium 3.2 mEq/L (3.5-5.1)
[2022-04-05] MEDS ORDERED: *HR* Promethazine 25 MG/ML VIAL IM PRN (09:11)
[2022-04-05] MEDS: MetroNIDAZOLE 500 MG/100 ML 500 MG/100 ML BAG IVPB SCH ×2 (12:00→19:54)
[2022-04-05] MEDS: Cefepime HCl 2,000 MG in 0.9 % Sodium Chloride Mini Bag 100 ML IVPB SCH (12:00)
[2022-04-05 12:12] LABS: VBG Ionized Calcium 0.98 mmol/L (1.15-1.35)
[2022-04-05 12:30] LABS: Amylase 71 Units/L (29-103); Calcium 7.3 mg/dL (8.6-10.3); Creatine Kinase 152 Units/L (30-223); Lipase 25 Units/L (11-82); Potassium 3.5 mEq/L (3.5-5.1)
[2022-04-05 12:31] LABS: Calcium 7.3 mg/dL (8.6-10.3); Potassium 3.6 mEq/L (3.5-5.1)
[2022-04-05 12:32] LABS: Calcium 7.3 mg/dL (8.6-10.3); Phosphorous 1.7 mg/dL (2.7-4.5); Potassium 3.5 mEq/L (3.5-5.1)
[2022-04-05] MEDS ORDERED: Potassium Phosphate 44 MEQ in 0.9 % Sodium Chloride 250 ML IVPB ONE (12:40)
[2022-04-05 13:02] LABS: Amorphous Sediment,Urine Few per hpf (None-Few); Bacteria,Urine Few per hpf (None-Few); Bilirubin,Urine Negative (Negative); Blood,Urine Moderate (Negative); Clarity,Urine Clear (Clear); Color,Urine Light-Yellow (Yellow); Glucose,Urine (UA) 300 mg/dL (Normal); Ketones,Urine 80 mg/dL (Negative); Leukocyte Esterase,Urine Negative (Negative); Mucus,Urine Few per lpf (None-Few); Nitrite,Urine Negative (Negative); Protein,Urine 70 mg/dL (Neg-Trace); RBC,Urine 15-30 per hpf (0-3); Specific Gravity,Urine 1.016 (1.010-1.025); Squamous Epithelial Cell,Urine Few per hpf (None-Few); Urobilinogen,Urine Normal (Normal)
[2022-04-05] MEDS: D5% in 0.45% NACL w KCl 20 MEQ/1,000 ML MLS IVC PRN ×2 (13:31→18:00)
[2022-04-05] MEDS: Calcium Gluconate 1gm/50mL 1 GM/50 ML BAG IVPB PRN (13:32)
[2022-04-05] MEDS: Calcium Gluconate 1gm/50mL 1 GM/50 ML BAG IVPB SCH ×2 (13:40→16:34)
[2022-04-05] MEDS ORDERED: Cefepime HCl 2,000 MG in 0.9 % Sodium Chloride Mini Bag 100 ML IVPB SCH (18:00)
[2022-04-05 18:24] LABS: Calcium 7.8 mg/dL (8.6-10.3); Potassium 3.3 mEq/L (3.5-5.1)
[2022-04-05] MEDS ORDERED: Dextrose Gel 15 GM/37.5 ML TUBE PO PRN ×2 (18:55)
[2022-04-05] MEDS ORDERED: D5% in Water 1,000 ML IVC PRN (18:55)
[2022-04-05] MEDS: 0.45 % Sodium Chloride w/KCl 20 MEQ/1,000 ML MLS IVC SCH (19:54)
[2022-04-05] MEDS: Insulin LISPRO 300 UNITS/3 ML VIAL SUBQ SCH (19:55)
[2022-04-05] MEDS: Insulin DETEMIR 100 UNIT/ML X5UNITS SUBQ SCH ×2 (20:35→22:01)
[2022-04-06] MEDS: Cefepime HCl 2,000 MG in 0.9 % Sodium Chloride Mini Bag 100 ML IVPB SCH ×2 (00:02→11:36)
[2022-04-06] MEDS: *HR* Heparin 5,000 UNIT/ML VIAL SQ SCH ×3 (00:03→17:05)
[2022-04-06] MEDS ORDERED: Acetaminophen 325 MG TABLET PO PRN (02:40)
[2022-04-06] MEDS: 0.45 % Sodium Chloride w/KCl 20 MEQ/1,000 ML MLS IVC SCH (02:49)
[2022-04-06] MEDS: MetroNIDAZOLE 500 MG/100 ML 500 MG/100 ML BAG IVPB SCH ×2 (02:49→11:45)
[2022-04-06 04:13] LABS: VBG Ionized Calcium 1.05 mmol/L (1.15-1.35)
[2022-04-06 04:31] LABS: Albumin 2.6 g/dL (3.5-5.7); Albumin/Globulin Ratio 1.3 (1.1-2.2); Bilirubin,Direct 0.1 mg/dL (0.0-0.2); Bilirubin,Indirect 0.3 mg/dL (0.0-1.0); Bilirubin,Total 0.4 mg/dL (0.3-1.0); Magnesium 1.5 mg/dL (1.6-2.6); Phosphorous 1.4 mg/dL (2.7-4.5); Total Protein 4.6 g/dL (6.4-8.9)
[2022-04-06 06:43] LABS: Basophils % 0.1 %; Eosinophils # 0.1 K/mcL (0.0-0.6); Eosinophils % 1.1 %; Hematocrit 27.2 % (37.5-50.1); Hemoglobin 9.9 g/dL (12.9-16.9); Immature Granulocytes % 0.2 % (0-4); Lymphocytes # 1.3 K/mcL (0.6-4.6); Lymphocytes % 14.4 %; Mean Corpuscular HGB Conc 36.4 g/dL (31.6-35.5); Mean Platelet Volume 10.6 fL (9.4-12.4); Monocytes # 0.5 K/mcL (0.0-1.3); Monocytes % 5.2 %; Neutrophils # 7.1 K/mcL (1.6-8.9); Platelet Count 125 K/mcL (140-400); Red Blood Count 3.19 M/mcL (4.19-5.50); Red Cell Distribution Width 12.4 % (11.5-14.5)
[2022-04-06 06:46] LABS: Mean Corpuscular Volume 85.3 fL (83.0-100.0)
[2022-04-06 08:21] LABS: VBG Ionized Calcium 1.06 mmol/L (1.15-1.35)
[2022-04-06] MEDS: Insulin LISPRO 300 UNITS/3 ML VIAL SUBQ SCH ×4 (08:27→19:58)
[2022-04-06 08:50] LABS: Calcium 7.4 mg/dL (8.6-10.3); Magnesium 2.1 mg/dL (1.6-2.6); Phosphorous 1.2 mg/dL (2.7-4.5); Potassium 2.8 mEq/L (3.5-5.1)
[2022-04-06] MEDS: Calcium Gluconate 1gm/50mL 1 GM/50 ML BAG IVPB PRN (09:42)
[2022-04-06] MEDS: Insulin DETEMIR 100 UNIT/ML X5UNITS SUBQ SCH ×2 (09:49→19:59)
[2022-04-06 17:38] LABS: BUN/Creatinine Ratio 18 (6-26); Blood Urea Nitrogen 16 mg/dL (6-20); Calcium 7.6 mg/dL (8.6-10.3); Carbon Dioxide 28 mEq/L (23-29); Chloride 99 mEq/L (98-107); Glucose 89 mg/dL (70-105); Osmolality,Calculated 275 (280-300); Phosphorous 1.8 mg/dL (2.7-4.5); Potassium 2.9 mEq/L (3.5-5.1); Sodium 132 mEq/L (136-145)
[2022-04-06] MEDS: metroNIDAZOLE 500 MG TABLET PO SCH (19:58)
[2022-04-06] MEDS ORDERED: Gabapentin 300 MG CAPSULE PO SCH (21:00)
[2022-04-06] MEDS ORDERED: Gabapentin 100 MG CAPSULE PO ONE (22:25)
[2022-04-06] MEDS ORDERED: Gabapentin 400 MG CAPSULE PO ONE (22:27)
[2022-04-07] MEDS: *HR* Heparin 5,000 UNIT/ML VIAL SQ SCH ×2 (00:26→08:29)
[2022-04-07] MEDS: Cefepime HCl 2,000 MG in 0.9 % Sodium Chloride Mini Bag 100 ML IVPB SCH ×2 (00:26→12:32)
[2022-04-07 00:39] LABS: Eosinophils % 0.5 %; Hematocrit 28.5 % (37.5-50.1); Mean Corpuscular Volume 85.6 fL (83.0-100.0); Red Blood Count 3.33 M/mcL (4.19-5.50); Red Cell Distribution Width 12.5 % (11.5-14.5)
[2022-04-07 00:41] LABS: Hemoglobin 10.2 g/dL (12.9-16.9); Immature Granulocytes % 0.4 % (0-4); Immature Platelets 3.6 % (1.1-6.1); Lymphocytes # 1.3 K/mcL (0.6-4.6); Lymphocytes % 17.5 %; Mean Corpuscular HGB Conc 35.8 g/dL (31.6-35.5); Mean Corpuscular Hemoglobin 30.6 pg (28.0-33.3); Mean Platelet Volume 9.7 fL (9.4-12.4); Monocytes # 0.4 K/mcL (0.0-1.3); Monocytes % 4.6 %; Neutrophils # 5.8 K/mcL (1.6-8.9); Platelet Count 98 K/mcL (140-400); White Blood Count 7.5 K/mcL (4.3-11.1)
[2022-04-07 00:45] LABS: VBG Ionized Calcium 1.08 mmol/L (1.15-1.35)
[2022-04-07 01:11] LABS: Alanine Aminotransferase 86 Units/L (7-52); Albumin 2.8 g/dL (3.5-5.7); Albumin/Globulin Ratio 1.2 (1.1-2.2); Alkaline Phosphatase 93 Units/L (34-104); Aspartate Amino Transferase 23 Units/L (13-39); BUN/Creatinine Ratio 14 (6-26); Bilirubin,Direct 0.1 mg/dL (0.0-0.2); Bilirubin,Indirect 0.4 mg/dL (0.0-1.0); Bilirubin,Total 0.5 mg/dL (0.3-1.0); Blood Urea Nitrogen 12 mg/dL (6-20); Calcium 7.5 mg/dL (8.6-10.3); Carbon Dioxide 28 mEq/L (23-29); Chloride 96 mEq/L (98-107); Creatine Kinase 92 Units/L (30-223); Globulin 2.3 g/dL (2.4-3.5); Glucose 183 mg/dL (70-105); Magnesium 1.7 mg/dL (1.6-2.6); Osmolality,Calculated 276 (280-300); Phosphorous 1.7 mg/dL (2.7-4.5); Sodium 131 mEq/L (136-145); Total Protein 5.1 g/dL (6.4-8.9)
[2022-04-07 01:26] LABS: BUN/Creatinine Ratio 13 (6-26); Blood Urea Nitrogen 12 mg/dL (6-20); Calcium 6.9 mg/dL (8.6-10.3); Carbon Dioxide 27 mEq/L (23-29); Chloride 103 mEq/L (98-107); Glucose 168 mg/dL (70-105); Osmolality,Calculated 274 (280-300); Potassium 3.1 mEq/L (3.5-5.1); Sodium 130 mEq/L (136-145)
[2022-04-07] MEDS: metroNIDAZOLE 500 MG TABLET PO SCH (08:28)
[2022-04-07] MEDS: Insulin LISPRO 300 UNITS/3 ML VIAL SUBQ SCH ×2 (08:30→12:35)
[2022-04-07] MEDS: Insulin DETEMIR 100 UNIT/ML X5UNITS SUBQ SCH (08:33)
[2022-04-07] MEDS ORDERED: Gabapentin 400 MG CAPSULE PO SCH ×2 (09:00)
[2022-04-07] MEDS ORDERED: Loratadine 10 MG TABLET PO SCH (09:00)
[2022-04-07 11:18] VITALS: BP 129/81; PULSE 88; TEMP 97.8; O2SAT 97
[2022-04-07] MEDS ORDERED: Ibuprofen 600 MG TABLET PO ONE (11:52)
== END 2022-04-07 13:45 | disposition home or self-care (01) | DRG 420 ==
LOC: EMEROOARM 22:55 → ICNU 22:55 → OBSVTOIN 04-05 02:07 → SUATTDRO 04-05 02:07 → ICNU 04-05 02:38 → 3NENU 04-06 20:45
PROVIDERS: ADMIT Emergency Medicine; ATTEND Family Medicine

== ENCOUNTER 2022-04-29 20:23 | Inpatient (IN) ==
[2022-04-29] MEDS ORDERED: 0.9 % Sodium Chloride 1,000 ML ONE (20:37)
[2022-04-29] MEDS: 0.9 % Sodium Chloride 1,000 ML IVC ONE ×2 (20:41→21:52)
[2022-04-29] MEDS ORDERED: Insulin Regular, Human 100 UNIT/ML IV ONE (20:52)
[2022-04-29 20:58] LABS: Basophils # 0.1 K/mcL (0.0-0.2); Basophils % 0.4 %; Eosinophils % 0.1 %; Hematocrit 44.4 % (37.5-50.1); Hemoglobin 13.1 g/dL (12.9-16.9); Immature Granulocytes % 1.8 % (0-4); Lymphocytes # 0.7 K/mcL (0.6-4.6); Mean Corpuscular HGB Conc 29.5 g/dL (31.6-35.5); Mean Corpuscular Hemoglobin 31.6 pg (28.0-33.3); Mean Platelet Volume 10.5 fL (9.4-12.4); Monocytes # 0.4 K/mcL (0.0-1.3); Monocytes % 3.1 %; Neutrophils # 10.8 K/mcL (1.6-8.9); Platelet Count 335 K/mcL (140-400); Red Blood Count 4.15 M/mcL (4.19-5.50); Red Cell Distribution Width 14.6 % (11.5-14.5); Segmented Neutrophils % 88.6 %; White Blood Count 12.2 K/mcL (4.3-11.1)
[2022-04-29] MEDS ORDERED: Sodium Bicarbonate 150 MEQ in D5% in Water 1,000 ML IVC SCH (21:00)
[2022-04-29 21:20] LABS: Alkaline Phosphatase 183 Units/L (34-104); BUN/Creatinine Ratio 15 (6-26); Blood Urea Nitrogen 33 mg/dL (6-20); Calcium 8.6 mg/dL (8.6-10.3); Carbon Dioxide < 4 mEq/L (23-29); Chloride 92 mEq/L (98-107); Glucose 799 mg/dL (70-105); Osmolality,Calculated 314 (280-300); Potassium 5.5 mEq/L (3.5-5.1); Sodium 129 mEq/L (136-145); Troponin I < 0.03 ng/mL (< 0.04)
[2022-04-29] MEDS ORDERED: Sodium Bicarbonate 150 MEQ in Water for inj. (sterile) 1,000 ML IVC SCH (21:30)
[2022-04-29 21:41] LABS: Alanine Aminotransferase 51 Units/L (7-52); Albumin/Globulin Ratio 1.1 (1.1-2.2); Aspartate Amino Transferase 16 Units/L (13-39); Bilirubin,Total 0.4 mg/dL (0.3-1.0); Globulin 3.6 g/dL (2.4-3.5); Magnesium 2.8 mg/dL (1.6-2.6); Phosphorous 6.9 mg/dL (2.7-4.5); Thyroid Stimulating Hormone 1.376 mcIU/mL (0.340-5.600); Total Protein 7.6 g/dL (6.4-8.9)
[2022-04-29 22:38] LABS: Bacteria,Urine Few per hpf (None-Few); Bilirubin,Urine Negative (Negative); Blood,Urine Trace (Negative); Budding Yeast,Urine Few per hpf (None Seen); Clarity,Urine Clear (Clear); Color,Urine Light-Yellow (Yellow); Glucose,Urine (UA) >=1000 mg/dL (Normal); Ketones,Urine >150 mg/dL (Negative); Leukocyte Esterase,Urine Negative (Negative); Mucus,Urine Few per lpf (None-Few); Nitrite,Urine Negative (Negative); Protein,Urine 100 mg/dL (Neg-Trace); RBC,Urine 0-3 per hpf (0-3); Specific Gravity,Urine 1.021 (1.010-1.025); Squamous Epithelial Cell,Urine Few per hpf (None-Few); Urobilinogen,Urine Normal (Normal); WBC,Urine 0-3 per hpf (0-3)
[2022-04-29 22:44] LABS: Amphetamine Screen,Urine Negative ng/mL (Cutoff=1000); Barbiturate Screen,Urine Negative ng/mL (Cutoff=200); Benzodiazepines Screen,Urine Negative ng/mL (Cutoff=200); Cannabinoid Screen,Urine Negative ng/mL (Cutoff = 50); Cocaine Screen,Urine Negative ng/mL (Cutoff= 300); Opiate Screen,Urine Negative ng/mL (Cutoff=300); Phencyclidine Screen,Urine Negative ng/mL (Cutoff=25)
[2022-04-29] MEDS ORDERED: 0.9 % Sodium Chloride 1,000 ML IVC ONE (22:53)
[2022-04-29] MEDS ORDERED: Naloxone 0.4 MG/ML INJ IVP PRN (23:10)
[2022-04-29] MEDS ORDERED: 0.9 % Sodium Chloride 1,000 ML IVC SCH (23:45)
[2022-04-29] MEDS ORDERED: *HR* Dextrose 50 % in Water (Syg) 50 ML SYRINGE IVP PRN (23:47)
[2022-04-29] MEDS ORDERED: Insulin LISPRO 300 UNITS/3 ML VIAL SUBQ PRN ×2 (23:47)
[2022-04-29] MEDS ORDERED: D5% in 0.45% NACL 1,000 ML IVC PRN (23:47)
[2022-04-29] MEDS: *HR* Heparin 5,000 UNIT/ML VIAL SQ SCH (23:51)
[2022-04-30 01:43] LABS: Basophils % 0.1 %; Hematocrit 36.6 % (37.5-50.1); Hemoglobin 11.6 g/dL (12.9-16.9); Immature Granulocytes % 0.5 % (0-4); Lymphocytes # 0.6 K/mcL (0.6-4.6); Lymphocytes % 5.9 %; Mean Corpuscular HGB Conc 31.7 g/dL (31.6-35.5); Mean Corpuscular Hemoglobin 31.3 pg (28.0-33.3); Monocytes # 0.3 K/mcL (0.0-1.3); Monocytes % 3.6 %; Neutrophils # 8.5 K/mcL (1.6-8.9); Platelet Count 229 K/mcL (140-400); Red Blood Count 3.71 M/mcL (4.19-5.50); Red Cell Distribution Width 14.3 % (11.5-14.5); Segmented Neutrophils % 89.9 %; White Blood Count 9.4 K/mcL (4.3-11.1)
[2022-04-30 02:28] LABS: Mean Corpuscular Volume 98.7 fL (83.0-100.0)
[2022-04-30 02:39] LABS: Alanine Aminotransferase 41 Units/L (7-52); Albumin 3.3 g/dL (3.5-5.7); Albumin/Globulin Ratio 1.1 (1.1-2.2); Alkaline Phosphatase 138 Units/L (34-104); Aspartate Amino Transferase 10 Units/L (13-39); BUN/Creatinine Ratio 16 (6-26); Bilirubin,Total 0.3 mg/dL (0.3-1.0); Blood Urea Nitrogen 33 mg/dL (6-20); Calcium 7.6 mg/dL (8.6-10.3); Carbon Dioxide < 4 mEq/L (23-29); Chloride 105 mEq/L (98-107); Glucose 451 mg/dL (70-105); Osmolality,Calculated 313 (280-300); Potassium 3.5 mEq/L (3.5-5.1); Sodium 138 mEq/L (136-145); Total Protein 6.3 g/dL (6.4-8.9)
[2022-04-30] MEDS: D5% in 0.45% NACL w KCl 20 MEQ/1,000 ML MLS IVC PRN ×4 (03:03→16:14)
[2022-04-30 06:50] LABS: Calcium 6.4 mg/dL (8.6-10.3); Potassium 5.7 mEq/L (3.5-5.1)
[2022-04-30] MEDS: *HR* Heparin 5,000 UNIT/ML VIAL SQ SCH ×2 (07:37→15:49)
[2022-04-30 08:19] LABS: Calcium 7.7 mg/dL (8.6-10.3); Potassium 2.9 mEq/L (3.5-5.1)
[2022-04-30 09:55] LABS: Calcium 7.5 mg/dL (8.6-10.3)
[2022-04-30] MEDS: Insulin DETEMIR 100 UNIT/ML X5UNITS SUBQ SCH ×2 (13:52→20:27)
[2022-04-30 16:25] LABS: Calcium 7.6 mg/dL (8.6-10.3); Potassium 2.8 mEq/L (3.5-5.1)
[2022-04-30] MEDS ORDERED: Potassium Phosphate 44 MEQ in 0.9 % Sodium Chloride 250 ML IVPB PRN (17:05)
[2022-04-30] MEDS ORDERED: Calcium Gluconate 1gm/50mL 1 GM/50 ML BAG IVPB PRN (17:05)
[2022-04-30] MEDS: Insulin LISPRO 300 UNITS/3 ML VIAL SUBQ SCH (17:06)
[2022-04-30] MEDS: 0.9 % Sodium Chloride w KCl 40 MEQ/1,000 ML MLS IVC SCH (17:37)
[2022-04-30 18:20] LABS: VBG Ionized Calcium 1.11 mmol/L (1.15-1.35)
[2022-04-30 20:31] LABS: Calcium 7.6 mg/dL (8.6-10.3); Potassium 3.1 mEq/L (3.5-5.1)
[2022-04-30] MEDS ORDERED: Insulin LISPRO 300 UNITS/3 ML VIAL SUBQ SCH (21:00)
[2022-05-01] MEDS: *HR* Heparin 5,000 UNIT/ML VIAL SQ SCH ×3 (01:40→15:20)
[2022-05-01] MEDS: 0.9 % Sodium Chloride w KCl 40 MEQ/1,000 ML MLS IVC SCH (02:36)
[2022-05-01 03:39] LABS: BUN/Creatinine Ratio 15 (6-26); Blood Urea Nitrogen 15 mg/dL (6-20); Calcium 7.3 mg/dL (8.6-10.3); Carbon Dioxide 21 mEq/L (23-29); Chloride 104 mEq/L (98-107); Glucose 103 mg/dL (70-105); Osmolality,Calculated 277 (280-300); Potassium 2.9 mEq/L (3.5-5.1); Sodium 133 mEq/L (136-145)
[2022-05-01] MEDS: Gabapentin 400 MG CAPSULE PO SCH ×4 (06:01→22:05)
[2022-05-01] MEDS: Insulin LISPRO 300 UNITS/3 ML VIAL SUBQ SCH ×4 (06:01→15:31)
[2022-05-01 07:22] LABS: Basophils % 0.2 %; Eosinophils # 0.1 K/mcL (0.0-0.6); Hemoglobin 10.1 g/dL (12.9-16.9); Immature Granulocytes % 0.4 % (0-4); Lymphocytes % 21.3 %; Mean Corpuscular HGB Conc 34.8 g/dL (31.6-35.5); Mean Corpuscular Hemoglobin 31.3 pg (28.0-33.3); Mean Corpuscular Volume 89.8 fL (83.0-100.0); Mean Platelet Volume 9.7 fL (9.4-12.4); Monocytes # 0.3 K/mcL (0.0-1.3); Monocytes % 5.6 %; Neutrophils # 3.4 K/mcL (1.6-8.9); Platelet Count 140 K/mcL (140-400); Red Blood Count 3.23 M/mcL (4.19-5.50); Red Cell Distribution Width 14.4 % (11.5-14.5); Segmented Neutrophils % 71.5 %; White Blood Count 4.8 K/mcL (4.3-11.1)
[2022-05-01] MEDS: Insulin DETEMIR 100 UNIT/ML X5UNITS SUBQ SCH ×2 (07:42→22:09)
[2022-05-01] MEDS ORDERED: 0.9 % Sodium Chloride w KCl 40 MEQ/1,000 ML MLS IVC SCH (07:45)
[2022-05-01 11:22] LABS: BUN/Creatinine Ratio 11 (6-26); Blood Urea Nitrogen 11 mg/dL (6-20); Calcium 8.3 mg/dL (8.6-10.3); Carbon Dioxide 24 mEq/L (23-29); Chloride 100 mEq/L (98-107); Glucose 87 mg/dL (70-105); Osmolality,Calculated 275 (280-300); Potassium 3.9 mEq/L (3.5-5.1); Sodium 133 mEq/L (136-145)
[2022-05-01] MEDS ORDERED: D5% in 0.45% NACL w KCl 20 MEQ/1,000 ML MLS IVC PRN (13:23)
[2022-05-01] MEDS ORDERED: D5% in 0.45% NACL 1,000 ML IVC PRN (13:23)
[2022-05-01] MEDS ORDERED: *HR* Dextrose 50 % in Water (Syg) 50 ML SYRINGE IVP PRN (13:23)
[2022-05-01] MEDS ORDERED: Insulin LISPRO 300 UNITS/3 ML VIAL SUBQ PRN ×2 (13:23)
[2022-05-01] MEDS ORDERED: Naloxone 0.4 MG/ML INJ IVP PRN (13:23)
[2022-05-01] MEDS ORDERED: Insulin LISPRO 300 UNITS/3 ML VIAL SUBQ SCH (21:00)
[2022-05-01] MEDS: Loratadine 10 MG TABLET PO SCH (22:05)
[2022-05-01] MEDS ORDERED: Ondansetron 4 MG/2 ML VIAL IVP ONE (23:38)
[2022-05-02] MEDS: *HR* Heparin 5,000 UNIT/ML VIAL SQ SCH ×4 (00:04→23:34)
[2022-05-02 04:30] LABS: Calcium 8.5 mg/dL (8.6-10.3); Potassium 2.8 mEq/L (3.5-5.1)
[2022-05-02] MEDS: Insulin LISPRO 300 UNITS/3 ML VIAL SUBQ SCH ×3 (08:07→16:34)
[2022-05-02] MEDS: Gabapentin 400 MG CAPSULE PO SCH ×3 (08:07→21:31)
[2022-05-02] MEDS: Insulin DETEMIR 100 UNIT/ML X5UNITS SUBQ SCH ×2 (08:10→21:43)
[2022-05-02 08:29] LABS: VBG PCO2 < 13 mmHg (41-51); VBG PH 6.71 pH Units (7.32-7.42); VBG PO2 155 mmHg (25-50)
[2022-05-02 08:29] LABS: ABG PCO2 < 13 mmHg (35-45); ABG PH 6.89 pH Units (7.32-7.45); ABG PO2 175 mmHg (85-104)
[2022-05-02] MEDS ORDERED: Ondansetron 4 MG/2 ML VIAL IVP PRN (14:52)
[2022-05-02] MEDS ORDERED: Insulin LISPRO 300 UNITS/3 ML VIAL SUBQ SCH (16:20)
[2022-05-02 17:06] LABS: Adenovirus F 40/41 PCR Not detected (Not detect); Astrovirus PCR Not detected (Not detect); C.difficile Toxin A/B Gene PCR Not detected (Not detect); Campylobacter by PCR Not detected (Not detect); Cryptosporidium by PCR Not detected (Not detect); Cyclospora cayetanensis PCR Not detected (Not detect); Entamoeba histolytica PCR Not detected (Not detect); Enteroaggregative E.coli(EAEC) Not detected (Not detect); Enteropathogenic E.coli(EPEC) DETECTED (Not detect); Enterotoxigenic E.coli (ETEC) Not detected (Not detect); Giardia lamblia PCR Not detected (Not detect); Norovirus GI/GII PCR Not detected (Not detect); Plesiomonas shigelloides PCR Not detected (Not detect); Rotavirus A PCR Not detected (Not detect); Salmonella PCR Not detected (Not detect); Sapovirus PCR Not detected (Not detect); Shig/EnteroinvasiveE coli EIEC Not detected (Not detect); Shigalike tox-prod E coli STEC Not detected (Not detect); Vibrio PCR Not detected (Not detect); Vibrio cholerae PCR Not detected (Not detect); Yersinia enterocolitica PCR Not detected (Not detect)
[2022-05-02 17:16] LABS: BUN/Creatinine Ratio 13 (6-26); Blood Urea Nitrogen 13 mg/dL (6-20); Calcium 8.4 mg/dL (8.6-10.3); Carbon Dioxide 23 mEq/L (23-29); Chloride 96 mEq/L (98-107); Glucose 384 mg/dL (70-105); Lipase 369 Units/L (11-82); Osmolality,Calculated 286 (280-300); Potassium 3.3 mEq/L (3.5-5.1); Sodium 130 mEq/L (136-145)
[2022-05-02] MEDS: Loratadine 10 MG TABLET PO SCH (21:31)
[2022-05-02] MEDS ORDERED: D5% in Water 1,000 ML IVC PRN (22:15)
[2022-05-02] MEDS ORDERED: Dextrose Gel 15 GM/37.5 ML TUBE PO PRN ×2 (22:15)
[2022-05-03 07:41] VITALS: BP 120/83; PULSE 93; TEMP 98; O2SAT 97
[2022-05-03] MEDS: Insulin LISPRO 300 UNITS/3 ML VIAL SUBQ SCH (08:01)
[2022-05-03] MEDS: Insulin DETEMIR 100 UNIT/ML X5UNITS SUBQ SCH (08:02)
[2022-05-03] MEDS: Gabapentin 400 MG CAPSULE PO SCH (08:02)
[2022-05-03] MEDS: *HR* Heparin 5,000 UNIT/ML VIAL SQ SCH (08:05)
== END 2022-05-03 10:18 | disposition home or self-care (01) | DRG 420 ==
LOC: ICNU 20:23 → EMEROOARM 20:23 → SUATTDRO 23:10 → ICNU 23:45 → 3ANU 05-01 14:09
PROVIDERS: ADMIT Internal Medicine; ATTEND Family Medicine

== ENCOUNTER 2022-06-07 12:42 | Inpatient (IN) ==
[2022-06-07 13:31] LABS: Hematocrit 44.9 % (37.5-50.1); Hemoglobin 12.9 g/dL (12.9-16.9); Mean Corpuscular HGB Conc 28.7 g/dL (31.6-35.5); Mean Corpuscular Hemoglobin 32.1 pg (28.0-33.3); Mean Corpuscular Volume 111.7 fL (83.0-100.0); Mean Platelet Volume 10.6 fL (9.4-12.4); Platelet Count 412 K/mcL (140-400); Red Blood Count 4.02 M/mcL (4.19-5.50); Red Cell Distribution Width 12.8 % (11.5-14.5); White Blood Count 29.7 K/mcL (4.3-11.1)
[2022-06-07 13:37] LABS: Prothrombin Time 10.8 Seconds (9.4-12.1)
[2022-06-07 13:39] LABS: Activated Partial Thrombo Time 22.3 Seconds (26.0-36.0)
[2022-06-07 13:57] LABS: Basophils # 0.3 K/mcL (0.0-0.2); Lymphocytes # 2.1 K/mcL (0.6-4.6); Monocytes # 1.5 K/mcL (0.0-1.3); Neutrophils # 25.3 K/mcL (1.6-8.9); Platelet Estimate Normal (Normal)
[2022-06-07 13:58] LABS: Anisocytosis 1+ (Not Present)
[2022-06-07] MEDS: 0.9 % Sodium Chloride 1,000 ML IVC ONE ×2 (13:59→21:01)
[2022-06-07 14:19] LABS: Alanine Aminotransferase 60 Units/L (7-52); Albumin 4.4 g/dL (3.5-5.7); Albumin/Globulin Ratio 1.4 (1.1-2.2); Alkaline Phosphatase 175 Units/L (34-104); Aspartate Amino Transferase 20 Units/L (13-39); BUN/Creatinine Ratio 19 (6-26); Bilirubin,Indirect 0.3 mg/dL (0.0-1.0); Bilirubin,Total 0.3 mg/dL (0.3-1.0); Blood Urea Nitrogen 39 mg/dL (6-20); Calcium 9.2 mg/dL (8.6-10.3); Carbon Dioxide < 4 mEq/L (23-29); Chloride 92 mEq/L (98-107); Ethanol < 10 mg/dL (Less than 10); Globulin 3.1 g/dL (2.4-3.5); Glucose 1085 mg/dL (70-105); Osmolality,Calculated 338 (280-300); Potassium 5.8 mEq/L (3.5-5.1); Sodium 132 mEq/L (136-145); Thyroid Stimulating Hormone 1.031 mcIU/mL (0.340-5.600); Total Protein 7.5 g/dL (6.4-8.9); Troponin I < 0.03 ng/mL (< 0.04)
[2022-06-07] MEDS ORDERED: 0.9 % Sodium Chloride 1,000 ML IV ONE (15:12)
[2022-06-07 15:18] LABS: ABG PCO2 < 13 mmHg (35-45); ABG PH 6.68 pH Units (7.32-7.45); ABG PO2 149 mmHg (85-104)
[2022-06-07] MEDS ORDERED: cefTRIAXone 2,000 MG in 0.9 % Sodium Chloride Mini Bag 100 ML IVPB ONE ×2 (15:30→15:33)
[2022-06-07 15:47] LABS: Amphetamine Screen,Urine Negative ng/mL (Cutoff=1000); Barbiturate Screen,Urine Negative ng/mL (Cutoff=200); Benzodiazepines Screen,Urine Negative ng/mL (Cutoff=300); Cannabinoid Screen,Urine Negative ng/mL (Cutoff = 50); Cocaine Screen,Urine Negative ng/mL (Cutoff= 300); Opiate Screen,Urine Negative ng/mL (Cutoff=300); Phencyclidine Screen,Urine Negative ng/mL (Cutoff=25)
[2022-06-07 15:49] LABS: Bacteria,Urine Few per hpf (None-Few); Bilirubin,Urine Negative (Negative); Blood,Urine Small (Negative); Clarity,Urine Clear (Clear); Color,Urine Light-Yellow (Yellow); Glucose,Urine (UA) >=1000 mg/dL (Normal); Ketones,Urine 80 mg/dL (Negative); Leukocyte Esterase,Urine Negative (Negative); Mucus,Urine Few per lpf (None-Few); Nitrite,Urine Negative (Negative); PH,Urine 5.5 pH Units (5.0-8.0); Protein,Urine 30 mg/dL (Neg-Trace); RBC,Urine 0-3 per hpf (0-3); Specific Gravity,Urine 1.024 (1.010-1.025); Squamous Epithelial Cell,Urine Few per hpf (None-Few); Urobilinogen,Urine Normal (Normal); WBC,Urine 0-3 per hpf (0-3)
[2022-06-07] MEDS ORDERED: cefTRIAXone 2,000 MG in 0.9 % Sodium Chloride 20 ML IVP ONE (16:08)
[2022-06-07] MEDS: 0.9 % Sodium Chloride 1,000 ML IVC SCH ×2 (16:14→17:12)
[2022-06-07] MEDS ORDERED: Naloxone 0.4 MG/ML INJ IVP PRN (17:04)
[2022-06-07] MEDS ORDERED: Ondansetron 4 MG/2 ML VIAL IVP PRN (17:04)
[2022-06-07] MEDS ORDERED: Acetaminophen 325 MG TABLET PO PRN (17:04)
[2022-06-07] MEDS ORDERED: Insulin Regular, Human 100 UNIT/ML IV PRN (17:11)
[2022-06-07] MEDS ORDERED: *HR* Dextrose 50 % in Water (Syg) 50 ML SYRINGE IVP PRN (17:11)
[2022-06-07] MEDS: 0.45 % Sodium Chloride w/KCl 20 MEQ/1,000 ML MLS IVC SCH ×2 (17:37→19:31)
[2022-06-07] MEDS: Pantoprazole 40 MG VIAL IVP SCH (17:37)
[2022-06-07 18:00] LABS: ABG Base Excess < -30 mEq/L (-2 to 3); ABG HCO3 2 mEq/L (21-27); ABG Oxygen Saturation 23 % (95-98); ABG PCO2 22 mmHg (35-45); ABG PH 6.59 pH Units (7.32-7.45); ABG PO2 38 mmHg (85-104); ABG TCO2 < 5 mEq/L (20-26)
[2022-06-07] MEDS: Sodium Bicarbonate 150 MEQ in Water for inj. (sterile) 1,000 ML IVC SCH (18:30)
[2022-06-07 21:01] LABS: ABG Base Excess -28 mEq/L (-2 to 3); ABG HCO3 4 mEq/L (21-27); ABG Oxygen Saturation 89 % (95-98); ABG PCO2 18 mmHg (35-45); ABG PH 6.92 pH Units (7.32-7.45); ABG PO2 91 mmHg (85-104); ABG TCO2 < 5 mEq/L (20-26)
[2022-06-07] MEDS ORDERED: 0.9 % Sodium Chloride 1,000 ML ONE (23:19)
[2022-06-07] MEDS ORDERED: D5% in 0.45% NACL w KCl 20 MEQ/1,000 ML MLS IVC PRN (23:37)
[2022-06-08] MEDS: D5% in 0.45% NACL 1,000 ML IVC PRN ×2 (00:39→13:14)
[2022-06-08 01:27] LABS: ABG Base Excess -17 mEq/L (-2 to 3); ABG HCO3 8 mEq/L (21-27); ABG Oxygen Saturation 91 % (95-98); ABG PCO2 16 mmHg (35-45); ABG PO2 66 mmHg (85-104); ABG TCO2 8 mEq/L (20-26)
[2022-06-08 02:30] LABS: Estimated Average Glucose 194 mg/dl; Hemoglobin A1C 8.4 %
[2022-06-08 04:16] LABS: Potassium 3.6 mEq/L (3.5-5.1)
[2022-06-08 04:17] LABS: Calcium 7.1 mg/dL (8.6-10.3)
[2022-06-08 05:04] LABS: Albumin 3.1 g/dL (3.5-5.7); Albumin/Globulin Ratio 1.6 (1.1-2.2); Bilirubin,Total 0.3 mg/dL (0.3-1.0); Calcium 7.2 mg/dL (8.6-10.3); Potassium 3.6 mEq/L (3.5-5.1); Total Protein 5.1 g/dL (6.4-8.9)
[2022-06-08] MEDS: Sodium Bicarbonate 150 MEQ in Water for inj. (sterile) 1,000 ML IVC SCH (06:17)
[2022-06-08] MEDS: 0.45 % Sodium Chloride w/KCl 20 MEQ/1,000 ML MLS IVC SCH (08:34)
[2022-06-08] MEDS: Pantoprazole 40 MG VIAL IVP SCH (08:40)
[2022-06-08] MEDS ORDERED: 0.9 % Sodium Chloride 1,000 ML IV ONE (11:43)
[2022-06-08 12:59] LABS: Calcium 6.7 mg/dL (8.6-10.3); Potassium 3.9 mEq/L (3.5-5.1)
[2022-06-08 15:14] LABS: Calcium 6.8 mg/dL (8.6-10.3); Potassium 3.8 mEq/L (3.5-5.1)
[2022-06-08] MEDS ORDERED: Insulin DETEMIR 100 UNIT/ML X5UNITS SUBQ STA (15:19)
[2022-06-08 16:22] LABS: Basophils % 0.1 %; Eosinophils % 0.1 %; Hematocrit 26.7 % (37.5-50.1); Hemoglobin 9.3 g/dL (12.9-16.9); Immature Granulocytes % 0.5 % (0-4); Lymphocytes # 0.7 K/mcL (0.6-4.6); Lymphocytes % 6.3 %; Mean Corpuscular HGB Conc 34.8 g/dL (31.6-35.5); Mean Corpuscular Hemoglobin 32.2 pg (28.0-33.3); Mean Corpuscular Volume 92.4 fL (83.0-100.0); Mean Platelet Volume 9.7 fL (9.4-12.4); Monocytes # 0.6 K/mcL (0.0-1.3); Monocytes % 5.6 %; Neutrophils # 9.4 K/mcL (1.6-8.9); Platelet Count 153 K/mcL (140-400); Red Blood Count 2.89 M/mcL (4.19-5.50); Red Cell Distribution Width 13.2 % (11.5-14.5); Segmented Neutrophils % 87.4 %; White Blood Count 10.7 K/mcL (4.3-11.1)
[2022-06-08] MEDS ORDERED: Insulin LISPRO 300 UNITS/3 ML VIAL SUBQ SCH ×2 (16:30→17:00)
[2022-06-08 17:12] LABS: Influenza A PCR Negative (Negative); Influenza B PCR Negative (Negative); Resp. Syncytial Virus PCR Negative (Negative)
[2022-06-08 17:17] LABS: SARS-CoV-2 by PCR (In House) Negative (Negative)
[2022-06-08] MEDS ORDERED: Ondansetron 4 MG/2 ML VIAL IVP PRN (17:33)
[2022-06-08] MEDS ORDERED: *HR* Dextrose 50 % in Water (Syg) 50 ML SYRINGE IVP PRN (17:33)
[2022-06-08] MEDS ORDERED: Acetaminophen 325 MG TABLET PO PRN (17:33)
[2022-06-08] MEDS ORDERED: Naloxone 0.4 MG/ML INJ IVP PRN (17:33)
[2022-06-08 23:04] LABS: Adenovirus F 40/41 PCR Not detected (Not detect); Astrovirus PCR Not detected (Not detect); C.difficile Toxin A/B Gene PCR Not detected (Not detect); Campylobacter by PCR Not detected (Not detect); Cryptosporidium by PCR Not detected (Not detect); Cyclospora cayetanensis PCR Not detected (Not detect); Entamoeba histolytica PCR Not detected (Not detect); Enteroaggregative E.coli(EAEC) Not detected (Not detect); Enteropathogenic E.coli(EPEC) Not detected (Not detect); Enterotoxigenic E.coli (ETEC) Not detected (Not detect); Giardia lamblia PCR Not detected (Not detect); Norovirus GI/GII PCR Not detected (Not detect); Plesiomonas shigelloides PCR Not detected (Not detect); Rotavirus A PCR Not detected (Not detect); Salmonella PCR Not detected (Not detect); Sapovirus PCR Not detected (Not detect); Shig/EnteroinvasiveE coli EIEC Not detected (Not detect); Shigalike tox-prod E coli STEC Not detected (Not detect); Vibrio PCR Not detected (Not detect); Vibrio cholerae PCR Not detected (Not detect); Yersinia enterocolitica PCR Not detected (Not detect)
[2022-06-09] MEDS: Insulin LISPRO 300 UNITS/3 ML VIAL SUBQ SCH ×6 (07:54→16:59)
[2022-06-09 08:10] LABS: Calcium 7.3 mg/dL (8.6-10.3); Potassium 3.4 mEq/L (3.5-5.1)
[2022-06-09 08:22] LABS: Basophils % 0.2 %; Eosinophils % 0.1 %; Hematocrit 27.1 % (37.5-50.1); Hemoglobin 9.3 g/dL (12.9-16.9); Lymphocytes # 1.1 K/mcL (0.6-4.6); Lymphocytes % 9.8 %; Mean Corpuscular HGB Conc 34.3 g/dL (31.6-35.5); Mean Corpuscular Volume 93.1 fL (83.0-100.0); Mean Platelet Volume 10.3 fL (9.4-12.4); Monocytes # 0.5 K/mcL (0.0-1.3); Monocytes % 4.4 %; Neutrophils # 9.5 K/mcL (1.6-8.9); Platelet Count 140 K/mcL (140-400); Red Blood Count 2.91 M/mcL (4.19-5.50); Red Cell Distribution Width 13.7 % (11.5-14.5); Segmented Neutrophils % 84.5 %; White Blood Count 11.3 K/mcL (4.3-11.1)
[2022-06-09] MEDS: Pantoprazole 40 MG VIAL IVP SCH (08:32)
[2022-06-09] MEDS: *HR* Heparin 5,000 UNIT/ML VIAL SQ SCH ×2 (14:20→20:35)
[2022-06-09] MEDS: Gabapentin 300 MG CAPSULE PO SCH ×2 (15:23→20:35)
[2022-06-09] MEDS ORDERED: Insulin DETEMIR 100 UNIT/ML X5UNITS SUBQ SCH ×2 (21:00)
[2022-06-10 01:33] LABS: Calcium 8.5 mg/dL (8.6-10.3); Potassium 3.1 mEq/L (3.5-5.1)
[2022-06-10 09:27] LABS: Basophils % 0.1 %; Eosinophils % 0.2 %; Hemoglobin 10.3 g/dL (12.9-16.9); Lymphocytes # 1.2 K/mcL (0.6-4.6); Lymphocytes % 11.7 %; Mean Corpuscular HGB Conc 34.3 g/dL (31.6-35.5); Mean Corpuscular Hemoglobin 32.2 pg (28.0-33.3); Mean Corpuscular Volume 93.8 fL (83.0-100.0); Mean Platelet Volume 9.8 fL (9.4-12.4); Monocytes # 0.4 K/mcL (0.0-1.3); Monocytes % 3.5 %; Neutrophils # 8.4 K/mcL (1.6-8.9); Platelet Count 122 K/mcL (140-400); Red Cell Distribution Width 13.6 % (11.5-14.5); Segmented Neutrophils % 83.5 %
[2022-06-10 09:42] LABS: Calcium 8.6 mg/dL (8.6-10.3); Potassium 3.1 mEq/L (3.5-5.1)
[2022-06-10] MEDS: *HR* Heparin 5,000 UNIT/ML VIAL SQ SCH ×3 (09:58→22:02)
[2022-06-10] MEDS: Insulin LISPRO 300 UNITS/3 ML VIAL SUBQ SCH ×5 (09:59→17:33)
[2022-06-10] MEDS: Gabapentin 300 MG CAPSULE PO SCH (10:00)
[2022-06-10] MEDS: Pantoprazole 40 MG VIAL IVP SCH (10:01)
[2022-06-10] MEDS: Gabapentin 400 MG CAPSULE PO SCH ×2 (14:55→22:02)
[2022-06-10] MEDS ORDERED: Insulin DETEMIR 100 UNIT/ML X5UNITS SUBQ SCH (21:00)
[2022-06-11 03:24] LABS: Calcium 8.7 mg/dL (8.6-10.3); Potassium 3.3 mEq/L (3.5-5.1)
[2022-06-11] MEDS: *HR* Heparin 5,000 UNIT/ML VIAL SQ SCH ×2 (06:33→14:04)
[2022-06-11] MEDS: Gabapentin 400 MG CAPSULE PO SCH (07:52)
[2022-06-11] MEDS: Insulin LISPRO 300 UNITS/3 ML VIAL SUBQ SCH ×4 (07:53→12:35)
[2022-06-11 11:03] LABS: Basophils % 0.3 %; Eosinophils # 0.1 K/mcL (0.0-0.6); Eosinophils % 0.7 %; Hemoglobin 10.5 g/dL (12.9-16.9); Immature Granulocytes % 0.4 % (0-4); Mean Corpuscular Hemoglobin 31.7 pg (28.0-33.3); Mean Corpuscular Volume 90.6 fL (83.0-100.0); Mean Platelet Volume 9.8 fL (9.4-12.4); Monocytes # 0.4 K/mcL (0.0-1.3); Monocytes % 3.8 %; Neutrophils # 8.6 K/mcL (1.6-8.9); Nucleated Red Blood Cells 0.3 /100 WBC (0); Platelet Count 122 K/mcL (140-400); Red Blood Count 3.31 M/mcL (4.19-5.50); Red Cell Distribution Width 12.9 % (11.5-14.5); Segmented Neutrophils % 76.8 %; White Blood Count 11.1 K/mcL (4.3-11.1)
[2022-06-11 12:16] VITALS: BP 125/75; PULSE 88; TEMP 98.7; O2SAT 94
== END 2022-06-11 14:10 | disposition home or self-care (01) | DRG 420 ==
LOC: EMEROOARM 12:42 → ICNU 19:21 → SUATTDRO 19:21 → ICNU 19:55 → 3ANU 06-08 18:56
PROVIDERS: ADMIT Family Medicine; ATTEND Internal Medicine